=== PATIENT | female | born 1950 | race Caucasian/White ===

== ENCOUNTER 2016-10-13 08:42 | Inpatient (IN) | payer OTHER ==
[~2016-10-13 08:42] MED LIST: LIDOCAINE HCL 1%, 10 MG/ML (20ML VIAL) IJ ONE
[2016-10-13 08:59] VITALS: BMI 41.5
--- NOTE | 2016-10-13 09:57 | PDOC ---
History of Present Illness - General Chief Complaint: Revisit, Lab Variance Stated Complaint: PCP SENT (DIALYSIS) Time Seen by Provider: 10/13/16 09:06 History Source: Patient Exam Limitations: No Limitations - History of Present Illness Initial Comments: 10/13/16 09:51 HPI: This 66 year old female presents to ER for admission for emergent dialysis and access per her PMD, Bethany Lopez. She has had increase cr levels and fluid overload recently requiring HD. She is AAOx3 and pleaant with full understanding of why she is here. Chief Compliant:preop admission for emergent dialysis and access. PMH: IDDM, ARF, FH: Pt has not recently traveled outside the country in the last 30 days. Pt has not been in contact with people who have traveled out of the country, in contact with people who have been ill with fever, n, v, d. SH: smoking use: former illicit drug use: NONE alcohol use: NONE PSH: Home med use noted on OCT Allergies: nka Immunizations: PCP: Dr. De La Cruz Renal: Dr. Shivam Arreguin vascular 10/13/16 11:18 Past History - Past Medical History Allergies/Adverse Reactions: Allergies Allergy/AdvReac Type Severity Reaction Status Date / Time No Known Allergies Allergy Verified 10/13/16 08:59 Home Medications: Ambulatory Orders Aspirin [ASA -] 325 mg PO DAILY 06/06/13 Ezetimibe [Zetia] 10 mg PO HS 06/06/13 Glimepiride 10 mg PO DAILY 06/06/13 Levothyroxine [Synthroid -] 200 mcg PO DAILY 06/06/13 Metformin HCl [Glucophage -] 850 mg PO TID 06/06/13 Anemia: No Asthma: No Cancer: Yes (LEFT BREAST 2001) Cardiac Disorders: No CVA: No COPD: No CHF: No Dementia: No Diabetes: Yes (2001) GI Disorders: No Disorders: No HTN: No Hypercholesterolemia: Yes Liver Disease: No Seizures: No Thyroid Disease: Yes - Surgical History Abdominal Surgery: No Appendectomy: No Cardiac Surgery: No Cholecystectomy: No Lung Surgery: No Neurologic Surgery: No Orthopedic Surgery: No - Psycho/Social/Smoking Cessation Hx Suicidal Ideation: No Smoking History: Former smoker Have you smoked in the past 12 months: No Number of Cigarettes Smoked Daily: 70 If you are a former smoker, when did you quit?: 2010 Information on smoking cessation initiated: No Hx Alcohol Use: No Drug/Substance Use Hx: No Substance Use Type: None Review of Systems - Review of Systems Able to Perform ROS?: Yes Comments:: 10/13/16 09:55 General statement: "here for dialysis" Hematology: neg history of bleeding/blood thinners Skin: Neg for lesions, rash, bruising. HEENT: Neg symptoms Respiratory: Neg SOB or difficulty in breathing Cardiac: Neg chest pain GI: Neg pain, n/v : Neg problems on voiding MS: Neg for joint pain/stiffness, + LE edema Neuro: Neg for LOC, weakness, Endocrine: Neg for excess thirst/hunger, cold/heat intolerance, excess sweating Allergies: Neg for allergies *Physical Exam - Vital Signs Last Vital Signs Temp Pulse Resp BP Pulse Ox 97.8 F 60 20 153/64 96 10/13/16 08:55 10/13/16 08:55 10/13/16 08:55 10/13/16 08:55 10/13/16 08:55 - Physical Exam Comments: 10/13/16 09:55 General Appearance: This well appearing obese white female ambulatory on own V/S: hemodynamically stable, afebrile Skin: WNL of pt's skin color, no signs of pallor, mottling, cyanosis Head:symmetrical Eyes: EOM's intact, PERRLA Ears: denies pain Nose: patent Throat: lips, teeth, gums, tongue, buccal mucos pink and moist Lungs: Chest symmetry equal. Cap refill <3 seconds. Lung sounds clear Cardiac: PMI at R 4MCL space, pos S1 and S2, regular rate at 54 . Abdomen: Soft, round, nontender : Not observed Muscularskeletal: Gait steady, ambulated in to ER, no edema +PMS Neuro: AAOx3, cognitively intact, speech clear and appropriate. 10/13/16 09:58 Heart Score/ECG Review - Electrocardiogram EKG: Normal - Age Age: >/= 65 - Risk Factors Risk Factors Heart Score: Yes Hx Obesity Based on the list above the patient has:: 1-2 risk factors - ECG Intrepretation Rhythm: Regular Rhythm - P and MO Prominent R with upright T in V1 (true posterior NC): No - ST and T Early Repolarization: No Non Specific ST-T Wave changes: No Flattened T Waves: No Prolonged Q-T Interval: No - ECG Impressions Ischemic Changes: No Bradycardia: Yes (rate 54) Torsades lyndsey Pointes: No WPW: No ED Treatment Course - LABORATORY CBC & Chemistry Diagram: 10/13/16 09:45 10/13/16 09:45 - RADIOLOGY Radiology Studies Ordered: Category Date Time Status CHEST PA & LAT [RAD] Stat Radiology 10/13/16 09:22 Ordered Medical Decision Making - Medical Decision Making 10/13/16 09:55 A/P 66 year old obese white female with emergent need of dialysis and requiring access. 1. Dr. Arreguin in ER who is aware of pt and spoke with pt while here. 2. NPO for surgical access for dialysis today 3. Pre op labs ordered 4. EKG: SB rate 54, no ectopy 5. CXR 10/13/16 11:[address] Wray, renal regarding pt need for HD. He is aware of pending admission. Spoke with hospitalist re: admission. Med surg admission *DC/Admit/Observation/Transfer Diagnosis at time of Disposition: Acute renal failure, Admission for dialysis and dialysis catheter care - Discharge Dispostion Condition at time of disposition: Stable Admit: Yes
[2016-10-13 10:13] LABS: BASOPHIL 1.1 % (0-2.0); MCH 29.9 pg (25.7-33.7); MCHC 32.4 g/dl (32.0-36.0); MEAN CELL VOLUME 92.3 fl (80-96); MEAN PLT VOLUME 8.7 fl (7.5-11.1); NEUTROPHILS 76.8 % (42.8-82.8); PLATELET COUNT 377 K/MM3 (134-434); RDW 15.6 % (11.6-15.6); WHITE BLOOD COUNT 13.2 K/mm3 (4.0-10.0)
[2016-10-13 10:18] LABS: ALBUMIN 3.1 g/dl (3.4-5.0); BILIRUBIN,TOTAL 0.3 mg/dL (0.2-1.0); CALCIUM 8.7 mg/dL (8.5-10.1); CREATININE 5.6 mg/dL (0.55-1.02); TOT PROT 6.6 g/dl (6.4-8.2)
[2016-10-13 10:33] LABS: URINE APPEARANCE CLOUDY; URINE BILIRUBIN NEGATIVE (NEGATIVE); URINE BLOOD NEGATIVE (NEGATIVE); URINE COLOR YELLOW; URINE GLUCOSE (UA) 1+ (NEGATIVE); URINE KETONE NEGATIVE (NEGATIVE); URINE NITRITE NEGATIVE (NEGATIVE); URINE UROBILINOGEN NEGATIVE E.U./dl (0.2-1.0)
[2016-10-13 10:34] LABS: INR 1.09 (0.82-1.09)
[2016-10-13 10:37] LABS: ACTIVATED PTT 34.8 SECONDS (26.9-34.4)
--- NOTE | 2016-10-13 10:56 | CONSULT ---
Consult - text type - Consultation Consultation Note: Renal Consult for CKD Stage 5 with volume overload This is a 66 year old woman with PMhx of Breast Ca s/p lumpectomy and chemo, Insulin Dependent DM, Hypertension, Obesity who was sent into the ED by Dr. Bethany Santos for advanced CKD with volume overload for dialysis initiation. Mrs. Lantigua reports +CARDONA, Le edema and orthopnea. No chest pain. No N/V/D. + Weakness and mild lethargy. No flank pain. No Hx of kidney stones, or frequent UTI's. No Abd pain. + Infrequent NSAID use. No recent contrast exposure. The benefits and risks of dialysis has been explained to the patient and she is agreeable to start. PMhx: as above Allergies: NKDA Family Hx: NC Social Hx: Former smoker ROS: as per HPI, all other pertinent ros negative Home Meds: Home Medications Medication Instructions Recorded Aspirin [ASA -] 325 mg PO DAILY 06/06/13 Ezetimibe [Zetia] 10 mg PO HS 06/06/13 Glimepiride 10 mg PO DAILY 06/06/13 Levothyroxine [Synthroid -] 200 mcg PO DAILY 06/06/13 Metformin HCl [Glucophage -] 850 mg PO TID 06/06/13 Vital Signs Temperature 97.8 F 10/13/16 08:55 Pulse Rate 60 10/13/16 08:55 Respiratory Rate 20 10/13/16 08:55 Blood Pressure 153/64 10/13/16 08:55 O2 Sat by Pulse Oximetry (%) 96 10/13/16 08:55 Gen: NAD, awake and alert HEENT: NC/AT, MMM, No JVD CVS: RRR, No M/R Lungs: CTA, no rales or wheeze Abd: soft NT/ND Ext: No edema, clubbing or cyanosis : No bladder distension Neuro: AAOx3, no focal defects CBC, BMP 10/13/16 09:45 Laboratory Tests 10/13/16 09:45 Sodium Pending Potassium Pending Chloride Pending Carbon Dioxide Pending Anion Gap Pending BUN Pending Creatinine Pending Albumin Pending A/P 66 year old woman with PMhx of Breast Ca s/p lumpectomy and chemo, Insulin Dependent DM, Hypertension, Obesity who was sent into the ED by Dr. Bethany Santos for advanced CKD with volume overload for dialysis initiation. #CKD stage 5 with fluid overload -> ESRD Will plan to start dialysis today AVF and Tunneled HD catheter placement as per Vascular Sx Will plan for initial HD today and then 2nd Hd treatment tomorrow Dose all meds for intermittent HD CXR, Hepatits profile Case management referral for HD unit placement Nutrition eval for CKD/ESRD diet education #Volume Overload/CHF Will UF as tolerated with HD Continue Lasix Daily #CKD Related Anemia Hgb > 10 No acute indication for MATI at this time #IDDM Continue Insulin Thank you Will follow Jose Carlos Wray DO
[2016-10-13] MEDS ORDERED: ACETAMINOPHEN 325 MG TABLET (FP) PO PRN ×2 (10:57→13:33)
[2016-10-13] MEDS ORDERED: ONDANSETRON 4 MG/2 ML VIAL IVPB PRN ×2 (10:57→13:33)
--- NOTE | 2016-10-13 10:57 | HP ---
CHIEF COMPLAINT: PCP: Dr. Pearson HISTORY OF PRESENT ILLNESS: This is a 66 year old woman with history of breast ca s/p lumpectomy and chemotherapy, IDDM, and HTN referred to the ED by Dr. Bethany Santos for advanced CKD with volume overload for emergent dialysis. The patient complains of orthopnea, worsening lower extremity edema, dyspnea at rest which is worse on exertion, weakness, and fatigue. ER course was notable for: (1) HCO3 18 (2) BUN/Cr 85/5.6 (3) K 5.1 (4) CXR: congestive changes (5) UA: 74 WBCs, 22 RBCs (6) WBC 13.2 Recent Travel: None Social History: Lives alone, retired telephone company worker Smoking: Former smoker Alcohol: None Family History: Non-contributory to this admission Allergies No Known Allergies Allergy (Verified 10/13/16 08:59) HOME MEDICATIONS: Home Medications Medication Instructions Recorded Aspirin [ASA -] 325 mg PO DAILY 06/06/13 Ezetimibe [Zetia] 10 mg PO HS 06/06/13 Glimepiride 10 mg PO DAILY 06/06/13 Levothyroxine [Synthroid -] 200 mcg PO DAILY 06/06/13 Metformin HCl [Glucophage -] 850 mg PO TID 06/06/13 REVIEW OF SYSTEMS CONSTITUTIONAL: Generalized weakness, malaise Absent: fever, chills, diaphoresis HEENT: Absent: rhinorrhea, nasal congestion, throat pain, throat swelling, difficulty swallowing, mouth swelling, ear pain, eye pain, visual changes CARDIOVASCULAR: Progressive LE edema Absent: chest pain, syncope, palpitations, irregular heart rate, lightheadedness RESPIRATORY: Shortness of breath at rest, worse with exertion. Orthopnea. Absent: cough, wheezing, stridor, hemoptysis GASTROINTESTINAL: Absent: abdominal pain, abdominal distension, nausea, vomiting, diarrhea, constipation, melena, hematochezia GENITOURINARY: Absent: dysuria, frequency, urgency, hesitancy, hematuria, flank pain, genital pain MUSCULOSKELETAL: Absent: myalgia, arthralgia, joint swelling, back pain, neck pain SKIN: Absent: rash, itching, pallor HEMATOLOGIC/IMMUNOLOGIC: Absent: easy bleeding, easy bruising, lymphadenopathy, frequent infections ENDOCRINE: Absent: unexplained weight gain, unexplained weight loss, heat intolerance, cold intolerance NEUROLOGIC: Absent: headache, focal weakness or paresthesias, dizziness, unsteady gait, seizure, mental status changes, bladder or bowel incontinence PSYCHIATRIC: Absent: anxiety, depression, suicidal or homicidal ideation, hallucinations. PHYSICAL EXAMINATION Vital Signs - 24 hr 10/13/16 08:55 Temperature 97.8 F Pulse Rate 60 Respiratory 20 Rate Blood Pressure 153/64 O2 Sat by Pulse 96 Oximetry (%) GENERAL: Awake, alert, and fully oriented, in no acute distress. HEAD: Normal with no signs of trauma. EYES: Pupils equal, round and reactive to light, extraocular movements intact, sclera anicteric, conjunctiva clear. No lid lag. EARS, NOSE, THROAT: Ears normal, nares patent, oropharynx clear without exudates. Moist mucous membranes. NECK: Normal range of motion, supple without lymphadenopathy, JVD, or masses. LUNGS: Fine rales at bases. No accessory muscle use. HEART: Regular rate and rhythm, normal S1 and S2 without murmur, rub or gallop. ABDOMEN: Soft, nontender, not distended, normoactive bowel sounds, no guarding, no rebound, no masses. No hepatomegaly or splenomegaly. MUSCULOSKELETAL: Normal range of motion at all joints. No bony deformities or tenderness. No CVA tenderness. UPPER EXTREMITIES: 2+ pulses, warm, well-perfused. No cyanosis. No clubbing. Cap refill <2 seconds. No peripheral edema. LOWER EXTREMITIES: 2+ pulses, warm, well-perfused. No calf tenderness. 3+ LE edema bilaterally. NEUROLOGICAL: Cranial nerves II-XII intact. Normal speech. Normal gait. PSYCHIATRIC: Cooperative. Good eye contact. Appropriate mood and affect. SKIN: Warm, dry, normal turgor, no rashes or lesions noted. Laboratory Results - last 24 hr 10/13/16 10/13/16 10/13/16 09:22 09:45 09:45 WBC 13.2 H RBC 3.76 Hgb 11.2 Hct 34.7 MCV 92.3 MCHC 32.4 RDW 15.6 Plt Count 377 MPV 8.7 Neutrophils % 76.8 Lymphocytes % 11.6 Monocytes % 7.5 Eosinophils % 3.0 Basophils % 1.1 Sodium 139 Potassium 5.1 Chloride 107 Carbon Dioxide 18 L Anion Gap 14 BUN 85 H Creatinine 5.6 H Creat Clearance w eGFR 7.55 Random Glucose 104 Calcium 8.7 Total Bilirubin 0.3 AST 14 L ALT 18 Alkaline Phosphatase 67 Total Protein 6.6 Albumin 3.1 L Blood Type A POSITIVE Antibody Screen Negative ASSESSMENT/PLAN: 66 year old female with advanced CKD and volume overload, admitted for Shiley placement and emergent HD. Problem List - Problem (1) Acute renal failure Assessment/Plan: -Volume overload; emergent HD indicated -Check Hep panel -Renal diet -Avoid nephrotoxins as able (unclear what indication for full dose ASA is; will continue 81mg daily) -Nephrology following Code(s): N17.9 - ACUTE KIDNEY FAILURE, UNSPECIFIED (2) Admission for dialysis and dialysis catheter care Assessment/Plan: -For Shiley insertion this morning Code(s): Z99.2 - DEPENDENCE ON RENAL DIALYSIS (3) Diabetes Assessment/Plan: -Hold oral hypoglycemics while inpatient -ISS -FSACHS -Diabetic/renal diet Code(s): E11.9 - TYPE 2 DIABETES MELLITUS WITHOUT COMPLICATIONS (4) Hypertension Assessment/Plan: -Above goal -Patient takes Atenolol at home but is unsure of the dose; start 25mg daily -Re-evaluate after HD Code(s): I10 - ESSENTIAL (PRIMARY) HYPERTENSION (5) DVT prophylaxis Assessment/Plan: -Ambulation -Sqh 5000 units tid starting 10/14 after Shiley insertion Code(s): [id number] - Visit type - Emergency Visit Emergency Visit: Yes ED Registration Date: 10/13/16 Care time: The patient presented to the Emergency Department on the above date and was hospitalized for further evaluation of their emergent condition. - New Patient This patient is new to me today: Yes Date on this admission: 10/13/16 - Critical Care Critical Care patient: No
[2016-10-13 11:14] LABS: URINE LEUK ESTERASE 3+ (NEGATIVE); URINE PROTEIN 3+ (NEGATIVE)
[2016-10-13 11:23] LABS: URINE BACTERIA RARE /hpf (NONE SEEN); URINE HYALINE CAST 2 /lpf; URINE RBC 22 /hpf (0-3); URINE WBC 74 /hpf (3-5)
[2016-10-13] MEDS ORDERED: CEFTRIAXONE 1 GM in DEXTROSE 5%-WATER - 50 ML IVPB SCH (11:30)
[2016-10-13] MEDS ORDERED: CEFTRIAXONE 50 ML ONE (11:41)
--- NOTE | 2016-10-13 11:52 | CONSULT ---
- Consultation REQUESTING PROVIDER: Dr. Arreguin, vascular surgery CONSULT REQUEST: We have been asked to surgically evaluate this patient for ESRD , permacath placement. PCP: Dr. Bethany Goins HISTORY OF PRESENT ILLNESS:The patient was seen and examined with Dr. Arreguin today. The patient states that she has had kidney function problems which have been ongoing. Her medical doctors have been following her and then it was determined that she needed to have temporary HD access to start dialysis. She complains of worsening lower ext swelling despite being on lasix and an increase in her difficulty to breath. PMHx: breast cancer(treament lumpectomy and chemo/radiation), diabetes, SVT PSHx: Left breast lumpectomy 2001, tonsillectomy at 5, tubal ligation age 28 Home Medications Medication Instructions Recorded Aspirin [ASA -] 325 mg PO DAILY 06/06/13 Ezetimibe [Zetia] 10 mg PO HS 06/06/13 Glimepiride 10 mg PO DAILY 06/06/13 Levothyroxine [Synthroid -] 200 mcg PO DAILY 06/06/13 Metformin HCl [Glucophage -] 850 mg PO TID 06/06/13 Allergies Allergy/AdvReac Type Severity Reaction Status Date / Time No Known Allergies Allergy Verified 10/13/16 08:59 REVIEW OF SYSTEMS: CONSTITUTIONAL: Absent: fever, chills CARDIOVASCULAR: Absent: chest pain, syncope h/o CP with SVT(found when placed on portable 24 monitoring) RESPIRATORY: Absent: cough Present: SOB, left breast with healed scar GASTROINTESTINAL: Absent: abdominal pain, abdominal distension, GENITOURINARY: Absent: dysuria, hematuria(in the past) MUSCULOSKELETAL: Absent: joint swelling Present: diffuse joint pain, intermittent and no known injuries SKIN: Absent: rash, itching, pallor HEMATOLOGIC/IMMUNOLOGIC: Absent: easy bleeding, easy bruising, lymphadenopathy NEUROLOGIC: Absent: focal weakness Present: gait-walks with cane PHYSICAL EXAM: GENERAL: Awake, alert, and fully oriented, in no acute distress. HEAD: Normal with no signs of trauma. EYES: PERRL, sclera anicteric, conjunctiva clear. NECK: Normal ROM, supple without lymphadenopathy, JVD, or masses. LUNGS: Clear to auscultation bilat anteriorly. No wheezes, and no crackles. No accessory muscle use. HEART: Regular rate and rhythm. No murmurs ABDOMEN: Soft, nontender, not distended, normoactive bowel sounds, no guarding, no rebound, no masses. MUSCULOSKELETAL: Normal ROM at all joints. No bony deformities or tenderness. No CVA tenderness. UPPER EXTREMITIES: 2+ pulses, warm, well-perfused. No cyanosis. Cap refill <2 seconds. No peripheral edema. LOWER EXTREMITIES: 2+ pulses, warm, well-perfused. No calf tenderness. +3 pitting b/l LE edema. NEUROLOGICAL: Normal speech, gait stead with cane use. PSYCH: Cooperative. Good eye contact. Appropriate mood and affect. SKIN: Warm, dry, normal turgor, no rashes or lesions noted. Vital Signs Temperature 97.8 F 10/13/16 08:55 Pulse Rate 60 10/13/16 08:55 Respiratory Rate 20 10/13/16 08:55 Blood Pressure 153/64 10/13/16 08:55 O2 Sat by Pulse Oximetry (%) 96 10/13/16 08:55 Lab Results WBC 13.2 K/mm3 (4.0-10.0) H 10/13/16 09:45 RBC 3.76 M/mm3 (3.60-5.2) 10/13/16 09:45 Hgb 11.2 GM/dL (10.7-15.3) 10/13/16 09:45 Hct 34.7 % (32.4-45.2) 10/13/16 09:45 MCV 92.3 fl (80-96) 10/13/16 09:45 MCHC 32.4 g/dl (32.0-36.0) 10/13/16 09:45 RDW 15.6 % (11.6-15.6) 10/13/16 09:45 Plt Count 377 K/MM3 (134-434) 10/13/16 09:45 Sodium 139 mmol/L (136-145) 10/13/16 09:45 Potassium 5.1 mmol/L (3.5-5.1) 10/13/16 09:45 Chloride 107 mmol/L (98-107) 10/13/16 09:45 Carbon Dioxide 18 mmol/L (21-32) L 10/13/16 09:45 Anion Gap 14 (8-16) 10/13/16 09:45 BUN 85 mg/dL (7-18) H 10/13/16 09:45 Creatinine 5.6 mg/dL (0.55-1.02) H 10/13/16 09:45 Random Glucose 104 mg/dL (74-106) 10/13/16 09:45 Calcium 8.7 mg/dL (8.5-10.1) 10/13/16 09:45 Blood Type A POSITIVE 10/13/16 09:22 Antibody Screen Negative 10/13/16 09:22 INR 1.09 (0.82-1.09) 10/13/16 09:45 INR, PTT INR 1.09 (0.82-1.09) 10/13/16 09:45 cxr- cardiomegaly with increased interstitial marking. Problem List - Problems (1) Admission for dialysis and dialysis catheter care Assessment/Plan: pt with ESRD for permatcath placement today. She remains npo since this am, took her cardiac meds at 5 am Consent explained and obtained today with Dr. Arreguin in the ER Pre-op evaluation being completed and the patient is being admitted to the medical service She is right hand dominant, will order US of MOHSEN for vein mapping. Please no blood pressure/blood draw to left arm. Code(s): Z99.2 - DEPENDENCE ON RENAL DIALYSIS Visit type - Case Type Case Type: ED Admission - Emergency Emergency Visit: Yes Care time: The patient presented to the Emergency Department on the above date and was hospitalized for further evaluation of their emergent condition. - New patient This patient is new to me today: Yes Date on this admission: 10/13/16 - Critical Care Critical Care patient: No
[2016-10-13] MEDS ORDERED: CEFTRIAXONE 50 ML IVPB SCH (11:53)
[2016-10-13] MEDS ORDERED: MIDAZOLAM HCL 2 MG/2 ML SINGLE DOSE VIAL ONE (12:24)
[2016-10-13] MEDS ORDERED: PROPOFOL 20 ML ONE (12:40)
[2016-10-13] MEDS ORDERED: LIDOCAINE HCL 1%, 10 MG/ML (20ML VIAL) IJ ONE ×2 (12:43)
[2016-10-13] MEDS ORDERED: ceFAZolin SODIUM 1 GM VIAL ONE (12:43)
[2016-10-13] MEDS ORDERED: ONDANSETRON 4 MG/2 ML VIAL IVPUSH PRN ×2 (13:07→13:33)
--- NOTE | 2016-10-13 13:10 | OP ---
Operative Note - Note: Operative Date: 10/13/16 Pre-Operative Diagnosis: Acute renal failure Operation: Insertion of permacath Post-Operative Diagnosis: Same as Pre-op Surgeon: Johnny Arreguin Anesthesia: Fractional Estimated Blood Loss (mls): 10 Operative Report Dictated: Yes
[2016-10-13] MEDS ORDERED: DOCUSATE SODIUM 100 MG CAPSULE (FP) PO SCH (14:00)
--- NOTE | 2016-10-13 16:10 | EKG ---
Test Reason : Blood Pressure : / mmHG Vent. Rate : 054 BPM Atrial Rate : 054 BPM P-R Int : 174 ms QRS Dur : 080 ms QT Int : 470 ms P-R-T Axes : 029 -17 069 degrees QTc Int : 445 ms SINUS BRADYCARDIA MINIMAL VOLTAGE CRITERIA FOR LVH, MAY BE NORMAL VARIANT WHEN COMPARED WITH ECG OF 22-NOV-2001 09:37, VENT. RATE HAS DECREASED Confirmed by YAN CARDOSO, OLYA ([id number]) on 10/13/2016 4:10:35 PM Referred By: Confirmed By:OLYA HEREDIA MD
[2016-10-13] MEDS ORDERED: INSULIN SLIDING SCALE (NOVOLOG) 1 VIAL SQ SCH (16:30)
--- NOTE | 2016-10-13 17:14 | PN ---
Progress Note (short form) - Note Progress Note: The patient seen on HD. Tolerates well. BP stable. Permacath working well. Trying to schedule for AVF tomorrow. Arrangements for Outpatient Hd in [progress at [facility], [place], operated by [facility].
[2016-10-13] MEDS: INSULIN SLIDING SCALE (NOVOLOG) 1 VIAL SQ SCH ×2 (17:42→21:06)
[2016-10-13] MEDS: DOCUSATE SODIUM 100 MG CAPSULE (FP) PO SCH ×2 (17:42→21:06)
--- NOTE | 2016-10-13 18:34 | OP ---
DATE OF OPERATION: 10/13/2016 PREOPERATIVE DIAGNOSIS: Acute renal failure. POSTOPERATIVE DIAGNOSIS: Acute renal failure. PROCEDURE: Insertion of PermCath. SURGEON: Johnny Pabon D.O. ANESTHESIA: Fractional. BLOOD LOSS: 10 mL. INDICATION: The patient is a patient who comes into the ER today, sent by her bias binding folder for [id number] renal failure. It was thought that she would need a PermCath insertion. Patient was consented for the procedure understanding all risks, benefits, and alternatives and then taken to the operating room. DESCRIPTION OF PROCEDURE: Once in the operating room, patient was laid on the operating table in a supine manner, and the area of the right neck and chest prepped and draped in a sterile surgical manner. Then under ultrasound guidance, we visualized the right internal jugular vein and 10 mL of lidocaine 1% was injected there. We then took our Micropuncture needle and punctured the right internal jugular vein under ultrasound guidance. A Micropuncture wire was inserted under fluoroscopy we inserted our micropuncture sheath and then inserted a 0.035 floppy guidewire under fluoroscopy. We then injected 10 mL of lidocaine 1% below the clavicle. Using a number 11 blade was made a 1-cm incision at the puncture site. Using a 15 blade, we made a 1-cm incision in the clavicle. We then tunneled the PermCath up to the puncture site. We then ahead and placed our breakaway sheath over the guidewire into the vein under fluoroscopy. Inner cannula and guidewire were removed. Catheter was placed inside the sheath. The sheath was broken away as the catheter was placed inside the vein. Neck of the catheter was then tip of the catheter was located outside the right atrium. We cruzito back on each port of the catheter. There was good flow. Heparinized saline was injected and 2000 units of IV heparin were injected into each port. We then went ahead and used a 4-0 Biosyn stitch and 2 simple stitches were placed at the puncture site. 2-0 nylon was used to attach the catheter to the skin. Biopatch, Steri-Strips, 4x4s, Tegaderm was then placed. The patient tolerated the procedure without complications. Patient was transferred to PACU in stable condition where chest x-ray will be obtained. JOHNNY PABON DO [id number]
[2016-10-13] MEDS ORDERED: PT OWN MED DRAWER 7, Y5N ONE (20:55)
[2016-10-13] MEDS ORDERED: INSULIN (NOVOLOG) ASPART 100 UNITS/ML 10ML VIAL ONE (21:08)
[2016-10-13] MEDS ORDERED: EZETIMIBE 10 MG TABLET (FP) PO SCH ×2 (22:00)
[2016-10-14] MEDS ORDERED: PT OWN MED DRAWER 7, Y5N ONE (05:45)
[2016-10-14] MEDS ORDERED: HEPARIN NA (PORCINE) 5,000 UNITS/ML 1ML VIAL SQ SCH ×2 (06:00→22:00)
[2016-10-14] MEDS: DOCUSATE SODIUM 100 MG CAPSULE (FP) PO SCH ×2 (06:02→14:40)
[2016-10-14] MEDS: INSULIN SLIDING SCALE (NOVOLOG) 1 VIAL SQ SCH ×2 (06:03→11:46)
[2016-10-14] MEDS: HEPARIN NA (PORCINE) 5,000 UNITS/ML 1ML VIAL SQ SCH ×2 (06:03→14:41)
[2016-10-14] MEDS ORDERED: LEVOTHYROXINE NA 200 MCG TABLET PO SCH ×2 (07:00)
[2016-10-14] MEDS ORDERED: LEVOTHYROXINE NA 100 MCG TABLET (FP) PO SCH (07:00)
[2016-10-14 08:22] LABS: BASOPHIL 1.1 % (0-2.0); EOSINOPHIL 3.1 % (0-4.5); MCH 30.1 pg (25.7-33.7); MEAN CELL VOLUME 91.3 fl (80-96); MEAN PLT VOLUME 8.2 fl (7.5-11.1); NEUTROPHILS 74.2 % (42.8-82.8); PLATELET COUNT 333 K/MM3 (134-434); RDW 15.7 % (11.6-15.6); WHITE BLOOD COUNT 8.9 K/mm3 (4.0-10.0)
--- NOTE | 2016-10-14 08:34 | PN ---
Progress Note (short form) - Note Progress Note: Pt states that she is npo and wishes to have her Left UE fistula today. She received two hours of HD treatment via a R IJ permacath yesterday. Vital Signs Period Temp Pulse Resp BP Sys/Aguirre Pulse Ox Last 24 Hr 97.6 F-98.3 F 52-73 14-20 150-183/57-115 94-99 R IJ : mild bruising at insertion site, no hematoma or active bleeding. CBC, BMP 10/14/16 07:00 BMP: pending Problem List - Problems (1) Admission for dialysis and dialysis catheter care Assessment/Plan: ESRD on HD, spoke with Dr. Nils Branch this am and the patient will receive HD this am, called for the patient now I booked the case for a LUE AVF for after HD, confirmed with Dr. Arreguin The pateint remains npo and aggress for surgery today S/w with discharge planning to assist in HD placement at outside facility is arranged. She states that she has already been looking at places with her PMD, please finialize arrangements. Code(s): Z99.2 - DEPENDENCE ON RENAL DIALYSIS
[2016-10-14 08:54] LABS: CALCIUM 8.1 mg/dL (8.5-10.1)
[2016-10-14 09:01] LABS: ALBUMIN 2.8 g/dl (3.4-5.0); BILIRUBIN,TOTAL 0.4 mg/dL (0.2-1.0); CREATININE 4.5 mg/dL (0.55-1.02); MAGNESIUM 2.2 mg/dL (1.8-2.4); PHOSPHOROUS 5.3 mg/dL (2.5-4.9); TOT PROT 6.2 g/dl (6.4-8.2)
[2016-10-14] MEDS ORDERED: ASPIRIN 81 MG CHEWABLE TABLETS PO SCH ×2 (10:00)
[2016-10-14] MEDS ORDERED: ATENOLOL 25 MG TABLET (FP) PO SCH (10:00)
[2016-10-14] MEDS ORDERED: ASPIRIN 325 MG TABLET PO SCH (10:00)
--- NOTE | 2016-10-14 10:06 | PN ---
Progress Note (short form) - Note Progress Note: Renal Follow up for CKD -> ESRD on Hd Pt seen and examined during dialysis BP high 190/89, Goal UF is 1.5L as tolerated pt without complaints no sob or chest pain Vital Signs Temperature 97.9 F 10/14/16 08:55 Pulse Rate 60 10/14/16 10:00 Respiratory Rate 18 10/14/16 10:00 Blood Pressure 196/78 10/14/16 10:00 O2 Sat by Pulse Oximetry (%) 98 10/13/16 21:00 Intake & Output 10/11/16 10/12/16 10/13/16 10/14/16 23:59 23:59 23:59 23:59 Intake Total 550 Output Total 10 Balance 540 Weight 242 lb 240 lb Gen: NAD, awake and alert CVS: RRR, No M/R Lungs: CTA, no rales or wheeze Abd: soft NT/ND Ext: 2+ edema in LE CBC, BMP 10/14/16 07:00 10/14/16 07:00 Current Medications Acetaminophen (Tylenol -) 650 mg PO Q4H PRN PRN Reason: FEVER OR PAIN Aspirin (Asa -) 81 mg PO DAILY [facility] Atenolol (Tenormin -) 25 mg PO DAILY [facility] Last Admin: 10/14/16 09:52 Dose: 25 mg Docusate Sodium (Colace -) 100 mg PO TID [facility] Last Admin: 10/14/16 06:02 Dose: 100 mg Ezetimibe (Zetia -) 10 mg PO HS [facility] Last Admin: 10/13/16 21:07 Dose: Not Given Fentanyl (Sublimaze Injection -) 25 mcg IVPUSH [id number] PRN PRN Reason: PAIN Stop: 10/16/16 13:08 Heparin Sodium (Porcine) (Heparin -) 5,000 unit SQ TID [facility] Last Admin: 10/14/16 06:03 Dose: Not Given Ceftriaxone Sodium (Rocephin 1gm Ivpb (Pre-Docked)) 50 mls @ 100 mls/hr IVPB DAILY [facility] Insulin Aspart (Novolog Vial Sliding Scale -) 1 vial SQ ACHS [facility] PRN Reason: Protocol Last Admin: 10/14/16 06:03 Dose: Not Given Levothyroxine Sodium (Synthroid -) 200 mcg PO DAILY@0700 [facility] Last Admin: 10/14/16 06:02 Dose: 200 mcg Ondansetron HCl (Zofran Injection) 4 mg IVPB Q6H PRN PRN Reason: NAUSEA A/P 66 year old woman with PMhx of Breast Ca s/p lumpectomy and chemo, Insulin Dependent DM, Hypertension, Obesity who was sent into the ED by Dr. Bethany Santos for advanced CKD with volume overload for dialysis initiation. #CKD stage 5 with fluid overload -> ESRD Currently getting second HD session as inpatient Tolerating it well outpatient HD unit placement pending FOr AVF creation today #Hypertension Continue Atenolol Start Losartan 25mg Daily #Volume Overload/CHF Will UF as tolerated with HD Continue Lasix Daily #CKD Related Anemia Hgb > 10 No acute indication for MATI at this time #IDDM Continue Insulin Discharge planning after AVF creation Jose Carlos Wray DO
[2016-10-14] MEDS: CEFTRIAXONE 50 ML IVPB SCH ×2 (11:44→11:56)
[2016-10-14] MEDS: LOSARTAN POTASSIUM 25 MG TABLET PO SCH ×2 (11:46→11:55)
--- NOTE | 2016-10-14 12:52 | PN ---
Physical Exam: SUBJECTIVE: Patient seen and examined at bedside in AM. Pt states she feels improved after dialysis yesterday. SOB is improved. SHe denies CP, SOB, abd pain , N/V/F/C. Pt is eager to go home and is awaiting AVF placement. Had permacath placed yesterday and had first time dialysis yesterday. OBJECTIVE: Vital Signs Temperature 97.9 F 10/14/16 08:55 Pulse Rate 58 L 10/14/16 11:35 Respiratory Rate 18 10/14/16 11:35 Blood Pressure 161/71 10/14/16 11:35 O2 Sat by Pulse Oximetry (%) 98 10/13/16 21:00 GENERAL: The patient is awake, alert, and fully oriented, in no acute distress. HEAD: Normal with no signs of trauma. EYES: PERRL, extraocular movements intact, sclera anicteric, conjunctiva clear. No ptosis. ENT: Ears normal, nares patent, oropharynx clear without exudates, moist mucous membranes. NECK: Trachea midline, full range of motion, supple. LUNGS: Breath sounds equal, clear to auscultation bilaterally, no wheezes, no crackles, no accessory muscle use. HEART: Bradycardic, S1, S2 without murmur, rub or gallop. ABDOMEN: Soft, obese, nontender, nondistended, normoactive bowel sounds, no guarding, no rebound, no hepatosplenomegaly, no masses. EXTREMITIES: 2+ pulses, warm, well-perfused, no edema. NEUROLOGIC: Normal speech, gait not observed. PSYCH: Normal mood, normal affect. SKIN: Warm, dry, normal turgor, no rashes or lesions noted. R chest wall - permacath placed. Laboratory Results - last 24 hr 10/13/16 10/13/16 10/14/16 16:30 21:05 05:54 WBC RBC Hgb Hct MCV MCHC RDW Plt Count MPV Neutrophils % Lymphocytes % Monocytes % Eosinophils % Basophils % Sodium Potassium Chloride Carbon Dioxide Anion Gap BUN Creatinine Creat Clearance w eGFR POC Glucometer 187 162 Random Glucose Calcium Phosphorus Magnesium Total Bilirubin AST ALT Alkaline Phosphatase Total Protein Albumin Hepatitis C Antibody Cancelled 10/14/16 10/14/16 07:00 07:00 WBC 8.9 D RBC 3.56 L Hgb 10.7 Hct 32.5 MCV 91.3 MCHC 33.0 RDW 15.7 H Plt Count 333 MPV 8.2 Neutrophils % 74.2 Lymphocytes % 12.8 Monocytes % 8.8 Eosinophils % 3.1 Basophils % 1.1 Sodium 140 Potassium 4.3 Chloride 104 Carbon Dioxide 26 D Anion Gap 10 BUN 63 H D Creatinine 4.5 H Creat Clearance w eGFR 9.72 POC Glucometer Random Glucose 158 H D Calcium 8.1 L Phosphorus 5.3 H Magnesium 2.2 Total Bilirubin 0.4 D AST 8 L D ALT 12 D Alkaline Phosphatase 61 Total Protein 6.2 L Albumin 2.8 L Hepatitis C Antibody Active Medications Generic Name Dose Route Start Last Admin Trade Name Freq PRN Reason Stop Dose Admin Acetaminophen 650 mg 10/13/16 13:33 Tylenol - PO Q4H PRN FEVER OR PAIN Aspirin 81 mg 10/14/16 10:00 10/14/16 11:44 Asa - PO Not Given DAILY [facility] Atenolol 25 mg 10/14/16 10:00 10/14/16 09:52 Tenormin - PO 25 mg DAILY [facility] Administration Docusate Sodium 100 mg 10/13/16 14:00 10/14/16 06:02 Colace - PO 100 mg TID [facility] Administration Ezetimibe 10 mg 10/13/16 22:00 10/13/16 21:07 Zetia - PO Not Given HS [facility] Fentanyl 25 mcg 10/13/16 13:33 Sublimaze Injection - IVPUSH 10/16/16 13:08 [id number] PRN PAIN Heparin Sodium (Porcine) 5,000 unit 10/14/16 06:00 10/14/16 06:03 Heparin - SQ Not Given TID [facility] Ceftriaxone Sodium 50 mls @ 100 mls/hr 10/14/16 10:00 10/14/16 11:56 Rocephin 1gm Ivpb (Pre-Docked) IVPB 100 mls/hr DAILY [facility] Administration Insulin Aspart 1 vial 10/13/16 16:30 10/14/16 11:46 Novolog Vial Sliding Scale - SQ Not Given ACHS [facility] Protocol Levothyroxine Sodium 200 mcg 10/14/16 07:00 10/14/16 06:02 Synthroid - PO 200 mcg DAILY@0700 [facility] Administration Losartan Potassium 25 mg 10/14/16 10:15 10/14/16 11:55 Cozaar - PO 25 mg DAILY [facility] Administration Ondansetron HCl 4 mg 10/13/16 13:33 Zofran Injection IVPB Q6H PRN NAUSEA ASSESSMENT/PLAN: 66 y/o F w/PMH of breast ca s/p lumpectomy & chemo, IDDM, HTN, CKD presented to ER after being told to come into ER by Dr. Bethany Santos for volume overload/ necessity for emergent dialysis. Had permacath placed 10/13/16 and first time dialysis 10/13/16. Scheduled for AVF today. -TIFFANI on CKD stage 5 progressing to ESRD w/ need for dialysis -permacath placed 10/13/16, first time dialysis 10/13/16 -pt tolerated dialysis well -plan for AVF placement today -plan for dialysis today too -will need to have dialysis schedule set prior to d/c -HTN -c/w cozaar 25 mg po qd, atenolol 25 mg po qd -HLD -c/w ezetimibe 10 mg po qhs -CAD -c/w ASA 81 mg po qd -Hypothyroid -c/w synthroid 200 mcg po qd -IDDM -ISS, BGMs -DVT ppx -heparin tid -FEN -electrolytes wnl -npo for avf placement -Dispo: -can be discharged soon pending dialysis schedule confirmation Problem List - Problems (1) Acute renal failure Code(s): N17.9 - ACUTE KIDNEY FAILURE, UNSPECIFIED (2) Admission for dialysis and dialysis catheter care Code(s): Z99.2 - DEPENDENCE ON RENAL DIALYSIS (3) Diabetes Code(s): E11.9 - TYPE 2 DIABETES MELLITUS WITHOUT COMPLICATIONS (4) Hypertension Code(s): I10 - ESSENTIAL (PRIMARY) HYPERTENSION (5) HLD (hyperlipidemia) Code(s): E78.5 - HYPERLIPIDEMIA, UNSPECIFIED (6) IDDM (insulin dependent diabetes mellitus) Code(s): E11.9 - TYPE 2 DIABETES MELLITUS WITHOUT COMPLICATIONS Z79.4 - MCC (CURRENT) USE OF INSULIN Visit type - Emergency Visit Emergency Visit: Yes ED Registration Date: 10/13/16 Care time: The patient presented to the Emergency Department on the above date and was hospitalized for further evaluation of their emergent condition. - New Patient This patient is new to me today: Yes Date on this admission: 10/14/16 - Critical Care Critical Care patient: No
[2016-10-14] MEDS ORDERED: HEPARIN NA (PORCINE) 5,000 UNITS/ML 1ML VIAL ONE ×2 (13:13→14:45)
[2016-10-14] MEDS ORDERED: POVIDONE-IODINE OINTMENT 10% - 28.4 GM TUBE ONE (13:13)
[2016-10-14] MEDS ORDERED: LIDOCAINE HCL 1%, 10 MG/ML (20ML VIAL) ONE ×2 (13:13→14:35)
[2016-10-14] MEDS ORDERED: LIDOCAINE HCL 1%, 10 MG/ML (20ML VIAL) INF ONE (14:09)
[2016-10-14] MEDS ORDERED: LIDOCAINE HCL 1%, 10 MG/ML (20ML VIAL) IJ ONE ×2 (14:09)
[2016-10-14] MEDS ORDERED: MIDAZOLAM HCL 2 MG/2 ML SINGLE DOSE VIAL ONE ×2 (14:12→14:34)
[2016-10-14] MEDS ORDERED: PROPOFOL 20 ML ONE (14:18)
[2016-10-14] MEDS ORDERED: ceFAZolin SODIUM 1 GM VIAL IVPB ONE (14:20)
[2016-10-14] MEDS ORDERED: ceFAZolin SODIUM 1 GM VIAL ONE (14:22)
--- NOTE | 2016-10-14 14:32 | PN ---
Teaching Attending Note Name of Resident: Brady Arreguin ATTENDING PHYSICIAN STATEMENT I saw and evaluated the patient. I reviewed the resident's note and discussed the case with the resident. I agree with the resident's findings and plan as documented. SUBJECTIVE:currently asymptomatic. denies CP, SOB,fever, chills, N/V/C/D OBJECTIVE: Last Vital Signs Temp Pulse Resp BP Pulse Ox 97.9 F 58 L 18 161/71 98 10/14/16 08:55 10/14/16 11:35 10/14/16 11:35 10/14/16 11:35 10/14/16 09:00 Intake & Output 10/11/16 10/12/16 10/13/16 10/14/16 23:59 23:59 23:59 23:59 Intake Total 550 0 Output Total 10 Balance 540 0 Weight 242 lb 240 lb General NAD ASSESSMENT AND PLAN: 66yo F wtih PMH breast ca s/p lumpectomy, RTX and chemo, DM and CKD admitted for AV fistula creation and HD 1. CKD- started on HD yesterday. permacath placed. received 2nd session of HD today. plan for AV fistula formation. plan to continue HD per scheduled MWF and next session scheduled for this thursday (3days from now). will need to follow with neprhology 2, HTN- uncontrolled. started on ARB. monitor 3. d/c planning after fistula formation. scheduled HD on thursday with follow up. answered all questions. verbalized understanding and agrees with plan
--- NOTE | 2016-10-14 15:26 | OP ---
Operative Note - Note: Operative Date: 10/14/16 Pre-Operative Diagnosis: ESRD Operation: Creation of left cephalic vein fistula Post-Operative Diagnosis: Same as Pre-op Surgeon: Johnny Arreguin Anesthesia: Fractional Estimated Blood Loss (mls): 10 Operative Report Dictated: Yes
[2016-10-14] MEDS ORDERED: ONDANSETRON 4 MG/2 ML VIAL IVPUSH PRN (15:41)
[2016-10-14] MEDS ORDERED: oxyCODONE HCL 5 MG TABLET PO PRN (15:41)
--- NOTE | 2016-10-14 15:45 | SURG ---
Surgery Photo Manager Note Photo Manager: Brooklynn Casiano PA-C Date of Service: 10/14/16 Diagnosis: ESRD Procedure: left upper extremity arteriovenous fistula with cephalic vein I was present for the entirety of the operative procedure. For further detail, please refer to operative report. Visit type - Case Type Case Type: Scheduled Admission - Emergency Emergency Visit: Yes ED Registration Date: 10/13/16 Care time: The patient presented to the Emergency Department on the above date and was hospitalized for further evaluation of their emergent condition. - New patient This patient is new to me today: Yes Date on this admission: 10/14/16 - Critical Care Critical Care patient: No
[2016-10-14 16:00] VITALS: TEMP 98.3
[2016-10-14] MEDS ORDERED: ACETAMINOPHEN 325 MG TABLET (FP) PO PRN (16:08)
[2016-10-14] MEDS ORDERED: ONDANSETRON 4 MG/2 ML VIAL IVPB PRN (16:08)
[2016-10-14 16:15] VITALS: BP 169/54; PULSE 68
[2016-10-14] MEDS ORDERED: INSULIN SLIDING SCALE (NOVOLOG) 1 VIAL SQ SCH (16:30)
--- NOTE | 2016-10-14 17:05 | DS ---
Physical Exam: SUBJECTIVE: Patient seen and examined at bedside in AM. Pt states she feels improved after dialysis yesterday. SOB is improved. SHe denies CP, SOB, abd pain , N/V/F/C. Pt is eager to go home and is awaiting AVF placement. Had permacath placed yesterday and had first time dialysis yesterday. OBJECTIVE: Vital Signs Period Temp Pulse Resp BP Sys/Aguirre Pulse Ox Last 24 Hr 97.9 F-98.5 F 54-68 16-18 150-197/54-115 97-99 PHYSICAL EXAM GENERAL: The patient is awake, alert, and fully oriented, in no acute distress. HEAD: Normal with no signs of trauma. EYES: PERRL, extraocular movements intact, sclera anicteric, conjunctiva clear. ENT: Ears normal, nares patent, oropharynx clear without exudates, moist mucous membranes. NECK: Trachea midline, full range of motion, supple. LUNGS: Breath sounds equal, clear to auscultation bilaterally, no wheezes, no crackles, no accessory muscle use. HEART: Regular rate and rhythm, S1, S2 without murmur, rub or gallop. ABDOMEN: Soft, nontender, nondistended, normoactive bowel sounds, no guarding, no rebound, no hepatosplenomegaly, no masses. EXTREMITIES: 2+ pulses, warm, well-perfused, no edema. NEUROLOGICAL: Cranial nerves II through XII grossly intact. Normal speech, gait not observed. PSYCH: Normal mood, normal affect. SKIN: Warm, dry, normal turgor, R chest permacath, L arm AVF. LABS Laboratory Results - last 24 hr 10/13/16 10/13/16 10/14/16 16:30 21:05 05:54 WBC RBC Hgb Hct MCV MCHC RDW Plt Count MPV Neutrophils % Lymphocytes % Monocytes % Eosinophils % Basophils % Sodium Potassium Chloride Carbon Dioxide Anion Gap BUN Creatinine Creat Clearance w eGFR POC Glucometer 187 162 Random Glucose Calcium Phosphorus Magnesium Total Bilirubin AST ALT Alkaline Phosphatase Total Protein Albumin Hepatitis C Antibody Cancelled 10/14/16 10/14/16 07:00 07:00 WBC 8.9 D RBC 3.56 L Hgb 10.7 Hct 32.5 MCV 91.3 MCHC 33.0 RDW 15.7 H Plt Count 333 MPV 8.2 Neutrophils % 74.2 Lymphocytes % 12.8 Monocytes % 8.8 Eosinophils % 3.1 Basophils % 1.1 Sodium 140 Potassium 4.3 Chloride 104 Carbon Dioxide 26 D Anion Gap 10 BUN 63 H D Creatinine 4.5 H Creat Clearance w eGFR 9.72 POC Glucometer Random Glucose 158 H D Calcium 8.1 L Phosphorus 5.3 H Magnesium 2.2 Total Bilirubin 0.4 D AST 8 L D ALT 12 D Alkaline Phosphatase 61 Total Protein 6.2 L Albumin 2.8 L Hepatitis C Antibody HOSPITAL COURSE: Date of Admission:10/13/16 Date of Discharge: 10/14/16 66 y/o F w/PMH of breast ca s/p lumpectomy & chemo, IDDM, HTN, CKD presented to ER after being told to come into ER by Dr. Bethany Santos for volume overload/ necessity for emergent dialysis. Had permacath placed 10/13/16 and first time dialysis 10/13/16. Had dialysis again today and tolerated well. Pt then had [place] [facility] Pt will begin dialysis on MWF schedule at [facility] beginning on Thursday10/17/16. Pt is to f/u with PCP within 1 week, f/u with Dr. Santos within 1 week, and to call Dr. Johnny Arreguin's office tomorrow to schedule an appointment as well. Minutes to complete discharge: 30 Discharge Summary Reason For Visit: ACUTE RENAL FAIL,DIALYSIS Current Active Problems Acute renal failure (Acute) Admission for dialysis and dialysis catheter care (Acute) DVT prophylaxis (Acute) Diabetes (Chronic) HLD (hyperlipidemia) (Chronic) Hypertension (Chronic) IDDM (insulin dependent diabetes mellitus) (Chronic) Condition: Stable - Instructions Diet, Activity, Other Instructions: Keep permacath clean, dry and covered. May not get catheter wet. Please see your primary care doctor, Dr. Pearson, within [address] Santos, your paper stripper within 1 week as well. You will continue to have dialysis on a Thursday, Thursday, Thursday schedule at [facility]. First dialysis is in Thursday. Referrals: John Pearson MD [Primary Care Provider] - 1 Week Bethany Santos MD [Staff Physician] - 1 Week Johnny Arreguin MD [Staff Physician] - (call the office tomorrow to see when you need an appointment.) Disposition: HOME - Home Medications Comprehensive Discharge Medication List: Ambulatory Orders Aspirin [ASA -] 325 mg PO DAILY 06/06/13 Ezetimibe [Zetia] 10 mg PO HS 06/06/13 Glimepiride 10 mg PO DAILY 06/06/13 Levothyroxine [Synthroid -] 200 mcg PO DAILY 06/06/13 Metformin HCl [Glucophage -] 850 mg PO TID 06/06/13 Atenolol [Tenormin -] 25 mg PO DAILY tablet 10/14/16 Losartan Potassium [Cozaar -] 25 mg PO DAILY tablet 10/14/16 Problem List - Problems (1) Acute renal failure Code(s): N17.9 - ACUTE KIDNEY FAILURE, UNSPECIFIED (2) Admission for dialysis and dialysis catheter care Code(s): Z99.2 - DEPENDENCE ON RENAL DIALYSIS (3) Diabetes Code(s): E11.9 - TYPE 2 DIABETES MELLITUS WITHOUT COMPLICATIONS (4) Hypertension Code(s): I10 - ESSENTIAL (PRIMARY) HYPERTENSION (5) HLD (hyperlipidemia) Code(s): E78.5 - HYPERLIPIDEMIA, UNSPECIFIED (6) IDDM (insulin dependent diabetes mellitus) Code(s): E11.9 - TYPE 2 DIABETES MELLITUS WITHOUT COMPLICATIONS Z79.4 - [employer] PUBLIC (CURRENT) USE OF INSULIN This patient is new to me today: Yes Date on this admission: 10/14/16 Emergency Visit: Yes ED Registration Date: 10/13/16 Care time: The patient presented to the Emergency Department on the above date and was hospitalized for further evaluation of their emergent condition. Critical Care patient: No - Discharge Referral [facility]erred to [facility] Med [facility] Yes Physician Referral: Johnny Arreguin DO ([facility])
--- NOTE | 2016-10-14 18:26 | OP ---
DATE OF OPERATION: 10/14/2016 PREOPERATIVE DIAGNOSIS: End-stage renal disease. POSTOPERATIVE DIAGNOSIS: End-stage renal disease. PROCEDURE: Creation of left cephalic vein to brachial artery fistula. SURGEON: Johnny Pabon DO ANESTHESIA: Fractional. BLOOD LOSS: 10 mL. The patient is a 66-year-old female who came in with [id number] renal failure. PermCath was placed the day before. Today, she needs an AV fistula placed in the left arm. Patient had preoperative vein mapping, shows a good cephalic vein in the left arm. Patient was consented for the procedure understanding all risks, benefits, and alternatives and taken to the operating room. PROCEDURE IN DETAIL: Once in the operating room, she was laid on the operating table in supine manner. The area of the left arm was prepped and draped in a sterile surgical manner. Under ultrasound guidance, we did map our cephalic vein and our brachial artery, and those were marked below the antecubital space. A transverse incision was drawn out. We then went ahead and injected 15 mL of lidocaine 1% over our incision. Using a 15 blade, a 7-cm incision was made. Bovie electrocautery was used to control hemostasis. We got down through all the subcutaneous tissue. We then dissected out our cephalic vein anteriorly and posteriorly, and all branches were ligated using 3-0 silk. We then went ahead and went medially and went through the fascia and got down to the radial artery. Radial artery was dissected anteriorly and posteriorly, and vessel loops were placed around it. Next, 5000 units of IV heparin were administered to the patient. We then ligated our vein distally, and using a 5-Austrian feeding tube, a feeding tube was placed, and the vein was dilated up appropriately, and there was good draw-back of blood as the catheter was placed higher. At this point, a 7-mm venotomy with Banuelos scissors was made on the vein. After 3 minutes of being on IV heparin, we got distal and proximal control on the artery. Using a 15 blade, we made an arteriotomy which was extended to 7 mm using Banuelos scissors. At this point, stay sutures were placed. We then went ahead and used 6-0 Prolene double arm and went outside in on the vein and inside on the artery and ran the suture out, performing anastomosis of the artery and the vein. Once the anastomosis was completed, we opened the distal artery first and then the proximal artery, and there was a good thrill in our AV fistula. The wound was well irrigated. There was no bleeding. Surgicel was placed. Using 3-0 Vicryl, we were able to approximate the subcutaneous tissue in an interrupted manner. The skin was closed with 4-0 Biosyn in a subcuticular running fashion. Area was wet and dried, and 4 x 4 and Tegaderm were placed. The patient tolerated the procedure with no complication. Patient transferred to PACU in stable condition. JOHNNY PABON DO [id number]
[2016-10-14] MEDS ORDERED: EZETIMIBE 10 MG TABLET (FP) PO SCH (22:00)
[2016-10-14] MEDS ORDERED: DOCUSATE SODIUM 100 MG CAPSULE (FP) PO SCH (22:00)
[2016-10-15 06:06] LABS: HEP B SURFACE AB Non Reactive (.)
[2016-10-15] MEDS ORDERED: LEVOTHYROXINE NA 100 MCG TABLET (FP) PO SCH (07:00)
[2016-10-15] MEDS ORDERED: ASPIRIN 81 MG CHEWABLE TABLETS PO SCH (10:00)
[2016-10-15] MEDS ORDERED: CEFTRIAXONE 50 ML IVPB SCH (10:00)
[2016-10-15] MEDS ORDERED: ATENOLOL 25 MG TABLET (FP) PO SCH (10:00)
[2016-10-15] MEDS ORDERED: LOSARTAN POTASSIUM 25 MG TABLET PO SCH (10:00)
== END 2016-10-14 19:03 | disposition home or self-care (01) | DRG 674 ==
LOC: JER 08:42 → JERBED 11:50 → J6S 14:47
PROVIDERS: ADMIT Internal Medicine; ATTEND Internal Medicine
PROC: 05HM33Z Insertion of Infusion Device into Right Internal Jugular Vein, Percutaneous Approach (ICD-10-PCS; 2016-10-13)
PROC: B543ZZA Ultrasonography of Right Jugular Veins, Guidance (ICD-10-PCS; 2016-10-13)
PROC: 03180ZD Bypass Left Brachial Artery to Upper Arm Vein, Open Approach (ICD-10-PCS; principal; 2016-10-14 12:00)
DX: N17.9 Acute kidney failure, unspecified (principal); I12.0 Hypertensive chronic kidney disease with stage 5 chronic kidney disease or end stage renal disease; Z68.41 Body mass index [BMI] 40.0-44.9, adult; N18.5 Chronic kidney disease, stage 5; I25.10 Atherosclerotic heart disease of native coronary artery without angina pectoris; E03.9 Hypothyroidism, unspecified; E11.9 Type 2 diabetes mellitus without complications; E78.5 Hyperlipidemia, unspecified; D63.1 Anemia in chronic kidney disease; E66.8 Other obesity; Z71.3 Dietary counseling and surveillance; Z79.4 Long term (current) use of insulin; Z85.3 Personal history of malignant neoplasm of breast; Z87.891 Personal history of nicotine dependence; Z99.2 Dependence on renal dialysis
CPT/HCPCS: 36415; 71010-TC; 71020-TC; 76000-TC; 80053; 81003; 81015; 83735; 84100; 85025; 85610; 85730; 86704; 86706; 86707; 86708; 86850; 86900; 86901; 87086; 87340; 87350; 93005; 93010; 93931; 93971; 94760; 99285-25; J1644

== ENCOUNTER 2016-12-26 11:21 | Inpatient (IN) | payer OTHER ==
[2016-12-26 11:37] VITALS: BMI 40.3
--- NOTE | 2016-12-26 11:41 | PDOC ---
History of Present Illness - General Chief Complaint: Weakness Stated Complaint: WEANKNESS Time Seen by Provider: 12/26/16 11:36 History Source: Patient, Friend, Old Records Exam Limitations: No Limitations - History of Present Illness Initial Comments: 12/26/16 11:40 CHIEF COMPLAINT: HISTORY OF PRESENT ILLNESS: history of breast ca s/p lumpectomy and chemotherapy , IDDM, HTN, and ESRD on HD M/W/F who presented to the ED today via EMS after her dialysis center notified police that she missed her treatment on Thursday and was not answering the phone. She refused to go to HD at that time, and is brought here today by a neighbor. The neighbor reports that the patient fell on Thursday and has not been ambulatory or eating/drinking since then. The patient complains of sacral pain only. Vital signs on arrival are unremarkable. PCP is Dr. Pearson Bench Loom Weaver is Dr. Santos. Patient receives HD at [facility]. REVIEW OF SYSTEMS: GENERAL/CONSTITUTIONAL: No fever or chills. No weakness. No weight change. HEAD, EYES, EARS, NOSE AND THROAT: No change in vision. No ear pain or discharge. No sore throat. CARDIOVASCULAR: No chest pain or palpitations. RESPIRATORY: No cough, wheezing, or shortness of breath. GASTROINTESTINAL: No nausea, vomiting, diarrhea or constipation. GENITOURINARY: Anuric at baseline.. MUSCULOSKELETAL: Sacral pain. SKIN: No rash or easy bruising. NEUROLOGIC: No headache, vertigo, loss of consciousness, or loss of sensation. PSYCHIATRIC: No depression or anxiety. ENDOCRINE: No increased thirst. No abnormal weight change. HEMATOLOGIC/LYMPHATIC: No anemia, easy bleeding, or history of blood clots. ALLERGIC/IMMUNOLOGIC: No hives or skin allergy. No latex allergy. PHYSICAL EXAM: GENERAL: The patient is lethargic but arousable and oriented x 3. Confused and not at baseline per friend. HEAD: Normal with no signs of trauma. ENT: Pupils equal, round and reactive to light, extraocular movements intact, sclera anicteric, conjunctiva clear. Neck supple. LUNGS: Rales at bases, L>R. No tachypnea. CV: RRR, S1/S2, no MRG. Cap refill < 2 sec. ABDOMEN: Soft, non-distended, non-tender. EXTREMITIES: 1+ LE edema bilaterally, left calf tenderness. NEUROLOGICAL: Normal speech. CN II-XII grossly intact. No midline vertebral tenderness. PSYCH: Normal mood, normal affect. SKIN: Warm, dry, normal turgor, no rashes or lesions noted. Past History - Past Medical History Allergies/Adverse Reactions: Allergies Allergy/AdvReac Type Severity Reaction Status Date / Time No Known Allergies Allergy Verified 12/26/16 11:31 Home Medications: Ambulatory Orders Aspirin [ASA -] 325 mg PO DAILY 06/06/13 Levothyroxine [Synthroid -] 175 mcg PO DAILY 06/06/13 Insulin (Levemir) 35 units SCJ DAILY 11/17/16 Multivitamin 1 tab PO DAILY 11/17/16 Allopurinol [Zyloprim -] 100 mg PO DAILY 12/26/16 Atenolol [Tenormin -] 50 mg PO BID 12/26/16 Furosemide [Lasix -] 40 mg PO DAILY 12/26/16 Losartan Potassium [Cozaar -] 25 mg PO DAILY 12/26/16 Anemia: No Asthma: No Cancer: Yes (LEFT BREAST 2001) Cardiac Disorders: No CVA: No COPD: No CHF: No Dementia: No Diabetes: Yes (2001) Dialysis: Yes (MO/WE/FR) GI Disorders: No Disorders: No HTN: Yes Hypercholesterolemia: Yes Liver Disease: No Seizures: No Thyroid Disease: Yes - Surgical History Abdominal Surgery: No Appendectomy: No Cardiac Surgery: No Cholecystectomy: No Lung Surgery: No Neurologic Surgery: No Orthopedic Surgery: No - Psycho/Social/Smoking Cessation Hx Anxiety: No Suicidal Ideation: No Smoking History: Former smoker Have you smoked in the past 12 months: No Number of Cigarettes Smoked Daily: 70 If you are a former smoker, when did you quit?: 2010 Information on smoking cessation initiated: No Hx Alcohol Use: No Drug/Substance Use Hx: No Substance Use Type: None *Physical Exam - Vital Signs Last Vital Signs Temp Pulse Resp BP Pulse Ox 97.5 F L 68 16 152/56 98 12/26/16 11:31 12/26/16 11:31 12/26/16 11:31 12/26/16 11:31 12/26/16 11:31 ED Treatment Course - LABORATORY CBC & Chemistry Diagram: 12/26/16 12:24 12/26/16 12:24 - RADIOLOGY Radiology Studies Ordered: Category Date Time Status CHEST X-RAY PORTABLE* [RAD] Stat Radiology 12/26/16 11:39 Ordered Medical Decision Making - Medical Decision Making 12/26/16 12:08 A/P: 66 year old female with lethargy/confusion s/p fall with limited movement/ PO intake and missed HD. 1. EKG 2. CXR 3. Labs including CBC, comp, Mg/phos, cardiac profile 4. LLE u/s (calf tenderness) 5. HCT (unwitnessed fall with change in mental status) 6. Renal evaluation 12/26/16 12:15 CXR: Left base infiltrate with pleural fluid WBC is 29 Will send blood cultures and treat with Ceftriaxone/Azithromycin + Vancomycin x 1 dose 12/26/16 13:28 Troponin positive at 0.95. EKG repeated and is unchanged. Dr. Blount paged. Glucose 877 with gap 24. Insulin gtt started. Discussed with Dr. Mixon covering Dr. Santos who will write dialysis orders. 12/26/16 13:50 Accepted to ICU by Dr. Davalos. Discussed with Dr. Zapata recommends no AC at this time. Will evaluate patient. 12/26/16 17:08 HCT: Focal lucency in right inferior cerebellum highly suspicious for acute/ subacute stroke. Patient re-evaluated and is less alert than before. Hospitalist notified. Critical care resident notified. MRI ordered. Neuro consult placed. *DC/Admit/Observation/Transfer Diagnosis at time of Disposition: DKA (diabetic ketoacidosis), NSTEMI (non-ST elevated myocardial infarction), Pneumonia, Admission for dialysis and dialysis catheter care - Discharge Dispostion Admit: Yes - Referrals
[2016-12-26] MEDS ORDERED: AZITHROMYCIN IVPB 500 MG in DEXTROSE 5%-WATER - 250 ML IVPB ONE (12:15)
[2016-12-26] MEDS ORDERED: CEFTRIAXONE 1 GM in DEXTROSE 5%-WATER - 50 ML IVPB ONE (12:15)
[2016-12-26 12:30] LABS: MCH 29.1 pg (25.7-33.7); MCHC 30.9 g/dl (32.0-36.0); MEAN CELL VOLUME 94.3 fl (80-96); MEAN PLT VOLUME 9.4 fl (7.5-11.1); PLATELET COUNT 334 K/MM3 (134-434); RDW 16.5 % (11.6-15.6); WHITE BLOOD COUNT 29.5 K/mm3 (4.0-10.0)
[2016-12-26 12:52] LABS: ALBUMIN 2.2 g/dl (3.4-5.0); BILIRUBIN,TOTAL 0.9 mg/dL (0.2-1.0); CALCIUM 8.8 mg/dL (8.5-10.1); COCKROFT - GAULT 12.58; CREATININE 7.2 mg/dL (0.55-1.02); MAGNESIUM 2.5 mg/dL (1.8-2.4); TOT PROT 6.4 g/dl (6.4-8.2)
--- NOTE | 2016-12-26 12:54 | PDOC ---
*Physical Exam - Vital Signs Last Vital Signs Temp Pulse Resp BP Pulse Ox 97.5 F L 68 16 152/56 100 12/26/16 11:31 12/26/16 11:31 12/26/16 11:31 12/26/16 11:31 12/26/16 11:45 ED Treatment Course - LABORATORY CBC & Chemistry Diagram: 12/28/16 08:32 12/28/16 08:32 - ADDITIONAL ORDERS Additional order review: 12/26/16 12:24 RBC 4.54 D MCV 94.3 MCHC 30.9 L RDW 16.5 H MPV 9.4 D Neutrophils % Y Lymphocytes % Y Medical Decision Making - Medical Decision Making 12/26/16 12:54 Pt seen by the Advanced Practice Provider under my direct supervision Ancillary studies reviewed I agree with plan as outlined by the Advanced Practice Provider ADRI Sewell *DC/Admit/Observation/Transfer Diagnosis at time of Disposition: DKA (diabetic ketoacidosis), NSTEMI (non-ST elevated myocardial infarction), Pneumonia, Admission for dialysis and dialysis catheter care
[2016-12-26] MEDS ORDERED: AZITHROMYCIN IVPB 250 ML IVPB ONE ×2 (12:56→12:59)
[2016-12-26] MEDS ORDERED: CEFTRIAXONE 50 ML ONE (12:56)
--- NOTE | 2016-12-26 13:16 | CON.NEP ---
Consult Consult Specialty:: nephrology Reason for Consultation:: esrd- lethargic and sick. s/p missed treatments - History of Present Illness Chief Complaint: malaise-generalized weakness History of Present Illness: esrd on hd tiw mwf missed thu treatment because she became sick after her thursday tx she is poor historian because she is ubcomfortable, keeping eyes closed and c/o severe weakness denies fever or chil;ls denies vomiting or diarreha wbc 29.5 and cxr shows cardiomegaly and lll infiltrate o2 sat 100 - History Source History Provided By: Patient, Medical Record Limitations to Obtaining History: Clinical Condition - Past Medical History Cardio/Vascular: Yes: HTN Renal/: Yes: Renal Failure Endocrine: Yes: Diabetes Mellitus, Hypothyroidism - Past Surgical History Past Surgical History: Yes: AV Fistula/Graft - Alcohol/Substance Use Hx Alcohol Use: No - Smoking History Smoking history: Former smoker Have you smoked in the past 12 months: No Aproximately how many cigarettes per day: 70 If you are a former smoker, when did you quit?: 2010 Home Medications - Allergies Allergies/Adverse Reactions: Allergies Allergy/AdvReac Type Severity Reaction Status Date / Time No Known Allergies Allergy Verified 12/26/16 11:31 - Home Medications Home Medications: Ambulatory Orders Aspirin [ASA -] 325 mg PO DAILY 06/06/13 Levothyroxine [Synthroid -] 175 mcg PO DAILY 06/06/13 Insulin (Levemir) 35 units SCJ DAILY 11/17/16 Multivitamin 1 tab PO DAILY 11/17/16 Allopurinol [Zyloprim -] 100 mg PO DAILY 12/26/16 Atenolol [Tenormin -] 50 mg PO BID 12/26/16 Furosemide [Lasix -] 40 mg PO DAILY 12/26/16 Losartan Potassium [Cozaar -] 25 mg PO DAILY 12/26/16 Family Disease History - Family Disease History Family History: Unremarkable Review of Systems - Review of Systems Constitutional: reports: Lethargy, Loss of Appetite, Weakness Eyes: denies: No Symptoms, Blind Spots, Blurred Vision, Double Vision, Eye Pain , Floaters, Photophobia, Recent Change in Vision, Other HENT: denies: No Symptoms, Difficult Swallowing, Ear Discharge, Ear Pain, Epistaxis, Gingival Bleeding, Hearing Loss, Mouth Swelling, Nasal Congestion, Ocular Prosthesis, Throat Pain, Toothache, Ringing in Ears, Other Cardiovascular: denies: No Symptoms, Chest Pain, Edema, Palpitations, Shortness of Breath, Other Respiratory: denies: Cough Gastrointestinal: denies: No Symptoms, Abdominal Pain, Bloating, Constipation, Diarrhea, Dysphagia, Indigestion, Melena, Nausea, Rectal Bleeding, Vomiting, Vomiting Blood, Other Integumentary: denies: No Symptoms, Blister, Bruising, Change in Color, Eczema, Erythema, Incision, Lesions, Lump, Pallor, Pruritis, Rash, Wound, Other Neurological: reports: Confusion, Dizziness, Incoordination, Weakness Nephrology Consult - Height Height: 5 ft 4 in - Weight Weight: 235 lb - BMI Body Mass Index (BMI): 40.3 - Lab Results CBC,BMP: CBC, BMP 12/26/16 12:24 - Imaging Chest X-ray: Report Reviewed - Physical Examination Vital Signs: Vital Signs Temperature 97.5 F L 12/26/16 11:31 Pulse Rate 68 12/26/16 11:31 Respiratory Rate 16 12/26/16 11:31 Blood Pressure 152/56 12/26/16 11:31 O2 Sat by Pulse Oximetry (%) 100 12/26/16 11:45 Constitutional: Yes: Obese Eyes: Yes: WNL, Conjunctiva Clear, EOM Intact HENT: Yes: WNL, Atraumatic, Normocephalic, Other (mucous membrane dry) Neck: Yes: WNL, Supple, Trachea Midline Cardiovascular: Yes: WNL, Regular Rate and Rhythm Respiratory: Yes: Diminished Gastrointestinal: Yes: Soft Renal/: Yes: Anuria Access for Hemodialysis: AV Fistula (left arm) Edema: Yes Edema: LLE: 1+, RLE: 1+ Peripheral Pulses WNL: Yes Integumentary: Yes: WNL Neurological: Yes: Oriented, Lethargy, Weakness Psychiatric: Yes: Oriented Assessment/Plan ESRD ON HD LUE AVF ACUTELY ILL WITH MARKED LEUKOCYTOSIS LLL INFILTRATE/GOOD OXYGENATION GENERALIZED WEAKNESS SEPSIS STABLE VITALS
[2016-12-26 13:26] LABS: TROPONIN I 0.95 ng/ml (0.00-0.05)
[2016-12-26] MEDS ORDERED: HEPARIN NA (PORCINE) 5,000 UNITS/ML 1ML VIAL IVPUSH PRN ×2 (13:28)
[2016-12-26] MEDS ORDERED: ASPIRIN 81 MG CHEWABLE TABLETS PO ONE (13:29)
[2016-12-26] MEDS ORDERED: INSULIN REGULAR 100 UNITS in SODIUM CHLORIDE 99 ML IVPB SCH (13:30)
[2016-12-26] MEDS ORDERED: HEPARIN - 25,000 UNIT in SODIUM CHLORIDE 495 ML IV SCH (13:30)
[2016-12-26 13:37] LABS: PLATELET ESTIMATE ADEQUATE (NORMAL)
[2016-12-26] MEDS ORDERED: VANCOMYCIN 1 GRAM (PRE-DOCKED) 250 ML IVPB ONE ×2 (13:45→17:45)
[2016-12-26] MEDS ORDERED: ASPIRIN 81 MG CHEWABLE TABLETS ONE ×2 (13:46→14:24)
[2016-12-26] MEDS ORDERED: morphine CARPU-JECT 4 MG/1 ML DISP.SYRIN IVPUSH ONE (13:48)
[2016-12-26] MEDS ORDERED: HEPARIN INFUSION - 500 ML IVPB ONE (13:51)
[2016-12-26] MEDS ORDERED: morphine CARPU-JECT 2 MG/1 ML DISP.SYRIN ONE (13:51)
[2016-12-26 14:05] LABS: PHOSPHOROUS 8.7 mg/dL (2.5-4.9)
[2016-12-26] MEDS ORDERED: ONDANSETRON 4 MG/2 ML VIAL ONE (14:05)
[2016-12-26] MEDS ORDERED: ONDANSETRON 4 MG/2 ML VIAL IVPUSH ONE (14:22)
[2016-12-26] MEDS ORDERED: INSULIN REGULAR HUMAN 100 UNITS/ML *VIAL ONE (14:25)
[2016-12-26] MEDS ORDERED: SODIUM CHLORIDE 1,000 ML IV SCH (14:30)
--- NOTE | 2016-12-26 14:32 | PN ---
Teaching Attending Note Name of Resident: Antelmo Wise ATTENDING PHYSICIAN STATEMENT I saw and evaluated the patient. I reviewed the resident's note and discussed the case with the resident. I agree with the resident's findings and plan as documented. SUBJECTIVE: Pt seen and examined in the ER. Briefly, 66 year old female with h/o HTN, IDDM, ESRD on HD who presents with worsening generalized weakness and malaise x 4 days. She missed her 2nd HD session today. Pt with nausea and vomiting, unable to provide further history at this time but was found to be severely hyperglycemic with blood glucose 87 with an anion gap of 24. Has not been eating or drinking anything the last few days. No fevers or chills. Has not been on antibiotics or hospitalized recently. Makes minimal urine at baseline. OBJECTIVE: Last Vital Signs Temp Pulse Resp BP Pulse Ox 97.5 F L 68 16 152/56 100 12/26/16 11:31 12/26/16 11:31 12/26/16 11:31 12/26/16 11:31 12/26/16 11:45 Intake & Output 12/23/16 12/24/16 12/25/16 12/26/16 23:59 23:59 23:59 23:59 Weight 235 lb Gen: uncomfortable, listless Heart: RRR Lung: left base rales Abd: soft, nontender Ext: + edema CBC, BMP 12/26/16 12:24 12/26/16 12:24 CXR: LLL infiltrate/effusion Active Medications Chlorhexidine Gluconate (Hibiclens For Decolonization -) 1 applic TP HS REJI Heparin Sodium (Porcine) (Heparin -) 5,000 unit SQ Q8H-IV REJI Insulin Human Regular 100 (units/ Sodium Chloride) 100 mls @ 10.65 mls/hr IVPB TITR REJI; 0.1 UNITS/KG/HR PRN Reason: Protocol Vancomycin HCl (Vancomycin (Pre-Docked)) 250 mls @ 166.667 mls/hr IVPB ONCE ONE PRN Reason: Protocol Stop: 12/26/16 15:14 Sodium Chloride (Normal Saline -) 1,000 mls @ 75 mls/hr IV ASDIR REJI Stop: 12/27/16 03:49 Mupirocin (Bactroban Ointment (For Decolonization) -) 1 applic NS BID REJI Stop: 12/31/16 21:59 ASSESSMENT AND PLAN: Diabetic Ketoacidosis LLL Pneumonia Pseudohyponatremia +Troponins likely Demand Ischemia ESRD on HD HTN - IV insulin gtt at 0.1 units/kg/hr until anion gap closed - IVF - monitor BGM q1h, BMP q4h - if K>4.5 while on insulin gtt, add KCl 20mEq to IVF - if BGM<250 while on insulin gtt, add D5 to IVF - send lactate - ASA - cycle cardiac enzymes, trend EKGs - echocardiogram - antiemetics - NPO for now - HD per renal - start antibiotics to cover community acquired pneumonia, ceftriaxone/ azithromycin - f/u cultures - DVT prophylaxis - ICU monitoring Thank you for this consult Won Davalos MD critical care time spent in reviewing chart, evaluating patient and formulating plan 35 min
--- NOTE | 2016-12-26 14:35 | HP ---
CHIEF COMPLAINT: altered mental status, hyperglycemia, recent fall, recent missed dialysis PCP: Dr. Pearson Rag Sorter And Cutter: Dr. Mixon HISTORY OF PRESENT ILLNESS: This 66 yr old female presents to ER via EMS. They had been notified by police for house check since pt did not go to HD for two days. She was found lethargic and concern for worsening health illness, causing 911 to come and evaluate and transport. Pt's neighbor stated she fell two days ago and has not been right ever since. While in the ED, pt confirmed a fall 2 days ago without head injury, + diarrhea , + tired feeling, missed 2 treatments at HD center. Denies chest pain, shortness of breath, bleeding, or n, v. ER course was notable for: (1)DKA: + elevated glucose 877 with + anion gap 24, insulin gtt started (2) ESRD and missed HD, consult called to Dr. Mixon (3) elevated trops, no EKG changes, ASA started (4) PNA found, ABT started Recent Travel: none PAST MEDICAL HISTORY: ESRD, HD, M-W-F, HTN, hypothyroidism, breast CA s/p chemo completed in 2010 PAST SURGICAL HISTORY: AV fistula placed, lumpectomy Social History: Smoking:quit 2010 Alcohol:none Drugs: none Family History: Allergies No Known Allergies Allergy (Verified 12/26/16 11:31) HOME MEDICATIONS: Home Medications Medication Instructions Recorded Aspirin [ASA -] 325 mg PO DAILY 06/06/13 Levothyroxine [Synthroid -] 200 mcg PO DAILY 06/06/13 Allopurinol 1 tab PO DAILY 11/17/16 Furosemide 40 mg PO DAILY 11/17/16 Insulin (Levemir) 35 units SCJ DAILY 11/17/16 Multivitamin 1 tab PO DAILY 11/17/16 Lidocaine 5% Top. Ointment 1 applic TP DAILY #1 tube 12/22/16 [Xylocaine 5% Top. Ointment -] REVIEW OF SYSTEMS CONSTITUTIONAL: Absent: fever, chills, diaphoresis, + generalized weakness, malaise, loss of appetite, weight change HEENT: Absent: rhinorrhea, nasal congestion, throat pain, throat swelling, difficulty swallowing, mouth swelling, ear pain, eye pain, visual changes CARDIOVASCULAR: Absent: chest pain, syncope, palpitations, irregular heart rate, lightheadedness , peripheral edema RESPIRATORY: Absent: cough, shortness of breath, dyspnea with exertion, orthopnea, wheezing, stridor, hemoptysis GASTROINTESTINAL: Absent: abdominal pain, abdominal distension, nausea, vomiting, diarrhea, constipation, melena, hematochezia GENITOURINARY: anuric MUSCULOSKELETAL: Absent: myalgia, arthralgia, joint swelling, back pain, neck pain SKIN: Absent: rash, itching, pallor HEMATOLOGIC/IMMUNOLOGIC: Absent: easy bleeding, easy bruising, lymphadenopathy, frequent infections ENDOCRINE: Absent: unexplained weight gain, unexplained weight loss, heat intolerance, cold intolerance NEUROLOGIC: Absent: headache, focal weakness or paresthesias, dizziness, unsteady gait, seizure, mental status changes, bladder or bowel incontinence PSYCHIATRIC: Absent: anxiety, depression, suicidal or homicidal ideation, hallucinations. PHYSICAL EXAMINATION Vital Signs - 24 hr 12/26/16 12/26/16 11:31 11:45 Temperature 97.5 F L Pulse Rate 68 Respiratory 16 Rate Blood Pressure 152/56 O2 Sat by Pulse 98 100 Oximetry (%) GENERAL: Awake, but in no acute distress easy to arouse but dozes off HEAD: Normal with no signs of trauma. EYES: Pupils equal, round and reactive to light EARS, NOSE, THROAT: Airway patent. Moist mucous membranes. NECK: Normal range of motion, supple without lymphadenopathy, JVD, or masses. LUNGS: Breath sounds equal, clear to auscultation bilaterally. No wheezes, and no crackles. No accessory muscle use. HEART: Regular rate and rhythm, normal S1 and S2 without murmur, rub or gallop. ABDOMEN: Soft, nontender, not distended, normoactive bowel sounds, no guarding, no rebound, no masses. No hepatomegaly or splenomegaly. MUSCULOSKELETAL: Normal range of motion at all joints. No bony deformities or tenderness. No CVA tenderness. UPPER EXTREMITIES: 2+ pulses, warm, well-perfused. No cyanosis. No clubbing. No peripheral edema. with AV fistula LOWER EXTREMITIES: 2+ pulses, warm, well-perfused. + c/o LE calf tenderness. No peripheral edema. NEUROLOGICAL: able to follow simple commands but dozes off easily SKIN: Warm, dry, normal turgor, no rashes or lesions noted, normal capillary refill. Laboratory Results - last 24 hr 12/26/16 12/26/16 12:24 12:24 WBC 29.5 H D RBC 4.54 D Hgb 13.2 D Hct 42.8 D MCV 94.3 MCHC 30.9 L RDW 16.5 H Plt Count 334 MPV 9.4 D Neutrophils % 94.0 H D Lymphocytes % 4.0 L D Monocytes % 2.0 L Differential Comment Manual diff done Platelet Estimate Adequate Sodium 125 L D Potassium 5.1 Chloride 84 L D Carbon Dioxide 17 L D Anion Gap 24 H BUN 93 H D Creatinine 7.2 H D Creat Clearance w eGFR 5.65 Random Glucose 877 H* D Calcium 8.8 Phosphorus 8.7 H D Magnesium 2.5 H Total Bilirubin 0.9 D AST 17 D ALT 13 Alkaline Phosphatase 144 H D Creatine Kinase 105 Troponin I 0.95 H* Total Protein 6.4 Albumin 2.2 L D ASSESSMENT/PLAN: 66 yr old with DKA, electrolyte imbalanced, missed HD, elevated trops with out EKg changes, pneumonia, 1.DKA -fingersticks per protocol while on insuline -insulin gtt per protocol -IVF -ICU per protocol until off of insulin gtt. -NPO currently- 2. Pneumonia -follow up blood cultures -antibiotics started -pulse ox monitor 3. elevated trops -serial trops ordered -ASA 325 given 4. recent fall -follow up on head ct 5. LE pain -follow up with duplex 6. Admission inpatient to ICU -appreciate ICU team consult and care. 7. ESRD -appreciate Dr. Mixon nephrology consult -monitor electrolytes and when stable complete HD. Visit type - Emergency Visit Emergency Visit: Yes ED Registration Date: 12/26/16 Care time: The patient presented to the Emergency Department on the above date and was hospitalized for further evaluation of their emergent condition. - New Patient This patient is new to me today: Yes Date on this admission: 12/26/16 - Critical Care Critical Care patient: Yes Total Critical Care Time (in minutes): 35 Critical Care Statement: The care of this patient involved high complexity decision making to prevent further life threatening deterioration of the patient 's condition and/or to evalute & treat vital organ system(s) failure or risk of failure.
--- NOTE | 2016-12-26 15:05 | CON.CARD ---
Cardiology Consult (text) - Consultation Consultation Note: CC: troponin elevation 66 yo with h/o left breast ca s/p lumpectomy and chemotherapy, SVT per patient' s documentation, IDDM, HTN, thyroid disease and ESRD recently started on HD M// who presented to the ED with altered mental status found to be in DKA and with acute cerebellar infarct. Per report, patient fell two days ago and since then has not been ambulatory or eating/drinking. Unable to obtain history from patient. Recently received morphine. Per nursing patient slightly more lethargic Vitals repeated and stable. Pmhx/PShx: per hpi Social hx: Former smoker fam hx: unable to obtain ros: per hpi, unable to obtain. Ambulatory Orders Aspirin [ASA -] 325 mg PO DAILY 06/06/13 Levothyroxine [Synthroid -] 200 mcg PO DAILY 06/06/13 Allopurinol 1 tab PO DAILY 11/17/16 Furosemide 40 mg PO DAILY 11/17/16 Insulin (Levemir) 35 units SCJ DAILY 11/17/16 Multivitamin 1 tab PO DAILY 11/17/16 Lidocaine 5% Top. Ointment [Xylocaine 5% Top. Ointment -] 1 applic TP DAILY #1 tube 12/22/16 Per patient medication list, atenolol, ramipril, asa, atorva, zetia Current Medications Chlorhexidine Gluconate (Hibiclens For Decolonization -) 1 applic TP HS REJI Heparin Sodium (Porcine) (Heparin -) 5,000 unit SQ Q8H-IV REJI Insulin Human Regular 100 (units/ Sodium Chloride) 100 mls @ 10.65 mls/hr IVPB TITR REJI; 0.1 UNITS/KG/HR PRN Reason: Protocol Vancomycin HCl (Vancomycin (Pre-Docked)) 250 mls @ 166.667 mls/hr IVPB ONCE ONE PRN Reason: Protocol Stop: 12/26/16 15:14 Sodium Chloride (Normal Saline -) 1,000 mls @ 75 mls/hr IV ASDIR REJI Stop: 12/27/16 03:49 Ceftriaxone Sodium 1 gm/ (Dextrose) 50 mls @ 100 mls/hr IVPB DAILY ONE Stop: 12/27/16 14:55 Azithromycin 500 mg/ Dextrose 250 mls @ 250 mls/hr IVPB DAILY ONE Stop: 05/06/17 15:26 Mupirocin (Bactroban Ointment (For Decolonization) -) 1 applic NS BID REJI Stop: 12/31/16 21:59 Vital Signs - 24 hr 12/26/16 12/26/16 11:31 11:45 Temperature 97.5 F L Pulse Rate 68 Respiratory 16 Rate Blood Pressure 152/56 O2 Sat by Pulse 98 100 Oximetry (%) Intake & Output 12/24/16 12/25/16 12/26/16 12/27/16 07:59 07:59 07:59 07:59 Weight 235 lb NAD, lethargic arousable to touch and voice, but only responds with moans or yes /no. jvd flat, neck supple trace rales, poor effort regular nl s1, s2 no mrg + bs soft nt nd ext with soft trace-1+ edema. no cyanosis, clubbing + dp/pt no carotid bruits aaox0 no jaundice, diaphoresis. CBC, BMP 12/26/16 12:24 12/26/16 12:24 Laboratory Tests 12/26/16 12:24 Random Glucose 877 H* D Magnesium 2.5 H Total Bilirubin 0.9 D AST 17 D ALT 13 Alkaline Phosphatase 144 H D Creatine Kinase 105 Troponin I 0.95 H* Albumin 2.2 L D EKG: SB, LVH. biphasic anterior t waves. Slightly more prominent than priors. Stable on repeat EKG x 2. tele: SB head CT: suspicion for acute/subacute cerebellar infarct Echo: mild lvh. nl lv/rv size/fn. mild lae, mod mac, mild-mod as/ar, mild mr/tr 66 yo with h/o left breast ca s/p lumpectomy and chemotherapy, SVT per patient' s documentation, IDDM, HTN, thyroid disease and ESRD recently started on HD M/W/ who presented to the ED with altered mental status found to be in DKA and with acute cerebellar infarct. troponin elevation - Mild troponin elevation with normal CK, likely demand in setting DKA, CVA and underlying ESRD/missed HD session. - repeated EKG --> t wave abnormalities stable. Echo today --> no regional wall motion abnormalities. Con't JOSE - given suspicion for CVA would not treat with AC. Defer to neurology regarding safety of anti-platelets. Unclear at this time whether patient alert enough to take po meds. If mental status improves can give statin. Bradycardia - likely exacerbated by patient's underlying neurologic condition and metabolic disturbance. Monitor on telemetry. Ongoing treatment of underlying medical condition per pmd/consult services. AMS - Patient with ongoing worsening mental status. ER/PMD aware. Vitals stable. Blood sugar remains elevated. DKA management ongoing. Plan for HD upon arrival to ICU. Plan for neuro eval in place. HTN - currently with reasonable bp control off anti-hypertensives, repeat sys bp at bedside 120. Cont to monitor. h/o SVT - listed on patient's own documentation of known medical conditions. No events on telemetry. Con't to monitor. Would hold home beta kacie in light of current bradycardia and underlying metabolic disturbance. cct> 35 min
--- NOTE | 2016-12-26 15:11 | CONSULT ---
Consultation: REQUESTING PROVIDER: Marija Jaramillo CONSULT REQUEST: We have been asked to medically evaluate this patient for ICU admission for DKA. PCP: Dr. Pearson, [facility] Nephro: Dr. Bethany Goins HISTORY OF PRESENT ILLNESS: 66 yr old woman with ESRD on HD, DM II, HTN, HLD presented to ED with lethargy. Has not been feeling herself since thursday, but was able to make to dialysis. She did not make to dialysis on Thursday. Denies recent abx use/hospitalizations, sick contacts. PMH: DM II HTN ESRD on HD MWF REVIEW OF SYSTEMS: CONSTITUTIONAL: Absent: fever, chills, diaphoresis, generalized weakness, malaise, loss of appetite, weight change HEENT: Absent: rhinorrhea, nasal congestion, throat pain, throat swelling, difficulty swallowing, mouth swelling, ear pain, eye pain, visual changes CARDIOVASCULAR: Absent: chest pain, syncope, palpitations, irregular heart rate, lightheadedness , peripheral edema RESPIRATORY: Absent: cough, shortness of breath, dyspnea with exertion, orthopnea, wheezing, stridor, hemoptysis GASTROINTESTINAL: Absent: abdominal pain, abdominal distension, nausea, vomiting, diarrhea, constipation, melena, hematochezia GENITOURINARY: Absent: dysuria, frequency, urgency, hesitancy, hematuria, flank pain, genital pain MUSCULOSKELETAL: Absent: myalgia, arthralgia, joint swelling, back pain, neck pain SKIN: Absent: rash, itching, pallor HEMATOLOGIC/IMMUNOLOGIC: Absent: easy bleeding, easy bruising, lymphadenopathy, frequent infections ENDOCRINE: Absent: unexplained weight gain, unexplained weight loss, heat intolerance, cold intolerance NEUROLOGIC: Absent: headache, focal weakness or paresthesias, dizziness, unsteady gait, seizure, mental status changes, bladder or bowel incontinence PSYCHIATRIC: Absent: anxiety, depression, suicidal or homicidal ideation, hallucinations. PHYSICAL EXAMINATION Vital Signs - 24 hr 12/26/16 12/26/16 11:31 11:45 Temperature 97.5 F L Pulse Rate 68 Respiratory 16 Rate Blood Pressure 152/56 O2 Sat by Pulse 98 100 Oximetry (%) GENERAL: Awake, and fully oriented, in moderate distress. vomiting in bed, appears uncomfortable HEAD: Normal with no signs of trauma. EYES: Pupils equal, round and reactive to light, extraocular movements intact, sclera anicteric, conjunctiva clear. No lid lag. EARS, NOSE, THROAT: Ears normal, nares patent, oropharynx clear without exudates. dry mucous membranes. NECK: Normal range of motion, supple without lymphadenopathy LUNGS: fine basilar wheezes in left lower base HEART: S1, S2 no mrg ABDOMEN: obese, Soft, nontender, not distended, normoactive bowel sounds, no guarding, no rebound. MUSCULOSKELETAL: moving all extremities. no bony deformities or tenderness. No CVA tenderness. UPPER EXTREMITIES: 2+ pulses, warm, well-perfused. No cyanosis. No clubbing. No peripheral edema. thrill in left arm fistula. surrounding ecchymosis. LOWER EXTREMITIES: 2+ pulses, cool. No calf tenderness. 1+ edema in b/l. NEUROLOGICAL: Normal speech. facial symmetry. SKIN: Warm, dry, normal turgor, no rashes or lesions noted. Laboratory Results - last 24 hr 12/26/16 12/26/16 12:24 12:24 WBC 29.5 H D RBC 4.54 D Hgb 13.2 D Hct 42.8 D MCV 94.3 MCHC 30.9 L RDW 16.5 H Plt Count 334 MPV 9.4 D Neutrophils % 94.0 H D Lymphocytes % 4.0 L D Monocytes % 2.0 L Differential Comment Manual diff done Platelet Estimate Adequate Sodium 125 L D Potassium 5.1 Chloride 84 L D Carbon Dioxide 17 L D Anion Gap 24 H BUN 93 H D Creatinine 7.2 H D Creat Clearance w eGFR 5.65 Random Glucose 877 H* D Calcium 8.8 Phosphorus 8.7 H D Magnesium 2.5 H Total Bilirubin 0.9 D AST 17 D ALT 13 Alkaline Phosphatase 144 H D Creatine Kinase 105 Troponin I 0.95 H* Total Protein 6.4 Albumin 2.2 L D Active Medications Generic Name Dose Route Start Last Admin Trade Name Freq PRN Reason Stop Dose Admin Chlorhexidine Gluconate 1 applic 12/26/16 22:00 Hibiclens For Decolonization - TP HS REJI Heparin Sodium (Porcine) 5,000 unit 12/26/16 18:00 Heparin - SQ Q8H-IV REJI Insulin Human Regular 100 100 mls @ 10.65 mls/hr 12/26/16 13:30 units/ Sodium Chloride IVPB TITR REJI Protocol 0.1 UNITS/KG/HR Vancomycin HCl 250 mls @ 166.667 mls/hr 12/26/16 13:45 Vancomycin (Pre-Docked) IVPB 12/26/16 15:14 ONCE ONE Protocol Sodium Chloride 1,000 mls @ 75 mls/hr 12/26/16 14:30 Normal Saline - IV 12/27/16 03:49 ASDIR REJI Ceftriaxone Sodium 1 gm/ 50 mls @ 100 mls/hr 12/27/16 14:26 Dextrose IVPB 12/27/16 14:55 DAILY ONE Azithromycin 500 mg/ Dextrose 250 mls @ 250 mls/hr 12/27/16 14:27 IVPB 12/27/16 15:26 DAILY ONE Mupirocin 1 applic 12/26/16 22:00 Bactroban Ointment (For Decolonization) - NS 12/31/16 21:59 BID [facility] ASSESSMENT/PLAN: 66 yr old woman with DM, ESRD on HD, HTN admitted to ICU for DKA and CAP found to have acute CVA on head CT. #Cardiovascular - elevated troponins with upsloping st segments in V1-V3 not on previous EKG - Cardiology consulted, Dr. Blount - trend troponins x3 - echo ordered #Endocrine - DKA, with anion gap 24 - insulin gtt 0.1u/ml/kg - BGM q1hr - limit fluids due to HD - bolus 1L NS @75ml/hr - NPO #Pulmonary - community acquired pna - left lower lobe infiltrate vs effusion - rocephin 1gm q24hr - azithromycin 500mg IVPB q24hr - repeat chest xray Neurological #CVA - acute/subacute infarct 3.5/2cm right cerebellar hemisphere - Dr. Cervantes consulted; repeat head CT - Neuro checks - speech and swallow evaluation - maintain HOB elevated - PT eval once stable #Renal - on HD MWF - Dr. Mixon to write HD order #GI - vomiting the ED - zofran prn Diet: npo DVT: SCD's Visit type - Emergency Visit Emergency Visit: Yes ED Registration Date: 12/26/16 Care time: The patient presented to the Emergency Department on the above date and was hospitalized for further evaluation of their emergent condition. - New Patient This patient is new to me today: Yes Date on this admission: 12/26/16 - Critical Care Critical Care patient: Yes Total Critical Care Time (in minutes): 55 Critical Care Statement: The care of this patient involved high complexity decision making to prevent further life threatening deterioration of the patient 's condition and/or to evalute & treat vital organ system(s) failure or risk of failure.
[2016-12-26] MEDS ORDERED: PNEUMOC 13-VAL CONJ-DIP CRM/PF 0.5 ML DISP.SYRIN IM ONE (16:14)
--- NOTE | 2016-12-26 17:22 | PN ---
Progress Note (short form) - Note Progress Note: Notified by ER pt head Ct is positive for cerebellum infarct that is acute. Pt is less awake, still pending ICU, maintaining own airway at this time. Problem List - Problems (1) Stroke Code(s): I63.9 - CEREBRAL INFARCTION, UNSPECIFIED Visit type - Emergency Visit Emergency Visit: Yes ED Registration Date: 12/26/16 Care time: The patient presented to the Emergency Department on the above date and was hospitalized for further evaluation of their emergent condition. - New Patient This patient is new to me today: Yes Date on this admission: 12/26/16 - Critical Care Critical Care patient: Yes Total Critical Care Time (in minutes): 35 Critical Care Statement: The care of this patient involved high complexity decision making to prevent further life threatening deterioration of the patient 's condition and/or to evalute & treat vital organ system(s) failure or risk of failure.
[2016-12-26 18:52] LABS: CHOLESTEROL 168 mg/dL (50-200); COCKROFT - GAULT 13.124; CREATININE 6.9 mg/dL (0.55-1.02); LDL CHOLESTEROL (ONLY SJRH) 121 mg/dL (5-100)
[2016-12-26 19:16] LABS: TROPONIN I 0.67 ng/ml (0.00-0.05)
[2016-12-26 19:18] LABS: CALCIUM 8.1 mg/dL (8.5-10.1)
--- NOTE | 2016-12-26 20:33 | CONSULT ---
Consult - text type - Consultation Consultation Note: NEUROLOGY CONSULTATION is greatly appreciated: 7:30 PM This 66 yo woman lives alone. PMH sig for HTN, DM, Hypothyroidism, ESRD on HD M/W/F. Apparently fell on Thursday and missed HD on Thu and this AM. Friends/sister found her lethargic and brought her to the ED (car? ambulance?) where she was found to have Cr> 8 and Glucose> 800mg%. Started on insulin drip and had CT of head (reviewed) suggesting a small inferior cerebellar infarct, age indeterminate. Pt was poorly responsive on arrival to ICU and started on HD. EXAM: Obese. Cor: reg/bradycardia. No bruits. No head trauma NEURO: No response to name. Grimaces and vocalizes to sternal pressure with minimal movements of the Right arm Rests with eyes closed. Left conjugate gaze deviation with full EOM's to doll's head (some inward and downward skewing on the R). Corneals +/+. [id number] Poor mov'ts all fours (but moves R>L) Areflexic in legs Left Babinski. IMP: Difficult to localize precisely but findings (ie: B/L weakness L>R with Left gaze deviation) are most suggestive of brainstem CVA. Older, inferior cerebellar ischemia would support this distribution and might explain fall and Thursday and presumed loss of ambulation causing her to miss HD. Suggest: Determine last communication on part of this patient. If at or after 4 PM she would be a candidate for t-PA. Day RN's note says Pt became gradually less responsive and stopped moving her limbs between 4 and [address] of head ordered. Thank you very much, Moy Cervantes
--- NOTE | 2016-12-26 22:21 | HOSP ---
Physical Examination Vital Signs: Vital Signs Temperature 97.2 F L 12/26/16 22:00 Pulse Rate 54 L 12/26/16 22:00 Respiratory Rate 24 12/26/16 22:00 Blood Pressure 126/48 12/26/16 22:00 O2 Sat by Pulse Oximetry (%) 100 12/26/16 18:00 Constitutional: Yes: Calm Eyes: Yes: EOM Intact, PERRL HENT: Yes: Atraumatic, Normocephalic Neck: Yes: Supple Cardiovascular: Yes: Regular Rate and Rhythm, S1, S2 Respiratory: Yes: Regular Gastrointestinal: Yes: Normal Bowel Sounds, Soft ...Rectal Exam: Yes: Deferred Musculoskeletal: Yes: WNL Edema: LLE: Trace, RLE: Trace Peripheral Pulses WNL: Yes Neurological: Yes: Confusion, Lethargy. No: Facial Droop, Numbness ...Motor Strength: WNL Labs: CBC, BMP 12/26/16 20:59 Hospitalist Encounter Assessment: CBC, BMP 12/26/16 12:24 12/26/16 20:59 Laboratory Tests 12/26/16 12/26/16 12/26/16 12:24 12:24 14:00 WBC 29.5 H D Sodium 125 L D Anion Gap 24 H BUN 93 H D Creatinine 7.2 H D Random Glucose 877 H* D Troponin I 0.95 H* Acetone, Qual Positive small 1+ H 12/26/16 18:13 WBC Sodium Anion Gap BUN Creatinine Random Glucose Troponin I 0.67 H* Acetone, Qual Patient is difficult to arouse but respond to verbal and tactile stimuli. Respond to her name. Moves all extremities, Moves head. Respond to pinprick in all extremities. No facial droop or asymmetry. Pt with blood glucose 877 and anion gap of 24 on insulin drip. Pt having missed dialysis. Pt with left lung infiltrate, WBC 28 now 29.5. Pt being hypotensive. Impression DKA Uremic encephlopathy Metabolic encephalopathy Sepsis likely from PNA Demand ischemia Vs NTEMI CVA R/o Hypoxemia and CO2 narcosis pseudohyponatremia Neurology consult appreciated. However due to the multiple possibilities for the patient altered mental status, so many confounding factors and the low likelihood of stroke, will still treat for stroke but will not give TPA at this time. Plan No TPA Aspirin 325mg Po daily ABG Visit type - Emergency Visit Emergency Visit: Yes ED Registration Date: 12/26/16 Care time: The patient presented to the Emergency Department on the above date and was hospitalized for further evaluation of their emergent condition. - New Patient This patient is new to me today: Yes Date on this admission: 12/27/16 - Critical Care Critical Care patient: Yes Total Critical Care Time (in minutes): 30 Critical Care Statement: The care of this patient involved high complexity decision making to prevent further life threatening deterioration of the patient 's condition and/or to evalute & treat vital organ system(s) failure or risk of failure.
[2016-12-26] MEDS: HEPARIN NA (PORCINE) 5,000 UNITS/ML 1ML VIAL SQ SCH (22:27)
[2016-12-26] MEDS: MUPIROCIN 2% TOPICAL OINTMENT FOR DECOLONIZATION NS SCH (22:27)
[2016-12-26] MEDS: CHLORHEXIDINE GLUCONATE 4% CLEANSER FOR DECOLONIZATION TP SCH (22:29)
[2016-12-26 22:34] LABS: ARTERIAL BLD GAS O2 SATURATION 97.7 % (90-98.9); ARTERIAL BLOOD GAS BASE EXCESS 1.7 meq/l (-2-2); ARTERIAL BLOOD GAS HCO3 24.5 meq/L (22-26); ARTERIAL BLOOD GAS PO2 93.1 mmHg (80-100); ARTERIAL BLOOD GAS pH 7.47 (7.35-7.45)
[2016-12-26 22:35] LABS: LPM/O2% 2LPM; PT. ON O2? YES; TYPE OF O2 NASAL O2
[2016-12-27] MEDS ORDERED: INSULIN REGULAR 100 UNITS in SODIUM CHLORIDE 99 ML IVPB SCH ×2 (00:23→09:13)
[2016-12-27] MEDS: DEXTROSE 5%-NORMAL SALINE 1,000 ML IV SCH ×2 (00:30→13:56)
[2016-12-27 01:46] LABS: CALCIUM 8.4 mg/dL (8.5-10.1); COCKROFT - GAULT 20.128; CREATININE 4.5 mg/dL (0.55-1.02)
[2016-12-27] MEDS: HEPARIN NA (PORCINE) 5,000 UNITS/ML 1ML VIAL SQ SCH ×3 (05:57→21:17)
[2016-12-27 06:26] LABS: CALCIUM 8.2 mg/dL (8.5-10.1); COCKROFT - GAULT 17.3825; CREATININE 4.7 mg/dL (0.55-1.02); MAGNESIUM 2.1 mg/dL (1.8-2.4); PHOSPHOROUS 4.7 mg/dL (2.5-4.9)
[2016-12-27] MEDS: LEVOTHYROXINE NA 100 MCG TABLET (FP) PO SCH (06:45)
[2016-12-27] MEDS ORDERED: CEFTRIAXONE 50 ML ONE (08:13)
[2016-12-27 08:27] LABS: MCH 28.7 pg (25.7-33.7); MCHC 31.9 g/dl (32.0-36.0); PLATELET COUNT 265 K/MM3 (134-434); RDW 16.2 % (11.6-15.6); WHITE BLOOD COUNT 24.5 K/mm3 (4.0-10.0)
--- NOTE | 2016-12-27 09:01 | PN ---
Progress Note, Physician Chief Complaint: MA, AMS, CVA History of Present Illness: sleepy and minimally arousable ex-cigs - Current Medication List Current Medications: Active Medications Chlorhexidine Gluconate (Hibiclens For Decolonization -) 1 applic TP HS [facility] Last Admin: 12/26/16 22:29 Dose: 1 applic Heparin Sodium (Porcine) (Heparin -) 5,000 unit SQ TID [facility] Last Admin: 12/27/16 05:57 Dose: 5,000 unit Ceftriaxone Sodium (Rocephin 1gm Ivpb (Pre-Docked)) 50 mls @ 100 mls/hr IVPB DAILY REJI Azithromycin (Zithromax 500mg Ivpb (Pre-Docked)) 250 mls @ 250 mls/hr IVPB DAILY [facility] Insulin Human Regular 100 (units/ Sodium Chloride) 100 mls @ 5 mls/hr IVPB TITR REJI; 5 UNITS/HR PRN Reason: Protocol Last Titration: 12/27/16 08:00 Dose: 1 units/hr Dextrose/Sodium Chloride (D5-Ns -) 1,000 mls @ 75 mls/hr IV ASDIR [facility] Last Admin: 12/27/16 00:30 Dose: 75 mls/hr Levothyroxine Sodium (Synthroid -) 200 mcg PO ACBK [facility] Last Admin: 12/27/16 06:45 Dose: Not Given Mupirocin (Bactroban Ointment (For Decolonization) -) 1 applic NS BID [facility] Stop: 12/31/16 21:59 Last Admin: 12/26/16 22:27 Dose: 1 applic Pneumococcal 13-Valent Conj Vacc (Prevnar 13 Syringe -) 0.5 ml IM .ONCE ONE Stop: 12/26/16 16:15 - Objective Vital Signs: Vital Signs Temperature 97.6 F 12/27/16 08:00 Pulse Rate 57 L 12/27/16 08:00 Respiratory Rate 24 12/27/16 08:00 Blood Pressure 120/46 12/27/16 08:00 O2 Sat by Pulse Oximetry (%) 100 12/27/16 08:00 Constitutional: Yes: No Distress, Calm Eyes: No: Sclera Icterus HENT: No: Nasal Congestion Cardiovascular: Yes: Regular Rate and Rhythm, S1, S2, Other (PMI non diplaced). No: JVD, Gallop, Murmur Respiratory: Yes: CTA Bilaterally. No: Accessory Muscle Use, Rales, Wheezes Gastrointestinal: Yes: Normal Bowel Sounds, Soft. No: Tenderness Musculoskeletal: Yes: Other (No kyphosis) Extremities: No: Cold Edema: No Integumentary: No: Jaundice Neurological: No: Alert, Oriented, Seizure Psychiatric: No: Agitated Labs: CBC, BMP 12/27/16 07:50 12/27/16 05:20 - ....Imaging EKG: Other (tele: NSR) Assessment/Plan EKG: SB, LVH. biphasic anterior t waves. Slightly more prominent than priors. Stable on repeat EKG x 2. head CT: suspicion for acute/subacute cerebellar infarct Echo here: nl lv/rv size/fn. mild lae, mod mac, mild-mod as/ar, mild mr/tr 66 yo with h/o left breast ca s/p lumpectomy and chemotherapy, SVT per patient' s documentation, IDDM, HTN, thyroid disease and ESRD recently started on HD M/W/ F who presented to the ED with altered mental status found to be in DKA and with acute cerebellar infarct. NSTEMI, likely Type II: - trop 0.9 on admit, trended down - likely demand ischemia in setting DKA, CVA and > volume overload sec to missed HD session. - normal LVSF with no RWMA on echo - no acute anti-PLT or AC treatment is indicated for Type II MA - intermediate preventive therapy with ASA, statin, BB can be considered depending on clinical course here (e.g. once not at risk for hemorrhagic transformation suspected) - should have risk stratification with nuclear stress test imaging later, once recovers from acute illnesses Bradycardia - likely exacerbated by patient's underlying neurologic condition and metabolic disturbance. - Monitor on telemetry. AMS/acute CVA - MS change ? sec to hyperglycemia vs CVA - check carotids - echo unrevaling - anti-PLT and other tx recs to be deferred to neuro LLL PNA, ? aspiration: -per pulm/crit care HTN - bp controlled - bp targets per neuro h/o SVT - listed on patient's own documentation of known medical conditions. - monitor tele
[2016-12-27] MEDS: AZITHROMYCIN IVPB 250 ML IVPB SCH (09:03)
[2016-12-27] MEDS: MUPIROCIN 2% TOPICAL OINTMENT FOR DECOLONIZATION NS SCH ×2 (09:03→21:18)
--- NOTE | 2016-12-27 09:20 | EKG ---
Test Reason : Blood Pressure : / mmHG Vent. Rate : 055 BPM Atrial Rate : 055 BPM P-R Int : 172 ms QRS Dur : 098 ms QT Int : 506 ms P-R-T Axes : 004 -07 039 degrees QTc Int : 484 ms SINUS BRADYCARDIA VOLTAGE CRITERIA FOR LEFT VENTRICULAR HYPERTROPHY ABNORMAL ECG WHEN COMPARED WITH ECG OF 26-DEC-2016 13:39, NO SIGNIFICANT CHANGE WAS FOUND Confirmed by SAMANTHA FERNANDO MD ([id number]) on 12/27/2016 9:19:55 AM Referred By: Confirmed By:SAMANTHA FERNANDO MD
--- NOTE | 2016-12-27 09:21 | EKG ---
Test Reason : Blood Pressure : / mmHG Vent. Rate : 056 BPM Atrial Rate : 056 BPM P-R Int : 170 ms QRS Dur : 090 ms QT Int : 492 ms P-R-T Axes : 014 -02 044 degrees QTc Int : 474 ms SINUS BRADYCARDIA MODERATE VOLTAGE CRITERIA FOR LVH, MAY BE NORMAL VARIANT POSSIBLE LATERAL INFARCT (CITED ON OR BEFORE 26-DEC-2016) ABNORMAL ECG WHEN COMPARED WITH ECG OF 13-OCT-2016 09:36, NO SIGNIFICANT CHANGE WAS FOUND Confirmed by SAMANTHA FERNANDO MD ([id number]) on 12/27/2016 9:21:02 AM Referred By: Confirmed By:SAMANTHA FERNANDO MD
--- NOTE | 2016-12-27 09:21 | EKG ---
Test Reason : Blood Pressure : / mmHG Vent. Rate : 055 BPM Atrial Rate : 055 BPM P-R Int : 144 ms QRS Dur : 086 ms QT Int : 490 ms P-R-T Axes : 005 002 038 degrees QTc Int : 468 ms SINUS BRADYCARDIA MINIMAL VOLTAGE CRITERIA FOR LVH, MAY BE NORMAL VARIANT INFERIOR INFARCT , AGE UNDETERMINED POSSIBLE ANTERIOR INFARCT (CITED ON OR BEFORE 26-DEC-2016) ABNORMAL ECG WHEN COMPARED WITH ECG OF 26-DEC-2016 11:41, NO SIGNIFICANT CHANGE WAS FOUND Confirmed by SAMANTHA FERNANDO MD ([id number]) on 12/27/2016 9:20:34 AM Referred By: SMITH Confirmed By:SAMANTHA FERNANDO MD
--- NOTE | 2016-12-27 09:57 | PN ---
Progress Note (short form) - Note Progress Note: PULM / CRITICAL CARE PROGRESS NOTE: Pt seen and examined in the ICU. 24 HOUR EVENTS: -Mental status waxing/waning -Received HD yesterday -Repeat head CT unchanged -DKA resolving -Somewhat more awake today, able to follow some commands (stick out tongue), but remains altered Current Medications Chlorhexidine Gluconate (Hibiclens For Decolonization -) 1 applic TP HS [facility] Last Admin: 12/26/16 22:29 Dose: 1 applic Heparin Sodium (Porcine) (Heparin -) 5,000 unit SQ TID [facility] Last Admin: 12/27/16 05:57 Dose: 5,000 unit Ceftriaxone Sodium (Rocephin 1gm Ivpb (Pre-Docked)) 50 mls @ 100 mls/hr IVPB DAILY [facility] Last Admin: 12/27/16 09:02 Dose: 100 mls/hr Azithromycin (Zithromax 500mg Ivpb (Pre-Docked)) 250 mls @ 250 mls/hr IVPB DAILY [facility] Last Admin: 12/27/16 09:03 Dose: 250 mls/hr Dextrose/Sodium Chloride (D5-Ns -) 1,000 mls @ 75 mls/hr IV ASDIR [facility] Last Admin: 12/27/16 00:30 Dose: 75 mls/hr Insulin Human Regular 100 (units/ Sodium Chloride) 100 mls @ 1 mls/hr IVPB TITR REJI; 1 UNITS/HR PRN Reason: Protocol Last Titration: 12/27/16 09:00 Dose: 2 units/hr Levothyroxine Sodium (Synthroid -) 200 mcg PO ACBK [facility] Last Admin: 12/27/16 06:45 Dose: Not Given Mupirocin (Bactroban Ointment (For Decolonization) -) 1 applic NS BID [facility] Stop: 12/31/16 21:59 Last Admin: 12/27/16 09:03 Dose: 1 applic Vital Signs Temp 97.6 F 12/27/16 08:00 Pulse 57 L 12/27/16 08:00 Resp 24 12/27/16 08:00 BP 120/46 12/27/16 08:00 Pulse Ox 100 12/27/16 08:00 Intake & Output 12/26/16 12/27/16 12/27/16 18:59 06:59 18:59 Intake Total 300 902.4 Balance 300 902.4 Weight 106.594 kg 96.116 kg Intake: IV 902.4 NOVOLIN R VIAL *For 42.4 IVPUSH or IV DRIP Only* 100 UNITS In Normal Saline - 99 ml @ 0.1 UNITS/KG/HR 10.65 mls/hr IVPB TITR REJI Rx#: [id number] Normal Saline - 1,000 ml 300 @ 75 mls/hr IV ASDIR REJI Rx#:[id number] NOVOLIN R VIAL *For 35 IVPUSH or IV DRIP Only* 100 UNITS In Normal Saline - 99 ml @ 5 UNITS/ HR 5 mls/hr IVPB TITR REJI Rx#:[id number] D5-Ns - 1,000 ml @ 75 mls 525 /hr IV ASDIR REJI Rx#: [id number] IVPB 300 Other: Voiding Method Diaper Diaper Diaper # Unmeasured Voids Void 0 Height 5 ft 4 in Body Mass Index (BMI) 40.3 Weight Measurement Method Built in [facility] Weight Measurement Method Est/Stated by Patient Gen: expressive aphagia at times, able to follow 1 step commands at times Heart: RRR Lung: left base rales Abd: soft, nontender Ext: + edema CBC, BMP 12/27/16 07:50 12/27/16 05:20 CXR: LLL infiltrate/effusion ASSESSMENT AND PLAN: AMS - toxic metabolic encephalopathy? meningitis? new CVA? Diabetic Ketoacidosis LLL Pneumonia Pseudohyponatremia +Troponins likely Demand Ischemia ESRD on HD HTN - Neuro follow up - exam improving, but not normal. Meningitis? ?LP ?MRI ?EEG - IV insulin while NPO - D5NS - HD per renal - may still be uremic - Abx for pneumonia - consider expanding to cover NATIONAL SALES DIRECTOR - ASA - cycle cardiac enzymes, trend EKGs - echocardiogram - antiemetics - NPO for now - f/u cultures - DVT prophylaxis - ICU monitoring Critically Ill 35min Kamran Chavarria Pulm / Critical Care EXECUTIVE ADMINISTRATIVE ASSISTANT
[2016-12-27] MEDS ORDERED: CEFTRIAXONE 50 ML IVPB SCH (10:00)
[2016-12-27 11:10] LABS: PLATELET ESTIMATE ADEQUATE (NORMAL)
[2016-12-27] MEDS ORDERED: LIDOCAINE HCL 1%, 10 MG/ML (20ML VIAL) ONE (11:31)
[2016-12-27 11:36] LABS: THYROID STIMULATING HORMONE 0.61 uIU/ml (0.358-3.74)
[2016-12-27 12:12] LABS: TROPONIN I 0.62 ng/ml (0.00-0.05)
--- NOTE | 2016-12-27 12:27 | PROC ---
Chest Tube Insertion Consent on Chart: (emergent procedure for PTX) Chest tube #1 Chest Tube Location: Left Lateral Anesthesia: 1% Lidocaine Sterile Technique: Yes Tube Sutured to Skin: Yes Chest Tube Collection System: Pleur-Evac Suction: Yes Drainage, Color/Appearance: Purulent Amount (ml): 300 Remarks: PTX, unable to get in touch with her family. Emergent.
[2016-12-27] MEDS: INSULIN REGULAR 100 UNITS in SODIUM CHLORIDE 99 ML IVPB SCH (13:00)
[2016-12-27 14:06] LABS: ALBUMIN 1.5 g/dl (3.4-5.0); BILIRUBIN,DIRECT 0.2 mg/dL (0.0-0.2); BILIRUBIN,TOTAL 0.4 mg/dL (0.2-1.0); TOT PROT 4.9 g/dl (6.4-8.2)
--- NOTE | 2016-12-27 14:16 | CONSULT ---
Consult Consult Specialty:: infectious diseases Reason for Consultation:: pneumonia,empyema - History of Present Illness History of Present Illness: patient in no condition to give any history because of the mental condition history taken from the charts 66 yo with h/o left breast ca s/p lumpectomy and chemotherapy, SVT per patient' s documentation, IDDM, HTN, thyroid disease and ESRD recently started on HD M/W/ F who presented to the ED with altered mental status found to be in DKA and with acute cerebellar infarct. Per report, patient fell two days ago and since then has not been ambulatory or eating/drinking. patient then was found to have collection in the left side of the chest and a pig tail was placed patient currently unresponsive and has drainage from the tube - History Source History Provided By: Medical Record Limitations to Obtaining History: Clinical Condition - Past Medical History Cardio/Vascular: Yes: HTN Renal/: Yes: Renal Failure ...: No Endocrine: Yes: Diabetes Mellitus, Hypothyroidism - Past Surgical History Past Surgical History: Yes: AV Fistula/Graft - Alcohol/Substance Use Hx Alcohol Use: No - Smoking History Smoking history: Former smoker Have you smoked in the past 12 months: No Aproximately how many cigarettes per day: 70 If you are a former smoker, when did you quit?: 2010 Home Medications - Allergies Allergies/Adverse Reactions: Allergies Allergy/AdvReac Type Severity Reaction Status Date / Time No Known Allergies Allergy Verified 12/26/16 11:31 - Home Medications Home Medications: Ambulatory Orders Aspirin [ASA -] 325 mg PO DAILY 06/06/13 Levothyroxine [Synthroid -] 175 mcg PO DAILY 06/06/13 Insulin (Levemir) 35 units SCJ DAILY 11/17/16 Multivitamin 1 tab PO DAILY 11/17/16 Allopurinol [Zyloprim -] 100 mg PO DAILY 12/26/16 Atenolol [Tenormin -] 50 mg PO BID 12/26/16 Furosemide [Lasix -] 40 mg PO DAILY 12/26/16 Losartan Potassium [Cozaar -] 25 mg PO DAILY 12/26/16 Review of Systems Unable to obtain ROS, reason: unable to obtain Physical Exam Vital Signs: Vital Signs Temperature 98.0 F 12/27/16 14:00 Pulse Rate 58 L 12/27/16 14:00 Respiratory Rate 26 H 12/27/16 14:00 Blood Pressure 120/49 12/27/16 14:00 O2 Sat by Pulse Oximetry (%) 99 12/27/16 10:36 Constitutional: Yes: Other Eyes: Yes: Conjunctiva Clear HENT: Yes: Atraumatic Neck: Yes: Supple, Trachea Midline Cardiovascular: Yes: S1, S2 Respiratory: Yes: On Nasal O2, Poor Air Entry, Other (left sided pig tail catheter) Gastrointestinal: Yes: Normal Bowel Sounds, Soft Musculoskeletal: Yes: Other Extremities: Yes: Other Neurological: Yes: Other (unresponsive) Psychiatric: Yes: Other Labs: CBC, BMP 12/27/16 07:50 12/27/16 05:20 Imaging - Results Chest X-ray: Report Reviewed, Image Reviewed Cat Scan: Report Reviewed, Image Reviewed Assessment/Plan 66 yo with h/o left breast ca s/p lumpectomy and chemotherapy, SVT per patient' s documentation, IDDM, HTN, thyroid disease and ESRD recently started on HD M/W/ F who presented to the ED with altered mental status found to be in DKA and with acute cerebellar infarct. cerebellar infarct LLL Pneumonia r/o empyema PTX htn plan will start abx close monitoring neuro and cardio on board icu monitoring rest ct as per icu cc time 50 min
[2016-12-27] MEDS ORDERED: MEROPENEM 500 MG VIAL (RESTRICTED TO ID) IVPB SCH (14:30)
[2016-12-27] MEDS: MEROPENEM 500 MG in DEXTROSE 5%-WATER - 100 ML IVPB SCH ×2 (14:38→18:54)
[2016-12-27] MEDS ORDERED: VANCOMYCIN 1 GRAM (PRE-DOCKED) 250 ML IVPB ONE (14:45)
--- NOTE | 2016-12-27 14:45 | PN ---
Progress Note (short form) - Note Progress Note: now has collapsed lung purulent drainage tapped from pleural space still with marked leukocytosis seen by ID and by Neuro management noted Current Medications Chlorhexidine Gluconate (Hibiclens For Decolonization -) 1 applic TP HS [facility] Last Admin: 12/26/16 22:29 Dose: 1 applic Heparin Sodium (Porcine) (Heparin -) 5,000 unit SQ TID REJI Last Admin: 12/27/16 14:38 Dose: 5,000 unit Azithromycin (Zithromax 500mg Ivpb (Pre-Docked)) 250 mls @ 250 mls/hr IVPB DAILY [facility] Last Admin: 12/27/16 09:03 Dose: 250 mls/hr Dextrose/Sodium Chloride (D5-Ns -) 1,000 mls @ 75 mls/hr IV ASDIR [facility] Last Admin: 12/27/16 13:56 Dose: 75 mls/hr Insulin Human Regular 100 (units/ Sodium Chloride) 100 mls @ 1 mls/hr IVPB TITR REJI; 1 UNITS/HR PRN Reason: Protocol Last Titration: 12/27/16 13:05 Dose: 4 units/hr Vancomycin HCl (Vancomycin (Pre-Docked)) 250 mls @ 166.667 mls/hr IVPB ONCE ONE PRN Reason: Protocol Stop: 12/27/16 16:14 Meropenem 500 mg/ Dextrose 100 mls @ 200 mls/hr IVPB Q8H-IV [facility] Last Admin: 12/27/16 14:38 Dose: 200 mls/hr Levothyroxine Sodium (Synthroid -) 200 mcg PO ACBK [facility] Last Admin: 12/27/16 06:45 Dose: Not Given Mupirocin (Bactroban Ointment (For Decolonization) -) 1 applic NS BID [facility] Stop: 12/31/16 21:59 Last Admin: 12/27/16 09:03 Dose: 1 applic Last Vital Signs Temp Pulse Resp BP Pulse Ox 98.0 F 58 L 26 H 120/49 99 12/27/16 14:00 12/27/16 14:00 12/27/16 14:00 12/27/16 14:00 12/27/16 10:36 still obtunded but responsive with one word only oral mucosa dry lungs BS heart RRR Abd soft but groans wherever she is touched ext no pitting CBCD WBC 24.5 K/mm3 (4.0-10.0) H 12/27/16 07:50 RBC 4.08 M/mm3 (3.60-5.2) 12/27/16 07:50 Hgb 11.7 GM/dL (10.7-15.3) D 12/27/16 07:50 Hct 36.7 % (32.4-45.2) 12/27/16 07:50 MCV 90.0 fl (80-96) 12/27/16 07:50 MCHC 31.9 g/dl (32.0-36.0) L 12/27/16 07:50 RDW 16.2 % (11.6-15.6) H 12/27/16 07:50 Plt Count 265 K/MM3 (134-434) D 12/27/16 07:50 MPV 9.0 fl (7.5-11.1) 12/27/16 07:50 CMP Sodium 141 mmol/L (136-145) 12/27/16 05:20 Potassium 3.8 mmol/L (3.5-5.1) 12/27/16 05:20 Chloride 102 mmol/L (98-107) 12/27/16 05:20 Carbon Dioxide 24 mmol/L (21-32) 12/27/16 05:20 Anion Gap 15 (8-16) 12/27/16 05:20 BUN 58 mg/dL (7-18) H 12/27/16 05:20 Creatinine 4.7 mg/dL (0.55-1.02) H 12/27/16 05:20 Creat Clearance w eGFR 5.65 (>60) 12/26/16 12:24 Calcium 8.2 mg/dL (8.5-10.1) L 12/27/16 05:20 Total Bilirubin 0.4 mg/dL (0.2-1.0) D 12/27/16 05:20 AST 18 U/L (15-37) 12/27/16 05:20 ALT 11 U/L (12-78) L 12/27/16 05:20 Alkaline Phosphatase 112 U/L (45-117) D 12/27/16 05:20 Total Protein 4.9 g/dl (6.4-8.2) L D 12/27/16 05:20 Albumin 1.5 g/dl (3.4-5.0) L D 12/27/16 05:20 imp- sepsis pna/empyema? esrd dm ooc Hypoalbuminemia Plan- monitor chems planning HD on Thursday maintenance schedule
[2016-12-27 16:26] LABS: GLUCOSE,PLEURAL FLUID < 1.000; TOTAL PROTEIN,PLEURAL FLUID 3.379
[2016-12-27 16:45] LABS: PLEURAL FLUID APPEARANCE CLOUDY; PLEURAL FLUID COLOR RED; PLEURAL FLUID SOURCE PLEURAL
[2016-12-27 16:46] LABS: CHLORIDE PLEURAL FLUID 95.91
[2016-12-27 17:08] LABS: PLEURAL FLUID LYMPHOCYTES 3 %; PLEURAL FLUID NEUTROPHIL 92 %
--- NOTE | 2016-12-27 20:32 | PN ---
Progress Note (short form) - Note Progress Note: NEUROLOGY FOLLOW-UP: Events reviewed. Patient examined. Repeat CT of head last night unchanged from admission study. Pt. remains lethargic but slightly more arousable. Cries out and purposeful movements of the Left side to pinch and sternal pressure. Rests with eyes closed. [id number] but NO RESPONSE to visual threat. Roving EOM's with right eye skew. Right facial (mild). Right side with minimal movt's, even to withdrawal and the right leg rests everted. IMP: Possible brainstem stroke with cortical blindness and R hemipareis. Suggest: Continue metabolic management. MRI of brain (C-) Att: vertebrobasilar circulation when stable. Thank you very much, Moy Cervantes MD
[2016-12-27] MEDS ORDERED: HEMOQUE TEST 1 EACH EACH ONE (20:53)
--- NOTE | 2016-12-27 21:11 | PN ---
Physical Exam: SUBJECTIVE: Patient seen and examined at bedside in ICU. OBJECTIVE: Vital Signs Period Temp Pulse Resp BP Sys/Aguirre Pulse Ox Last 24 Hr 97.2 F-98.2 F 54-61 20-26 104-142/44-57 96-100 GENERAL/NEURO: Does not respond to name. Not following commands. Withdraws to painful stimuli. EYES: Left gaze deviation LUNGS: Crackles left base HEART: Regular rate and rhythm, S1, S2 without murmur, rub or gallop. ABDOMEN: Soft, nontender, nondistended EXTREMITIES: 2+ pulses, warm, well-perfused, no edema. Laboratory Results - last 24 hr 12/26/16 12/26/16 12/26/16 18:13 18:13 20:59 WBC Corrected WBC (auto) RBC Hgb Hct MCV MCHC RDW Plt Count MPV Neutrophils % Lymphocytes % Monocytes % Eosinophils % Basophils % Band Neutrophils Differential Comment Smudge Cells Platelet Estimate Platelet Comment RBC Morphology Puncture Site ABG pH ABG pCO2 at Pt Temp ABG pO2 at Pt Temp ABG HCO3 ABG O2 Sat (Measured) ABG O2 Content ABG Base Excess Chance Test O2 Delivery Device Oxygen Flow Rate PEEP Sodium Potassium Chloride Carbon Dioxide Anion Gap BUN Creatinine POC Glucometer Random Glucose 368 H* D Hemoglobin A1c % 10.9 H Lactic Acid Calcium Phosphorus Magnesium Total Bilirubin Direct Bilirubin AST ALT Alkaline Phosphatase LD Total Troponin I Total Protein Albumin TSH Fluid Total Protein Pleural Fluid Source Pleural Color Pleural Appearance Pleural WBC Pleural RBC Pleural Neutrophils Pleural Lymphocytes Pleural Monocytes Pleural Eosinophils Pleural Chloride Pleural Total Protein Pleural Albumin Pleural LDH Pleural Glucose Pleural Amylase Pleural Cholesterol Pleural Triglycerides Random Vancomycin Hepatitis C Antibody Cancelled 12/26/16 12/26/16 12/26/16 21:54 22:00 22:58 WBC Corrected WBC (auto) RBC Hgb Hct MCV MCHC RDW Plt Count MPV Neutrophils % Lymphocytes % Monocytes % Eosinophils % Basophils % Band Neutrophils Differential Comment Smudge Cells Platelet Estimate Platelet Comment RBC Morphology Puncture Site Md puncture ABG pH 7.47 H ABG pCO2 at Pt Temp 33.8 L ABG pO2 at Pt Temp 93.1 ABG HCO3 24.5 ABG O2 Sat (Measured) 97.7 ABG O2 Content 16.2 ABG Base Excess 1.7 Chance Test Not applicable O2 Delivery Device Nasal o2 Oxygen Flow Rate 2lpm PEEP 0.0 Sodium Potassium Chloride Carbon Dioxide Anion Gap BUN Creatinine POC Glucometer 361.37563 317.64774 Random Glucose Hemoglobin A1c % Lactic Acid Calcium Phosphorus Magnesium Total Bilirubin Direct Bilirubin AST ALT Alkaline Phosphatase LD Total Troponin I Total Protein Albumin TSH Fluid Total Protein Pleural Fluid Source Pleural Color Pleural Appearance Pleural WBC Pleural RBC Pleural Neutrophils Pleural Lymphocytes Pleural Monocytes Pleural Eosinophils Pleural Chloride Pleural Total Protein Pleural Albumin Pleural LDH Pleural Glucose Pleural Amylase Pleural Cholesterol Pleural Triglycerides Random Vancomycin Hepatitis C Antibody 12/27/16 12/27/16 12/27/16 00:17 00:50 02:15 WBC Corrected WBC (auto) RBC Hgb Hct MCV MCHC RDW Plt Count MPV Neutrophils % Lymphocytes % Monocytes % Eosinophils % Basophils % Band Neutrophils Differential Comment Smudge Cells Platelet Estimate Platelet Comment RBC Morphology Puncture Site ABG pH ABG pCO2 at Pt Temp ABG pO2 at Pt Temp ABG HCO3 ABG O2 Sat (Measured) ABG O2 Content ABG Base Excess Chance Test O2 Delivery Device Oxygen Flow Rate PEEP Sodium 140 Potassium 3.8 Chloride 100 D Carbon Dioxide 23 D Anion Gap 17 H BUN 54 H D Creatinine 4.5 H D POC Glucometer 221.55245 198.09592 Random Glucose 198 H D Hemoglobin A1c % Lactic Acid Calcium 8.4 L Phosphorus Magnesium Total Bilirubin Direct Bilirubin AST ALT Alkaline Phosphatase LD Total Troponin I Total Protein Albumin TSH Fluid Total Protein Pleural Fluid Source Pleural Color Pleural Appearance Pleural WBC Pleural RBC Pleural Neutrophils Pleural Lymphocytes Pleural Monocytes Pleural Eosinophils Pleural Chloride Pleural Total Protein Pleural Albumin Pleural LDH Pleural Glucose Pleural Amylase Pleural Cholesterol Pleural Triglycerides Random Vancomycin Hepatitis C Antibody 12/27/16 12/27/16 12/27/16 03:00 04:24 05:20 WBC Corrected WBC (auto) RBC Hgb Hct MCV MCHC RDW Plt Count MPV Neutrophils % Lymphocytes % Monocytes % Eosinophils % Basophils % Band Neutrophils Differential Comment Smudge Cells Platelet Estimate Platelet Comment RBC Morphology Puncture Site ABG pH ABG pCO2 at Pt Temp ABG pO2 at Pt Temp ABG HCO3 ABG O2 Sat (Measured) ABG O2 Content ABG Base Excess Chance Test O2 Delivery Device Oxygen Flow Rate PEEP Sodium 141 Potassium 3.8 Chloride 102 Carbon Dioxide 24 Anion Gap 15 BUN 58 H Creatinine 4.7 H POC Glucometer 196.31604 174.70953 Random Glucose 124 H D Hemoglobin A1c % Lactic Acid Calcium 8.2 L Phosphorus 4.7 D Magnesium 2.1 Total Bilirubin 0.4 D Direct Bilirubin 0.2 AST 18 ALT 11 L Alkaline Phosphatase 112 D LD Total 269 H Troponin I 0.62 H* Total Protein 4.9 L D Albumin 1.5 L D TSH 0.61 Fluid Total Protein Pleural Fluid Source Pleural Color Pleural Appearance Pleural WBC Pleural RBC Pleural Neutrophils Pleural Lymphocytes Pleural Monocytes Pleural Eosinophils Pleural Chloride Pleural Total Protein Pleural Albumin Pleural LDH Pleural Glucose Pleural Amylase Pleural Cholesterol Pleural Triglycerides Random Vancomycin 9.910 Hepatitis C Antibody 12/27/16 12/27/16 12/27/16 07:11 07:50 07:50 WBC 24.5 H Corrected WBC (auto) RBC 4.08 Hgb 11.7 D Hct 36.7 MCV 90.0 MCHC 31.9 L RDW 16.2 H Plt Count 265 D MPV 9.0 Neutrophils % 87.0 H Lymphocytes % 5.0 L D Monocytes % 4.0 D Eosinophils % Basophils % Band Neutrophils 4.0 Differential Comment Manual diff done Smudge Cells Platelet Estimate Adequate Platelet Comment RBC Morphology Puncture Site ABG pH ABG pCO2 at Pt Temp ABG pO2 at Pt Temp ABG HCO3 ABG O2 Sat (Measured) ABG O2 Content ABG Base Excess Chance Test O2 Delivery Device Oxygen Flow Rate PEEP Sodium Potassium Chloride Carbon Dioxide Anion Gap BUN Creatinine POC Glucometer 143.10746 Random Glucose Hemoglobin A1c % Lactic Acid 1.702 Calcium Phosphorus Magnesium Total Bilirubin Direct Bilirubin AST ALT Alkaline Phosphatase LD Total Troponin I Total Protein Albumin TSH Fluid Total Protein Pleural Fluid Source Pleural Color Pleural Appearance Pleural WBC Pleural RBC Pleural Neutrophils Pleural Lymphocytes Pleural Monocytes Pleural Eosinophils Pleural Chloride Pleural Total Protein Pleural Albumin Pleural LDH Pleural Glucose Pleural Amylase Pleural Cholesterol Pleural Triglycerides Random Vancomycin Hepatitis C Antibody 12/27/16 12/27/16 12/27/16 11:05 12:24 12:41 WBC Corrected WBC (auto) RBC Hgb Hct MCV MCHC RDW Plt Count MPV Neutrophils % Lymphocytes % Monocytes % Eosinophils % Basophils % Band Neutrophils Differential Comment Smudge Cells Platelet Estimate Platelet Comment RBC Morphology Puncture Site ABG pH ABG pCO2 at Pt Temp ABG pO2 at Pt Temp ABG HCO3 ABG O2 Sat (Measured) ABG O2 Content ABG Base Excess Chance Test O2 Delivery Device Oxygen Flow Rate PEEP Sodium Potassium Chloride Carbon Dioxide Anion Gap BUN Creatinine POC Glucometer 254.43264 271.24436 Random Glucose Hemoglobin A1c % Lactic Acid Calcium Phosphorus Magnesium Total Bilirubin Direct Bilirubin AST ALT Alkaline Phosphatase LD Total Troponin I Total Protein Albumin TSH Fluid Total Protein Cancelled Pleural Fluid Source Pleural Pleural Color Red Pleural Appearance Cloudy Pleural WBC 533989 Pleural RBC 63763 Pleural Neutrophils 92 Pleural Lymphocytes 3 Pleural Monocytes 4 Pleural Eosinophils 1 Pleural Chloride 95.91 Pleural Total Protein 3.379 Pleural Albumin 1 Pleural LDH 5439.5 Pleural Glucose < 1.000 Pleural Amylase 112.949 Pleural Cholesterol 60 Pleural Triglycerides 78 Random Vancomycin Hepatitis C Antibody Active Medications Generic Name Dose Route Start Last Admin Trade Name Freq PRN Reason Stop Dose Admin Chlorhexidine Gluconate 1 applic 12/26/16 22:00 12/26/16 22:29 Hibiclens For Decolonization - TP 1 applic HS REJI Administration Heparin Sodium (Porcine) 5,000 unit 12/26/16 22:00 12/27/16 14:38 Heparin - SQ 5,000 unit TID REJI Administration Azithromycin 250 mls @ 250 mls/hr 12/27/16 10:00 12/27/16 09:03 Zithromax 500mg Ivpb (Pre-Docked) IVPB 250 mls/hr DAILY REJI Administration Dextrose/Sodium Chloride 1,000 mls @ 75 mls/hr 12/27/16 00:30 12/27/16 13:56 D5-Ns - IV 75 mls/hr ASDIR REJI Administration Insulin Human Regular 100 100 mls @ 1 mls/hr 12/27/16 13:10 12/27/16 19:00 units/ Sodium Chloride IVPB 5 units/hr TITR REJI Titration Protocol 1 UNITS/HR Meropenem 500 mg/ Dextrose 100 mls @ 200 mls/hr 12/27/16 18:00 12/27/16 18:54 IVPB 200 mls/hr Q8H-IV REJI Administration Levothyroxine Sodium 200 mcg 12/27/16 07:00 12/27/16 06:45 Synthroid - PO Not Given ACBK REJI Mupirocin 1 applic 12/26/16 22:00 12/27/16 09:03 Bactroban Ointment (For Decolonization) - NS 12/31/16 21:59 1 applic BID REJI Administration ASSESSMENT/PLAN: 66 year-old woman with a PMH of HTN, HDL, IDDM, breast cancer s/p lumpectomy/ chemotherapy, hypothyroidism, and ESRD on HD. About 48 hours prior to arrival she fell and was on the floor for about 10 hours. The next day she failed to appear for HD. A neighbor went to check on her and found her lethargic and confused. Admitted for DKA, pneumonia, and CVA. Hospital course complicated by spontaneous pneumothorax. ESRD on HD (M,W,F) --dialysis session on 12/26; next 12/29 IDDM DKA Lactic acidosis, resolved --AG 15 --insulin drip until gap closes --lactic acid 4.2->1.7 CVA --12/26 CT head x 2: acute/subacute infarct 3.5 x 2cm right cerebellar hemisphere --seen and evaluated by neuro Demand ischemia Elevated troponins --troponins downtrending 0.95-->0.67; likely demand in setting of DKA, CVA, missed HD --12/26 Echo: mild cLVH, LV function normal; RV normal; LAE; mild MR; mild TR; mild to moderate and AI Pneumonia --WBC 29.5k on admission -->24.5k; afebrile --12/26 CXR: left base infiltrate with pleural fluid --azithro and meropenem --cultures pending --ID following Left pneumothorax --12/27 CXR: new left pneumothorax --left chest tube placed to suction, ~150cc's blood and pus drainage, concerning for empyema --exudative Hypertension --holding anti-hypertensives taken at home (losartan, atenolol) --holding home lasix Hyperlipidemia --on no meds Hypothyroidism --continue levothyroxine F/E/N Fluids: D5NS @75mL/hr Electrolytes: replete as indicated Nutrition: NPO DVT prophylaxis: subq heparin, SCDs Dispo: continues to require ICU level care. Physical therapy evaluation Dispo: continues to require ICU level care. Full Code. Visit type - Emergency Visit Emergency Visit: Yes ED Registration Date: 12/26/16 Care time: The patient presented to the Emergency Department on the above date and was hospitalized for further evaluation of their emergent condition. - New Patient This patient is new to me today: Yes Date on this admission: 12/28/16 - Critical Care Critical Care patient: Yes Total Critical Care Time (in minutes): 45 Critical Care Statement: The care of this patient involved high complexity decision making to prevent further life threatening deterioration of the patient 's condition and/or to evalute & treat vital organ system(s) failure or risk of failure.
[2016-12-27] MEDS: CHLORHEXIDINE GLUCONATE 4% CLEANSER FOR DECOLONIZATION TP SCH (21:18)
[2016-12-28] MEDS: MEROPENEM 500 MG in DEXTROSE 5%-WATER - 100 ML IVPB SCH ×3 (02:26→17:52)
[2016-12-28] MEDS: HEPARIN NA (PORCINE) 5,000 UNITS/ML 1ML VIAL SQ SCH ×3 (05:54→21:23)
[2016-12-28] MEDS: LEVOTHYROXINE NA 100 MCG TABLET (FP) PO SCH (06:09)
[2016-12-28 08:47] LABS: EOSINOPHIL 0.3 % (0-4.5); MCH 29.4 pg (25.7-33.7); MCHC 32.5 g/dl (32.0-36.0); MEAN CELL VOLUME 90.4 fl (80-96); MEAN PLT VOLUME 8.9 fl (7.5-11.1); NEUTROPHILS 90.7 % (42.8-82.8); PLATELET COUNT 273 K/MM3 (134-434); RDW 16.5 % (11.6-15.6); WHITE BLOOD COUNT 20.6 K/mm3 (4.0-10.0)
--- NOTE | 2016-12-28 09:00 | PN ---
Progress Note, Physician Chief Complaint: cva, AMS History of Present Illness: eyes closed, lethargic, minimally arousable appears comfortable - Current Medication List Current Medications: Active Medications Chlorhexidine Gluconate (Hibiclens For Decolonization -) 1 applic TP HS [facility] Last Admin: 12/27/16 21:18 Dose: 1 applic Heparin Sodium (Porcine) (Heparin -) 5,000 unit SQ TID [facility] Last Admin: 12/28/16 05:54 Dose: 5,000 unit Azithromycin (Zithromax 500mg Ivpb (Pre-Docked)) 250 mls @ 250 mls/hr IVPB DAILY [facility] Last Admin: 12/27/16 09:03 Dose: 250 mls/hr Dextrose/Sodium Chloride (D5-Ns -) 1,000 mls @ 75 mls/hr IV ASDIR [facility] Last Admin: 12/27/16 13:56 Dose: 75 mls/hr Insulin Human Regular 100 (units/ Sodium Chloride) 100 mls @ 1 mls/hr IVPB TITR REJI; 1 UNITS/HR PRN Reason: Protocol Last Titration: 12/27/16 19:00 Dose: 5 units/hr Meropenem 500 mg/ Dextrose 100 mls @ 200 mls/hr IVPB Q8H-IV [facility] Last Admin: 12/28/16 02:26 Dose: 200 mls/hr Levothyroxine Sodium (Synthroid -) 200 mcg PO ACBK [facility] Last Admin: 12/28/16 06:09 Dose: Not Given Mupirocin (Bactroban Ointment (For Decolonization) -) 1 applic NS BID [facility] Stop: 12/31/16 21:59 Last Admin: 12/27/16 21:18 Dose: 1 applic - Objective Vital Signs: Vital Signs Temperature 98.1 F 12/28/16 06:00 Pulse Rate 58 L 12/28/16 06:00 Respiratory Rate 21 12/28/16 06:00 Blood Pressure 151/50 12/28/16 06:00 O2 Sat by Pulse Oximetry (%) 96 12/27/16 20:22 Constitutional: Yes: Well Nourished Eyes: No: Sclera Icterus HENT: No: Nasal Congestion Cardiovascular: Yes: Regular Rate and Rhythm, S1, S2, Other (PMI non diplaced). No: JVD, Gallop, Murmur Respiratory: Yes: CTA Bilaterally. No: Accessory Muscle Use, Rales, Wheezes Gastrointestinal: Yes: Normal Bowel Sounds, Soft. No: Tenderness Musculoskeletal: Yes: Other (No kyphosis) Extremities: No: Cold Edema: No Integumentary: No: Jaundice Neurological: No: Alert, Seizure Psychiatric: No: Agitated - ....Imaging EKG: Other (tele: NSR) Assessment/Plan EKG: SB, LVH. biphasic anterior t waves. Slightly more prominent than priors. Stable on repeat EKG x 2. head CT: suspicion for acute/subacute cerebellar infarct Echo here: nl lv/rv size/fn. mild lae, mod mac, mild-mod as/ar, mild mr/tr 66 yo with h/o left breast ca s/p lumpectomy and chemotherapy, SVT per patient' s documentation, IDDM, HTN, thyroid disease and ESRD recently started on HD M/W/ who presented to the ED with altered mental status found to be in DKA and with acute cerebellar infarct. NSTEMI, likely Type II: - trop 0.9 on admit, trended down - likely demand ischemia in setting DKA, CVA and > volume overload sec to missed HD session. - normal LVSF with no RWMA on echo - no acute anti-PLT or AC treatment is indicated for Type II ID - snf preventive therapy with ASA, statin, BB can be considered depending on clinical course here (e.g. once not at risk for hemorrhagic transformation suspected) - should have risk stratification with nuclear stress test imaging later, if she recovers from acute illnesses Bradycardia - likely exacerbated by patient's underlying neurologic condition and metabolic disturbance. - Monitor on telemetry. AMS/possible acute brainstem CVA - MS change ? sec to hyperglycemia vs CVA - check carotids - echo unrevaling - anti-PLT and other tx recs to be deferred to neuro LLL PNA, ? aspiration: -per pulm/crit care HTN - bp controlled - bp targets per neuro h/o SVT - listed on patient's own documentation of known medical conditions. - monitor tele
[2016-12-28 09:10] LABS: COCKROFT - GAULT 15.674; CREATININE 5.3 mg/dL (0.55-1.02); MAGNESIUM 2.2 mg/dL (1.8-2.4); PHOSPHOROUS 3.9 mg/dL (2.5-4.9)
--- NOTE | 2016-12-28 09:33 | PN ---
Progress Note (short form) - Note Progress Note: Seen and examined in ICU pneumo on CXR, pigtail placed with large purulent effusion ID consulted and ABX escalated no airleak CXR this AM with large pneumo Current Medications Chlorhexidine Gluconate (Hibiclens For Decolonization -) 1 applic TP HS [facility] Last Admin: 12/27/16 21:18 Dose: 1 applic Heparin Sodium (Porcine) (Heparin -) 5,000 unit SQ TID REJI Last Admin: 12/28/16 05:54 Dose: 5,000 unit Azithromycin (Zithromax 500mg Ivpb (Pre-Docked)) 250 mls @ 250 mls/hr IVPB DAILY REJI Last Admin: 12/27/16 09:03 Dose: 250 mls/hr Dextrose/Sodium Chloride (D5-Ns -) 1,000 mls @ 75 mls/hr IV ASDIR [facility] Last Admin: 12/27/16 13:56 Dose: 75 mls/hr Insulin Human Regular 100 (units/ Sodium Chloride) 100 mls @ 1 mls/hr IVPB TITR REJI; 1 UNITS/HR PRN Reason: Protocol Last Titration: 12/27/16 19:00 Dose: 5 units/hr Meropenem 500 mg/ Dextrose 100 mls @ 200 mls/hr IVPB Q8H-IV REJI Last Admin: 12/28/16 02:26 Dose: 200 mls/hr Levothyroxine Sodium (Synthroid -) 200 mcg PO ACBK [facility] Last Admin: 12/28/16 06:09 Dose: Not Given Mupirocin (Bactroban Ointment (For Decolonization) -) 1 applic NS BID [facility] Stop: 12/31/16 21:59 Last Admin: 12/27/16 21:18 Dose: 1 applic Vital Signs Period Temp Pulse Resp BP Sys/Aguirre Pulse Ox Last 24 Hr 97.6 F-98.2 F 58-63 21-26 113-151/41-74 96-99 Intake & Output 12/25/16 12/26/16 12/27/16 12/28/16 23:59 23:59 23:59 23:59 Intake Total 642.4 2571 139 Output Total 150 148 Balance 642.4 2421 -9 Weight 106.594 kg 96.116 kg 97.749 kg General: awake without distress HEENT: PERRL CV: RRR Pulm: absent right sided, pigtail purulent drainage, no airleak Abd: obese, SNTND Ext: LE +2/3 edema Neuro: left facial droop, WELLS, AOx2 CBCD WBC 20.6 K/mm3 (4.0-10.0) H 12/28/16 08:32 RBC 3.88 M/mm3 (3.60-5.2) 12/28/16 08:32 Hgb 11.4 GM/dL (10.7-15.3) 12/28/16 08:32 Hct 35.1 % (32.4-45.2) 12/28/16 08:32 MCV 90.4 fl (80-96) 12/28/16 08:32 MCHC 32.5 g/dl (32.0-36.0) 12/28/16 08:32 RDW 16.5 % (11.6-15.6) H 12/28/16 08:32 Plt Count 273 K/MM3 (134-434) 12/28/16 08:32 MPV 8.9 fl (7.5-11.1) 12/28/16 08:32 CMP Sodium 139 mmol/L (136-145) 12/28/16 08:32 Potassium 3.6 mmol/L (3.5-5.1) 12/28/16 08:32 Chloride 102 mmol/L (98-107) 12/28/16 08:32 Carbon Dioxide 25 mmol/L (21-32) 12/28/16 08:32 Anion Gap 12 (8-16) 12/28/16 08:32 BUN 65 mg/dL (7-18) H 12/28/16 08:32 Creatinine 5.3 mg/dL (0.55-1.02) H 12/28/16 08:32 Creat Clearance w eGFR 5.65 (>60) 12/26/16 12:24 Random Glucose 124 mg/dL (74-106) H D 12/27/16 05:20 Calcium 8.0 mg/dL (8.5-10.1) L 12/28/16 08:32 Total Bilirubin 0.4 mg/dL (0.2-1.0) D 12/27/16 05:20 AST 18 U/L (15-37) 12/27/16 05:20 ALT 11 U/L (12-78) L 12/27/16 05:20 Alkaline Phosphatase 112 U/L (45-117) D 12/27/16 05:20 Total Protein 4.9 g/dl (6.4-8.2) L D 12/27/16 05:20 Albumin 1.5 g/dl (3.4-5.0) L D 12/27/16 05:20 CARDIAC ENZYMES Creatine Kinase 53 IU/L (26-192) 12/26/16 18:13 Troponin I 0.62 ng/ml (0.00-0.05) H* 12/27/16 05:20 CXR: large left sided pneumothorax, pigtail in place ASSESSMENT AND PLAN: AMS - toxic metabolic encephalopathy? meningitis? new CVA? Diabetic Ketoacidosis LLL Pneumonia Empyema Pseudohyponatremia +Troponins likely Demand Ischemia ESRD on HD HTN - Neuro follow up - left sided droop - IV insulin while NPO - D5NS - HD per renal - may still be uremic - ABX for pneumonia/empyema - pigtail for pneumo and empyema, concerning for complicated loculated effusion , will send for CT chest and will likely need larger chest tube placed +/- decortication - ASA - cycle cardiac enzymes, trend EKGs - echocardiogram - antiemetics - NPO for now - f/u cultures - DVT prophylaxis - ICU monitoring Boerem ACNP Pulm/CCM Critically Ill 35min
[2016-12-28] MEDS: AZITHROMYCIN IVPB 250 ML IVPB SCH (10:45)
[2016-12-28 10:46] LABS: ALBUMIN 1.4 g/dl (3.4-5.0); BILIRUBIN,DIRECT 0.1 mg/dL (0.0-0.2); BILIRUBIN,TOTAL 0.4 mg/dL (0.2-1.0); TOT PROT 4.6 g/dl (6.4-8.2)
[2016-12-28] MEDS: MUPIROCIN 2% TOPICAL OINTMENT FOR DECOLONIZATION NS SCH ×2 (11:00→21:23)
[2016-12-28] MEDS ORDERED: PT OWN MED DRAWER 7, Y5N ONE ×3 (11:03→20:14)
--- NOTE | 2016-12-28 12:41 | CONSULT ---
Consult - text type - Consultation Consultation Note: Thoracic Surgery Consultation: Pt seen and examined and history reviewed. Likely empyema versus loculated hydropneumothorax. Improving as far as infectious signs are concerned (no fevers , wbc decreasing, respiratory status stable). CXR pending. Of note, had DKA, CVA , and elevated troponins with left pneumonia and empyema. The left lung is unlikely to expand easily without a combination of further tube drainage and possibly positive pressure ventilation. At this time I recommend the followin. Prepare for possible VATS on Thursday with medical optimization/clearance. She will need HD today (Thursday) for a possible VATS/thoracotomy on Thursday. 2. Tube should be placed to -40 suction in the meantime. 3. If risk of general anesthesia is too high, would consider IR drainage to further expand lung. Will discuss with Dr. Alejandro. If CXR is improving I am leaning towards recommending no surgery or another tube via IR due to her recent stroke. I have spent over 45 minutes with greater than half of this time involving counseling and coordination of care including discussing my assessment with Bonnie Gresham, the ICU resident, and the ICU PA yesterday, as well as reviewing images and labs.
[2016-12-28] MEDS: LEVOTHYROXINE SODIUM 100 MCG VIAL IVPUSH SCH (13:00)
[2016-12-28] MEDS: INSULIN REGULAR 100 UNITS in SODIUM CHLORIDE 99 ML IVPB SCH (14:00)
--- NOTE | 2016-12-28 14:46 | PN ---
Progress Note (short form) - Note Progress Note: multiple active problems question of cva- brainstem per neuro L pneumothorax/L empyema Sepsis DKA Positive troponins ESRD/No vol excess Current Medications Alteplase, Recombinant (Tpa -) 10 mg IVPB Q12H [facility] Stop: 12/31/16 03:01 Chlorhexidine Gluconate (Hibiclens For Decolonization -) 1 applic TP HS REJI Last Admin: 12/27/16 21:18 Dose: 1 applic Heparin Sodium (Porcine) (Heparin -) 5,000 unit SQ TID REJI Last Admin: 12/28/16 05:54 Dose: 5,000 unit Azithromycin (Zithromax 500mg Ivpb (Pre-Docked)) 250 mls @ 250 mls/hr IVPB DAILY [facility] Last Admin: 12/28/16 10:45 Dose: 250 mls/hr Dextrose/Sodium Chloride (D5-Ns -) 1,000 mls @ 75 mls/hr IV ASDIR [facility] Last Admin: 12/27/16 13:56 Dose: 75 mls/hr Insulin Human Regular 100 (units/ Sodium Chloride) 100 mls @ 1 mls/hr IVPB TITR REJI; 1 UNITS/HR PRN Reason: Protocol Last Titration: 12/27/16 19:00 Dose: 5 units/hr Meropenem 500 mg/ Dextrose 100 mls @ 200 mls/hr IVPB Q8H-IV REJI Last Admin: 12/28/16 12:00 Dose: 200 mls/hr Levothyroxine Sodium (Synthroid Injection -) 100 mcg IVPUSH DAILY [facility] Last Admin: 12/28/16 13:00 Dose: 100 mcg Mupirocin (Bactroban Ointment (For Decolonization) -) 1 applic NS BID [facility] Stop: 12/31/16 21:59 Last Admin: 12/28/16 11:00 Dose: 1 applic other notes appreciated S- unresponsive to spoken stimuli Last Vital Signs Temp Pulse Resp BP Pulse Ox 98.1 F 56 L 24 148/44 96 12/28/16 06:00 12/28/16 10:00 12/28/16 10:00 12/28/16 10:00 12/27/16 20:22 Lungs decr breath sounds Heart RRR soft Abd soft no guarding Ext no cyanosis or edema Labs CBC,CMP WBC 20.6 K/mm3 (4.0-10.0) H 12/28/16 08:32 Corrected WBC (auto) Cancelled 12/27/16 14:00 RBC 3.88 M/mm3 (3.60-5.2) 12/28/16 08:32 Hgb 11.4 GM/dL (10.7-15.3) 12/28/16 08:32 Hct 35.1 % (32.4-45.2) 12/28/16 08:32 MCV 90.4 fl (80-96) 12/28/16 08:32 MCHC 32.5 g/dl (32.0-36.0) 12/28/16 08:32 RDW 16.5 % (11.6-15.6) H 12/28/16 08:32 Plt Count 273 K/MM3 (134-434) 12/28/16 08:32 MPV 8.9 fl (7.5-11.1) 12/28/16 08:32 Neutrophils % 90.7 % (42.8-82.8) H 12/28/16 08:32 Lymphocytes % 5.5 % (8-40) L 12/28/16 08:32 Monocytes % 3.5 % (3.8-10.2) L 12/28/16 08:32 Eosinophils % 0.3 % (0-4.5) D 12/28/16 08:32 Basophils % 0.0 % (0-2.0) 12/28/16 08:32 Band Neutrophils 4.0 % (0-10) 12/27/16 07:50 Differential Comment Manual diff done 12/27/16 07:50 Smudge Cells Cancelled 12/27/16 14:00 Platelet Estimate Adequate (NORMAL) 12/27/16 07:50 Platelet Comment Cancelled 12/27/16 14:00 Platelet Comment Cancelled 12/27/16 14:00 RBC Morphology Cancelled 12/27/16 14:00 Sodium 139 mmol/L (136-145) 12/28/16 08:32 Potassium 3.6 mmol/L (3.5-5.1) 12/28/16 08:32 Chloride 102 mmol/L (98-107) 12/28/16 08:32 Carbon Dioxide 25 mmol/L (21-32) 12/28/16 08:32 Anion Gap 12 (8-16) 12/28/16 08:32 BUN 65 mg/dL (7-18) H 12/28/16 08:32 Creatinine 5.3 mg/dL (0.55-1.02) H 12/28/16 08:32 Creat Clearance w eGFR 5.65 (>60) 12/26/16 12:24 POC Glucometer 316.70305 UNITS (()) 12/28/16 12:48 Random Glucose 317 mg/dL (74-106) H* D 12/28/16 08:32 Hemoglobin A1c % 10.9 % (4.8-6.0) H 12/26/16 18:13 Lactic Acid 1.702 mmol/L (0.4-2.0) 12/27/16 07:50 Calcium 8.0 mg/dL (8.5-10.1) L 12/28/16 08:32 Phosphorus 3.9 mg/dL (2.5-4.9) 12/28/16 08:32 Magnesium 2.2 mg/dL (1.8-2.4) 12/28/16 08:32 Total Bilirubin 0.4 mg/dL (0.2-1.0) 12/28/16 08:32 Direct Bilirubin 0.1 mg/dL (0.0-0.2) D 12/28/16 08:32 AST 21 U/L (15-37) 12/28/16 08:32 ALT 12 U/L (12-78) 12/28/16 08:32 Alkaline Phosphatase 104 U/L (45-117) 12/28/16 08:32 LD Total 195 U/L (84-246) D 12/28/16 08:32 Creatine Kinase 53 IU/L (26-192) 12/26/16 18:13 Troponin I 0.62 ng/ml (0.00-0.05) H* 12/27/16 05:20 Total Protein 4.6 g/dl (6.4-8.2) L 12/28/16 08:32 Albumin 1.4 g/dl (3.4-5.0) L 12/28/16 08:32 Triglycerides 176 mg/dL (35-160) H 12/26/16 18:13 Cholesterol 168 mg/dL (50-200) 12/26/16 18:13 Total LDL Cholesterol 121 mg/dL (5-100) H 12/26/16 18:13 HDL Cholesterol 15 mg/dL (40-60) L 12/26/16 18:13 TSH Cancelled 12/27/16 07:00 IMP - critically ill in icu septis/empyema decreased mental status/cva esrd- hemodynamically stable dka Plan- maintenance HD tomorrow
[2016-12-28] MEDS ORDERED: ALTEPLASE 50 MG VIAL IVPB SCH (15:00)
[2016-12-28] MEDS: ALTEPLASE 50 MG VIAL IVPB SCH (16:28)
--- NOTE | 2016-12-28 17:12 | PN ---
Physical Exam: SUBJECTIVE: Patient seen and examined in ICU. OBJECTIVE: Vital Signs Period Temp Pulse Resp BP Sys/Aguirre Pulse Ox Last 24 Hr 97.6 F-98.2 F 56-63 19-26 130-166/41-74 96-96 GENERAL/NEURO: Opens eyes. Follow commands. Answers questions appropriately. Facial droop. EYES: Left gaze deviation LUNGS: Bibasilar crackles. HEART: Regular rate and rhythm, S1, S2 without murmur, rub or gallop. ABDOMEN: Soft, nontender, nondistended EXTREMITIES: 2+ pulses, warm, well-perfused, no edema. Laboratory Results - last 24 hr 12/27/16 12/27/16 12/27/16 12:41 14:00 17:06 WBC Cancelled Corrected WBC (auto) Cancelled RBC Cancelled Hgb Cancelled Hct Cancelled MCV Cancelled MCHC Cancelled RDW Cancelled Plt Count Cancelled MPV Cancelled Neutrophils % Cancelled Lymphocytes % Cancelled Monocytes % Cancelled Eosinophils % Cancelled Basophils % Cancelled Differential Comment Cancelled Smudge Cells Cancelled Platelet Estimate Cancelled Platelet Comment Cancelled RBC Morphology Cancelled Sodium Potassium Chloride Carbon Dioxide Anion Gap BUN Creatinine POC Glucometer [phone] Random Glucose Calcium Phosphorus Magnesium Total Bilirubin Direct Bilirubin AST ALT Alkaline Phosphatase LD Total Total Protein Albumin Pleural Neutrophils 92 Pleural Lymphocytes 3 Pleural Monocytes 4 Pleural Eosinophils 1 Pleural LDH 5439.5 12/28/16 12/28/16 12/28/16 05:59 06:51 08:32 WBC 20.6 H Corrected WBC (auto) RBC 3.88 Hgb 11.4 Hct 35.1 MCV 90.4 MCHC 32.5 RDW 16.5 H Plt Count 273 MPV 8.9 Neutrophils % 90.7 H Lymphocytes % 5.5 L Monocytes % 3.5 L Eosinophils % 0.3 D Basophils % 0.0 Differential Comment Smudge Cells Platelet Estimate Platelet Comment RBC Morphology Sodium Potassium Chloride Carbon Dioxide Anion Gap BUN Creatinine POC Glucometer 345.74136 [phone] Random Glucose Calcium Phosphorus Magnesium Total Bilirubin Direct Bilirubin AST ALT Alkaline Phosphatase LD Total Total Protein Albumin Pleural Neutrophils Pleural Lymphocytes Pleural Monocytes Pleural Eosinophils Pleural LDH 12/28/16 12/28/16 12/28/16 08:32 08:33 09:48 WBC Corrected WBC (auto) RBC Hgb Hct MCV MCHC RDW Plt Count MPV Neutrophils % Lymphocytes % Monocytes % Eosinophils % Basophils % Differential Comment Smudge Cells Platelet Estimate Platelet Comment RBC Morphology Sodium 139 Potassium 3.6 Chloride 102 Carbon Dioxide 25 Anion Gap 12 BUN 65 H Creatinine 5.3 H POC Glucometer [phone] Random Glucose 317 H* D Calcium 8.0 L Phosphorus 3.9 Magnesium 2.2 Total Bilirubin 0.4 Direct Bilirubin 0.1 D AST 21 ALT 12 Alkaline Phosphatase 104 LD Total 195 D Cancelled Total Protein 4.6 L Albumin 1.4 L Pleural Neutrophils Pleural Lymphocytes Pleural Monocytes Pleural Eosinophils Pleural LDH Active Medications Generic Name Dose Route Start Last Admin Trade Name Freq PRN Reason Stop Dose Admin Alteplase, Recombinant 10 mg 12/28/16 15:30 12/28/16 16:28 Tpa - IVPB 12/31/16 03:31 Not Given Q12H REJI Chlorhexidine Gluconate 1 applic 12/26/16 22:00 12/27/16 21:18 Hibiclens For Decolonization - TP 1 applic HS REJI Administration Heparin Sodium (Porcine) 5,000 unit 12/26/16 22:00 12/28/16 14:41 Heparin - SQ 5,000 unit TID REJI Administration Azithromycin 250 mls @ 250 mls/hr 12/27/16 10:00 12/28/16 10:45 Zithromax 500mg Ivpb (Pre-Docked) IVPB 250 mls/hr DAILY REJI Administration Dextrose/Sodium Chloride 1,000 mls @ 75 mls/hr 12/27/16 00:30 12/27/16 13:56 D5-Ns - IV 75 mls/hr ASDIR REJI Administration Insulin Human Regular 100 100 mls @ 1 mls/hr 12/27/16 13:10 12/28/16 14:00 units/ Sodium Chloride IVPB 5 mls/hr TITR REJI Administration Protocol 1 UNITS/HR Meropenem 500 mg/ Dextrose 100 mls @ 200 mls/hr 12/27/16 18:00 12/28/16 12:00 IVPB 200 mls/hr Q8H-IV REJI Administration Levothyroxine Sodium 100 mcg 12/28/16 10:00 12/28/16 13:00 Synthroid Injection - IVPUSH 100 mcg DAILY REJI Administration Mupirocin 1 applic 12/26/16 22:00 12/28/16 11:00 Bactroban Ointment (For Decolonization) - NS 12/31/16 21:59 1 applic BID REJI Administration ASSESSMENT/PLAN: 66 year-old woman with a PMH of HTN, HDL, IDDM, breast cancer s/p lumpectomy/ chemotherapy, hypothyroidism, and ESRD on HD. Admitted for DKA, pneumonia, and CVA. Hospital course complicated by spontaneous pneumothorax. 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 right hemiparesis; MRI brain w/o contrast when more stable Demand ischemia Elevated troponins --troponins downtrending 0.95-->0.67; likely demand in setting of DKA, CVA, missed HD --12/26 Echo: mild cLVH, LV function normal; RV normal; LAE; mild MR; mild TR; mild to moderate and AI Pneumonia --WBC 29.5k on admission -->24.5k; afebrile --12/26 CXR: left base infiltrate with pleural fluid --azithro (day #2) and meropenem (day #2) --cultures pending --ID following Left pneumothorax s/p left chest tube --lung has not re-expanded --seen and evaluated by CT surgery; possible VATS on Thursday; if risk of general anesthesia, consider IR drainage to further expand lung --left chest tube placed to suction --exudative Hypertension --holding anti-hypertensives taken at home (losartan, atenolol) --holding home lasix Hyperlipidemia --on no meds Hypothyroidism --continue levothyroxine F/E/N Fluids: D5NS @25 mL/hr Electrolytes: replete as indicated Nutrition: NPO DVT prophylaxis: subq heparin, SCDs Dispo: continues to require ICU level care. Physical therapy evaluation Dispo: continues to require ICU level care. Full Code. Visit type - Emergency Visit Emergency Visit: Yes ED Registration Date: 12/26/16 Care time: The patient presented to the Emergency Department on the above date and was hospitalized for further evaluation of their emergent condition. - New Patient This patient is new to me today: No - Critical Care Critical Care patient: Yes Total Critical Care Time (in minutes): 45 Critical Care Statement: The care of this patient involved high complexity decision making to prevent further life threatening deterioration of the patient 's condition and/or to evalute & treat vital organ system(s) failure or risk of failure.
[2016-12-28] MEDS: DEXTROSE 5%-NORMAL SALINE 1,000 ML IV SCH (18:00)
[2016-12-28] MEDS: PANTOPRAZOLE SODIUM 100 ML IVPB SCH (18:33)
[2016-12-28] MEDS: CHLORHEXIDINE GLUCONATE 4% CLEANSER FOR DECOLONIZATION TP SCH (21:24)
[2016-12-29] MEDS: MEROPENEM 500 MG in DEXTROSE 5%-WATER - 100 ML IVPB SCH ×3 (01:14→17:52)
[2016-12-29] MEDS: ALTEPLASE 50 MG VIAL IVPB SCH (03:33)
[2016-12-29] MEDS: HEPARIN NA (PORCINE) 5,000 UNITS/ML 1ML VIAL SQ SCH ×2 (05:24→13:47)
[2016-12-29] MEDS ORDERED: PT OWN MED DRAWER 7, Y5N ONE ×3 (07:59→21:56)
[2016-12-29] MEDS ORDERED: HEMOQUE TEST 1 EACH EACH ONE (08:10)
--- NOTE | 2016-12-29 09:00 | PN ---
Physical Exam: SUBJECTIVE: Patient seen and examined. c/o pain in her right side, unable to lift right arm due to increased edema. recalls fall on Thursday, she was leaning over feeding the cats and felt herself fall down onto her right side - is unsure how long she was down, recalls missing dialysis. denies chest pain, palpitations, cough. patient requests that no information be shared with family regarding her care or medical status. OBJECTIVE: Vital Signs Period Temp Pulse Resp BP Sys/Aguirre Pulse Ox Last 24 Hr 97.4 F-98.4 F 55-122 17-25 123-175/44-73 93-100 GENERAL: The patient is awake, alert, and fully oriented, in no acute distress. HEAD: Normal with no signs of trauma. EYES: extraocular movements intact, sclera anicteric, conjunctiva clear. No ptosis. ENT: oropharynx clear without exudates/erythema, dry mucous membranes. NECK: Trachea midline, full range of motion, supple. LUNGS: diminished breath sounds on left and right base, absent throughout left. no wheezess, crackles. pigtail in place on left lateral chest, so surrounding erythema at insertion site. HEART: Regular rate and rhythm, S1, S2 without murmur, rub or gallop. ABDOMEN: Soft, nontender, nondistended, normoactive bowel sounds, no guarding EXTREMITIES: 1+ dp pulses,cool, well-perfused, swelling in right arm and 1+ edema in b/l LE. fistula with palpable thrill in left arm. 3/5 hand behavioral school counselors on left , 2/5 on right hand behavioral school counselors seconday to pain and swelling. 3/5 b/l LE on hip extension. NEUROLOGICAL: Cranial nerves II through XII grossly intact. Normal speech, mild nasolabial flattening on left. PSYCH: Normal mood, normal affect. SKIN: Warm, dry, normal turgor. ecchymosis surrounding fisula, healing cathater site in right upper chest with eschar - no surrounding tenderness/erythema, purpura in medial right arm, yellow/green purpura in right lateral gluteus, contact dermatitis medial groin, no sacral decubiti. Laboratory Results - last 24 hr 12/28/16 12/28/16 12/28/16 08:32 08:32 08:33 WBC 20.6 H RBC 3.88 Hgb 11.4 Hct 35.1 MCV 90.4 MCHC 32.5 RDW 16.5 H Plt Count 273 MPV 8.9 Neutrophils % 90.7 H Lymphocytes % 5.5 L Monocytes % 3.5 L Eosinophils % 0.3 D Basophils % 0.0 Sodium 139 Potassium 3.6 Chloride 102 Carbon Dioxide 25 Anion Gap 12 BUN 65 H Creatinine 5.3 H POC Glucometer [phone] Random Glucose 317 H* D Calcium 8.0 L Phosphorus 3.9 Magnesium 2.2 Total Bilirubin 0.4 Direct Bilirubin 0.1 D AST 21 ALT 12 Alkaline Phosphatase 104 LD Total 195 D Total Protein 4.6 L Albumin 1.4 L 12/28/16 12/28/16 12/28/16 09:48 09:48 11:01 WBC RBC Hgb Hct MCV MCHC RDW Plt Count MPV Neutrophils % Lymphocytes % Monocytes % Eosinophils % Basophils % Sodium Potassium Chloride Carbon Dioxide Anion Gap BUN Creatinine POC Glucometer [phone] Random Glucose Calcium Phosphorus Magnesium Total Bilirubin Cancelled Direct Bilirubin Cancelled AST Cancelled ALT Cancelled Alkaline Phosphatase Cancelled LD Total Cancelled Total Protein Cancelled Albumin Cancelled 12/28/16 12/28/16 12/28/16 12:48 14:07 15:55 WBC RBC Hgb Hct MCV MCHC RDW Plt Count MPV Neutrophils % Lymphocytes % Monocytes % Eosinophils % Basophils % Sodium Potassium Chloride Carbon Dioxide Anion Gap BUN Creatinine POC Glucometer 316.23481 333.69229 294.22874 Random Glucose Calcium Phosphorus Magnesium Total Bilirubin Direct Bilirubin AST ALT Alkaline Phosphatase LD Total Total Protein Albumin 12/28/16 12/28/16 12/28/16 17:17 18:03 20:24 WBC RBC Hgb Hct MCV MCHC RDW Plt Count MPV Neutrophils % Lymphocytes % Monocytes % Eosinophils % Basophils % Sodium Potassium Chloride Carbon Dioxide Anion Gap BUN Creatinine POC Glucometer 260.73483 270.86014 233.63161 Random Glucose Calcium Phosphorus Magnesium Total Bilirubin Direct Bilirubin AST ALT Alkaline Phosphatase LD Total Total Protein Albumin 12/28/16 12/28/16 12/28/16 21:16 22:08 23:19 WBC RBC Hgb Hct MCV MCHC RDW Plt Count MPV Neutrophils % Lymphocytes % Monocytes % Eosinophils % Basophils % Sodium Potassium Chloride Carbon Dioxide Anion Gap BUN Creatinine POC Glucometer 200.31861 201.87143 143.36036 Random Glucose Calcium Phosphorus Magnesium Total Bilirubin Direct Bilirubin AST ALT Alkaline Phosphatase LD Total Total Protein Albumin 12/29/16 12/29/16 12/29/16 00:07 01:53 04:12 WBC RBC Hgb Hct MCV MCHC RDW Plt Count MPV Neutrophils % Lymphocytes % Monocytes % Eosinophils % Basophils % Sodium Potassium Chloride Carbon Dioxide Anion Gap BUN Creatinine POC Glucometer 178.48643 175.36177 180.97817 Random Glucose Calcium Phosphorus Magnesium Total Bilirubin Direct Bilirubin AST ALT Alkaline Phosphatase LD Total Total Protein Albumin 12/29/16 06:18 WBC RBC Hgb Hct MCV MCHC RDW Plt Count MPV Neutrophils % Lymphocytes % Monocytes % Eosinophils % Basophils % Sodium Potassium Chloride Carbon Dioxide Anion Gap BUN Creatinine POC Glucometer 192.28073 Random Glucose Calcium Phosphorus Magnesium Total Bilirubin Direct Bilirubin AST ALT Alkaline Phosphatase LD Total Total Protein Albumin Active Medications Generic Name Dose Route Start Last Admin Trade Name Freq PRN Reason Stop Dose Admin Alteplase, Recombinant 10 mg 12/28/16 15:30 12/29/16 03:33 Tpa - IVPB 12/31/16 03:31 10 mg FOR CHEST TUBE Q12H REJI Administration Chlorhexidine Gluconate 1 applic 12/26/16 22:00 12/28/16 21:24 Hibiclens For Decolonization - TP 1 applic HS REJI Administration Heparin Sodium (Porcine) 5,000 unit 12/26/16 22:00 12/29/16 05:24 Heparin - SQ 5,000 unit TID REJI Administration Azithromycin 250 mls @ 250 mls/hr 12/27/16 10:00 12/28/16 10:45 Zithromax 500mg Ivpb (Pre-Docked) IVPB 250 mls/hr DAILY REJI Administration Insulin Human Regular 100 100 mls @ 1 mls/hr 12/27/16 13:10 12/29/16 08:00 units/ Sodium Chloride IVPB 3 units/hr TITR REJI Titration Protocol 1 UNITS/HR Meropenem 500 mg/ Dextrose 100 mls @ 200 mls/hr 12/27/16 18:00 12/29/16 01:14 IVPB 200 mls/hr Q8H-IV REJI Administration Dextrose/Sodium Chloride 1,000 mls @ 25 mls/hr 12/28/16 18:02 12/28/16 18:00 D5-Ns - IV 25 mls/hr ASDIR REJI Administration Pantoprazole Sodium 100 mls @ 200 mls/hr 12/28/16 18:15 12/28/16 18:33 Protonix 40mg Ivpb (Pre-Docked) IVPB 200 mls/hr DAILY REJI Administration Levothyroxine Sodium 100 mcg 12/28/16 10:00 12/28/16 13:00 Synthroid Injection - IVPUSH 100 mcg DAILY REJI Administration Mupirocin 1 applic 12/26/16 22:00 12/28/16 21:23 Bactroban Ointment (For Decolonization) - NS 12/31/16 21:59 1 applic BID REJI Administration ID: Dr. Gutierrez Cardiothoracic surg: Dr. Brown Nephro: Dr. Wray Cardio: Dr. Myers Neuro: Dr. najera ASSESSMENT/PLAN: 66 yr old woman with DM II, ESRD on HD presented with AMS and hyperglycemia, admitted to the ICU for DKA, found to have CVA and left lower lobe empyema. - pt for OR tomorrow for possible VATS - central line; triple lumen catheter placed in right IJ today; f/u chest xray with acceptable positioning and lung intact - As per patient request, family is not be involved in medical decisions. Pulmonary #Empyema/pneumothorax - azithromycin 500mg IVPB qdaily -- day 4 - Meropenem 500mg IVPB q8hr -- day 3 - chest tube in place, draining, tpa 10mg IVpb q12hr to chest tube to prevent clotting - daily chest xray; left loculated pneumothorax/left base consolidation Neurological #CVA - acute/subacute infarct 3.5/2cm right cereberllar hemisphere - Neuro checks - speech and swallow evaluation - maintain HOB elevated - PT eval once stable Infectious Disease Azithromycin IVPB + meropenem leucocytosis Consult: Dr. Gutierrez Cardiovascular #NSTEMI Type II - likely demand ischemia - troponins trended down - Echo 12/26/2016 - without wall motion abnormality or significant sclerosis - ASA 81 mg daily HTN - metoprolol 2.5 mg ivpush q4hr prn Endocrine #DM II - DKA resolved, anion gap closed - continue Insulin drip for coverage, given that patient will be NPO/in OR and intubated, coverage will be better acheived with drip vs basal or with ACHS sliding scale - BGM q4hr, goal BGM 140-180 - Insulin drip protocol - D5- NS @25mls/hr #hypothryoid continue home medication 100mcg ivpush daily #Renal - HD MWF - dialysis completed 12/29 Gastrointestinal - pantoprazole ivpb daily 40mg #DVT - SCD's given recent CVA #Diet - NPO after midnight in anticipation for OR tomorrow Visit type - Emergency Visit Emergency Visit: No - New Patient This patient is new to me today: No - Critical Care Critical Care patient: Yes Total Critical Care Time (in minutes): 45 Critical Care Statement: The care of this patient involved high complexity decision making to prevent further life threatening deterioration of the patient 's condition and/or to evalute & treat vital organ system(s) failure or risk of failure.
--- NOTE | 2016-12-29 09:00 | PN ---
Physical Exam: SUBJECTIVE: Patient seen and examined at bedside in ICU. Dr. Brown present. OBJECTIVE: Vital Signs Period Temp Pulse Resp BP Sys/Aguirre Pulse Ox Last 24 Hr 97.4 F-98.4 F 55-122 17-25 123-175/44-73 93-100 GENERAL/NEURO: Awake, alert. Oriented x 3. Conversational. EYES: PERRL, 1mm bilaterally; able to look laterally right and left, no upward or downward movement; anicteric; no ptosis LUNGS: Diminished sounds on right, left chest tube to suction draining pus/blood HEART: Regular rate and rhythm, S1, S2 without murmur, rub or gallop. ABDOMEN: Soft, nontender, nondistended EXTREMITIES: 2+ pulses, warm, well-perfused; RUE swelling from infiltrated peripheral IV. Laboratory Results - last 24 hr 12/28/16 12/28/16 12/28/16 08:32 08:32 08:33 WBC 20.6 H RBC 3.88 Hgb 11.4 Hct 35.1 MCV 90.4 MCHC 32.5 RDW 16.5 H Plt Count 273 MPV 8.9 Neutrophils % 90.7 H Lymphocytes % 5.5 L Monocytes % 3.5 L Eosinophils % 0.3 D Basophils % 0.0 Sodium 139 Potassium 3.6 Chloride 102 Carbon Dioxide 25 Anion Gap 12 BUN 65 H Creatinine 5.3 H POC Glucometer [phone] Random Glucose 317 H* D Calcium 8.0 L Phosphorus 3.9 Magnesium 2.2 Total Bilirubin 0.4 Direct Bilirubin 0.1 D AST 21 ALT 12 Alkaline Phosphatase 104 LD Total 195 D Total Protein 4.6 L Albumin 1.4 L Active Medications Generic Name Dose Route Start Last Admin Trade Name Freq PRN Reason Stop Dose Admin Alteplase, Recombinant 10 mg 12/28/16 15:30 12/29/16 03:33 Tpa - IVPB 12/31/16 03:31 10 mg Q12H REJI Administration Chlorhexidine Gluconate 1 applic 12/26/16 22:00 12/28/16 21:24 Hibiclens For Decolonization - TP 1 applic HS REJI Administration Heparin Sodium (Porcine) 5,000 unit 12/26/16 22:00 12/29/16 05:24 Heparin - SQ 5,000 unit TID REJI Administration Azithromycin 250 mls @ 250 mls/hr 12/27/16 10:00 12/28/16 10:45 Zithromax 500mg Ivpb (Pre-Docked) IVPB 250 mls/hr DAILY REJI Administration Insulin Human Regular 100 100 mls @ 1 mls/hr 12/27/16 13:10 12/29/16 08:00 units/ Sodium Chloride IVPB 3 units/hr TITR REJI Titration Protocol 1 UNITS/HR Meropenem 500 mg/ Dextrose 100 mls @ 200 mls/hr 12/27/16 18:00 12/29/16 01:14 IVPB 200 mls/hr Q8H-IV REJI Administration Dextrose/Sodium Chloride 1,000 mls @ 25 mls/hr 12/28/16 18:02 12/28/16 18:00 D5-Ns - IV 25 mls/hr ASDIR REJI Administration Pantoprazole Sodium 100 mls @ 200 mls/hr 12/28/16 18:15 12/28/16 18:33 Protonix 40mg Ivpb (Pre-Docked) IVPB 200 mls/hr DAILY REJI Administration Levothyroxine Sodium 100 mcg 12/28/16 10:00 12/28/16 13:00 Synthroid Injection - IVPUSH 100 mcg DAILY REJI Administration Mupirocin 1 applic 12/26/16 22:00 12/28/16 21:23 Bactroban Ointment (For Decolonization) - NS 12/31/16 21:59 1 applic BID REJI Administration ASSESSMENT/PLAN 66 year-old woman with a PMH of HTN, HDL, IDDM, breast cancer s/p lumpectomy/ chemotherapy, hypothyroidism, and ESRD on HD. Admitted for DKA, pneumonia, and CVA. Hospital course complicated by spontaneous pneumothorax. ESRD on HD (M,W,F) --dialysis today IDDM DKA Lactic acidosis, resolved --anion gap closed but will be NPO for VATS tomorrow; continue insulin drip for tighter control --BGM q4h, goal BGM 140-180 --D5NS @ 25mL/hr CVA --12/26 CT head x 2: acute/subacute infarct 3.5 x 2cm right cerebellar hemisphere --12/27 US carotids: extensive atherosclerotic disease; 60-79% stenosis bilaterally R>L --seen and evaluated by neuro, possible brainstem stroke with cortical blindness and right hemiparesis; MRI brain w/o contrast later today after HD --swallow eval done Demand ischemia Elevated troponins --troponins downtrending 0.95-->0.67; likely demand in setting of DKA, CVA, missed HD --12/26 Echo: mild cLVH, LV function normal; RV normal; LAE; mild MR; mild TR; mild to moderate and AI Pneumonia Empyema --WBC 29.5k on admission -->20.4k; afebrile --12/26 CXR: left base infiltrate with pleural fluid --azithro (day #3) and meropenem (day #3) --cultures pending --ID following Left pneumothorax s/p left chest tube --likely VATS on Thursday; if risk of general anesthesia, consider IR drainage to further expand lung --left chest tube placed to suction Hypertension --holding anti-hypertensives taken at home (losartan, atenolol) --holding home lasix Hyperlipidemia --on no meds Hypothyroidism --continue levothyroxine F/E/N Fluids: D5NS @25 mL/hr Electrolytes: replete as indicated Nutrition: NPO DVT prophylaxis: hold subq heparin for VATS procedure tomorrow; SCDs Dispo: continues to require ICU level care. Physical therapy evaluation Dispo: continues to require ICU level care. Full Code. Visit type - Emergency Visit Emergency Visit: Yes ED Registration Date: 12/26/16 Care time: The patient presented to the Emergency Department on the above date and was hospitalized for further evaluation of their emergent condition. - New Patient This patient is new to me today: No - Critical Care Critical Care patient: Yes Total Critical Care Time (in minutes): 45 Critical Care Statement: The care of this patient involved high complexity decision making to prevent further life threatening deterioration of the patient 's condition and/or to evalute & treat vital organ system(s) failure or risk of failure.
--- NOTE | 2016-12-29 09:14 | PN ---
Progress Note, Physician Chief Complaint: CVA, PSVT History of Present Illness: less lethargic--opens eyes and responds briefly; denies sob, palpitations, presyncope, leg swelling ex-cigs - Current Medication List Current Medications: Active Medications Alteplase, Recombinant (Tpa -) 10 mg IVPB Q12H [facility] Stop: 12/31/16 03:31 Last Admin: 12/29/16 03:33 Dose: 10 mg Chlorhexidine Gluconate (Hibiclens For Decolonization -) 1 applic TP HS REJI Last Admin: 12/28/16 21:24 Dose: 1 applic Heparin Sodium (Porcine) (Heparin -) 5,000 unit SQ TID [facility] Last Admin: 12/29/16 05:24 Dose: 5,000 unit Azithromycin (Zithromax 500mg Ivpb (Pre-Docked)) 250 mls @ 250 mls/hr IVPB DAILY [facility] Last Admin: 12/28/16 10:45 Dose: 250 mls/hr Insulin Human Regular 100 (units/ Sodium Chloride) 100 mls @ 1 mls/hr IVPB TITR REJI; 1 UNITS/HR PRN Reason: Protocol Last Titration: 12/29/16 08:00 Dose: 3 units/hr Meropenem 500 mg/ Dextrose 100 mls @ 200 mls/hr IVPB Q8H-IV REJI Last Admin: 12/29/16 01:14 Dose: 200 mls/hr Dextrose/Sodium Chloride (D5-Ns -) 1,000 mls @ 25 mls/hr IV ASDIR [facility] Last Admin: 12/28/16 18:00 Dose: 25 mls/hr Pantoprazole Sodium (Protonix 40mg Ivpb (Pre-Docked)) 100 mls @ 200 mls/hr IVPB DAILY [facility] Last Admin: 12/28/16 18:33 Dose: 200 mls/hr Levothyroxine Sodium (Synthroid Injection -) 100 mcg IVPUSH DAILY [facility] Last Admin: 12/28/16 13:00 Dose: 100 mcg Mupirocin (Bactroban Ointment (For Decolonization) -) 1 applic NS BID [facility] Stop: 12/31/16 21:59 Last Admin: 12/28/16 21:23 Dose: 1 applic - Objective Vital Signs: Vital Signs Temperature 97.9 F 12/29/16 08:00 Pulse Rate 56 L 12/29/16 08:00 Respiratory Rate 17 12/29/16 08:00 Blood Pressure 175/48 12/29/16 08:00 O2 Sat by Pulse Oximetry (%) 100 12/29/16 08:00 Constitutional: Yes: No Distress, Calm Eyes: No: Sclera Icterus HENT: No: Nasal Congestion Cardiovascular: Yes: Regular Rate and Rhythm, S1, S2, Other (PMI non diplaced). No: JVD, Gallop, Murmur Respiratory: Yes: CTA Bilaterally (anteriorly). No: Accessory Muscle Use, Rales , Wheezes Gastrointestinal: Yes: Normal Bowel Sounds, Soft. No: Tenderness Musculoskeletal: Yes: Other (No kyphosis) Extremities: No: Cold Edema: No Integumentary: No: Jaundice Neurological: Yes: Lethargy. No: Seizure Psychiatric: No: Agitated Labs: CBC, BMP 12/28/16 08:32 12/28/16 08:32 - ....Imaging EKG: Other (tele: NSR; runs of PSVT (short R-P tach) to 120s) Assessment/Plan EKG: SB, LVH. biphasic anterior t waves. Slightly more prominent than priors. Stable on repeat EKG x 2. head CT: suspicion for acute/subacute cerebellar infarct Echo here: nl lv/rv size/fn. mild lae, mod mac, mild-mod as/ar, mild mr/tr 66 yo with h/o left breast ca s/p lumpectomy and chemotherapy, SVT per patient' s documentation, IDDM, HTN, thyroid disease and ESRD recently started on HD M/W/ who presented to the ED with altered mental status found to be in DKA and with acute cerebellar infarct. NSTEMI, likely Type II: - trop 0.9 on admit, trended down - likely demand ischemia in setting DKA, CVA and > volume overload sec to missed HD session. - normal LVSF with no RWMA on echo - no acute anti-PLT or AC treatment is indicated for Type II SC - shelter preventive therapy with ASA, statin, BB can be considered depending on clinical course here (e.g. once not at risk for hemorrhagic transformation suspected) - should have risk stratification with nuclear stress test imaging later, if she recovers from acute illnesses AMS/possible acute brainstem CVA - MS change ? sec to hyperglycemia vs CVA - check carotids - echo unrevaling - anti-PLT and other tx recs to be deferred to neuro LLL PNA, empyema: -on abx -seen by thoracic surgery, considering VATS but planning med mgmt +/- chest tube only for now given her recent CVA increasing risk of anesthesia -per crit care/pulm PSVT - known hx, on atenolol 50 bid at home - having runs of short R-P SVT here, likely AVNRT or AVRT - resume home atenolol HTN - bp ranging 120s-170s - bp targets per neuro
[2016-12-29] MEDS: PANTOPRAZOLE SODIUM 100 ML IVPB SCH (09:18)
[2016-12-29] MEDS: LEVOTHYROXINE SODIUM 100 MCG VIAL IVPUSH SCH (09:19)
[2016-12-29] MEDS: AZITHROMYCIN IVPB 250 ML IVPB SCH (09:19)
[2016-12-29] MEDS: MUPIROCIN 2% TOPICAL OINTMENT FOR DECOLONIZATION NS SCH ×2 (09:19→22:08)
[2016-12-29 10:12] LABS: MCH 28.9 pg (25.7-33.7); MCHC 31.8 g/dl (32.0-36.0); MEAN CELL VOLUME 90.9 fl (80-96); MEAN PLT VOLUME 9.1 fl (7.5-11.1); PLATELET COUNT 290 K/MM3 (134-434); RDW 16.6 % (11.6-15.6); WHITE BLOOD COUNT 19.4 K/mm3 (4.0-10.0)
--- NOTE | 2016-12-29 10:12 | PN ---
Progress Note, Physician Chief Complaint: 66 y/o white female patient with ESRD, on Hemodialysis, in the ICU. Hemodialysis in progress. Admitted with multiple problems. 1. Acute change in mental status. Possible Acute Brain stem CVA. Mentation seems to be slightly improved. The right side is still weak. Speech is improving. 2. Possible NSTEMI 3. S/P DKA 4. Empyema 5. LLL Pneumonia 6. Spontaneous Pneumothorax. Chest tube to suction in progress. 7. Hypothyroidism. Hear rate in the 50's History of Present Illness: The patient's clinical condition is improving slowly, but the motor deficit seems to persist. She finds it hard to move her right side. denies any chest pain. Left sided chest tube is draining bloody-purulent fluid. Vital signs in acceptable range. Hemodialysis in progress . UF well tolerated. - Current Medication List Current Medications: Active Medications Alteplase, Recombinant (Tpa -) 10 mg IVPB Q12H [facility] Stop: 12/31/16 03:31 Last Admin: 12/29/16 03:33 Dose: 10 mg Chlorhexidine Gluconate (Hibiclens For Decolonization -) 1 applic TP HS [facility] Last Admin: 12/28/16 21:24 Dose: 1 applic Heparin Sodium (Porcine) (Heparin -) 5,000 unit SQ TID REJI Last Admin: 12/29/16 05:24 Dose: 5,000 unit Azithromycin (Zithromax 500mg Ivpb (Pre-Docked)) 250 mls @ 250 mls/hr IVPB DAILY [facility] Last Admin: 12/29/16 09:19 Dose: 250 mls/hr Insulin Human Regular 100 (units/ Sodium Chloride) 100 mls @ 1 mls/hr IVPB TITR REJI; 1 UNITS/HR PRN Reason: Protocol Last Titration: 12/29/16 08:00 Dose: 3 units/hr Meropenem 500 mg/ Dextrose 100 mls @ 200 mls/hr IVPB Q8H-IV REJI Last Admin: 12/29/16 09:18 Dose: 200 mls/hr Dextrose/Sodium Chloride (D5-Ns -) 1,000 mls @ 25 mls/hr IV ASDIR [facility] Last Admin: 12/28/16 18:00 Dose: 25 mls/hr Pantoprazole Sodium (Protonix 40mg Ivpb (Pre-Docked)) 100 mls @ 200 mls/hr IVPB DAILY [facility] Last Admin: 12/29/16 09:18 Dose: 200 mls/hr Levothyroxine Sodium (Synthroid Injection -) 100 mcg IVPUSH DAILY [facility] Last Admin: 12/29/16 09:19 Dose: Not Given Mupirocin (Bactroban Ointment (For Decolonization) -) 1 applic NS BID [facility] Stop: 12/31/16 21:59 Last Admin: 12/29/16 09:19 Dose: 1 applic - Objective Vital Signs: Vital Signs Temperature 97.9 F 12/29/16 10:00 Pulse Rate 56 L 12/29/16 10:00 Respiratory Rate 12/29/16 10:00 Blood Pressure 143/48 12/29/16 10:00 O2 Sat by Pulse Oximetry (%) 100 12/29/16 08:00 Constitutional: Yes: Calm Eyes: Yes: WNL HENT: Yes: Atraumatic Neck: Yes: Supple Cardiovascular: Yes: Regular Rate and Rhythm, Murmur (Loud systolic.), S1, S2 Respiratory: Yes: Regular, Diminished, On Nasal O2 Gastrointestinal: Yes: Normal Bowel Sounds, Abdomen, Obese, Tenderness ( nonspecific, with no rebound) Extremities: Yes: WNL Peripheral Pulses WNL: No Neurological: Yes: Alert, Oriented, Dysarthria, Weakness (right sided) Psychiatric: Yes: Alert, Oriented Labs: CBC, BMP 12/28/16 08:32 12/28/16 08:32 Assessment/Plan 66 y/o female with ESRD, admitted with Acute CVA, Right sided weakness, possible NSTEMI, DKA, LLL Pneumonia, with spontaneous Pneumothorax, and empyema. The HD is well tolerated. The right arm AVF is working well. Acute CVA. Some of the neurologic deficits are improving. Neurology f/u in schedule. On IV Abx for the sepsis. Patient ? scheduled for VATS tomorrow. The over all outcome will be guided by the improvent or decline in the one or more of the many co-morbid conditions. Will continue to aggressively treat infection, control blood glucose, dialyze, keep electrolyte profile in acceptable range, and initiate Physical therapy as needed. Thank you. Bethany pardo MD
[2016-12-29] MEDS ORDERED: ATENOLOL 50 MG TABLET (FP) PO SCH (10:15)
[2016-12-29 10:30] LABS: CALCIUM 8.1 mg/dL (8.5-10.1); COCKROFT - GAULT 16.779; MAGNESIUM 2.1 mg/dL (1.8-2.4); PHOSPHOROUS 4.8 mg/dL (2.5-4.9)
[2016-12-29] MEDS ORDERED: METOPROLOL TARTRATE 5 MG/5 ML VIAL IVPUSH PRN (10:37)
[2016-12-29 11:04] LABS: INR 1.24 (0.82-1.09); PROTHROMBIN TIME (PATIENT) 13.7 SEC (9.98-11.88)
[2016-12-29 11:06] LABS: ACTIVATED PTT 31.5 SECONDS (26.9-34.4)
[2016-12-29 12:08] LABS: MCHC 32.5 g/dl (32.0-36.0); MEAN CELL VOLUME 89.4 fl (80-96); MEAN PLT VOLUME 8.7 fl (7.5-11.1); PLATELET COUNT 288 K/MM3 (134-434); RDW 16.1 % (11.6-15.6); WHITE BLOOD COUNT 20.4 K/mm3 (4.0-10.0)
--- NOTE | 2016-12-29 12:45 | PN ---
Teaching Attending Note Name of Resident: Antelmo Wise ATTENDING PHYSICIAN STATEMENT I saw and evaluated the patient. I reviewed the resident's note and discussed the case with the resident. I agree with the resident's findings and plan as documented. SUBJECTIVE: Patient seen and examined in the ICU. Awake on NC O2. Reports eft sided discomfort at the pigtail site. Currently on HD. Intake & Output 12/26/16 12/27/16 12/28/16 12/29/16 23:59 23:59 23:59 23:59 Intake Total 642.4 2571 1406 739 Output Total 150 258 35 Balance 642.4 2421 1148 704 Weight 234 lb 15.992 oz 211 lb 14.4 oz 235 lb 217 lb 11.2 oz Last Vital Signs Temp Pulse Resp BP Pulse Ox 98.0 F 57 L 18 124/45 95 12/29/16 12:00 12/29/16 12:15 12/29/16 12:15 12/29/16 12:15 12/29/16 10:17 Active Medications Alteplase, Recombinant (Tpa -) 10 mg IVPB Q12H REJI Stop: 12/31/16 03:31 Last Admin: 12/29/16 03:33 Dose: 10 mg Chlorhexidine Gluconate (Hibiclens For Decolonization -) 1 applic TP HS REJI Last Admin: 12/28/16 21:24 Dose: 1 applic Heparin Sodium (Porcine) (Heparin -) 5,000 unit SQ TID REJI Last Admin: 12/29/16 05:24 Dose: 5,000 unit Azithromycin (Zithromax 500mg Ivpb (Pre-Docked)) 250 mls @ 250 mls/hr IVPB DAILY REJI Last Admin: 12/29/16 09:19 Dose: 250 mls/hr Insulin Human Regular 100 (units/ Sodium Chloride) 100 mls @ 1 mls/hr IVPB TITR REJI; 1 UNITS/HR PRN Reason: Protocol Last Titration: 12/29/16 12:00 Dose: 4 units/hr Meropenem 500 mg/ Dextrose 100 mls @ 200 mls/hr IVPB Q8H-IV REJI Last Admin: 12/29/16 09:18 Dose: 200 mls/hr Dextrose/Sodium Chloride (D5-Ns -) 1,000 mls @ 25 mls/hr IV ASDIR REJI Last Admin: 12/28/16 18:00 Dose: 25 mls/hr Pantoprazole Sodium (Protonix 40mg Ivpb (Pre-Docked)) 100 mls @ 200 mls/hr IVPB DAILY [facility] Last Admin: 12/29/16 09:18 Dose: 200 mls/hr Levothyroxine Sodium (Synthroid Injection -) 100 mcg IVPUSH DAILY [facility] Last Admin: 12/29/16 09:19 Dose: Not Given Metoprolol Tartrate (Lopressor Injection -) 2.5 mg IVPUSH Q4H PRN PRN Reason: TACHYCARDIA Mupirocin (Bactroban Ointment (For Decolonization) -) 1 applic NS BID [facility] Stop: 12/31/16 21:59 Last Admin: 12/29/16 09:19 Dose: 1 applic CXR : left loculated PTX / left base consolidation General: awake without distress HEENT: PERRL CV: RRR Pulm: absent right sided, Left pigtail purulent drainage, no airleak Abd: obese, SNTND Ext: LE +2/3 edema Neuro: left facial droop, WELLS, AOx2 Laboratory Results - last 24 hr 12/26/16 12/26/16 12/26/16 17:07 18:53 20:08 WBC RBC Hgb Hct MCV MCHC RDW Plt Count MPV INR PTT (Actin FS) Sodium Potassium Chloride Carbon Dioxide Anion Gap BUN Creatinine POC Glucometer > 400 > 400 > 400 Random Glucose Calcium Phosphorus Magnesium 12/28/16 12/28/16 12/28/16 08:33 11:01 12:48 WBC RBC Hgb Hct MCV MCHC RDW Plt Count MPV INR PTT (Actin FS) Sodium Potassium Chloride Carbon Dioxide Anion Gap BUN Creatinine POC Glucometer 323.49859 323.40109 316.59883 Random Glucose Calcium Phosphorus Magnesium 12/28/16 12/28/16 12/28/16 14:07 15:55 17:17 WBC RBC Hgb Hct MCV MCHC RDW Plt Count MPV INR PTT (Actin FS) Sodium Potassium Chloride Carbon Dioxide Anion Gap BUN Creatinine POC Glucometer 333.96759 294.87650 [phone] Random Glucose Calcium Phosphorus Magnesium 12/28/16 12/28/16 12/28/16 18:03 20:24 21:16 WBC RBC Hgb Hct MCV MCHC RDW Plt Count MPV INR PTT (Actin FS) Sodium Potassium Chloride Carbon Dioxide Anion Gap BUN Creatinine POC Glucometer 270.01814 233.50237 200.03473 Random Glucose Calcium Phosphorus Magnesium 12/28/16 12/28/16 12/29/16 22:08 23:19 00:07 WBC RBC Hgb Hct MCV MCHC RDW Plt Count MPV INR PTT (Actin FS) Sodium Potassium Chloride Carbon Dioxide Anion Gap BUN Creatinine POC Glucometer 201.85743 143.26049 178.73174 Random Glucose Calcium Phosphorus Magnesium 12/29/16 12/29/16 12/29/16 01:53 04:12 06:18 WBC RBC Hgb Hct MCV MCHC RDW Plt Count MPV INR PTT (Actin FS) Sodium Potassium Chloride Carbon Dioxide Anion Gap BUN Creatinine POC Glucometer 175.16415 180.90559 [phone] Random Glucose Calcium Phosphorus Magnesium 12/29/16 12/29/16 12/29/16 09:50 09:50 09:50 WBC 19.4 H RBC 4.23 Hgb 12.2 Hct 38.4 MCV 90.9 MCHC 31.8 L RDW 16.6 H Plt Count 290 MPV 9.1 INR 1.24 H PTT (Actin FS) 31.5 Sodium 140 Potassium 3.9 Chloride 103 Carbon Dioxide 21 Anion Gap 16 BUN 67 H Creatinine 5.0 H POC Glucometer Random Glucose 218 H D Calcium 8.1 L Phosphorus 4.8 D Magnesium 2.1 12/29/16 11:50 WBC 20.4 H RBC 4.39 Hgb 12.8 Hct 39.3 MCV 89.4 MCHC 32.5 RDW 16.1 H Plt Count 288 MPV 8.7 INR PTT (Actin FS) Sodium Potassium Chloride Carbon Dioxide Anion Gap BUN Creatinine POC Glucometer Random Glucose Calcium Phosphorus Magnesium CXR: large left sided pneumothorax, pigtail in place ASSESSMENT AND PLAN: AMS - toxic metabolic encephalopathy(?) Diabetic Ketoacidosis LLL Pneumonia Empyema Pseudohyponatremia +Troponins likely Demand Ischemia ESRD on HD HTN Acute/subacute infarct 3.5 x 2cm right cerebellar hemisphere - Glycemic control - HD per renal - ABX for pneumonia/empyema - pigtail for pneumo and empyema, concerning for complicated loculated effusion /PTX -> D/W CTS -> will schedule for VATS likely tomorrow - ASA - f/u cultures - DVT prophylaxis - ICU monitoring Dr Alejandro critical care time spent in reviewing chart, evaluating patient and formulating plan 35 min
[2016-12-29] MEDS: INSULIN REGULAR 100 UNITS in SODIUM CHLORIDE 99 ML IVPB SCH ×2 (12:47→13:10)
[2016-12-29] MEDS: DEXTROSE 5%-NORMAL SALINE 1,000 ML IV SCH ×2 (13:56→18:02)
[2016-12-29 14:14] LABS: HEP B SURFACE AB Non Reactive (.)
--- NOTE | 2016-12-29 14:16 | CONSULT ---
Admitting History and Physical - Primary Care Physician PCP: Bonnie Gresham - Admission History of Present Illness: Per EMR: 66 y/o female admitted to ICU for NSTEMI, DKA, PNA, lethargy pt with AMS, suggestive of acute brainstem CVA, LLL PNA - for possible VATS/ thoractomy this week medical hx includes: IDDM, HTN, breast Ca - s/p chemo, ESRD on dialysis pt found at home s/p fall after missing 2 days of dialysis" "AMS - toxic metabolic encephalopathy(?) Diabetic Ketoacidosis LLL Pneumonia Empyema Pseudohyponatremia +Troponins likely Demand Ischemia ESRD on HD HTN Acute/subacute infarct 3.5 x 2cm right cerebellar hemisphere" History Source: Patient, Medical Record - Past Medical History Cardiovascular: Yes: HTN Renal/: Yes: Renal Failure ...: No Endocrine: Yes: Diabetes Mellitus, Hypothyroidism - Past Surgical History Past Surgical History: Yes: AV Fistula/Graft - Smoking History Smoking history: Former smoker Have you smoked in the past 12 months: No Aproximately how many cigarettes per day: 70 If you are a former smoker, when did you quit?: 2010 - Alcohol/Substance Use Hx Alcohol Use: No History - Admission Reason For Visit: NSTEMI,DIABETIC KETOACIDOSIS,PNEUMONIA - Diagnostics X-ray: Report Reviewed (CXR: large left sided pneumothorax, pigtail in place) CT Scan: Report Reviewed (r cerebellar infarct, right frontal meningioma? MRI suggested) - General Mental Status: Alert and Oriented, Awake and Alert, Able to Follow Commands Attention: Intact Ability to Follow Directions: Good Head/Neck Control: Fair - Hearing Hearing: Normal Hearing Aide: No Speech Evaluation - Communication Primary Language: MALAYSIAN Communication: Yes: Dysarthria Oral Expression Ability: Yes: Mild Impairment - Speech Production Dysarthria: Yes: Ataxic Apraxia: No Able to Make Needs Known: Yes: Mildly Impaired Intelligibility: Yes: Mildly Impaired - Speech Characteristics Voice Loudness: Mildly Soft/Quiet Voice Pitch: Yes: Normal Voice Phonatory-based Quality: Yes: Normal Articulation: Yes: Precise - Language/Auditory Comprehension Follows: Yes: 1 Stage Simple Commands Observation: Able to respond to yes/no queries: Yes - Language/Verbal Expression Able to Respond to Simple Queries: Yes: WNL Able to Communicate Wants and Needs: Yes: WNL Functional Communication Status: Yes: WNL Attention: Yes: Distractible, Mild Impairment - Swallow Evaluation/Bedside Assessment Current Nutritional Intake: NPO Oral Secretions: Yes: WFL Dentition: Yes: Adequate Against Resistance Opening: Weak Against Resistance Closing: Weak Pucker Lips: Weak Smile: Weak Lingual Movement: Symmetric Lingual Speed of Movement: Reduced Lingual Movement Characteristics: Normal Velopharyngeal Movement: Normal Laryngeal Movement: Labored,delay initiation Rate of Intake: WFL Labial Seal: WFL Oral Prep Time: WFL A-P Transit: WFL Pocketing: Present Bilaterally Timing of Swallow: Delayed Coughing/Throat Clear: No Change in Voice: No Recommendations - Dysphagia Impressions/Plan Dysphagia Impressions: Ongoing Evaluation *Silent aspiration: cannot be R/O at bedside Dysphagia Treatment Plan: Small Bites, Chin Tuck/Down, Clear Pocket Food, 1/2 tsp. at a time, Elevate HOB during feed Recommendations: Modified Barium Swallow (if cough, throat clearing, fever) - Recommendations Diet Consistency: Dysphagia Minced Medication Administration: Crushed with applesauce Liquids: Thin Liquids (single sips. Observe tolerance) Supplement: Ensure, Magic Cup
--- NOTE | 2016-12-29 16:59 | PROC ---
Central Line Insertion Indication: Poor Venous Access Risks and Benefits Explained: Yes Consent on Chart: Yes Central Line: Triple Lumen Catheter Anesthesia: 1% Lidocaine Sterile Technique: Yes Ultrasound Guided Assistance: Yes Position: Right Internal Jugular Post Insertion: Yes: Bilateral Breath Sounds, Bilateral Chest Expansion, Chest X-Ray Ordered Sterile Dressing Applied: Yes
[2016-12-29 18:24] LABS: CALCIUM 7.7 mg/dL (8.5-10.1); COCKROFT - GAULT 27.9735
[2016-12-29] MEDS: morphine CARPU-JECT 2 MG/1 ML DISP.SYRIN IVPUSH PRN (18:39)
--- NOTE | 2016-12-29 19:47 | PN ---
Progress Note, Physician History of Present Illness: patient looks better today opens eyes responds to commands rt sided jugular placed - Current Medication List Current Medications: Active Medications Chlorhexidine Gluconate (Hibiclens For Decolonization -) 1 applic TP HS [facility] Last Admin: 12/28/16 21:24 Dose: 1 applic Azithromycin (Zithromax 500mg Ivpb (Pre-Docked)) 250 mls @ 250 mls/hr IVPB DAILY [facility] Last Admin: 12/29/16 09:19 Dose: 250 mls/hr Insulin Human Regular 100 (units/ Sodium Chloride) 100 mls @ 1 mls/hr IVPB TITR REJI; 1 UNITS/HR PRN Reason: Protocol Last Titration: 12/29/16 18:00 Dose: 5 units/hr Meropenem 500 mg/ Dextrose 100 mls @ 200 mls/hr IVPB Q8H-IV REJI Last Admin: 12/29/16 17:52 Dose: 200 mls/hr Dextrose/Sodium Chloride (D5-Ns -) 1,000 mls @ 25 mls/hr IV ASDIR [facility] Last Admin: 12/29/16 18:02 Dose: Not Given Pantoprazole Sodium (Protonix 40mg Ivpb (Pre-Docked)) 100 mls @ 200 mls/hr IVPB DAILY [facility] Last Admin: 12/29/16 09:18 Dose: 200 mls/hr Levothyroxine Sodium (Synthroid Injection -) 100 mcg IVPUSH DAILY [facility] Last Admin: 12/29/16 09:19 Dose: Not Given Metoprolol Tartrate (Lopressor Injection -) 2.5 mg IVPUSH Q4H PRN PRN Reason: TACHYCARDIA Morphine Sulfate (Morphine Injection -) 1 mg IVPUSH Q4H PRN PRN Reason: PAIN Last Admin: 12/29/16 18:39 Dose: 1 mg Mupirocin (Bactroban Ointment (For Decolonization) -) 1 applic NS BID [facility] Stop: 12/31/16 21:59 Last Admin: 12/29/16 09:19 Dose: 1 applic - Objective Vital Signs: Vital Signs Temperature 98.1 F 12/29/16 18:00 Pulse Rate 59 L 12/29/16 18:00 Respiratory Rate 19 12/29/16 18:00 Blood Pressure 159/48 12/29/16 18:00 O2 Sat by Pulse Oximetry (%) 95 12/29/16 10:17 Constitutional: Yes: No Distress, Calm Cardiovascular: Yes: S1, S2 Respiratory: Yes: Other (absent air entry lt side) Gastrointestinal: Yes: Soft, Hypoactive Bowel Sounds Musculoskeletal: Yes: WNL Extremities: Yes: WNL Neurological: Yes: Alert, Other Psychiatric: Yes: Alert Labs: CBC, BMP 12/29/16 11:50 12/29/16 17:49 INR, PTT INR 1.24 (0.82-1.09) H 12/29/16 09:50 Assessment/Plan 66 yo with h/o left breast ca s/p lumpectomy and chemotherapy, SVT per patient' s documentation, IDDM, HTN, thyroid disease and ESRD recently started on HD M/W/ who presented to the ED with altered mental status found to be in DKA and with acute cerebellar infarct. cerebellar infarct LLL Pneumonia r/o empyema PTX htn esrd leukocytosis patients wbc has increased plan will start abx close monitoring neuro and cardio on board icu monitoring rest ct as per icu will check vanco level cc time 40 min
[2016-12-29] MEDS: CHLORHEXIDINE GLUCONATE 4% CLEANSER FOR DECOLONIZATION TP SCH (22:07)
[2016-12-29] MEDS ORDERED: VANCOMYCIN 500 MG in DEXTROSE 5%-WATER - 100 ML IVPB ONE (22:15)
[2016-12-30] MEDS: MEROPENEM 500 MG in DEXTROSE 5%-WATER - 100 ML IVPB SCH ×3 (01:04→18:00)
--- NOTE | 2016-12-30 07:57 | PN ---
Physical Exam: SUBJECTIVE: Patient seen and examined at bedside in ICU. Lethargic. OBJECTIVE: Vital Signs Period Temp Pulse Resp BP Sys/Aguirre Pulse Ox Last 24 Hr 37.8 F-98.6 F 51-59 15-29 119-175/42-58 95-100 GENERAL/NEURO: Awake, alert. Lethargic. Answers questions, speech deliberate and slow. Appears fatigued. EYES: PERRL, 1mm bilaterally; able to look laterally right and left, no upward or downward movement; anicteric; no ptosis LUNGS: Diminished sounds on right, left chest tube to suction draining pus/blood HEART: Regular rate and rhythm, S1, S2 without murmur, rub or gallop. ABDOMEN: Soft, nontender, nondistended EXTREMITIES: 2+ pulses, warm, well-perfused; RUE swelling from infiltrated peripheral IV. Laboratory Results - last 24 hr 12/26/16 12/26/16 12/26/16 17:07 18:13 18:53 WBC RBC Hgb Hct MCV MCHC RDW Plt Count MPV INR PTT (Actin FS) Sodium Potassium Chloride Carbon Dioxide Anion Gap BUN Creatinine POC Glucometer > 400 > 400 Random Glucose Calcium Phosphorus Magnesium Random Vancomycin Hepatitis A Ab Total Negative Hep Bs Antigen Negative Hep Bs Antibody Non reactive Hep B Core Total Ab Negative Hepatitis C Antibody <0.1 Blood Type Antibody Screen Crossmatch 12/26/16 12/29/16 12/29/16 20:08 09:50 09:50 WBC 19.4 H RBC 4.23 Hgb 12.2 Hct 38.4 MCV 90.9 MCHC 31.8 L RDW 16.6 H Plt Count 290 MPV 9.1 INR 1.24 H PTT (Actin FS) 31.5 Sodium Potassium Chloride Carbon Dioxide Anion Gap BUN Creatinine POC Glucometer > 400 Random Glucose Calcium Phosphorus Magnesium Random Vancomycin Hepatitis A Ab Total Hep Bs Antigen Hep Bs Antibody Hep B Core Total Ab Hepatitis C Antibody Blood Type Antibody Screen Crossmatch 12/29/16 12/29/16 12/29/16 09:50 11:50 17:10 WBC 20.4 H RBC 4.39 Hgb 12.8 Hct 39.3 MCV 89.4 MCHC 32.5 RDW 16.1 H Plt Count 288 MPV 8.7 INR PTT (Actin FS) Sodium 140 Potassium 3.9 Chloride 103 Carbon Dioxide 21 Anion Gap 16 BUN 67 H Creatinine 5.0 H POC Glucometer Random Glucose 218 H D Calcium 8.1 L Phosphorus 4.8 D Magnesium 2.1 Random Vancomycin Hepatitis A Ab Total Hep Bs Antigen Hep Bs Antibody Hep B Core Total Ab Hepatitis C Antibody Blood Type A POSITIVE Antibody Screen Negative Crossmatch See Detail 12/29/16 12/29/16 17:49 20:00 WBC RBC Hgb Hct MCV MCHC RDW Plt Count MPV INR PTT (Actin FS) Sodium 142 Potassium 3.4 L Chloride 100 Carbon Dioxide 27 D Anion Gap 15 BUN 33 H D Creatinine 3.0 H D POC Glucometer Random Glucose 282 H D Calcium 7.7 L Phosphorus Magnesium Random Vancomycin 13.127 Hepatitis A Ab Total Hep Bs Antigen Hep Bs Antibody Hep B Core Total Ab Hepatitis C Antibody Blood Type Antibody Screen Crossmatch Active Medications Generic Name Dose Route Start Last Admin Trade Name Freq PRN Reason Stop Dose Admin Chlorhexidine Gluconate 1 applic 12/26/16 22:00 12/29/16 22:07 Hibiclens For Decolonization - TP 1 applic HS REJI Administration Azithromycin 250 mls @ 250 mls/hr 12/27/16 10:00 12/29/16 09:19 Zithromax 500mg Ivpb (Pre-Docked) IVPB 250 mls/hr DAILY REJI Administration Insulin Human Regular 100 100 mls @ 1 mls/hr 12/27/16 13:10 12/30/16 06:00 units/ Sodium Chloride IVPB 2 units/hr TITR REJI Titration Protocol 1 UNITS/HR Meropenem 500 mg/ Dextrose 100 mls @ 200 mls/hr 12/27/16 18:00 12/30/16 01:04 IVPB 200 mls/hr Q8H-IV REJI Administration Dextrose/Sodium Chloride 1,000 mls @ 25 mls/hr 12/28/16 18:02 12/29/16 18:02 D5-Ns - IV Not Given ASDIR REJI Levothyroxine Sodium 100 mcg 12/28/16 10:00 12/29/16 09:19 Synthroid Injection - IVPUSH Not Given DAILY REJI Metoprolol Tartrate 2.5 mg 12/29/16 10:37 Lopressor Injection - IVPUSH Q4H PRN TACHYCARDIA Morphine Sulfate 1 mg 12/29/16 17:53 12/29/16 18:39 Morphine Injection - IVPUSH 1 mg Q4H PRN Administration PAIN Mupirocin 1 applic 12/26/16 22:00 12/29/16 22:08 Bactroban Ointment (For Decolonization) - NS 12/31/16 21:59 1 applic BID REJI Administration Ranitidine HCl 150 mg 12/30/16 10:00 Zantac - PO DAILY REJI ASSESSMENT/PLAN 66 year-old woman with a PMH of HTN, HDL, IDDM, breast cancer s/p lumpectomy/ chemotherapy, hypothyroidism, and ESRD on HD. Admitted for DKA, pneumonia, and CVA. Hospital course complicated by spontaneous pneumothorax. ESRD on HD (M,W,F) --dialysis yesterday, took off 2L IDDM DKA Lactic acidosis, resolved --AG closed but NPO for VATS today; continue insulin drip --BGM q4h, goal BGM 140-180 CVA --12/26 CT head x 2: acute/subacute infarct 3.5 x 2cm right cerebellar hemisphere --12/27 US carotids: extensive atherosclerotic disease; 60-79% stenosis bilaterally R>L --seen and evaluated by neuro, possible brainstem stroke with cortical blindness and right hemiparesis; MRI brain w/o contrast later today after HD --swallow eval done Demand ischemia Elevated troponins --troponins downtrending 0.95-->0.67; likely demand in setting of DKA, CVA, missed HD --12/26 Echo: mild cLVH, LV function normal; RV normal; LAE; mild MR; mild TR; mild to moderate and AI Pneumonia Empyema --WBC 29.5k on admission -->20.4k; afebrile --12/26 CXR: left base infiltrate with pleural fluid --azithro (day #3) and meropenem (day #3) --pleural fluid: staph coag neg --ID following Left pneumothorax s/p left chest tube --VATS today --left chest tube placed to -40 suction Hypertension --holding anti-hypertensives taken at home (losartan, atenolol) --holding home lasix Hyperlipidemia --on no meds Hypothyroidism --continue levothyroxine F/E/N Fluids: D5NS @25 mL/hr Electrolytes: replete as indicated Nutrition: NPO DVT prophylaxis: hold subq heparin for VATS procedure tomorrow; SCDs Dispo: continues to require ICU level care. Physical therapy evaluation Dispo: continues to require ICU level care. Full Code. Visit type - Emergency Visit Emergency Visit: Yes ED Registration Date: 12/26/16 Care time: The patient presented to the Emergency Department on the above date and was hospitalized for further evaluation of their emergent condition. - New Patient This patient is new to me today: No - Critical Care Critical Care patient: Yes Total Critical Care Time (in minutes): 45 Critical Care Statement: The care of this patient involved high complexity decision making to prevent further life threatening deterioration of the patient 's condition and/or to evalute & treat vital organ system(s) failure or risk of failure.
[2016-12-30] MEDS ORDERED: PT OWN MED DRAWER 7, Y5N ONE ×2 (08:23→17:57)
--- NOTE | 2016-12-30 08:59 | PN ---
Physical Exam: SUBJECTIVE: Patient seen and examined. tired. for OR today. discussed code status, pt is full code. OBJECTIVE: Vital Signs Period Temp Pulse Resp BP Sys/Aguirre Pulse Ox Last 24 Hr 37.8 F-98.6 F 51-60 15-29 119-159/42-58 95-99 GENERAL: The patient is awake, alert, and fully oriented, in no acute distress. EYES: PERRL, extraocular movements intact, sclera anicteric, conjunctiva clear. ENT: oropharynx clear without exudates, dry mucous membranes. NECK: Trachea midline, full range of motion, supple. right IJ in place without surrounding erythema. LUNGS: no breath sounds on left, diffuse rales on right. chest tube draining thick sanguious discharge. HEART: Regular rate and rhythm, S1, S2 without murmur, rub or gallop. ABDOMEN: obese, Soft, nontender, nondistended, normoactive bowel sounds, no guarding, no rebound. EXTREMITIES: 2+ pulses, cool. Edema in right upper hand, soft-nonpitting. 1+ b/ l le edema. NEUROLOGICAL: Normal speech, gait not observed. PSYCH: Normal mood, normal affect. SKIN: Warm, dry, normal turgor, no rashes or lesions noted Laboratory Results - last 24 hr 12/26/16 12/26/16 12/26/16 17:07 18:13 18:53 WBC RBC Hgb Hct MCV MCHC RDW Plt Count MPV INR PTT (Actin FS) Sodium Potassium Chloride Carbon Dioxide Anion Gap BUN Creatinine POC Glucometer > 400 > 400 Random Glucose Calcium Phosphorus Magnesium Random Vancomycin Hepatitis A Ab Total Negative Hep Bs Antigen Negative Hep Bs Antibody Non reactive Hep B Core Total Ab Negative Hepatitis C Antibody <0.1 Blood Type Antibody Screen Crossmatch 12/26/16 12/29/16 12/29/16 20:08 09:50 09:50 WBC 19.4 H RBC 4.23 Hgb 12.2 Hct 38.4 MCV 90.9 MCHC 31.8 L RDW 16.6 H Plt Count 290 MPV 9.1 INR 1.24 H PTT (Actin FS) 31.5 Sodium Potassium Chloride Carbon Dioxide Anion Gap BUN Creatinine POC Glucometer > 400 Random Glucose Calcium Phosphorus Magnesium Random Vancomycin Hepatitis A Ab Total Hep Bs Antigen Hep Bs Antibody Hep B Core Total Ab Hepatitis C Antibody Blood Type Antibody Screen Crossmatch 12/29/16 12/29/16 12/29/16 09:50 11:50 17:10 WBC 20.4 H RBC 4.39 Hgb 12.8 Hct 39.3 MCV 89.4 MCHC 32.5 RDW 16.1 H Plt Count 288 MPV 8.7 INR PTT (Actin FS) Sodium 140 Potassium 3.9 Chloride 103 Carbon Dioxide 21 Anion Gap 16 BUN 67 H Creatinine 5.0 H POC Glucometer Random Glucose 218 H D Calcium 8.1 L Phosphorus 4.8 D Magnesium 2.1 Random Vancomycin Hepatitis A Ab Total Hep Bs Antigen Hep Bs Antibody Hep B Core Total Ab Hepatitis C Antibody Blood Type A POSITIVE Antibody Screen Negative Crossmatch See Detail 12/29/16 12/29/16 17:49 20:00 WBC RBC Hgb Hct MCV MCHC RDW Plt Count MPV INR PTT (Actin FS) Sodium 142 Potassium 3.4 L Chloride 100 Carbon Dioxide 27 D Anion Gap 15 BUN 33 H D Creatinine 3.0 H D POC Glucometer Random Glucose 282 H D Calcium 7.7 L Phosphorus Magnesium Random Vancomycin 13.127 Hepatitis A Ab Total Hep Bs Antigen Hep Bs Antibody Hep B Core Total Ab Hepatitis C Antibody Blood Type Antibody Screen Crossmatch Active Medications Chlorhexidine Gluconate (Hibiclens For Decolonization -) 1 applic TP HS REJI Chlorhexidine Gluconate (Hibiclens For Decolonization -) 1 applic TP HS REJI Heparin Sodium (Porcine) (Heparin -) 5,000 unit SQ BID REJI Sodium Chloride (Normal Saline -) 500 mls @ 500 mls/hr IV ASDIR [facility] Stop: 12/30/16 17:33 Dextrose/Sodium Chloride (D5-Ns -) 1,000 mls @ 25 mls/hr IV ASDIR REJI Azithromycin (Zithromax 500mg Ivpb (Pre-Docked)) 250 mls @ 250 mls/hr IVPB DAILY REJI Meropenem 500 mg/ Dextrose 100 mls @ 200 mls/hr IVPB Q8H-IV REJI Insulin Aspart (Novolog Vial Sliding Scale -) 1 vial SQ ACHS REJI PRN Reason: Protocol Levothyroxine Sodium (Synthroid Injection -) 100 mcg IVPUSH DAILY REJI Metoprolol Tartrate (Lopressor Injection -) 2.5 mg IVPUSH Q4H PRN PRN Reason: TACHYCARDIA Mupirocin (Bactroban Ointment (For Decolonization) -) 1 applic NS BID [facility]JI Stop: 01/04/17 21:59 Mupirocin (Bactroban Ointment (For Decolonization) -) 1 applic NS BID REJI Stop: 12/31/16 21:59 Imaging Echo 12/26/2016 - without wall motion abnormality or significant sclerosis ID: Dr. Gutierrez Cardiothoracic surg: Dr. Brown Nephro: Dr. Wray Cardio: Dr. Myers Neuro: Dr. najera Lines: right IJ 12/29 Chest tube #1, #2: right lateral chest 12/30 left femoral arterial line 12/30 Rodney 12/30; initial 1300cc clear yellow urine in OR ASSESSMENT/PLAN: 66 yr old woman with DM II, ESRD on HD presented with AMS and hyperglycemia, admitted to the ICU for DKA, found to have CVA and left lower lobe empyema. - As per patient request, family is not be involved in medical decisions. - Patient is full code - pt is intubated: rate 14, tidal 500 fio2 60, maintain at 95%, increase fio2 to 70% if necessary, no PEEP due to air leak from chest tube #2. plan to extubate tomorrow - pt not currently on sedation - was hypotensive during OR, currently stable; use levophed for pressure support if necessary Pulmonary #Empyema/pneumothorax - pneumothorax has resolved s/p left VATS - azithromycin 500mg IVPB qdaily -- day 5 - Meropenem 500mg IVPB q8hr -- day 4 -- Vancomycin 1gm 12/29 - (renal dosing), random vanc 13 12/30 - chest xray post VATS shows resolution of pneumothorax in left, loculation cleared with chest tubes in place Neurological #CVA - acute/subacute infarct 3.5/2cm right cerebellar hemisphere - Neuro checks - speech and swallow evaluation - normal, diced dysphagia and nectar thin liquids - maintain HOB elevated - PT eval once stable Infectious Disease: empyema Azithromycin IVPB + meropenem + vancomycin leucocytosis trend labs Consult: Dr. Gutierrez Cardiovascular Hypotension - bolus IVF d5-NS 1L and consider levophed for pressure support - ASA 81 mg daily - hold HTN - metoprolol 2.5 mg ivpush q4hr prn - hold Endocrine #DM II - BGM q4hr, goal BGM 140-180 #hypothryoid continue home medication levothyroxine 100mcg ivpush daily #Renal - HD MWF - dialysis completed 12/29 Gastrointestinal - pantoprazole ivpb daily 40mg #DVT - SCD's given recent CVA #Diet - currently intubated Visit type - Emergency Visit Emergency Visit: No - New Patient This patient is new to me today: No - Critical Care Critical Care patient: Yes Total Critical Care Time (in minutes): 47 Critical Care Statement: The care of this patient involved high complexity decision making to prevent further life threatening deterioration of the patient 's condition and/or to evalute & treat vital organ system(s) failure or risk of failure.
[2016-12-30] MEDS: MUPIROCIN 2% TOPICAL OINTMENT FOR DECOLONIZATION NS SCH ×2 (09:18→21:14)
[2016-12-30] MEDS: LEVOTHYROXINE SODIUM 100 MCG VIAL IVPUSH SCH (09:18)
[2016-12-30] MEDS: AZITHROMYCIN IVPB 250 ML IVPB SCH (09:22)
[2016-12-30] MEDS ORDERED: RANITIDINE HCL 150 MG TABLET (FP) PO SCH (10:00)
--- NOTE | 2016-12-30 10:22 | PN ---
Progress Note, INFORMATION SECURITY ASSOCIATE - Note Progress Note: Nursing reported soup and water last night well, without overt signs of difficulty. She is NPO today for procedure. Selected Entries 12/29/16 21:00 Supper 25% Once Po trials [id number] again, monitor tolerance, need for MBS if throat clearing, cough, congestion. Feed only when fully alert and attending to task
[2016-12-30] MEDS ORDERED: KCL 10 MEQ IVPB 100 ML IVPB SCH (10:30)
[2016-12-30] MEDS: morphine CARPU-JECT 2 MG/1 ML DISP.SYRIN IVPUSH PRN (10:44)
--- NOTE | 2016-12-30 10:58 | PN ---
Progress Note (short form) - Note Progress Note: Renal Follow up fro ESRD on HD Pt seen and examined in the ICU awake and alert, groggy s/p dialysis yesterday still feels short of breath no fever, chills + chest wall pain with respiration Vital Signs Temperature 98.3 F 12/30/16 10:00 Pulse Rate 59 L 12/30/16 10:00 Respiratory Rate 15 12/30/16 10:00 Blood Pressure 126/67 12/30/16 10:00 O2 Sat by Pulse Oximetry (%) 99 12/30/16 08:00 Intake & Output 12/27/16 12/28/16 12/29/16 12/30/16 23:59 23:59 23:59 23:59 Intake Total 2571 1406 1681 Output Total 150 258 255 Balance 2421 1148 1426 Weight 211 lb 14.4 oz 235 lb 217 lb 11.2 oz 217 lb 1.6 oz Gen: NAD, awake and alert CVS: RRR, No M/R Lungs: Dec BS B/L LUng hope (anterior exam) Abd: soft NT/ND Ext: trace to 1+ edema in LE CBC, BMP 12/29/16 11:50 12/29/16 17:49 Laboratory Tests 12/29/16 17:49 Calcium 7.7 L Current Medications Chlorhexidine Gluconate (Hibiclens For Decolonization -) 1 applic TP HS [facility] Last Admin: 12/29/16 22:07 Dose: 1 applic Azithromycin (Zithromax 500mg Ivpb (Pre-Docked)) 250 mls @ 250 mls/hr IVPB DAILY [facility] Last Admin: 12/30/16 09:22 Dose: 250 mls/hr Insulin Human Regular 100 (units/ Sodium Chloride) 100 mls @ 1 mls/hr IVPB TITR REJI; 1 UNITS/HR PRN Reason: Protocol Last Titration: 12/30/16 10:00 Dose: 2 units/hr Meropenem 500 mg/ Dextrose 100 mls @ 200 mls/hr IVPB Q8H-IV REJI Last Admin: 12/30/16 09:17 Dose: 200 mls/hr Dextrose/Sodium Chloride (D5-Ns -) 1,000 mls @ 25 mls/hr IV ASDIR [facility] Last Admin: 12/29/16 18:02 Dose: Not Given Potassium Chloride (Potassium Chloride 10 Meq Premix Ivpb -) 100 mls @ 100 mls/ hr IVPB Q60M [facility] Stop: 12/30/16 11:29 Last Admin: 12/30/16 10:22 Dose: 100 mls/hr Levothyroxine Sodium (Synthroid Injection -) 100 mcg IVPUSH DAILY [facility] Last Admin: 12/30/16 09:18 Dose: Not Given Metoprolol Tartrate (Lopressor Injection -) 2.5 mg IVPUSH Q4H PRN PRN Reason: TACHYCARDIA Morphine Sulfate (Morphine Injection -) 1 mg IVPUSH Q4H PRN PRN Reason: PAIN Last Admin: 12/30/16 10:44 Dose: 1 mg Mupirocin (Bactroban Ointment (For Decolonization) -) 1 applic NS BID [facility] Stop: 12/31/16 21:59 Last Admin: 12/30/16 09:18 Dose: 1 applic Ranitidine HCl (Zantac -) 150 mg PO DAILY [facility] Last Admin: 12/30/16 09:18 Dose: Not Given A/P breast ca s/p lumpectomy and chemotherapy, IDDM, HTN, and ESRD on HD M// who presented to the ED today via EMS after her dialysis center notified police that she missed her treatment on Thursday and was not answering the phone. 66 year old woman with PMhx of ESRD on HD, Breast Ca s/p Chemo and Lumpectomy, IDDM, Hypertension presented with AMS and found to have DKA, Acute CVA and Pnemothorax #ESRD on HD s/p dialysis yesterday no acute indication for dialysis Dialysis with UF as tolerated tomorrow Dose all meds for intermittent HD #Empyema/Pneumothorax/Leukocytosis Chest tube in place for VATS today continue Abx as per ICU #Acute/Subacute CVA supportive Care Neurology follow up Thank you Jose Carlos Wray DO
[2016-12-30 11:31] LABS: CALCIUM 7.8 mg/dL (8.5-10.1); COCKROFT - GAULT 20.9185
[2016-12-30] MEDS: INSULIN REGULAR 100 UNITS in SODIUM CHLORIDE 99 ML IVPB SCH ×2 (12:20→13:10)
[2016-12-30] MEDS: DEXTROSE 5%-NORMAL SALINE 1,000 ML IV SCH (13:00)
--- NOTE | 2016-12-30 13:42 | PN ---
Progress Note, Physician History of Present Illness: patient looks much better post vats much more awake and alert wants this thing to be finished drainage tubes in place - Current Medication List Current Medications: Active Medications Chlorhexidine Gluconate (Hibiclens For Decolonization -) 1 applic TP HS [facility] Last Admin: 12/29/16 22:07 Dose: 1 applic Azithromycin (Zithromax 500mg Ivpb (Pre-Docked)) 250 mls @ 250 mls/hr IVPB DAILY [facility] Last Admin: 12/30/16 09:22 Dose: 250 mls/hr Insulin Human Regular 100 (units/ Sodium Chloride) 100 mls @ 1 mls/hr IVPB TITR REJI; 1 UNITS/HR PRN Reason: Protocol Last Admin: 12/30/16 12:20 Dose: 2 mls/hr Meropenem 500 mg/ Dextrose 100 mls @ 200 mls/hr IVPB Q8H-IV [facility] Last Admin: 12/30/16 09:17 Dose: 200 mls/hr Dextrose/Sodium Chloride (D5-Ns -) 1,000 mls @ 25 mls/hr IV ASDIR [facility] Last Admin: 12/29/16 18:02 Dose: Not Given Levothyroxine Sodium (Synthroid Injection -) 100 mcg IVPUSH DAILY [facility] Last Admin: 12/30/16 09:18 Dose: Not Given Metoprolol Tartrate (Lopressor Injection -) 2.5 mg IVPUSH Q4H PRN PRN Reason: TACHYCARDIA Mupirocin (Bactroban Ointment (For Decolonization) -) 1 applic NS BID [facility] Stop: 12/31/16 21:59 Last Admin: 12/30/16 09:18 Dose: 1 applic Ranitidine HCl (Zantac -) 150 mg PO DAILY [facility] Last Admin: 12/30/16 09:18 Dose: Not Given - Objective Vital Signs: Vital Signs Temperature 98.1 F 12/30/16 12:00 Pulse Rate 58 L 12/30/16 12:00 Respiratory Rate 16 12/30/16 12:00 Blood Pressure 125/55 12/30/16 12:00 O2 Sat by Pulse Oximetry (%) 99 12/30/16 08:00 Constitutional: Yes: No Distress, Calm Neck: Yes: Supple (central line rt side) Cardiovascular: Yes: Regular Rate and Rhythm Respiratory: Yes: Poor Air Entry (on left side), Other (chest tubes in place) Gastrointestinal: Yes: Normal Bowel Sounds, Soft Musculoskeletal: Yes: WNL Extremities: Yes: WNL Neurological: Yes: Alert, Oriented Psychiatric: Yes: Alert Labs: CBC, BMP 12/29/16 11:50 12/30/16 11:00 INR, PTT INR 1.24 (0.82-1.09) H 12/29/16 09:50 Assessment/Plan cerebellar infarct LLL Pneumonia empyema PTX htn esrd leukocytosis ptx wbc trending down plan continue abx close monitoring neuro and cardio on board icu monitoring rest ct as per icu cc time 40 min
[2016-12-30] MEDS ORDERED: ceFAZolin SODIUM 1 GM VIAL IVPB ONE (14:16)
[2016-12-30] MEDS ORDERED: LIDOCAINE 1%/EPI 1:100000 (50 ML MULTI DOSE VIAL) ONE (14:27)
[2016-12-30] MEDS ORDERED: BUPIVACAINE HCL/PF 0.25% (2.5MG/ML) 10 ML VIAL ONE (14:27)
--- NOTE | 2016-12-30 14:46 | PN ---
Teaching Attending Note Name of Resident: Antelmo Wise ATTENDING PHYSICIAN STATEMENT I saw and evaluated the patient. I reviewed the resident's note and discussed the case with the resident. I agree with the resident's findings and plan as documented. SUBJECTIVE: Patient seen and examined in the ICU. Awake on NC O2. Denies left sided discomfort. For VATS today. Intake & Output 12/27/16 12/28/16 12/29/16 12/30/16 23:59 23:59 23:59 23:59 Intake Total 2571 1406 1681 575 Output Total 150 258 255 Balance 2421 1148 1426 575 Weight 211 lb 14.4 oz 235 lb 217 lb 11.2 oz 217 lb 1.6 oz Last Vital Signs Temp Pulse Resp BP Pulse Ox 98.1 F 58 L 16 125/55 99 12/30/16 12:00 12/30/16 12:00 12/30/16 12:00 12/30/16 12:00 12/30/16 08:00 Active Medications Chlorhexidine Gluconate (Hibiclens For Decolonization -) 1 applic TP HS [facility] Last Admin: 12/29/16 22:07 Dose: 1 applic Azithromycin (Zithromax 500mg Ivpb (Pre-Docked)) 250 mls @ 250 mls/hr IVPB DAILY [facility] Last Admin: 12/30/16 09:22 Dose: 250 mls/hr Insulin Human Regular 100 (units/ Sodium Chloride) 100 mls @ 1 mls/hr IVPB TITR REJI; 1 UNITS/HR PRN Reason: Protocol Last Admin: 12/30/16 13:10 Dose: Not Given Meropenem 500 mg/ Dextrose 100 mls @ 200 mls/hr IVPB Q8H-IV REJI Last Admin: 12/30/16 09:17 Dose: 200 mls/hr Dextrose/Sodium Chloride (D5-Ns -) 1,000 mls @ 25 mls/hr IV ASDIR [facility] Last Admin: 12/29/16 18:02 Dose: Not Given Levothyroxine Sodium (Synthroid Injection -) 100 mcg IVPUSH DAILY [facility] Last Admin: 12/30/16 09:18 Dose: Not Given Metoprolol Tartrate (Lopressor Injection -) 2.5 mg IVPUSH Q4H PRN PRN Reason: TACHYCARDIA Mupirocin (Bactroban Ointment (For Decolonization) -) 1 applic NS BID [facility] Stop: 12/31/16 21:59 Last Admin: 12/30/16 09:18 Dose: 1 applic Ranitidine HCl (Zantac -) 150 mg PO DAILY [facility] Last Admin: 12/30/16 09:18 Dose: Not Given CXR : left loculated PTX / left base consolidation General: awake, NAD HEENT: PERRL CV: RRR Pulm: Left pigtail purulent drainage, no airleak Abd: obese, SNTND Ext: LE +2/3 edema Neuro: left facial droop, WELLS, AOx2 Laboratory Results - last 24 hr 12/29/16 12/29/16 12/29/16 17:10 17:49 20:00 Sodium 142 Potassium 3.4 L Chloride 100 Carbon Dioxide 27 D Anion Gap 15 BUN 33 H D Creatinine 3.0 H D Random Glucose 282 H D Calcium 7.7 L Random Vancomycin 13.127 Blood Type A POSITIVE Antibody Screen Negative Crossmatch See Detail 12/30/16 11:00 Sodium 142 Potassium 4.0 Chloride 102 Carbon Dioxide 29 Anion Gap 11 BUN 42 H D Creatinine 4.0 H D Random Glucose 139 H D Calcium 7.8 L Random Vancomycin Blood Type Antibody Screen Crossmatch ASSESSMENT AND PLAN: AMS - toxic metabolic encephalopathy(?) Diabetic Ketoacidosis LLL Pneumonia Empyema Pseudohyponatremia +Troponins likely Demand Ischemia ESRD on HD HTN Acute/subacute infarct 3.5 x 2cm right cerebellar hemisphere - Glycemic control - HD per renal - ABX for pneumonia/empyema - ASA - f/u cultures - DVT prophylaxis - For VATS - ICU monitoring Dr Alejandro critical care time spent in reviewing chart, evaluating patient and formulating plan 35 min
[2016-12-30] MEDS ORDERED: BUPIVACAINE HCL/PF 0.25% (2.5MG/ML) 10 ML VIAL IJ ONE (15:14)
[2016-12-30] MEDS ORDERED: LIDOCAINE 1%/EPI 1:100000 (50 ML MULTI DOSE VIAL) PNB ONE (15:14)
--- NOTE | 2016-12-30 16:27 | OP ---
Operative Note - Note: Operative Date: 12/30/16 Pre-Operative Diagnosis: Empyema Operation: Bronchoscopy, left VATS, pneumolysis, empyema drainage, partial decortication Findings: Bronchoscopy: no pus in airway, Thoracoscopy: fibrinous exudate on lung surface , some partially decorticated, pleural fluid in chest, LLL adherent to diaphragm and lysed from diaphragm, lung expanded on positive pressure ventilation. Post-Operative Diagnosis: Same as Pre-op Surgeon: Frank Brown Tornado Chaser: Brooklynn Casiano Anesthesiologist/MACHINE II CUTTER: Essie Turcios Anesthesia: General Specimens Removed: pleura, pleural contents, bronchial washings Estimated Blood Loss (mls): 5 Drains & Tubes with Location: 2 chest tubes: anterior on skin is apical, posterior on skin is basilar Operative Report Dictated: Yes
[2016-12-30] MEDS ORDERED: SODIUM CHLORIDE 500 ML IV STA ×2 (16:34→17:00)
[2016-12-30 16:41] LABS: ARTERIAL BLOOD GAS BASE EXCESS 0.5 meq/l (-2-2); ARTERIAL BLOOD GAS HCO3 24.9 meq/L (22-26)
[2016-12-30 16:42] LABS: ART PUNCT SITE LEFT FEMORAL; LPM/O2% 80%; MECH. VENT. yes; PT. ON O2? yes; VENT RATE 14
[2016-12-30 16:43] LABS: ARTERIAL BLD GAS O2 SATURATION 98.2 % (90-98.9)
--- NOTE | 2016-12-30 16:51 | SURG ---
Surgery Ambulatory Service Representative Note Ambulatory Service Representative: Brooklynn Casiano PA-C Date of Service: 12/30/16 Diagnosis: Empyema Procedure: Bronchoscopy, left VATS, pneumolysis, empyema drainage, partial decortication I was present for the entirety of the operative procedure. For further detail, please refer to operative report. Visit type - Case Type Case Type: ED Admission - Emergency Emergency Visit: Yes ED Registration Date: 12/26/16 Care time: The patient presented to the Emergency Department on the above date and was hospitalized for further evaluation of their emergent condition. - New patient This patient is new to me today: Yes Date on this admission: 12/30/16 - Critical Care Critical Care patient: No
[2016-12-30] MEDS ORDERED: DEXTROSE 5%-NORMAL SALINE 1,000 ML IV SCH ×2 (17:14→18:15)
[2016-12-30] MEDS ORDERED: METOPROLOL TARTRATE 5 MG/5 ML VIAL IVPUSH PRN (17:14)
--- NOTE | 2016-12-30 18:30 | OP ---
- Note: Patient Name: Veronica Lantigua MR#: [id number] Procedure Date: 12/30/16 Preoperative Diagnosis: Left empyema Postoperative Diagnosis: Same Procedure: Flexible bronchoscopy, left thoracoscopy, pneumolysis, partial decortication, drainage of effusion Indication: as above Surgeon(s): Dr. Frank Crouch Patient Name: Veronica Lantigua MR#: [id number] Procedure Date: 12/30/16 Preoperative Diagnosis: Left empyema Postoperative Diagnosis: Same Procedure: Flexible bronchoscopy, left thoracoscopy, pneumolysis, partial decortication, drainage of effusion Indication: as above Surgeon(s): Dr. Frank Brown [facility] Department Supervisor: Brooklynn Lieberman Anesthesia: General Endotracheal Wound Classification: Clean Antibiotic Prophylaxis: n/a Findings: Bronchoscopy with minimal secretions; Thoracoscopy showing fibrinous exudate on the lung; minimal peel necessitating decortication; adhesions from LLL to diaphragm that were released Specimens Sent: BAL cultures; pleural fluid cultures; pleural tissue for culture and pathology. Complications: none Drains / Tubes / Catheters: 2 left chest tubes Hardware / Implants: n/a Blood / Fluid Losses: 10cc Blood / Fluids Administered: per anesthesia Post-Operative Condition: intubated to ICU Indications: This patient is a 66 year-old female with ESRD on HD who presented unconscious with a new stroke, myocardial infarction, and left chest effusion. A drain was placed revealing pus. She was cared for in the ICU and I was consulted for VATS. Dr. Alejandro and I had a thorough discussion about surgery versus further drainage and thought that surgery would benefit her more than other tubes and ultimately be less risky despite her poor condition. She was then explained the risks, benefits, and alternatives of a bronchoscopy, vats , and thoracoscopy, and she agreed and understood. Details of Procedure: The patient was taken into the operating room and placed supine on the table. She was monitored with pulse oximetry and blood pressure monitoring, including an arterial line. Sequential compression devices were placed. A lazcano catheter was placed. She was given sedation and intubated with a single-lumen tube. I performed a bronchoscopy. We sent cultures. She was then positioned in the right lateral decubitus postion and the position of the tube and kacie were reconfirmed. Her chest was prepared and draped in sterile fashion. We made 3 ports after giving local anesthesia. We performed pneumolysis and drained a small amount of residual fluid. There were adhesions from the lower lobe to the diaphragm. All of these were lysed. We drained all fluid pockets. A partial decortication was performed on the upper and lower lobe. Multiple cultures were sent. We then placed 2 chest tubes and expanded the lung after ensuring good hemostasis. The lung expanded well. The chest tubes were secured and the ports were closed with absorbable sutures and tejinder. Sterile dressings were placed. The patient was transferred intubated to the ICU. arpit [facility] Department Supervisor: Brooklynn Lieberman Anesthesia: General Endotracheal Wound Classification: Clean Antibiotic Prophylaxis: n/a Findings: Bronchoscopy with minimal secretions; Thoracoscopy showing fibrinous exudate on the lung; minimal peel necessitating decortication; adhesions from LLL to diaphragm that were released Specimens Sent: BAL cultures; pleural fluid cultures; pleural tissue for culture and pathology. Complications: none Drains / Tubes / Catheters: 2 left chest tubes Hardware / Implants: n/a Blood / Fluid Losses: 10cc Blood / Fluids Administered: per anesthesia Post-Operative Condition: intubated to ICU Indications: This patient is a 66 year-old female with ESRD on HD who presented unconscious with a new stroke, myocardial infarction, and left chest effusion. A drain was placed revealing pus. She was cared for in the ICU and I was consulted for VATS. Dr. Alejandro and I had a thorough discussion about surgery versus further drainage and thought that surgery would benefit her more than other tubes and ultimately be less risky despite her poor condition. She was then explained the risks, benefits, and alternatives of a bronchoscopy, vats , and thoracoscopy, and she agreed and understood. Details of Procedure: The patient was taken into the operating room and placed supine on the table. She was monitored with pulse oximetry and blood pressure monitoring, including an arterial line. Sequential compression devices were placed. A lazcano catheter was placed. She was given sedation and intubated with a single-lumen tube. I performed a bronchoscopy. We sent cultures. She was then positioned in the right lateral decubitus postion and the position of the tube and kacie were reconfirmed. Her chest was prepared and draped in sterile fashion. We made 3 ports after giving local anesthesia. We performed pneumolysis and drained a small amount of residual fluid. There were adhesions from the lower lobe to the diaphragm. All of these were lysed. We drained all fluid pockets. A partial decortication was performed on the upper and lower lobe. Multiple cultures were sent. We then placed 2 chest tubes and expanded the lung after ensuring good hemostasis. The lung expanded well. The chest tubes were secured and the ports were closed with absorbable sutures and tejinder. Sterile dressings were placed. The patient was transferred intubated to the ICU.
--- NOTE | 2016-12-30 20:59 | PN ---
Progress Note (short form) - Note Progress Note: Note, late entry. Patient seen this morning. Chief Complaint: CVA, PSVT S: less lethargic--able to talk and answer questions. denies sob, palpitations, presyncope, leg swelling. + diffuse pain. + weakness on right ex-cigs Current Medications Chlorhexidine Gluconate (Hibiclens For Decolonization -) 1 applic TP HS REJI Heparin Sodium (Porcine) (Heparin -) 5,000 unit SQ BID RE[facility]I Azithromycin (Zithromax 500mg Ivpb (Pre-Docked)) 250 mls @ 250 mls/hr IVPB DAILY [facility] Meropenem 500 mg/ Dextrose 100 mls @ 200 mls/hr IVPB Q8H-IV [facility] Last Admin: 12/30/16 18:00 Dose: 200 mls/hr Dextrose/Sodium Chloride (D5-Ns -) 1,000 mls @ 100 mls/hr IV ASDIR [facility] Stop: 12/31/16 04:14 Last Admin: 12/30/16 18:15 Dose: 100 mls/hr Insulin Aspart (Novolog Vial Sliding Scale -) 1 vial SQ ACHS REJI PRN Reason: Protocol Levothyroxine Sodium (Synthroid Injection -) 100 mcg IVPUSH DAILY [facility] Metoprolol Tartrate (Lopressor Injection -) 2.5 mg IVPUSH Q4H PRN PRN Reason: TACHYCARDIA Mupirocin (Bactroban Ointment (For Decolonization) -) 1 applic NS BID [facility] Stop: 12/31/16 21:59 Vital Signs Period Temp Pulse Resp BP Sys/Aguirre Pulse Ox Last 24 Hr 94.0 F-98.6 F 56-98 14-29 94-145/32-67 95-99 Intake & Output 12/28/16 12/29/16 12/30/16 12/31/16 07:59 07:59 07:59 07:59 Intake Total 2150 1556 1392 2187 Output Total 298 098 208 5812 Balance 1852 1411 1172 657 Weight 215 lb 8 oz 217 lb 11.2 oz 217 lb 1.6 oz Constitutional: Yes: No Distress, Calm Eyes: No: Sclera Icterus HENT: No: Nasal Congestion Cardiovascular: Yes: Regular Rate and Rhythm, S1, S2, Other (PMI non diplaced). No: JVD, Gallop, Murmur Respiratory: Yes: Left sided dullness, poor effort No: Accessory Muscle Use, Rales, Wheezes Gastrointestinal: Yes: Normal Bowel Sounds, Soft. No: Tenderness Musculoskeletal: Yes: Other (No kyphosis) Extremities: No: Cold. + rt sided weakness. Edema: No Integumentary: No: Jaundice Neurological: Yes: Lethargy. No: Seizure Psychiatric: No: Agitated Labs: CBC, BMP 12/29/16 11:50 12/30/16 11:00 - ....Imaging EKG: Other (tele: NSR/SB; 6-b nsvt, occ pvc's) Assessment/Plan EKG: SB, LVH. biphasic anterior t waves. Slightly more prominent than priors. Stable on repeat EKG x 2. head CT: suspicion for acute/subacute cerebellar infarct brain MRI: large rt inf cerebellar acute/subacute infarct. acute/subacute lacunar infarct at rt medulla oblongata. acute/subacute lacunar infarct of left frontal lobe and possibly occipital lobe. meningioma. Echo here: nl lv/rv size/fn. mild lae, mod mac, mild-mod as/ar, mild mr/tr cxr 5/9 am. unchanged left ptx, LLL atelectasis 66 yo with h/o left breast ca s/p lumpectomy and chemotherapy, SVT per patient' s documentation, IDDM, HTN, thyroid disease and ESRD recently started on HD M// who presented to the ED with altered mental status found to be in DKA and with acute cerebellar infarct. NSTEMI, likely Type II: - trop 0.9 on admit, trended down - likely demand ischemia in setting DKA, CVA and > volume overload sec to missed HD session. - normal LVSF with no RWMA on echo - no acute anti-PLT or AC treatment is indicated for Type II DC - penitentiary preventive therapy with ASA, statin, BB can be considered depending on clinical course here (e.g. once not at risk for hemorrhagic transformation suspected) - should have risk stratification with nuclear stress test imaging later, if she recovers from acute illnesses AMS/possible acute brainstem CVA - MS change ? sec to hyperglycemia vs CVA --> improving - check carotids - echo unrevaling - anti-PLT and other tx recs to be deferred to neuro LLL PNA, empyema, PTX: -on abx -seen by thoracic surgery, considering VATS but planning med mgmt +/- chest tube only for now given her recent CVA increasing risk of anesthesia -per crit care/pulm/thoracic surery. 12/30 For VATS today. 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
[2016-12-30] MEDS: HEPARIN NA (PORCINE) 5,000 UNITS/ML 1ML VIAL SQ SCH (21:14)
[2016-12-30] MEDS: CHLORHEXIDINE GLUCONATE 4% CLEANSER FOR DECOLONIZATION TP SCH (21:15)
[2016-12-30] MEDS: INSULIN SLIDING SCALE (NOVOLOG) 1 VIAL SQ SCH (21:22)
[2016-12-30] MEDS ORDERED: MUPIROCIN 2% TOPICAL OINTMENT FOR DECOLONIZATION NS SCH (22:00)
[2016-12-30] MEDS ORDERED: CHLORHEXIDINE GLUCONATE 4% CLEANSER FOR DECOLONIZATION TP SCH (22:00)
[2016-12-31] MEDS ORDERED: PT OWN MED DRAWER 7, Y5N ONE ×3 (00:12→18:28)
[2016-12-31] MEDS: MEROPENEM 500 MG in DEXTROSE 5%-WATER - 100 ML IVPB SCH ×3 (01:10→18:34)
[2016-12-31] MEDS ORDERED: HEMOQUE TEST 1 EACH EACH ONE (01:24)
[2016-12-31] MEDS: INSULIN SLIDING SCALE (NOVOLOG) 1 VIAL SQ SCH ×4 (06:05→21:33)
[2016-12-31 06:14] LABS: MCH 28.4 pg (25.7-33.7); MCHC 31.4 g/dl (32.0-36.0); MEAN CELL VOLUME 90.5 fl (80-96); MEAN PLT VOLUME 9.1 fl (7.5-11.1); PLATELET COUNT 263 K/MM3 (134-434); RDW 16.5 % (11.6-15.6); WHITE BLOOD COUNT 18.1 K/mm3 (4.0-10.0)
[2016-12-31 06:29] LABS: INR 1.28 (0.82-1.09); PROTHROMBIN TIME (PATIENT) 14.1 SEC (9.98-11.88)
[2016-12-31 06:47] LABS: ALBUMIN 1.1 g/dl (3.4-5.0); BILIRUBIN,DIRECT 0.2 mg/dL (0.0-0.2); CALCIUM 7.2 mg/dL (8.5-10.1)
[2016-12-31 06:50] LABS: BILIRUBIN,TOTAL 0.7 mg/dL (0.2-1.0); COCKROFT - GAULT 17.986; CREATININE 4.7 mg/dL (0.55-1.02); PHOSPHOROUS 6.5 mg/dL (2.5-4.9)
--- NOTE | 2016-12-31 07:16 | PN ---
Physical Exam: SUBJECTIVE: Patient seen and examined. Patient self-extubated this morning, says she feels much better. denies SOB. OBJECTIVE: Vital Signs Period Temp Pulse Resp BP Sys/Aguirre Pulse Ox Last 24 Hr 94.0 F-99.1 F 56-98 14-17 94-145/32-67 95-99 GENERAL: The patient is awake, alert, and fully oriented, in no acute distress. EYES: PERRL, extraocular movements intact, sclera anicteric, conjunctiva clear. No ptosis. ENT: oropharynx with thick white secretions, mild erythema, moist mucous membranes. NECK: Trachea midline, full range of motion, supple. LUNGS: left with crackles and sqeaks. right with expiratory rales. [address] on left, sutures in place, placed to suction, draining. tejinder in left axilla. HEART: Regular rate and rhythm, S1, S2 with soft systolic ejection murmur ABDOMEN:obese Soft, nontender, nondistended, normoactive bowel sounds, no guarding EXTREMITIES: 1+ pulses,cool well-perfused, 1+ edema b/l LE. Left arm with palpable thrill from fistula. right UE with nonpitting edema. NEUROLOGICAL: Normal speech. 2/5 strength in right shoulder/elbow/handgrip, 2/5 in right hip, foot. PSYCH: Normal mood, normal affect. SKIN: Warm, dry, normal turgor, no rashes or lesions noted Rodney in place clear yellow urine Laboratory Results - last 24 hr 12/29/16 12/29/16 12/29/16 08:13 10:08 12:07 WBC RBC Hgb Hct MCV MCHC RDW Plt Count MPV Neutrophils % Lymphocytes % INR Puncture Site ABG pH ABG pCO2 at Pt Temp ABG pO2 at Pt Temp ABG HCO3 ABG O2 Sat (Measured) ABG O2 Content ABG Base Excess Chance Test O2 Delivery Device Oxygen Flow Rate Vent Mode Vent Rate Mechanical Rate PEEP Pressure Support Vent Sodium Potassium Chloride Carbon Dioxide Anion Gap BUN Creatinine POC Glucometer 229.47645 234.22864 251.62385 Random Glucose Calcium Phosphorus Magnesium Total Bilirubin Direct Bilirubin AST ALT Alkaline Phosphatase Total Protein Albumin Vancomycin Trough 12/29/16 12/29/16 12/29/16 14:02 15:39 17:58 WBC RBC Hgb Hct MCV MCHC RDW Plt Count MPV Neutrophils % Lymphocytes % INR Puncture Site ABG pH ABG pCO2 at Pt Temp ABG pO2 at Pt Temp ABG HCO3 ABG O2 Sat (Measured) ABG O2 Content ABG Base Excess Chance Test O2 Delivery Device Oxygen Flow Rate Vent Mode Vent Rate Mechanical Rate PEEP Pressure Support Vent Sodium Potassium Chloride Carbon Dioxide Anion Gap BUN Creatinine POC Glucometer 246.52432 280.61856 305.65210 Random Glucose Calcium Phosphorus Magnesium Total Bilirubin Direct Bilirubin AST ALT Alkaline Phosphatase Total Protein Albumin Vancomycin Trough 12/29/16 12/30/16 12/30/16 22:00 01:21 05:49 WBC RBC Hgb Hct MCV MCHC RDW Plt Count MPV Neutrophils % Lymphocytes % INR Puncture Site ABG pH ABG pCO2 at Pt Temp ABG pO2 at Pt Temp ABG HCO3 ABG O2 Sat (Measured) ABG O2 Content ABG Base Excess Chance Test O2 Delivery Device Oxygen Flow Rate Vent Mode Vent Rate Mechanical Rate PEEP Pressure Support Vent Sodium Potassium Chloride Carbon Dioxide Anion Gap BUN Creatinine POC Glucometer 337.30017 253.87761 147.82489 Random Glucose Calcium Phosphorus Magnesium Total Bilirubin Direct Bilirubin AST ALT Alkaline Phosphatase Total Protein Albumin Vancomycin Trough 12/30/16 12/30/16 12/30/16 09:53 11:00 16:33 WBC RBC Hgb Hct MCV MCHC RDW Plt Count MPV Neutrophils % Lymphocytes % INR Puncture Site ABG pH ABG pCO2 at Pt Temp ABG pO2 at Pt Temp ABG HCO3 ABG O2 Sat (Measured) ABG O2 Content ABG Base Excess Chance Test O2 Delivery Device Oxygen Flow Rate Vent Mode Vent Rate Mechanical Rate PEEP Pressure Support Vent Sodium 142 Potassium 4.0 Chloride 102 Carbon Dioxide 29 Anion Gap 11 BUN 42 H D Creatinine 4.0 H D POC Glucometer 160.29289 169.43854 Random Glucose 139 H D Calcium 7.8 L Phosphorus Magnesium Total Bilirubin Direct Bilirubin AST ALT Alkaline Phosphatase Total Protein Albumin Vancomycin Trough 12/30/16 12/30/16 12/31/16 16:35 21:19 05:20 WBC 18.1 H RBC 3.83 Hgb 10.9 D Hct 34.7 MCV 90.5 MCHC 31.4 L RDW 16.5 H Plt Count 263 MPV 9.1 Neutrophils % Y Lymphocytes % Y INR Puncture Site Left femoral ABG pH 7.40 ABG pCO2 at Pt Temp 41.4 D ABG pO2 at Pt Temp 109.0 H ABG HCO3 24.9 ABG O2 Sat (Measured) 98.2 ABG O2 Content 16.8 ABG Base Excess 0.5 Chance Test Not applicable O2 Delivery Device mechanical vent Oxygen Flow Rate 80% Vent Mode Simv Vent Rate 14 Mechanical Rate yes PEEP 5.0 Pressure Support Vent 500ml Sodium Potassium Chloride Carbon Dioxide Anion Gap BUN Creatinine POC Glucometer 366.67104 Random Glucose Calcium Phosphorus Magnesium Total Bilirubin Direct Bilirubin AST ALT Alkaline Phosphatase Total Protein Albumin Vancomycin Trough 12/31/16 12/31/16 12/31/16 05:20 05:20 05:32 WBC RBC Hgb Hct MCV MCHC RDW Plt Count MPV Neutrophils % Lymphocytes % INR 1.28 H Puncture Site ABG pH ABG pCO2 at Pt Temp ABG pO2 at Pt Temp ABG HCO3 ABG O2 Sat (Measured) ABG O2 Content ABG Base Excess Chance Test O2 Delivery Device Oxygen Flow Rate Vent Mode Vent Rate Mechanical Rate PEEP Pressure Support Vent Sodium 142 Potassium 4.2 Chloride 104 Carbon Dioxide 24 Anion Gap 14 BUN 50 H Creatinine 4.7 H POC Glucometer [phone] Random Glucose 259 H D Calcium 7.2 L Phosphorus 6.5 H D Magnesium 2.0 Total Bilirubin 0.7 D Direct Bilirubin 0.2 D AST 17 ALT 6 L D Alkaline Phosphatase 94 Total Protein 4.0 L Albumin 1.1 L D Vancomycin Trough 12/31/16 06:00 WBC RBC Hgb Hct MCV MCHC RDW Plt Count MPV Neutrophils % Lymphocytes % INR Puncture Site ABG pH ABG pCO2 at Pt Temp ABG pO2 at Pt Temp ABG HCO3 ABG O2 Sat (Measured) ABG O2 Content ABG Base Excess Chance Test O2 Delivery Device Oxygen Flow Rate Vent Mode Vent Rate Mechanical Rate PEEP Pressure Support Vent Sodium Potassium Chloride Carbon Dioxide Anion Gap BUN Creatinine POC Glucometer Random Glucose Calcium Phosphorus Magnesium Total Bilirubin Direct Bilirubin AST ALT Alkaline Phosphatase Total Protein Albumin Vancomycin Trough 16.888 H* Active Medications Generic Name Dose Route Start Last Admin Trade Name Freq PRN Reason Stop Dose Admin Chlorhexidine Gluconate 1 applic 12/30/16 22:00 12/30/16 21:15 Hibiclens For Decolonization - TP 1 applic HS REJI Administration Heparin Sodium (Porcine) 5,000 unit 12/30/16 22:00 12/30/16 21:14 Heparin - SQ 5,000 unit BID REJI Administration Azithromycin 250 mls @ 250 mls/hr 12/31/16 10:00 Zithromax 500mg Ivpb (Pre-Docked) IVPB DAILY REJI Meropenem 500 mg/ Dextrose 100 mls @ 200 mls/hr 12/30/16 18:00 12/31/16 01:10 IVPB 200 mls/hr Q8H-IV REJI Administration Insulin Aspart 1 vial 12/30/16 22:00 12/31/16 06:05 Novolog Vial Sliding Scale - SQ 6 units ACHS REJI Administration Protocol Levothyroxine Sodium 100 mcg 12/31/16 10:00 Synthroid Injection - IVPUSH DAILY REJI Metoprolol Tartrate 2.5 mg 12/30/16 17:14 Lopressor Injection - IVPUSH Q4H PRN TACHYCARDIA Mupirocin 1 applic 12/30/16 22:00 12/30/16 21:14 Bactroban Ointment (For Decolonization) - NS 12/31/16 21:59 1 applic BID REJI Administration Imaging Echo 12/26/2016 - without wall motion abnormality or significant sclerosis ID: Dr. Gutierrez Cardiothoracic surg: Dr. Brown Nephro: Dr. Wray Cardio: Dr. Myers Neuro: Dr. najera Lines: right IJ 5/8 Chest tube #1, #2: right lateral chest 5/9 left femoral arterial line 12/30 Rodney 12/30; initial 1300cc clear yellow urine in OR ASSESSMENT/PLAN: 66 yr old woman with DM II, ESRD on HD presented with AMS and hyperglycemia, admitted to the ICU for DKA, found to have CVA and left lower lobe empyema. - As per patient request, family is not be involved in medical decisions. Pulmonary #Empyema - Meropenem 500mg IVPB q8hr -- day 5 -- Vancomycin 1gm 12/29 - (renal dosing), random vanc 13 12/30 - chest tubes in place Neurological #CVA - acute/subacute infarct 3.5/2cm right cerebellar hemisphere, MRI with large right inferior cerebellar stroke and medulla infarct. - Neuro checks - speech and swallow evaluation - normal, diced dysphagia and nectar thin liquids - maintain HOB elevated - PT eval Infectious Disease: empyema meropenem + vancomycin leucocytosis trend labs Consult: Dr. Gutierrez Cardiovascular HTN, BP improved - metoprolol 2.5 mg ivpush q4hr prn Endocrine #DM II - BGM q4hr, goal BGM 140-180 #hypothryoid continue home medication levothyroxine 100mcg ivpush daily #Renal - HD MWF - dialysis completed 12/29 Gastrointestinal - pantoprazole ivpb daily 40mg #DVT - SCD's given recent CVA #Diet - currently intubated Visit type - Emergency Visit Emergency Visit: No - New Patient This patient is new to me today: No - Critical Care Critical Care patient: Yes Total Critical Care Time (in minutes): 44 Critical Care Statement: The care of this patient involved high complexity decision making to prevent further life threatening deterioration of the patient 's condition and/or to evalute & treat vital organ system(s) failure or risk of failure.
--- NOTE | 2016-12-31 07:31 | PN ---
Progress Note (short form) - Note Progress Note: POD #1 Per patient's RN, she self-extubated early this morning. Alert. Resting in position of comfort. C/o incisional tenderness. Pain controled well via PRN meds. Denies n/v/f/c, CP or SOB. Last Vital Signs Temp Pulse Resp BP Pulse Ox 98.5 F 61 14 121/46 95 12/31/16 06:00 12/31/16 06:00 12/31/16 06:00 12/31/16 06:00 12/30/16 21:00 CBC, BMP 12/31/16 05:20 12/31/16 05:20 OUTPUT 12/31/16 06:00 Anterior CXT 120 Lateral CxT 200 Lazcano 20 PE: Gen: alert. nad Pulm: Cxt x2 on pleurovac/suction. + air leak (lateral drain). Serosang drainage. : lazcano to gravity LE: SCDs b/l Problem List - Problems (1) Empyema of left pleural space Assessment/Plan: POD #1 s/p bronchoscopy, left thoracoscopy, pneumolysis, partial decortication and drainage of effusion Cont pleurovac to wall suction Monitor and record output q shift BUN/Cr elevated - monitor Poor urinary output, cont to monitor HD prn f/u CXR GI/DVT ppx Incentive spirometer IV ABX Code(s): J86.9 - PYOTHORAX WITHOUT FISTULA
[2016-12-31] MEDS: MUPIROCIN 2% TOPICAL OINTMENT FOR DECOLONIZATION NS SCH (09:40)
[2016-12-31] MEDS ORDERED: AZITHROMYCIN IVPB 250 ML IVPB SCH (10:00)
--- NOTE | 2016-12-31 11:06 | PN ---
Progress Note, Physician Chief Complaint: S/P VATS under general anesthesia post op day1 History of Present Illness: patient remained intubated immediately post operatively, extubated in the ICU in the interim. - Current Medication List Current Medications: Active Medications Chlorhexidine Gluconate (Hibiclens For Decolonization -) 1 applic TP HS [facility] Last Admin: 12/30/16 21:15 Dose: 1 applic Heparin Sodium (Porcine) (Heparin -) 5,000 unit SQ BID [facility] Last Admin: 12/30/16 21:14 Dose: 5,000 unit Azithromycin (Zithromax 500mg Ivpb (Pre-Docked)) 250 mls @ 250 mls/hr IVPB DAILY [facility] Meropenem 500 mg/ Dextrose 100 mls @ 200 mls/hr IVPB Q8H-IV [facility] Last Admin: 12/31/16 01:10 Dose: 200 mls/hr Insulin Aspart (Novolog Vial Sliding Scale -) 1 vial SQ ACHS [facility] PRN Reason: Protocol Last Admin: 12/31/16 06:05 Dose: 6 units Levothyroxine Sodium (Synthroid Injection -) 100 mcg IVPUSH DAILY [facility] Metoprolol Tartrate (Lopressor Injection -) 2.5 mg IVPUSH Q4H PRN PRN Reason: TACHYCARDIA Mupirocin (Bactroban Ointment (For Decolonization) -) 1 applic NS BID [facility] Stop: 12/31/16 21:59 Last Admin: 12/31/16 09:40 Dose: 1 applic - Objective Vital Signs: Vital Signs Temperature 98.4 F 12/31/16 09:25 Pulse Rate 62 12/31/16 10:00 Respiratory Rate 18 12/31/16 10:00 Blood Pressure 131/45 12/31/16 10:00 O2 Sat by Pulse Oximetry (%) 99 12/31/16 08:05 Constitutional: Yes: Well Nourished, Mild Distress Cardiovascular: Yes: Tachycardia Respiratory: Yes: On Venti-Mask Gastrointestinal: Yes: WNL Labs: CBC, BMP 12/31/16 05:20 12/31/16 05:20 INR, PTT INR 1.28 (0.82-1.09) H 12/31/16 05:20 Assessment/Plan Patient has been extubated, saturating well on non rebreather, appears mildly distressed but denies pain or difficulty breathing. No further anesthetic complication noted. The dept of anesthesia will sign off care at this time
--- NOTE | 2016-12-31 11:10 | PN ---
Progress Note (short form) - Note Progress Note: Renal Follow up fro ESRD on HD Pt seen and examined in the ICU s/p bronchoscopy, left thoracoscopy pt currently getting dialysis BP stable, goal UF is 2L pt is very upset, says that she does not want to continue dialysis explained to her the importance of dialysis ICU nurse reports no earlier issues pt self extubated this am Vital Signs Temperature 98.4 F 12/31/16 09:25 Pulse Rate 62 12/31/16 10:00 Respiratory Rate 18 12/31/16 10:00 Blood Pressure 131/45 12/31/16 10:00 O2 Sat by Pulse Oximetry (%) 99 12/31/16 08:05 Intake & Output 12/28/16 12/29/16 12/30/16 12/31/16 23:59 23:59 23:59 23:59 Intake Total 1406 1681 3187 Output Total 190 095 8874 245 Balance 1148 1426 1657 -245 Weight 235 lb 217 lb 11.2 oz 217 lb 1.6 oz 219 lb 4.8 oz Gen: NAD, awake and alert on face mask O2 CVS: RRR, No M/R Lungs: Dec BS B/L LUng hope (anterior exam) Abd: soft NT/ND Ext: trace to 1+ edema in LE CBC, BMP 12/31/16 05:20 12/31/16 05:20 Laboratory Tests 12/31/16 05:20 Calcium 7.2 L Phosphorus 6.5 H D Magnesium 2.0 Albumin 1.1 L D Current Medications Chlorhexidine Gluconate (Hibiclens For Decolonization -) 1 applic TP HS [facility] Last Admin: 12/30/16 21:15 Dose: 1 applic Heparin Sodium (Porcine) (Heparin -) 5,000 unit SQ BID [facility] Last Admin: 12/30/16 21:14 Dose: 5,000 unit Azithromycin (Zithromax 500mg Ivpb (Pre-Docked)) 250 mls @ 250 mls/hr IVPB DAILY [facility] Meropenem 500 mg/ Dextrose 100 mls @ 200 mls/hr IVPB Q8H-IV [facility] Last Admin: 12/31/16 01:10 Dose: 200 mls/hr Insulin Aspart (Novolog Vial Sliding Scale -) 1 vial SQ ACHS [facility] PRN Reason: Protocol Last Admin: 12/31/16 06:05 Dose: 6 units Levothyroxine Sodium (Synthroid Injection -) 100 mcg IVPUSH DAILY [facility] Metoprolol Tartrate (Lopressor Injection -) 2.5 mg IVPUSH Q4H PRN PRN Reason: TACHYCARDIA Mupirocin (Bactroban Ointment (For Decolonization) -) 1 applic NS BID [facility] Stop: 12/31/16 21:59 Last Admin: 12/31/16 09:40 Dose: 1 applic A/P breast ca s/p lumpectomy and chemotherapy, IDDM, HTN, and ESRD on HD M/W/ who presented to the ED today via EMS after her dialysis center notified police that she missed her treatment on Thursday and was not answering the phone. 66 year old woman with PMhx of ESRD on HD, Breast Ca s/p Chemo and Lumpectomy, IDDM, Hypertension presented with AMS and found to have DKA, Acute CVA and Pnemothorax #ESRD on HD currently getting dialysis goal UF is 2L will complete dialysis today despite pt complaints. Pt does not appear to show understanding of the consequences of stopping dialysis. If pt continues to say she does not want dialysis would recommend a psych eval to determine if she has the capacity to make such decisions at this time. #Empyema/Pneumothorax/Leukocytosis Chest tube in place s/p VATS continue Abx as per ICU #Acute/Subacute CVA supportive Care Neurology follow up Thank you Jose Carlos Wray DO
--- NOTE | 2016-12-31 11:15 | PN ---
Progress Note (short form) - Note Progress Note: ANESTHESIOLOGY POST-OP CHECK 66F s/p left VATS and bronchoscopy under general anesthesia, POD #1. SElf- extubated this AM and put on non-rebreather mask, doing well. no acute complaints. Denies pain, N/V. Undergoing hemodialysis. Vital Signs Temperature 98.4 F 12/31/16 09:25 Pulse Rate 62 12/31/16 10:00 Respiratory Rate 18 12/31/16 10:00 Blood Pressure 131/45 12/31/16 10:00 O2 Sat by Pulse Oximetry (%) 99 12/31/16 08:05 Active Medications Chlorhexidine Gluconate (Hibiclens For Decolonization -) 1 applic TP HS [facility] Last Admin: 12/30/16 21:15 Dose: 1 applic Heparin Sodium (Porcine) (Heparin -) 5,000 unit SQ BID [facility] Last Admin: 12/30/16 21:14 Dose: 5,000 unit Azithromycin (Zithromax 500mg Ivpb (Pre-Docked)) 250 mls @ 250 mls/hr IVPB DAILY [facility] Meropenem 500 mg/ Dextrose 100 mls @ 200 mls/hr IVPB Q8H-IV [facility] Last Admin: 12/31/16 01:10 Dose: 200 mls/hr Insulin Aspart (Novolog Vial Sliding Scale -) 1 vial SQ ACHS [facility] PRN Reason: Protocol Last Admin: 12/31/16 06:05 Dose: 6 units Levothyroxine Sodium (Synthroid Injection -) 100 mcg IVPUSH DAILY [facility] Metoprolol Tartrate (Lopressor Injection -) 2.5 mg IVPUSH Q4H PRN PRN Reason: TACHYCARDIA Mupirocin (Bactroban Ointment (For Decolonization) -) 1 applic NS BID [facility] Stop: 12/31/16 21:59 Last Admin: 12/31/16 09:40 Dose: 1 applic Gen: awake, alert, mildly drousy No apparent anesthesia complications. Pain controlled. Continue management as per primary team.
--- NOTE | 2016-12-31 11:21 | PN ---
Physical Exam: SUBJECTIVE: Patient seen and examined at bedside. OBJECTIVE: Vital Signs Period Temp Pulse Resp BP Sys/Aguirre Pulse Ox Last 24 Hr 94.0 F-99.1 F 56-98 14-20 94-158/32-72 95-99 GENERAL/NEURO: Awake & alert. Answers questions, speech deliberate and slow. Appears fatigued. Unchanged. EYES: PERRL, 1mm bilaterally; able to look laterally right and left, no upward or downward movement; anicteric; no ptosis LUNGS: Diminished sounds on right, left chest tube to suction draining pus/blood HEART: Regular rate and rhythm, S1, S2 without murmur, rub or gallop. ABDOMEN: Soft, nontender, nondistended EXTREMITIES: 2+ pulses, warm, well-perfused; RUE swelling from infiltrated peripheral IV, resolving Laboratory Results - last 24 hr 12/30/16 12/30/16 12/30/16 09:53 11:00 16:33 WBC RBC Hgb Hct MCV MCHC RDW Plt Count MPV Neutrophils % Lymphocytes % INR Puncture Site ABG pH ABG pCO2 at Pt Temp ABG pO2 at Pt Temp ABG HCO3 ABG O2 Sat (Measured) ABG O2 Content ABG Base Excess Chance Test O2 Delivery Device Oxygen Flow Rate Vent Mode Vent Rate Mechanical Rate PEEP Pressure Support Vent Sodium 142 Potassium 4.0 Chloride 102 Carbon Dioxide 29 Anion Gap 11 BUN 42 H D Creatinine 4.0 H D POC Glucometer 160.03060 169.48369 Random Glucose 139 H D Calcium 7.8 L Phosphorus Magnesium Total Bilirubin Direct Bilirubin AST ALT Alkaline Phosphatase Total Protein Albumin Vancomycin Trough 12/30/16 12/30/16 12/31/16 16:35 21:19 05:20 WBC 18.1 H RBC 3.83 Hgb 10.9 D Hct 34.7 MCV 90.5 MCHC 31.4 L RDW 16.5 H Plt Count 263 MPV 9.1 Neutrophils % Y Lymphocytes % Y INR Puncture Site Left femoral ABG pH 7.40 ABG pCO2 at Pt Temp 41.4 D ABG pO2 at Pt Temp 109.0 H ABG HCO3 24.9 ABG O2 Sat (Measured) 98.2 ABG O2 Content 16.8 ABG Base Excess 0.5 Chance Test Not applicable O2 Delivery Device mechanical vent Oxygen Flow Rate 80% Vent Mode Simv Vent Rate 14 Mechanical Rate yes PEEP 5.0 Pressure Support Vent 500ml Sodium Potassium Chloride Carbon Dioxide Anion Gap BUN Creatinine POC Glucometer [phone] Random Glucose Calcium Phosphorus Magnesium Total Bilirubin Direct Bilirubin AST ALT Alkaline Phosphatase Total Protein Albumin Vancomycin Trough 12/31/16 12/31/16 12/31/16 05:20 05:20 05:32 WBC RBC Hgb Hct MCV MCHC RDW Plt Count MPV Neutrophils % Lymphocytes % INR 1.28 H Puncture Site ABG pH ABG pCO2 at Pt Temp ABG pO2 at Pt Temp ABG HCO3 ABG O2 Sat (Measured) ABG O2 Content ABG Base Excess Chance Test O2 Delivery Device Oxygen Flow Rate Vent Mode Vent Rate Mechanical Rate PEEP Pressure Support Vent Sodium 142 Potassium 4.2 Chloride 104 Carbon Dioxide 24 Anion Gap 14 BUN 50 H Creatinine 4.7 H POC Glucometer [phone] Random Glucose 259 H D Calcium 7.2 L Phosphorus 6.5 H D Magnesium 2.0 Total Bilirubin 0.7 D Direct Bilirubin 0.2 D AST 17 ALT 6 L D Alkaline Phosphatase 94 Total Protein 4.0 L Albumin 1.1 L D Vancomycin Trough 12/31/16 06:00 WBC RBC Hgb Hct MCV MCHC RDW Plt Count MPV Neutrophils % Lymphocytes % INR Puncture Site ABG pH ABG pCO2 at Pt Temp ABG pO2 at Pt Temp ABG HCO3 ABG O2 Sat (Measured) ABG O2 Content ABG Base Excess Chance Test O2 Delivery Device Oxygen Flow Rate Vent Mode Vent Rate Mechanical Rate PEEP Pressure Support Vent Sodium Potassium Chloride Carbon Dioxide Anion Gap BUN Creatinine POC Glucometer Random Glucose Calcium Phosphorus Magnesium Total Bilirubin Direct Bilirubin AST ALT Alkaline Phosphatase Total Protein Albumin Vancomycin Trough 16.888 H* Active Medications Generic Name Dose Route Start Last Admin Trade Name Ivánq PRN Reason Stop Dose Admin Chlorhexidine Gluconate 1 applic 12/30/16 22:00 12/30/16 21:15 Hibiclens For Decolonization - TP 1 applic HS [facility] Administration Heparin Sodium (Porcine) 5,000 unit 12/30/16 22:00 12/30/16 21:14 Heparin - SQ 5,000 unit BID [facility] Administration Azithromycin 250 mls @ 250 mls/hr 12/31/16 10:00 Zithromax 500mg Ivpb (Pre-Docked) IVPB DAILY [facility] Meropenem 500 mg/ Dextrose 100 mls @ 200 mls/hr 12/30/16 18:00 12/31/16 01:10 IVPB 200 mls/hr Q8H-IV RE[facility]I Administration Insulin Aspart 1 vial 12/30/16 22:00 12/31/16 06:05 Novolog Vial Sliding Scale - SQ 6 units ACHS [facility] Administration Protocol Levothyroxine Sodium 100 mcg 12/31/16 10:00 Synthroid Injection - IVPUSH DAILY [facility] Metoprolol Tartrate 2.5 mg 12/30/16 17:14 Lopressor Injection - IVPUSH Q4H PRN TACHYCARDIA Mupirocin 1 applic 12/30/16 22:00 12/31/16 09:40 Bactroban Ointment (For Decolonization) - NS 12/31/16 21:59 1 applic BID RE[facility]I Administration Microbiology 12/27/16 15:25 Blood - Peripheral Venous Blood Culture - Preliminary NO GROWTH OBTAINED AFTER 96 HOURS, INCUBATION TO CONTINUE FOR 1 DAYS. 12/27/16 15:20 Blood - Peripheral Venous Blood Culture - Preliminary NO GROWTH OBTAINED AFTER 96 HOURS, INCUBATION TO CONTINUE FOR 1 DAYS. 12/27/16 14:00 Pleural Fluid Gram Stain - Final 12/27/16 14:00 Pleural Fluid Body Fluid Culture - Final Staphylococcus Epidermidis 12/27/16 14:00 Pleural Fluid Anaerobic Culture - Final NO ANAEROBES WERE ISOLATED 12/26/16 13:57 Blood - Peripheral Venous Blood Culture - Final Staphylococcus Epidermidis 12/26/16 13:57 Blood - Peripheral Venous Blood Culture - Final NO GROWTH AFTER 5 DAYS INCUBATION 12/30/16 14:30 Bronchial Washings - Left Upper Lobe Bronchoalveolar Lavage Culture - Preliminary NORMAL RESPIRATORY LORNA 12/30/16 15:10 Pleural Fluid SCOTT Preparation - Preliminary 12/30/16 15:10 Pleural Fluid Fungal Culture - Preliminary 12/28/16 12:30 Blood - Peripheral Venous TB Test (QFT) (ALL) - Preliminary 12/30/16 15:10 Pleural Fluid AFB Smear Concentration - Preliminary 12/30/16 15:10 Pleural Fluid Mycobacterial Culture - Preliminary 12/28/16 11:30 Pleural Fluid AFB Smear Concentration - Final Imaging 12/26 Echo: mild cLVH, LV function normal; RV normal; LAE; mild MR; mild TR; mild to moderate and AI 12/26 CT head x 2: acute/subacute infarct 3.5 x 2cm right cerebellar hemisphere 12/27 US carotids: extensive atherosclerotic disease; 60-79% stenosis bilaterally R>L 12/29 MRI Brain: (1) large right inferior cerebellar acute/subacute infarct; (2) acute/subacute cortical infarct at the right junction of the medulla oblongata and cervical cord as well as a couple of acute/subactute lacunar infarcts in the left frontal lobe and likely in the right occipital lobe ASSESSMENT/PLAN 66 year-old woman with a PMH of HTN, HDL, IDDM, breast cancer s/p lumpectomy/ chemotherapy, hypothyroidism, and ESRD on HD. Admitted for DKA, pneumonia, and CVA. Hospital course complicated by spontaneous pneumothorax. s/p VATS. Pneumonia Empyema s/p Left VATS,12/30 --underwent bronchoscopy, left VATS, pneumolysis, empyema drainage, partial decortication, 2 chest tubes; lung reexpanded with positive pressure ventilation --self-extubated this morning --2 chest tubes putting out serosanguinous fluid --WBC starting to trend down, afebrile --blood x 1 bottle and pleural fluid + staph epi --azithro course x 5 days complete; continue meropenem (day #5); vanc held today IDDM DKA, resolved Lactic acidosis, resolved --Novolog sliding scale coverage Acute CVA --see imaging findings above --swallow eval done Demand ischemia Elevated troponins --troponins downtrending; likely demand in setting of DKA, CVA, missed HD ESRD on HD (M,W,F) --dialysis today, 2L removed Hypertension --hold anti-hypertensives and diuretics Hyperlipidemia --on no meds Hypothyroidism --continue levothyroxine F/E/N Fluids: PO intake adequate Electrolytes: replete as indicated Nutrition: dysphagia chopped DVT prophylaxis: restart subq heparin Dispo: continues to require ICU level care. Visit type - Emergency Visit Emergency Visit: Yes ED Registration Date: 12/26/16 Care time: The patient presented to the Emergency Department on the above date and was hospitalized for further evaluation of their emergent condition. - New Patient This patient is new to me today: No - Critical Care Critical Care patient: Yes Total Critical Care Time (in minutes): 45 Critical Care Statement: The care of this patient involved high complexity decision making to prevent further life threatening deterioration of the patient 's condition and/or to evalute & treat vital organ system(s) failure or risk of failure.
--- NOTE | 2016-12-31 12:05 | PN ---
Teaching Attending Note Name of Resident: Antelmo Wise ATTENDING PHYSICIAN STATEMENT I saw and evaluated the patient. I reviewed the resident's note and discussed the case with the resident. I agree with the resident's findings and plan as documented. SUBJECTIVE: Pt seen and examined in the ICU. s/p L VATS/pneumolysis/partial decortication for empyema. Self extubated earlier this AM, denies shortness of breath. Pain controlled with current regimen. OBJECTIVE: Last Vital Signs Temp Pulse Resp BP Pulse Ox 98.4 F 61 18 124/59 99 12/31/16 09:25 12/31/16 11:30 12/31/16 11:30 12/31/16 11:30 12/31/16 08:05 Intake & Output 12/28/16 12/29/16 12/30/16 12/31/16 23:59 23:59 23:59 23:59 Intake Total 1406 1681 3187 Output Total 229 510 6806 245 Balance 1148 1426 1657 -245 Weight 235 lb 217 lb 11.2 oz 217 lb 1.6 oz 219 lb 4.8 oz Gen: weak appearing, mildly tachypneic at rest Heart: RRR Lung: rhonchi/squeaks on left, decreased breath sounds left base Abd: soft, nontender Ext: no edema Chest tube: anterior tube no air leak, lateral chest tube with cloudy serosanguinous drainage with air leak CBC, BMP 12/31/16 05:20 12/31/16 05:20 Active Medications Chlorhexidine Gluconate (Hibiclens For Decolonization -) 1 applic TP HS [facility] Last Admin: 12/30/16 21:15 Dose: 1 applic Heparin Sodium (Porcine) (Heparin -) 5,000 unit SQ BID [facility] Last Admin: 12/30/16 21:14 Dose: 5,000 unit Azithromycin (Zithromax 500mg Ivpb (Pre-Docked)) 250 mls @ 250 mls/hr IVPB DAILY [facility] Meropenem 500 mg/ Dextrose 100 mls @ 200 mls/hr IVPB Q8H-IV [facility] Last Admin: 12/31/16 01:10 Dose: 200 mls/hr Insulin Aspart (Novolog Vial Sliding Scale -) 1 vial SQ ACHS [facility] PRN Reason: Protocol Last Admin: 12/31/16 06:05 Dose: 6 units Levothyroxine Sodium (Synthroid Injection -) 100 mcg IVPUSH DAILY [facility] Metoprolol Tartrate (Lopressor Injection -) 2.5 mg IVPUSH Q4H PRN PRN Reason: TACHYCARDIA Mupirocin (Bactroban Ointment (For Decolonization) -) 1 applic NS BID [facility] Stop: 12/31/16 21:59 Last Admin: 12/31/16 09:40 Dose: 1 applic ASSESSMENT AND PLAN: Diabetic Ketoacidosis resolved Left Empyema s/p L VATS/pneumolysis/partial decortication/chest tube placement 12/30 +Troponins likely Demand Ischemia ESRD on HD HTN - continue antibiotics - f/u OR cultures - pain control - incentive spirometry - glucose control - resume ASA when ok with surgery - HD per renal - DVT prophylaxis - continue ICU monitoring critical care time spent in reviewing chart, evaluating patient and formulating plan 35 min
[2016-12-31] MEDS: HEPARIN NA (PORCINE) 5,000 UNITS/ML 1ML VIAL SQ SCH ×2 (13:29→21:21)
[2016-12-31] MEDS: LEVOTHYROXINE SODIUM 100 MCG VIAL IVPUSH SCH (13:35)
--- NOTE | 2016-12-31 16:15 | PN ---
Progress Note (short form) - Note Progress Note: Chief Complaint: CVA, PSVT S: extubated today. Feels better overall. no cp, palps, sob, dizziness. ex-cigs Current Medications Chlorhexidine Gluconate (Hibiclens For Decolonization -) 1 applic TP HS [facility] Last Admin: 12/30/16 21:15 Dose: 1 applic Heparin Sodium (Porcine) (Heparin -) 5,000 unit SQ BID [facility] Last Admin: 12/31/16 13:29 Dose: 5,000 unit Meropenem 500 mg/ Dextrose 100 mls @ 200 mls/hr IVPB Q8H-IV [facility] Last Admin: 12/31/16 13:28 Dose: 200 mls/hr Insulin Aspart (Novolog Vial Sliding Scale -) 1 vial SQ ACHS [facility] PRN Reason: Protocol Last Admin: 12/31/16 12:27 Dose: 4 units Levothyroxine Sodium (Synthroid Injection -) 100 mcg IVPUSH DAILY [facility] Last Admin: 12/31/16 13:35 Dose: 100 mcg Metoprolol Tartrate (Lopressor Injection -) 2.5 mg IVPUSH Q4H PRN PRN Reason: TACHYCARDIA Mupirocin (Bactroban Ointment (For Decolonization) -) 1 applic NS BID [facility] Stop: 12/31/16 21:59 Last Admin: 12/31/16 09:40 Dose: 1 applic Vital Signs Period Temp Pulse Resp BP Sys/Aguirre Pulse Ox Last 24 Hr 97.2 F-99.1 F 56-98 14-20 94-158/32-72 95-100 Intake & Output 12/29/16 12/30/16 12/31/16 01/01/17 07:59 07:59 07:59 07:59 Intake Total 1556 1392 3187 Output Total 055 102 2567 Balance 1411 1172 1412 Weight 217 lb 11.2 oz 217 lb 1.6 oz 219 lb 4.8 oz Constitutional: Yes: No Distress, Calm Eyes: No: Sclera Icterus HENT: No: Nasal Congestion Cardiovascular: Yes: Regular Rate and Rhythm, S1, S2, Other (PMI non diplaced). No: JVD, Gallop, Murmur Respiratory: Yes: Bibasilar rales No: Accessory Muscle Use, Rales, Wheezes Gastrointestinal: Yes: Normal Bowel Sounds, Soft. No: Tenderness Musculoskeletal: Yes: Other (No kyphosis) Extremities: No: Cold. + rt sided weakness. Edema: No Integumentary: No: Jaundice Neurological: Yes: Lethargy. No: Seizure Psychiatric: No: Agitated Labs: CBC, BMP 12/31/16 05:20 12/31/16 05:20 Laboratory Tests 12/31/16 05:20 Albumin 1.1 L D - ....Imaging EKG: Other (tele: NSR/SB; intermittent bigeminy, occ pvc's) Assessment/Plan EKG: SB, LVH. biphasic anterior t waves. Slightly more prominent than priors. Stable on repeat EKG x 2. head CT: suspicion for acute/subacute cerebellar infarct brain MRI: large rt inf cerebellar acute/subacute infarct. acute/subacute lacunar infarct at rt medulla oblongata. acute/subacute lacunar infarct of left frontal lobe and possibly occipital lobe. meningioma. Echo here: nl lv/rv size/fn. mild lae, mod mac, mild-mod as/ar, mild mr/tr cxr 5/9 am. unchanged left ptx, LLL atelectasis 66 yo with h/o left breast ca s/p lumpectomy and chemotherapy, SVT per patient' s documentation, IDDM, HTN, thyroid disease and ESRD recently started on HD M// who presented to the ED with altered mental status found to be in DKA and with acute cerebellar infarct. NSTEMI, likely Type II: - trop 0.9 on admit, trended down - likely demand ischemia in setting DKA, CVA and > volume overload sec to missed HD session. - normal LVSF with no RWMA on echo - no acute anti-PLT or AC treatment is indicated for Type II OH - mcc preventive therapy with ASA, statin, BB can be considered depending on clinical course here (e.g. once not at risk for hemorrhagic transformation suspected) - should have risk stratification with nuclear stress test imaging later, if she recovers from acute illnesses AMS/possible acute brainstem CVA - MS change ? sec to hyperglycemia vs CVA --> improving - check carotids - echo unrevaling - anti-PLT and other tx recs to be deferred to neuro LLL PNA, empyema, PTX: -on abx -seen by thoracic surgery, considering VATS but planning med mgmt +/- chest tube only for now given her recent CVA increasing risk of anesthesia -per crit care/pulm/thoracic surgery. 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 Would not use atenolol due to esrd. HTN - bp well controlled off anti-hypertensives. - bp targets per neuro cct: 35 min
[2016-12-31 18:31] LABS: PLATELET ESTIMATE ADEQUATE (NORMAL)
[2016-12-31 18:32] LABS: TOXIC GRANULATION 1+
--- NOTE | 2016-12-31 18:33 | PN ---
Progress Note (short form) - Note Progress Note: NEUROLOGY FOLLOW-UP: Events and MRI scan reviewed. Patient examined. Pt. was intubated but self-extubated this AM. S/P B/L chest tubes for pleural effusions. Much more awake and alert. Tolerating dysphagia diet. Ox [facility]. Cannot recall events prior to admission. MRI of brain (reviewed): Large Right inferior cerebellar stroke and medullary infarct. Scattered subcortical microvascular changes. EXAM: Full hope and EOM's. Dysarthric with reduced tongue Fernie and asymmetrical gag. Mild R facial. Right hemiparesis: Arm 3/5. Leg 3/5 rests everted. Right Babinski. No obvious dystaxia but FTN testing limited by weakness. Sensory symmetrical in arms. IMP: Doing well s/p Right cerebellar and medullary (Brainstem) CVA. SUGGEST: MR Angio (C-) when stable. Antiplatelet Rx unless a cardioembolic source is suspected. Feed cautiously only when seated upright and observed. Will need extensive Rehab and possibly SNF level of care. Thank you very much, Moy Cervantes MD
[2016-12-31] MEDS: CHLORHEXIDINE GLUCONATE 4% CLEANSER FOR DECOLONIZATION TP SCH (21:21)
[2016-12-31] MEDS ORDERED: HEPARIN NA (PORCINE) 5,000 UNITS/ML 1ML VIAL SQ SCH (22:00)
[2017-01-01] MEDS ORDERED: PT OWN MED DRAWER 7, Y5N ONE ×4 (00:29→17:20)
[2017-01-01] MEDS: MEROPENEM 500 MG in DEXTROSE 5%-WATER - 100 ML IVPB SCH ×3 (01:17→17:21)
[2017-01-01] MEDS: INSULIN SLIDING SCALE (NOVOLOG) 1 VIAL SQ SCH ×4 (06:22→22:23)
[2017-01-01 06:25] LABS: MCH 28.5 pg (25.7-33.7); MCHC 31.2 g/dl (32.0-36.0); MEAN CELL VOLUME 91.2 fl (80-96); MEAN PLT VOLUME 8.9 fl (7.5-11.1); PLATELET COUNT 256 K/MM3 (134-434); RDW 16.6 % (11.6-15.6); WHITE BLOOD COUNT 17.9 K/mm3 (4.0-10.0)
[2017-01-01 06:48] LABS: ALBUMIN 1.3 g/dl (3.4-5.0); CALCIUM 7.2 mg/dL (8.5-10.1)
[2017-01-01 06:50] LABS: BILIRUBIN,TOTAL 0.4 mg/dL (0.2-1.0); COCKROFT - GAULT 24.684; CREATININE 3.4 mg/dL (0.55-1.02); TOT PROT 4.4 g/dl (6.4-8.2)
--- NOTE | 2017-01-01 07:14 | PN ---
Physical Exam: SUBJECTIVE: Patient seen and examined. c/o right arm pain, feels weak on right side. denies abdominal pain, sob, headache, chest pain, palpitations. OBJECTIVE: Vital Signs Period Temp Pulse Resp BP Sys/Aguirre Pulse Ox Last 24 Hr 98 F-99.1 F 57-67 12-20 114-158/42-72 98-100 EYES: PERRL, extraocular movements intact, sclera anicteric, conjunctiva clear. No ptosis. ENT: oropharynx clear, moist mucous membranes. NECK: Trachea midline, full range of motion, supple. crepitus on right neck/ chest/shoulder. LUNGS: left with crackles and rhonchi, right base with crackles, [address] on left, sutures in place, placed to suction, draining. tejinder in left axilla. HEART: Regular rate and rhythm, S1, S2 with soft systolic ejection murmur ABDOMEN:obese Soft, nontender, nondistended, normoactive bowel sounds, no guarding EXTREMITIES: 1+ pulses,cool, well-perfused, 1+ edema b/l LE. Left arm with palpable thrill from fistula. right UE with nonpitting edema. NEUROLOGICAL: Normal speech. 2/5 strength in right shoulder/elbow/handgrip, 2/5 in right hip, foot. Laboratory Results - last 24 hr 12/29/16 12/31/16 12/31/16 17:10 05:20 12:23 WBC RBC Hgb Hct MCV MCHC RDW Plt Count MPV Neutrophils % 91.0 H Lymphocytes % 3.0 L D Monocytes % 3.0 L Band Neutrophils 3.0 D Toxic Granulation 1+ Platelet Estimate Adequate Platelet Comment No clumping noted POC Glucometer [phone] Crossmatch See Detail 12/31/16 12/31/16 01/01/17 17:27 21:30 05:30 WBC 17.9 H RBC 3.90 Hgb 11.1 Hct 35.5 MCV 91.2 MCHC 31.2 L RDW 16.6 H Plt Count 256 MPV 8.9 Neutrophils % Y Lymphocytes % Y Monocytes % Band Neutrophils Toxic Granulation Platelet Estimate Platelet Comment POC Glucometer [phone] Crossmatch 01/01/17 05:32 WBC RBC Hgb Hct MCV MCHC RDW Plt Count MPV Neutrophils % Lymphocytes % Monocytes % Band Neutrophils Toxic Granulation Platelet Estimate Platelet Comment POC Glucometer [phone] Crossmatch Active Medications Generic Name Dose Route Start Last Admin Trade Name Frelilly PRN Reason Stop Dose Admin Chlorhexidine Gluconate 1 applic 12/30/16 22:00 12/31/16 21:21 Hibiclens For Decolonization - TP 1 applic HS REJI Administration Heparin Sodium (Porcine) 5,000 unit 12/30/16 22:00 12/31/16 21:21 Heparin - SQ 5,000 unit BID REJI Administration Meropenem 500 mg/ Dextrose 100 mls @ 200 mls/hr 12/30/16 18:00 01/01/17 01:17 IVPB 200 mls/hr Q8H-IV REJI Administration Insulin Aspart 1 vial 12/30/16 22:00 01/01/17 06:22 Novolog Vial Sliding Scale - SQ 6 units ACHS REJI Administration Protocol Levothyroxine Sodium 100 mcg 12/31/16 10:00 12/31/16 13:35 Synthroid Injection - IVPUSH 100 mcg DAILY REJI Administration Metoprolol Tartrate 2.5 mg 12/30/16 17:14 Lopressor Injection - IVPUSH Q4H PRN TACHYCARDIA Imaging Echo 12/26/2016 - without wall motion abnormality or significant sclerosis ID: Dr. Gutierrez Cardiothoracic surg: Dr. Brown Nephro: Dr. Wray Cardio: Dr. yMers Neuro: Dr. najera Lines: right IJ 12/29 Chest tube #1, #2: right lateral chest 12/30 ASSESSMENT/PLAN: 66 yr old woman with DM II, ESRD on HD presented with AMS and hyperglycemia, admitted to the ICU for DKA, found to have CVA and left lower lobe empyema. - As per patient request, family is not be involved in medical decisions. Pulmonary #Empyema/Bacteremia(staph epidermidis in two bottles 12/26) - subq emphysema likely from lateral chest tube with air leak - Meropenem 500mg IVPB q8hr -- day 6 -- Vancomycin 1gm (renal dosing, check levels) - incentive spirometry Infectious Disease: empyema meropenem + vancomycin leucocytosis trend labs Consult: Dr. Gutierrez Neurological #CVA - acute/subacute infarct 3.5/2cm right cerebellar hemisphere, MRI with large right inferior cerebellar stroke and medulla infarct. - Neuro checks - speech and swallow evaluation - normal, diced dysphagia and nectar thin liquids - maintain HOB elevated - PT eval - patient will require SNF Cardiovascular HTN - restart home medications for HTN - lasix 40mg po daily - cozaar 25mg po daily - metoprolol 2.5 mg ivpush q4hr prn Endocrine #DM II - BGM ACHS, goal BGM 140-180 - NISS #hypothryoid continue home medication levothyroxine 100mcg ivpush daily #Renal - HD MWF consult: Dr. Nils lazcano dc'ed Gastrointestinal - pantoprazole ivpb daily 40mg #DVT - SCD's given recent CVA #Diet - diabetic low sodium Visit type - Emergency Visit Emergency Visit: No - New Patient This patient is new to me today: No - Critical Care Critical Care patient: Yes Total Critical Care Time (in minutes): 39 Critical Care Statement: The care of this patient involved high complexity decision making to prevent further life threatening deterioration of the patient 's condition and/or to evalute & treat vital organ system(s) failure or risk of failure.
[2017-01-01] MEDS ORDERED: POLYETHYLENE GLYCOL 3350 119 GM BTL PO ONE (07:52)
--- NOTE | 2017-01-01 08:21 | PN ---
Progress Note (short form) - Note Progress Note: Surgery- Dr. Brown Patient seen and examined. Patient states she is feeling better today, pain is controlled. She has been tolerating her diet. Denies nausea, vomiting, fever, chills, CP, SOB. Last Vital Signs Temp Pulse Resp BP Pulse Ox 97.8 F 69 16 164/53 98 01/01/17 08:00 01/01/17 08:00 01/01/17 08:00 01/01/17 08:00 12/31/16 21:00 CBC, BMP 01/01/17 05:30 01/01/17 05:30 Cultures pending Chest tube output: anterior 8ml, lateral 70ml PE: Gen: NAD, pleasant and cooperative Pulm: Chest tube x2 to suction with serosanguineous drainage, no air leak anterior tube, + air leak lateral tube : lazcano in place LE: SCDs bilat, LE soft, nontender Problem List - Problems (1) Empyema of left pleural space Assessment/Plan: POD #2 s/p bronchoscopy, left thoracoscopy, pneumolysis, partial decortication and drainage of effusion Follow-up CXR- increased subcutaneous emphysema Continue chest tube x2 to suction, increase vacs to 40, monitor and record output Dressings changed on rounds, keep tubes taped anteriorly Incentive spirometer Poor urine output, BUN/Cr elevated, but improving today DC lazcano GI/DVT ppx Cont IV abx Code(s): J86.9 - PYOTHORAX WITHOUT FISTULA
[2017-01-01] MEDS: HEPARIN NA (PORCINE) 5,000 UNITS/ML 1ML VIAL SQ SCH ×2 (10:48→22:23)
[2017-01-01] MEDS: LEVOTHYROXINE SODIUM 100 MCG VIAL IVPUSH SCH (10:48)
[2017-01-01] MEDS ORDERED: HEMOQUE TEST 1 EACH EACH ONE (11:28)
--- NOTE | 2017-01-01 12:13 | PN ---
Progress Note, [employer] - Note Progress Note: Extubated on 12/31 and pt has chopped diet and nectar thick liquid ordered. Selected Entries 12/31/16 12/31/16 12/31/16 02:00 06:00 06:24 Breakfast NPO Temperature 99.1 F 98.5 F 12/31/16 12/31/16 12/31/16 09:25 10:00 10:31 Breakfast 0 Temperature 98.4 F 98.5 F 12/31/16 12/31/16 12/31/16 14:00 20:00 22:00 Breakfast Temperature 98.0 F 98.9 F 99.1 F 01/01/17 01/01/17 01/01/17 02:00 06:00 08:00 Breakfast 0 Temperature 98 F 98.9 F 97.8 F 01/01/17 10:00 Breakfast Temperature 97.6 F Laboratory Tests 12/31/16 01/01/17 05:20 05:30 WBC 18.1 H 17.9 H Swallow reassessed with water via straw and bread. Swallow is delayed with fair vom/rom of laryngeal elevation. Jessica cough or change in vocal quality. REc: Chopped with 1-2 soft items per tray. Trial of thin liquid. Feed pt fully upright, slowly, allow time to swallow, Pt would not fit into MBS equipment.
--- NOTE | 2017-01-01 12:15 | PN ---
Teaching Attending Note Name of Resident: Antelmo Wise ATTENDING PHYSICIAN STATEMENT I saw and evaluated the patient. I reviewed the resident's note and discussed the case with the resident. I agree with the resident's findings and plan as documented. SUBJECTIVE: Patient seen and examined in the ICU. Awake and alert. Mild discomfort at the CT sites. Persistent airl leak noted from lateral CT. Denies shortness of breath. Pain controlled with current regimen. CXR : CT in the good position / increasing SQ emphysema OBJECTIVE: Intake & Output 12/29/16 12/30/16 12/31/16 01/01/17 23:59 23:59 23:59 23:59 Intake Total 1681 3187 240 350 Output Total 255 1530 350 128 Balance 1426 1657 -110 222 Weight 217 lb 11.2 oz 217 lb 1.6 oz 219 lb 4.8 oz 217 lb 11.2 oz Last Vital Signs Temp Pulse Resp BP Pulse Ox 97.6 F 66 18 141/50 99 01/01/17 10:00 01/01/17 11:02 01/01/17 10:00 01/01/17 10:00 01/01/17 11:02 Active Medications Chlorhexidine Gluconate (Hibiclens For Decolonization -) 1 applic TP HS REJI Last Admin: 12/31/16 21:21 Dose: 1 applic Heparin Sodium (Porcine) (Heparin -) 5,000 unit SQ BID REJI Last Admin: 01/01/17 10:48 Dose: 5,000 unit Meropenem 500 mg/ Dextrose 100 mls @ 200 mls/hr IVPB Q8H-IV REJI Last Admin: 01/01/17 10:48 Dose: 200 mls/hr Insulin Aspart (Novolog Vial Sliding Scale -) 1 vial SQ ACHS REJI PRN Reason: Protocol Last Admin: 01/01/17 11:34 Dose: 8 units Levothyroxine Sodium (Synthroid Injection -) 100 mcg IVPUSH DAILY REJI Last Admin: 01/01/17 10:48 Dose: 100 mcg Metoprolol Tartrate (Lopressor Injection -) 2.5 mg IVPUSH Q4H PRN PRN Reason: TACHYCARDIA Gen: Awake and alert Heart: RRR Lung: rhonchi/squeaks on left, decreased breath sounds left base, increasing SQ emphysema Abd: soft, nontender Ext: no edema Chest tube: anterior tube no air leak, lateral chest tube with cloudy serosanguinous drainage with air leak Laboratory Results - last 24 hr 12/29/16 12/31/16 12/31/16 17:10 05:20 12:23 WBC RBC Hgb Hct MCV MCHC RDW Plt Count MPV Neutrophils % 91.0 H Lymphocytes % 3.0 L D Monocytes % 3.0 L Band Neutrophils 3.0 D Toxic Granulation 1+ Platelet Estimate Adequate Platelet Comment No clumping noted Sodium Potassium Chloride Carbon Dioxide Anion Gap BUN Creatinine Creat Clearance w eGFR POC Glucometer [phone] Random Glucose Calcium Magnesium Total Bilirubin AST ALT Alkaline Phosphatase Total Protein Albumin Crossmatch See Detail 12/31/16 12/31/16 01/01/17 17:27 21:30 05:30 WBC 17.9 H RBC 3.90 Hgb 11.1 Hct 35.5 MCV 91.2 MCHC 31.2 L RDW 16.6 H Plt Count 256 MPV 8.9 Neutrophils % Y Lymphocytes % Y Monocytes % Band Neutrophils Toxic Granulation Platelet Estimate Platelet Comment Sodium Potassium Chloride Carbon Dioxide Anion Gap BUN Creatinine Creat Clearance w eGFR POC Glucometer 250.11948 [phone] Random Glucose Calcium Magnesium Total Bilirubin AST ALT Alkaline Phosphatase Total Protein Albumin Crossmatch 01/01/17 01/01/17 05:30 05:32 WBC RBC Hgb Hct MCV MCHC RDW Plt Count MPV Neutrophils % Lymphocytes % Monocytes % Band Neutrophils Toxic Granulation Platelet Estimate Platelet Comment Sodium 143 Potassium 3.5 Chloride 102 Carbon Dioxide 30 D Anion Gap 11 BUN 31 H D Creatinine 3.4 H D Creat Clearance w eGFR 13.43 POC Glucometer [phone] Random Glucose 258 H Calcium 7.2 L Magnesium 2.0 Total Bilirubin 0.4 D AST 30 D ALT 9 L D Alkaline Phosphatase 136 H D Total Protein 4.4 L Albumin 1.3 L Crossmatch ASSESSMENT AND PLAN: Diabetic Ketoacidosis resolved Left Empyema s/p L VATS/pneumolysis/partial decortication/chest tube placement 12/30 +Troponins likely Demand Ischemia ESRD on HD HTN - continue antibiotics - f/u final OR cultures - pain control - incentive spirometry - glucose control - resume ASA when ok with surgery - HD per renal - DVT prophylaxis - D/C lazcano - continue ICU monitoring Dr Alejandro Critical care time spent in reviewing chart, evaluating patient and formulating plan 35 min
--- NOTE | 2017-01-01 13:46 | PATH ---
Surgical Pathology Report Patient Name: MARY LOU [facility]. Rec. #: [id number] /Age/Gender: 1950 (Age: 66) / F Account: [id number] Location: ICU [employer] Taken: 12/30/2016 Received: 12/31/2016 Reported: 01/01/2017 Physicians: Ranulfo Christensen ACNP Specimen(s) Received BX PLEURA Clinical History Pneumothorax Final Diagnosis PLEURA, BIOPSY: BENIGN FIBROFATTY TISSUE AND SKELETAL MUSCLE WITH ACTIVE AND CHRONIC INFLAMMATION AND INFLAMED GRANULATION TISSUE. NO MALIGNANCY IDENTIFIED. Electronically Signed Johnson Mauro M.D. Gross Description Received in formalin labeled "pleural permanent" is an 8.0 x 8.0 x 0.2 cm carty, irregular portion of soft tissue. The specimen is submitted in toto in one cassette. /12/31/201612/31/2016
--- NOTE | 2017-01-01 15:35 | PN ---
Progress Note (short form) - Note Progress Note: Subjective: The patient was seen and examined at the bedside she has no complaints at this time Current Medications Generic Name Dose Route Start Last Admin Trade Name Olive PRN Reason Stop Dose Admin Chlorhexidine Gluconate 1 applic 12/30/16 22:00 12/31/16 21:21 Hibiclens For Decolonization - TP 1 applic HS REJI Administration Heparin Sodium (Porcine) 5,000 unit 12/30/16 22:00 01/01/17 10:48 Heparin - SQ 5,000 unit BID REJI Administration Meropenem 500 mg/ Dextrose 100 mls @ 200 mls/hr 12/30/16 18:00 01/01/17 10:48 IVPB 200 mls/hr Q8H-IV REJI Administration Insulin Aspart 1 vial 12/30/16 22:00 01/01/17 11:34 Novolog Vial Sliding Scale - SQ 8 units ACHS REJI Administration Protocol Levothyroxine Sodium 100 mcg 12/31/16 10:00 01/01/17 10:48 Synthroid Injection - IVPUSH 100 mcg DAILY REJI Administration Metoprolol Tartrate 2.5 mg 12/30/16 17:14 Lopressor Injection - IVPUSH Q4H PRN TACHYCARDIA Objective: Vital Signs Period Temp Pulse Resp BP Sys/Aguirre Pulse Ox Last 24 Hr 97.6 F-99.1 F 60-69 13-20 117-164/42-68 98-99 Physical Exam: General: NAD Lungs: B/l rhonchi. Sq emphysema. Left anterior chest tube, no air leak. lateral chest tube with serosangenous drainage with air leak Heart: RRR, S1S2 Abd: Soft, non-tender Ext: B/l upper and lower extremity edema Neuro: Left mouth droop CBCD WBC 17.9 K/mm3 (4.0-10.0) H 01/01/17 05:30 RBC 3.90 M/mm3 (3.60-5.2) 01/01/17 05:30 Hgb 11.1 GM/dL (10.7-15.3) 01/01/17 05:30 Hct 35.5 % (32.4-45.2) 01/01/17 05:30 MCV 91.2 fl (80-96) 01/01/17 05:30 MCHC 31.2 g/dl (32.0-36.0) L 01/01/17 05:30 RDW 16.6 % (11.6-15.6) H 01/01/17 05:30 Plt Count 256 K/MM3 (134-434) 01/01/17 05:30 MPV 8.9 fl (7.5-11.1) 01/01/17 05:30 CMP Sodium 143 mmol/L (136-145) 01/01/17 05:30 Potassium 3.5 mmol/L (3.5-5.1) 01/01/17 05:30 Chloride 102 mmol/L (98-107) 01/01/17 05:30 Carbon Dioxide 30 mmol/L (21-32) D 01/01/17 05:30 Anion Gap 11 (8-16) 01/01/17 05:30 BUN 31 mg/dL (7-18) H D 01/01/17 05:30 Creatinine 3.4 mg/dL (0.55-1.02) H D 01/01/17 05:30 Creat Clearance w eGFR 13.43 (>60) 01/01/17 05:30 Random Glucose 258 mg/dL (74-106) H 01/01/17 05:30 Calcium 7.2 mg/dL (8.5-10.1) L 01/01/17 05:30 Total Bilirubin 0.4 mg/dL (0.2-1.0) D 01/01/17 05:30 AST 30 U/L (15-37) D 01/01/17 05:30 ALT 9 U/L (12-78) L D 01/01/17 05:30 Alkaline Phosphatase 136 U/L (45-117) H D 01/01/17 05:30 Total Protein 4.4 g/dl (6.4-8.2) L 01/01/17 05:30 Albumin 1.3 g/dl (3.4-5.0) L 01/01/17 05:30 CARDIAC ENZYMES Creatine Kinase 53 IU/L (26-192) 12/26/16 18:13 Troponin I 0.62 ng/ml (0.00-0.05) H* 12/27/16 05:20 Imaging 12/26 Echo: mild cLVH, LV function normal; RV normal; LAE; mild MR; mild TR; mild to moderate and AI 12/26 CT head x 2: acute/subacute infarct 3.5 x 2cm right cerebellar hemisphere 12/27 US carotids: extensive atherosclerotic disease; 60-79% stenosis bilaterally R>L 12/29 MRI Brain: (1) large right inferior cerebellar acute/subacute infarct; (2) acute/subacute cortical infarct at the right junction of the medulla oblongata and cervical cord as well as a couple of acute/subactute lacunar infarcts in the left frontal lobe and likely in the right occipital lobe Assessment: This is 66 year old female with PMHx of HTN, hyperlipidemia, IDDM, breast cancer s/p lumpectomy and chemotherapy, hypothyroidism, ESRD (on HD), who presented to the ED after being found lethargic in her house and was found to have DKA, pneumonia, and CVA. Plan: 1) ID: Severe sepsis 2/2 Left lung empyema, pneumonia - Lactic acidosis resolved - Meropenem discontinued on 01/01 - Abx per ID - WBC trending down slightly - Afebrile - Appreciate ID consult 2) Pulmonary: s/p L VATS/pneumolysis/partial decortication/chest tube placement 12/30 - Left chest tubes with serosang output - Abx per ID - Incentive spirometer - Appreciate pulmonary consult 3) : ESRD on HD - Next HD tomorrow - Appreciate nephrology consult 4) Cardiology: NSTEMI, likely type II - Likely demand ischemia in setting of DKA, CVA, increase in volume overload 2/ 2 missed HD - ECHO with normal LVSF with no RWMA - Further cardiac workup once improving acute events PSVT - On atenolol at home - HRs in 60s, will not resume bblocker now - Appreciate cardiology consult 5) Neuro: CVA - MRI with large right inferior cerebellar acute/subacute infarct. Acute/ subacute cortical infarct at the right junction of the medulla oblongata and cervical cord as well as a couple of acute/subacute lacunar infarcts in the left frontal love at the level of the centrum semiovale and likely in the right occipital lobe. 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 Correlate with CT angio of head and neck - F/u neuro recommendations for CT angio head and neck - Antiplatelet therapy per neuro/cardiology - Appreciate neuro consult 6) Endocrinology: DKA - Resolved - Continue ISS ACHS - BGM ACHS Hypothyroidism - Continue Synthroid 7) F/E/N: - Dysphagia, diabetic diet - Monitor electrolytes 8) Prophyaxis: - Heparin 5,000u sq bid 9) Dispo: - Requires continued ICU care CODE STATUS: FULL CODE Visit type - Emergency Visit Emergency Visit: Yes ED Registration Date: 12/26/16 Care time: The patient presented to the Emergency Department on the above date and was hospitalized for further evaluation of their emergent condition. - New Patient This patient is new to me today: Yes Date on this admission: 01/02/17 - Critical Care Critical Care patient: Yes Total Critical Care Time (in minutes): 55 Critical Care Statement: The care of this patient involved high complexity decision making to prevent further life threatening deterioration of the patient 's condition and/or to evalute & treat vital organ system(s) failure or risk of failure.
[2017-01-01] MEDS ORDERED: ACETAMINOPHEN 325 MG TABLET (FP) PO PRN (15:54)
--- NOTE | 2017-01-01 18:04 | PN ---
Progress Note (short form) - Note Progress Note: Renal Follow up fro ESRD on HD Pt seen and examined in the ICU awake and alert chest tubes in place has chest wall pain bp stable pt with periods of confusion as per nurse has right sided weakness Vital Signs Temperature 98.6 F 01/01/17 16:00 Pulse Rate 65 01/01/17 16:00 Respiratory Rate 20 01/01/17 16:00 Blood Pressure 171/57 01/01/17 16:00 O2 Sat by Pulse Oximetry (%) 99 01/01/17 11:02 Intake & Output 12/29/16 12/30/16 12/31/16 01/01/17 23:59 23:59 23:59 23:59 Intake Total 1681 3187 240 600 Output Total 255 1530 350 347 Balance 1426 1657 -110 253 Weight 217 lb 11.2 oz 217 lb 1.6 oz 219 lb 4.8 oz 217 lb 11.2 oz Gen: NAD, awake and alert on face mask O2 CVS: RRR, No M/R Lungs: Dec BS B/L LUng hope (anterior exam) Abd: soft NT/ND Ext: trace to 1+ edema in LE CBC, BMP 01/01/17 05:30 01/01/17 05:30 Current Medications Acetaminophen (Tylenol -) 650 mg PO Q6H PRN PRN Reason: FEVER OR PAIN Chlorhexidine Gluconate (Hibiclens For Decolonization -) 1 applic TP HS REJI Last Admin: 12/31/16 21:21 Dose: 1 applic Furosemide (Lasix -) 40 mg PO DAILY REJI Heparin Sodium (Porcine) (Heparin -) 5,000 unit SQ BID REJI Last Admin: 01/01/17 10:48 Dose: 5,000 unit Meropenem 500 mg/ Dextrose 100 mls @ 200 mls/hr IVPB Q8H-IV REJI Last Admin: 01/01/17 17:21 Dose: 200 mls/hr Insulin Aspart (Novolog Vial Sliding Scale -) 1 vial SQ ACHS REJI PRN Reason: Protocol Last Admin: 01/01/17 17:00 Dose: 8 units Levothyroxine Sodium (Synthroid Injection -) 100 mcg IVPUSH DAILY REJI Last Admin: 01/01/17 10:48 Dose: 100 mcg Losartan Potassium (Cozaar -) 25 mg PO DAILY REJI Metoprolol Tartrate (Lopressor Injection -) 2.5 mg IVPUSH Q4H PRN PRN Reason: TACHYCARDIA A/P breast ca s/p lumpectomy and chemotherapy, IDDM, HTN, and ESRD on HD M// who presented to the ED today via EMS after her dialysis center notified police that she missed her treatment on Thursday and was not answering the phone. 66 year old woman with PMhx of ESRD on HD, Breast Ca s/p Chemo and Lumpectomy, IDDM, Hypertension presented with AMS and found to have DKA, Acute CVA and Pnemothorax #ESRD on HD no acute indication for dialysis today pt is agreeable for continued dialysis tomorrow #Empyema/Pneumothorax/Leukocytosis Chest tube in place s/p VATS continue Abx as per ICU #Acute/Subacute CVA supportive Care Neurology follow up Thank you Jose Carlos Wray DO
--- NOTE | 2017-01-01 19:33 | PN ---
Progress Note (short form) - Note Progress Note: Chief Complaint: CVA, PSVT S: no cp, palps, sob, dizziness. ex-cigs Current Medications Acetaminophen (Tylenol -) 650 mg PO Q6H PRN PRN Reason: FEVER OR PAIN Chlorhexidine Gluconate (Hibiclens For Decolonization -) 1 applic TP HS [facility] Last Admin: 12/31/16 21:21 Dose: 1 applic Furosemide (Lasix -) 40 mg PO DAILY [facility] Heparin Sodium (Porcine) (Heparin -) 5,000 unit SQ BID [facility] Last Admin: 01/01/17 10:48 Dose: 5,000 unit Meropenem 500 mg/ Dextrose 100 mls @ 200 mls/hr IVPB Q8H-IV [facility] Last Admin: 01/01/17 17:21 Dose: 200 mls/hr Insulin Aspart (Novolog Vial Sliding Scale -) 1 vial SQ ACHS REJI PRN Reason: Protocol Last Admin: 01/01/17 17:00 Dose: 8 units Levothyroxine Sodium (Synthroid Injection -) 100 mcg IVPUSH DAILY [facility] Last Admin: 01/01/17 10:48 Dose: 100 mcg Losartan Potassium (Cozaar -) 25 mg PO DAILY [facility] Metoprolol Tartrate (Lopressor Injection -) 2.5 mg IVPUSH Q4H PRN PRN Reason: TACHYCARDIA Vital Signs - 24 hr 12/31/16 12/31/16 12/31/16 20:00 21:00 22:00 Temperature 98.9 F 99.1 F Pulse Rate 63 65 Respiratory 15 15 17 Rate Blood Pressure 132/42 122/43 O2 Sat by Pulse 98 Oximetry (%) 01/01/17 01/01/17 01/01/17 00:00 02:00 04:00 Temperature 98 F Pulse Rate 62 62 60 Respiratory 18 18 18 Rate Blood Pressure 117/46 140/46 145/49 O2 Sat by Pulse Oximetry (%) 01/01/17 01/01/17 01/01/17 06:00 08:00 10:00 Temperature 98.9 F 97.8 F 97.6 F Pulse Rate 67 69 67 Respiratory 18 18 18 Rate Blood Pressure 147/57 164/53 141/50 O2 Sat by Pulse 99 Oximetry (%) 01/01/17 01/01/17 01/01/17 11:02 12:00 14:00 Temperature 98.8 F 98.9 F Pulse Rate 66 66 67 Respiratory 20 20 Rate Blood Pressure 158/49 141/56 O2 Sat by Pulse 99 Oximetry (%) 01/01/17 01/01/17 16:00 18:00 Temperature 98.6 F 98.7 F Pulse Rate 65 69 Respiratory 20 20 Rate Blood Pressure 171/57 150/51 O2 Sat by Pulse Oximetry (%) Intake & Output 12/30/16 12/31/16 01/01/17 01/02/17 07:59 07:59 07:59 07:59 Intake Total 1392 3187 340 500 Output Total 220 1775 233 219 Balance 1172 1412 107 281 Weight 217 lb 1.6 oz 219 lb 4.8 oz 217 lb 11.2 oz Constitutional: Yes: No Distress, Calm Eyes: No: Sclera Icterus HENT: No: Nasal Congestion Cardiovascular: Yes: Regular Rate and Rhythm, S1, S2, Other (PMI non diplaced). No: JVD, Gallop, Murmur Respiratory: Yes: Bibasilar rales No: Accessory Muscle Use, Rales, Wheezes Gastrointestinal: Yes: Normal Bowel Sounds, Soft. No: Tenderness Musculoskeletal: Yes: Other (No kyphosis) Extremities: No: Cold. + rt sided weakness. Edema: No Integumentary: No: Jaundice Neurological: Yes: Lethargy. No: Seizure Psychiatric: No: Agitated Labs: CBC, BMP 01/01/17 05:30 01/01/17 05:30 Laboratory Tests 01/01/17 05:30 Magnesium 2.0 Total Bilirubin 0.4 D AST 30 D ALT 9 L D Alkaline Phosphatase 136 H D Albumin 1.3 L - ....Imaging EKG: Other (tele: NSR/SB; intermittent bigeminy, occ pvc's) Assessment/Plan EKG: SB, LVH. biphasic anterior t waves. Slightly more prominent than priors. Stable on repeat EKG x 2. head CT: suspicion for acute/subacute cerebellar infarct brain MRI: large rt inf cerebellar acute/subacute infarct. acute/subacute lacunar infarct at rt medulla oblongata. acute/subacute lacunar infarct of left frontal lobe and possibly occipital lobe. meningioma. Echo here: nl lv/rv size/fn. mild lae, mod mac, mild-mod as/ar, mild mr/tr cxr 5/9 am. unchanged left ptx, LLL atelectasis 66 yo with h/o left breast ca s/p lumpectomy and chemotherapy, SVT per patient' s documentation, IDDM, HTN, thyroid disease and ESRD recently started on HD M// who presented to the ED with altered mental status found to be in DKA and with acute cerebellar infarct. NSTEMI, likely Type II: - trop 0.9 on admit, trended down - likely demand ischemia in setting DKA, CVA and > volume overload sec to missed HD session. - normal LVSF with no RWMA on echo - no acute anti-PLT or AC treatment is indicated for Type II PR - custodial preventive therapy with ASA, statin, BB can be considered depending on clinical course here (e.g. once not at risk for hemorrhagic transformation suspected) - should have risk stratification with nuclear stress test imaging later, if she recovers from acute illnesses AMS/possible acute brainstem CVA - MS change ? sec to hyperglycemia vs CVA --> improving - check carotids - echo unrevaling - anti-PLT and other tx recs to be deferred to neuro LLL PNA, empyema, PTX: -on abx -seen by thoracic surgery, considering VATS but planning med mgmt +/- chest tube only for now given her recent CVA increasing risk of anesthesia -per crit care/pulm/thoracic surgery. 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 cct: 35 min
--- NOTE | 2017-01-01 19:35 | PN ---
Progress Note, Physician History of Present Illness: patient doing well much more awake and alert patient going for brain imaging again stable - Current Medication List Current Medications: Active Medications Acetaminophen (Tylenol -) 650 mg PO Q6H PRN PRN Reason: FEVER OR PAIN Chlorhexidine Gluconate (Hibiclens For Decolonization -) 1 applic TP HS [facility] Last Admin: 12/31/16 21:21 Dose: 1 applic Furosemide (Lasix -) 40 mg PO DAILY [facility] Heparin Sodium (Porcine) (Heparin -) 5,000 unit SQ BID [facility] Last Admin: 01/01/17 10:48 Dose: 5,000 unit Meropenem 500 mg/ Dextrose 100 mls @ 200 mls/hr IVPB Q8H-IV [facility] Last Admin: 01/01/17 17:21 Dose: 200 mls/hr Insulin Aspart (Novolog Vial Sliding Scale -) 1 vial SQ ACHS REJI PRN Reason: Protocol Last Admin: 01/01/17 17:00 Dose: 8 units Levothyroxine Sodium (Synthroid Injection -) 100 mcg IVPUSH DAILY [facility] Last Admin: 01/01/17 10:48 Dose: 100 mcg Losartan Potassium (Cozaar -) 25 mg PO DAILY [facility] Metoprolol Tartrate (Lopressor Injection -) 2.5 mg IVPUSH Q4H PRN PRN Reason: TACHYCARDIA - Objective Vital Signs: Vital Signs Temperature 98.7 F 01/01/17 18:00 Pulse Rate 69 01/01/17 18:00 Respiratory Rate 20 01/01/17 18:00 Blood Pressure 150/51 01/01/17 18:00 O2 Sat by Pulse Oximetry (%) 99 01/01/17 11:02 Constitutional: Yes: No Distress, Calm Neck: Yes: Supple Cardiovascular: Yes: S1, S2 Respiratory: Yes: Poor Air Entry, Other (chest tube in palce) Gastrointestinal: Yes: Normal Bowel Sounds, Soft Musculoskeletal: Yes: WNL Extremities: Yes: WNL Neurological: Yes: Alert, Oriented Psychiatric: Yes: Alert Labs: CBC, BMP 01/01/17 05:30 01/01/17 05:30 INR, PTT INR 1.28 (0.82-1.09) H 12/31/16 05:20 Assessment/Plan cerebellar infarct LLL Pneumonia empyema PTX htn esrd leukocytosis ptx wbc trending down plan will stop meropenam will check vanco level tomorrow and restart vanco after loking at the levels await imaging study results rest ct as per cardiac surgery and icu rest as per the teams cc time 40 min
[2017-01-01] MEDS: CHLORHEXIDINE GLUCONATE 4% CLEANSER FOR DECOLONIZATION TP SCH (22:23)
--- NOTE | 2017-01-01 23:56 | PN ---
Progress Note, Physician History of Present Illness: patient improving no new issues - Current Medication List Current Medications: Active Medications Acetaminophen (Tylenol -) 650 mg PO Q6H PRN PRN Reason: FEVER OR PAIN Chlorhexidine Gluconate (Hibiclens For Decolonization -) 1 applic TP HS [facility] Last Admin: 01/01/17 22:23 Dose: 1 applic Furosemide (Lasix -) 40 mg PO DAILY [facility] Heparin Sodium (Porcine) (Heparin -) 5,000 unit SQ BID [facility] Last Admin: 01/01/17 22:23 Dose: 5,000 unit Insulin Aspart (Novolog Vial Sliding Scale -) 1 vial SQ ACHS REJI PRN Reason: Protocol Last Admin: 01/01/17 22:23 Dose: 8 units Levothyroxine Sodium (Synthroid Injection -) 100 mcg IVPUSH DAILY [facility] Last Admin: 01/01/17 10:48 Dose: 100 mcg Losartan Potassium (Cozaar -) 25 mg PO DAILY [facility] Metoprolol Tartrate (Lopressor Injection -) 2.5 mg IVPUSH Q4H PRN PRN Reason: TACHYCARDIA - Objective Vital Signs: Vital Signs Temperature 97.7 F 01/01/17 20:00 Pulse Rate 63 01/01/17 22:00 Respiratory Rate 16 01/01/17 22:00 Blood Pressure 166/48 01/01/17 22:00 O2 Sat by Pulse Oximetry (%) 99 01/01/17 21:00 Constitutional: Yes: No Distress, Calm Cardiovascular: Yes: Regular Rate and Rhythm Respiratory: Yes: Other (decreased left sided air entry chest tube in place) Gastrointestinal: Yes: Normal Bowel Sounds, Soft Musculoskeletal: Yes: WNL Extremities: Yes: WNL Neurological: Yes: Alert, Oriented Psychiatric: Yes: Alert, Oriented Labs: CBC, BMP 01/01/17 05:30 01/01/17 05:30 INR, PTT INR 1.28 (0.82-1.09) H 12/31/16 05:20 Assessment/Plan cerebellar infarct LLL Pneumonia empyema PTX htn esrd leukocytosis ptx wbc trending down plan continue abx close monitoring neuro and cardio on board icu monitoring rest ct as per icu await for all cx reports cc time 40 min
[2017-01-02 06:18] LABS: MCH 28.5 pg (25.7-33.7); MCHC 31.4 g/dl (32.0-36.0); MEAN CELL VOLUME 90.8 fl (80-96); MEAN PLT VOLUME 9.2 fl (7.5-11.1); PLATELET COUNT 275 K/MM3 (134-434); RDW 16.7 % (11.6-15.6); WHITE BLOOD COUNT 16.2 K/mm3 (4.0-10.0)
[2017-01-02 06:42] LABS: ALBUMIN 1.3 g/dl (3.4-5.0); BILIRUBIN,TOTAL 0.4 mg/dL (0.2-1.0); CALCIUM 7.7 mg/dL (8.5-10.1); CREATININE 3.6 mg/dL (0.55-1.02); PHOSPHOROUS 4.6 mg/dL (2.5-4.9); TOT PROT 4.3 g/dl (6.4-8.2)
[2017-01-02] MEDS: INSULIN SLIDING SCALE (NOVOLOG) 1 VIAL SQ SCH ×4 (06:42→22:30)
[2017-01-02 06:50] LABS: COCKROFT - GAULT 22.95
[2017-01-02] MEDS ORDERED: PT OWN MED DRAWER 7, Y5N ONE ×3 (08:05→16:27)
[2017-01-02 08:50] LABS: PLATELET ESTIMATE ADEQUATE (NORMAL)
[2017-01-02 08:51] LABS: PLATELET COMMENT2 RARE GIANT PLTS; POLYCHROMASIA FEW
[2017-01-02] MEDS: LEVOTHYROXINE SODIUM 100 MCG VIAL IVPUSH SCH (09:19)
[2017-01-02] MEDS: HEPARIN NA (PORCINE) 5,000 UNITS/ML 1ML VIAL SQ SCH ×2 (09:19→22:30)
--- NOTE | 2017-01-02 09:59 | PN ---
Progress Note (short form) - Note Progress Note: Renal Follow up fro ESRD on HD Pt seen and examined in the ICU currently on dialysis BP stable, access with good function goal uf is 2.5L as tolerated pt without any acute complaints SC emphysema increased today Vital Signs Temperature 97.6 F 01/02/17 09:25 Pulse Rate 60 01/02/17 09:30 Respiratory Rate 18 01/02/17 09:30 Blood Pressure 167/46 01/02/17 09:30 O2 Sat by Pulse Oximetry (%) 99 01/02/17 08:00 Intake & Output 12/30/16 12/31/16 01/01/17 01/02/17 23:59 23:59 23:59 23:59 Intake Total 3187 240 600 Output Total 1530 350 347 Balance 1657 -110 253 Weight 217 lb 1.6 oz 219 lb 4.8 oz 217 lb 11.2 oz 219 lb 5.759 oz Gen: NAD, CVS: RRR, No M/R Lungs: Dec BS B/L LUng hope (anterior exam) + SC emphysema Abd: soft NT/ND Ext: trace to 1+ edema in LE CBC, BMP 01/02/17 05:15 01/02/17 05:15 Laboratory Tests 01/02/17 05:15 Calcium 7.7 L Phosphorus 4.6 D Magnesium 2.0 Albumin 1.3 L Current Medications Acetaminophen (Tylenol -) 650 mg PO Q6H PRN PRN Reason: FEVER OR PAIN Chlorhexidine Gluconate (Hibiclens For Decolonization -) 1 applic TP HS [facility] Last Admin: 01/01/17 22:23 Dose: 1 applic Furosemide (Lasix -) 40 mg PO DAILY [facility] Heparin Sodium (Porcine) (Heparin -) 5,000 unit SQ BID [facility] Last Admin: 01/02/17 09:19 Dose: 5,000 unit Insulin Aspart (Novolog Vial Sliding Scale -) 1 vial SQ ACHS REJI PRN Reason: Protocol Last Admin: 01/02/17 06:42 Dose: 4 units Levothyroxine Sodium (Synthroid Injection -) 100 mcg IVPUSH DAILY [facility] Last Admin: 01/02/17 09:19 Dose: 100 mcg Losartan Potassium (Cozaar -) 25 mg PO DAILY [facility] Metoprolol Tartrate (Lopressor Injection -) 2.5 mg IVPUSH Q4H PRN PRN Reason: TACHYCARDIA A/P breast ca s/p lumpectomy and chemotherapy, IDDM, HTN, and ESRD on HD M// who presented to the ED today via EMS after her dialysis center notified police that she missed her treatment on Thursday and was not answering the phone. 66 year old woman with PMhx of ESRD on HD, Breast Ca s/p Chemo and Lumpectomy, IDDM, Hypertension presented with AMS and found to have DKA, Acute CVA and Pnemothorax #ESRD on HD tolerating dialysis well today Goal UF is 2.5L Trend electrolytes daily Dose all meds for intermittent HD (MWF) #Empyema/Pneumothorax/Leukocytosis Chest tube in place s/p VATS Management as per thorasic Sx #Acute/Subacute CVA supportive Care Neurology follow up Thank you Jose Carlos Wray DO
--- NOTE | 2017-01-02 11:14 | PN ---
Progress Note (short form) - Note Progress Note: Surgery- Dr. Brown Patient seen and examined. Patient states she is dong well, has minimal pain, denies SOB. Last Vital Signs Temp Pulse Resp BP Pulse Ox 97.6 F 59 L 18 144/53 99 01/02/17 10:00 01/02/17 10:00 01/02/17 10:00 01/02/17 10:00 01/02/17 08:00 CBC, BMP 01/02/17 05:15 01/02/17 05:15 Chest tube output overnight per nursing Anterior: 9ml Lateral: 70 ml CXR: no significant change Exam: Gen: NAD, pleasant and cooperative Pulm: Chest tube x2 to suction with serosanguineous drainage, no air leak anterior tube, + air leak lateral tube, dressings changed on round, palpable subcutaneous emphysema without significant change from yesterday LE: SCDs bilat, nontender Problem List - Problems (1) Empyema of left pleural space Assessment/Plan: POD #3 s/p bronchoscopy, left thoracoscopy, pneumolysis, partial decortication and drainage of effusion Follow-up CXR-no significant change Continue chest tube x2 to suction, monitor and record output Dressings changed on rounds, keep tubes taped anteriorly Incentive spirometer GI/DVT ppx Cont IV abx Discussed with Dr. Brown Code(s): J86.9 - PYOTHORAX WITHOUT FISTULA
--- NOTE | 2017-01-02 11:20 | PN ---
Progress Note, Physician History of Present Illness: patient doing well stable no new issues being dialyzed - Current Medication List Current Medications: Active Medications Acetaminophen (Tylenol -) 650 mg PO Q6H PRN PRN Reason: FEVER OR PAIN Chlorhexidine Gluconate (Hibiclens For Decolonization -) 1 applic TP HS [facility] Last Admin: 01/01/17 22:23 Dose: 1 applic Furosemide (Lasix -) 40 mg PO DAILY [facility] Heparin Sodium (Porcine) (Heparin -) 5,000 unit SQ BID [facility] Last Admin: 01/02/17 09:19 Dose: 5,000 unit Insulin Aspart (Novolog Vial Sliding Scale -) 1 vial SQ ACHS REJI PRN Reason: Protocol Last Admin: 01/02/17 06:42 Dose: 4 units Levothyroxine Sodium (Synthroid Injection -) 100 mcg IVPUSH DAILY [facility] Last Admin: 01/02/17 09:19 Dose: 100 mcg Losartan Potassium (Cozaar -) 25 mg PO DAILY [facility] Metoprolol Tartrate (Lopressor Injection -) 2.5 mg IVPUSH Q4H PRN PRN Reason: TACHYCARDIA - Objective Vital Signs: Vital Signs Temperature 97.6 F 01/02/17 10:00 Pulse Rate 59 L 01/02/17 10:00 Respiratory Rate 18 01/02/17 10:00 Blood Pressure 144/53 01/02/17 10:00 O2 Sat by Pulse Oximetry (%) 99 01/02/17 08:00 Constitutional: Yes: No Distress, Calm Cardiovascular: Yes: S1, S2 Respiratory: Yes: Poor Air Entry, Other (left sided chest tubes) Gastrointestinal: Yes: Normal Bowel Sounds, Soft Musculoskeletal: Yes: WNL Extremities: Yes: WNL Neurological: Yes: Alert, Oriented Psychiatric: Yes: Alert Labs: CBC, BMP 01/02/17 05:15 01/02/17 05:15 INR, PTT INR 1.28 (0.82-1.09) H 12/31/16 05:20 Assessment/Plan cerebellar infarct LLL Pneumonia empyema s/p VATS PTX htn esrd leukocytosis ptx wbc trending down plan will check again vanco level tomorrow and plan vanco dose vanco needs to be continued rest continue as per icu close monitoring incentive kristy cc time 40 min
--- NOTE | 2017-01-02 11:24 | PN ---
Progress Note (short form) - Note Progress Note: Chief Complaint: CVA, PSVT S: no cp, palps, sob, dizziness. ex-cigs Current Medications Generic Name Dose Route Start Last Admin Trade Name Olive PRN Reason Stop Dose Admin Acetaminophen 650 mg 01/01/17 15:54 Tylenol - PO Q6H PRN FEVER OR PAIN Chlorhexidine Gluconate 1 applic 12/30/16 22:00 01/01/17 22:23 Hibiclens For Decolonization - TP 1 applic HS REJI Administration Furosemide 40 mg 01/02/17 10:00 Lasix - PO DAILY [facility] Heparin Sodium (Porcine) 5,000 unit 12/30/16 22:00 01/02/17 09:19 Heparin - SQ 5,000 unit BID REJI Administration Insulin Aspart 1 vial 12/30/16 22:00 01/02/17 06:42 Novolog Vial Sliding Scale - SQ 4 units ACHS REJI Administration Protocol Levothyroxine Sodium 100 mcg 12/31/16 10:00 01/02/17 09:19 Synthroid Injection - IVPUSH 100 mcg DAILY REJI Administration Losartan Potassium 25 mg 01/02/17 10:00 Cozaar - PO DAILY [facility] Metoprolol Tartrate 2.5 mg 12/30/16 17:14 Lopressor Injection - IVPUSH Q4H PRN TACHYCARDIA Vital Signs Period Temp Pulse Resp BP Sys/Aguirre Pulse Ox Last 24 Hr 97.2 F-98.9 F 54-95 14-20 141-176/41-61 99-99 Constitutional: Yes: No Distress, Calm Eyes: No: Sclera Icterus HENT: No: Nasal Congestion Cardiovascular: Yes: Regular Rate and Rhythm, S1, S2, Other (PMI non diplaced). No: JVD, Gallop, Murmur Respiratory: Yes: Bibasilar rales No: Accessory Muscle Use, Rales, Wheezes Gastrointestinal: Yes: Normal Bowel Sounds, Soft. No: Tenderness Musculoskeletal: Yes: Other (No kyphosis) Extremities: No: Cold. + rt sided weakness. Edema: No Integumentary: No: Jaundice Neurological: Yes: awake alert appropriate Psychiatric: No: Agitated Labs: CBC, BMP 01/02/17 05:15 01/02/17 05:15 tele: sr, occ pvcs EKG: SB, LVH. biphasic anterior t waves. Slightly more prominent than priors. Stable on repeat EKG x 2. head CT: suspicion for acute/subacute cerebellar infarct brain MRI: large rt inf cerebellar acute/subacute infarct. acute/subacute lacunar infarct at rt medulla oblongata. acute/subacute lacunar infarct of left frontal lobe and possibly occipital lobe. meningioma. Echo here: nl lv/rv size/fn. mild lae, mod mac, mild-mod as/ar, mild mr/tr a/p: 66 yo with h/o left breast ca s/p lumpectomy and chemotherapy, SVT per patient's documentation, IDDM, HTN, thyroid disease and ESRD recently started on HD M/W/ who presented to the ED with altered mental status found to be in DKA and with acute cerebellar infarct. NSTEMI, likely Type II: - trop 0.9 on admit, trended down - likely demand ischemia in setting DKA, CVA and > volume overload sec to missed HD session. - normal LVEF with no RWMA on echo - no acute anti-PLT or AC treatment is indicated for Type II MT - senior care preventive therapy with ASA, statin, BB can be considered depending on clinical course here (e.g. once not at risk for hemorrhagic transformation suspected) - should have risk stratification with nuclear stress test imaging later, if she recovers from acute illnesses AMS/possible acute brainstem CVA - MS change ? sec to hyperglycemia vs CVA --> improving - echo unrevealing - anti-PLT as per neuro LLL PNA, empyema, PTX: -on abx -seen by thoracic surgery, considering VATS but planning med mgmt +/- chest tube only for now given her recent CVA increasing risk of anesthesia -per crit care/pulm/thoracic surgery. 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 HR coming up, can consider resuming low dose beta kacie if bp and hr remain stable. Would not use atenolol due to esrd. HTN - bp targets per neuro
--- NOTE | 2017-01-02 12:51 | PN ---
Teaching Attending Note Name of Resident: Antelmo Wise ATTENDING PHYSICIAN STATEMENT I saw and evaluated the patient. I reviewed the resident's note and discussed the case with the resident. I agree with the resident's findings and plan as documented. SUBJECTIVE: Patient seen and examined in the ICU. Awake and alert. Minimal discomfort at the CT sites. Persistent airl leak noted from lateral CT. Denies shortness of breath. Pain controlled with current regimen. CXR : CT in the good position / (+) SQ emphysema OBJECTIVE: Intake & Output 12/30/16 12/31/16 01/01/17 01/02/17 23:59 23:59 23:59 23:59 Intake Total 3187 240 600 Output Total 1530 350 347 Balance 1657 -110 253 Weight 217 lb 1.6 oz 219 lb 4.8 oz 217 lb 11.2 oz 219 lb 5.759 oz Last Vital Signs Temp Pulse Resp BP Pulse Ox 97.6 F 63 18 140/48 99 01/02/17 10:00 01/02/17 12:30 01/02/17 12:30 01/02/17 12:30 01/02/17 08:00 Active Medications Acetaminophen (Tylenol -) 650 mg PO Q6H PRN PRN Reason: FEVER OR PAIN Chlorhexidine Gluconate (Hibiclens For Decolonization -) 1 applic TP HS [facility] Last Admin: 01/01/17 22:23 Dose: 1 applic Furosemide (Lasix -) 40 mg PO DAILY [facility] Heparin Sodium (Porcine) (Heparin -) 5,000 unit SQ BID [facility] Last Admin: 01/02/17 09:19 Dose: 5,000 unit Insulin Aspart (Novolog Vial Sliding Scale -) 1 vial SQ ACHS REJI PRN Reason: Protocol Last Admin: 01/02/17 11:37 Dose: 4 units Levothyroxine Sodium (Synthroid Injection -) 100 mcg IVPUSH DAILY [facility] Last Admin: 01/02/17 09:19 Dose: 100 mcg Losartan Potassium (Cozaar -) 25 mg PO DAILY [facility] Metoprolol Tartrate (Lopressor Injection -) 2.5 mg IVPUSH Q4H PRN PRN Reason: TACHYCARDIA Gen: Awake and alert Heart: RRR Lung: rhonchi/squeaks on left, decreased breath sounds left base, increasing SQ emphysema Abd: soft, nontender Ext: no edema Chest tube: anterior tube no air leak, lateral chest tube with cloudy serosanguinous drainage with air leak Laboratory Results - last 24 hr 12/29/16 01/01/17 01/01/17 17:10 17:04 22:09 WBC RBC Hgb Hct MCV MCHC RDW Plt Count MPV Neutrophils % Lymphocytes % Monocytes % Band Neutrophils Platelet Estimate Platelet Comment Polychromasia Sodium Potassium Chloride Carbon Dioxide Anion Gap BUN Creatinine Creat Clearance w eGFR POC Glucometer [phone] Random Glucose Calcium Phosphorus Magnesium Total Bilirubin AST ALT Alkaline Phosphatase Total Protein Albumin Random Vancomycin Crossmatch See Detail 01/02/17 01/02/17 01/02/17 05:15 05:15 05:15 WBC 16.2 H RBC 3.90 Hgb 11.1 Hct 35.4 MCV 90.8 MCHC 31.4 L RDW 16.7 H Plt Count 275 MPV 9.2 Neutrophils % 87.0 H Lymphocytes % 8.0 D Monocytes % 3.0 L Band Neutrophils 2.0 D Platelet Estimate Adequate Platelet Comment Rare giant plts Polychromasia Few Sodium 145 Potassium 3.5 Chloride 101 Carbon Dioxide 30 Anion Gap 14 BUN 37 H Creatinine 3.6 H Creat Clearance w eGFR 12.57 POC Glucometer Random Glucose 199 H D Calcium 7.7 L Phosphorus 4.6 D Magnesium 2.0 Total Bilirubin 0.4 AST 25 ALT 10 L Alkaline Phosphatase 167 H D Total Protein 4.3 L Albumin 1.3 L Random Vancomycin 11.698 Crossmatch 01/02/17 01/02/17 05:16 11:30 WBC RBC Hgb Hct MCV MCHC RDW Plt Count MPV Neutrophils % Lymphocytes % Monocytes % Band Neutrophils Platelet Estimate Platelet Comment Polychromasia Sodium Potassium Chloride Carbon Dioxide Anion Gap BUN Creatinine Creat Clearance w eGFR POC Glucometer [phone] Random Glucose Calcium Phosphorus Magnesium Total Bilirubin AST ALT Alkaline Phosphatase Total Protein Albumin Random Vancomycin Crossmatch ASSESSMENT AND PLAN: Diabetic Ketoacidosis resolved Left Empyema s/p L VATS/pneumolysis/partial decortication/chest tube placement 12/30 +Troponins likely Demand Ischemia ESRD on HD HTN - continue antibiotics - f/u final OR cultures - pain control - incentive spirometry - glucose control - resume ASA when ok with surgery - HD per renal - DVT prophylaxis Dr Alejandro Critical care time spent in reviewing chart, evaluating patient and formulating plan 35 min
--- NOTE | 2017-01-02 14:22 | PN ---
Progress Note (short form) - Note Progress Note: Subjective: The patient was seen and examined at the bedside she denies any pain at this time. She is currently receiving dialysis Current Medications Generic Name Dose Route Start Last Admin Trade Name Olive PRN Reason Stop Dose Admin Acetaminophen 650 mg 01/01/17 15:54 Tylenol - PO Q6H PRN FEVER OR PAIN Chlorhexidine Gluconate 1 applic 12/30/16 22:00 01/01/17 22:23 Hibiclens For Decolonization - TP 1 applic HS REJI Administration Furosemide 40 mg 01/02/17 10:00 Lasix - PO DAILY REJI Heparin Sodium (Porcine) 5,000 unit 12/30/16 22:00 01/02/17 09:19 Heparin - SQ 5,000 unit BID REJI Administration Insulin Aspart 1 vial 12/30/16 22:00 01/02/17 11:37 Novolog Vial Sliding Scale - SQ 4 units ACHS REJI Administration Protocol Levothyroxine Sodium 100 mcg 12/31/16 10:00 01/02/17 09:19 Synthroid Injection - IVPUSH 100 mcg DAILY REJI Administration Losartan Potassium 25 mg 01/02/17 10:00 Cozaar - PO DAILY REJI Metoprolol Tartrate 2.5 mg 12/30/16 17:14 Lopressor Injection - IVPUSH Q4H PRN TACHYCARDIA Objective: Vital Signs Period Temp Pulse Resp BP Sys/Aguirre Pulse Ox Last 24 Hr 97.2 F-98.9 F 54-95 14-20 130-176/41-61 99-99 Physical Exam: General: NAD Lungs: B/l rhonchi. Sq emphysema. Left anterior chest tube, no air leak. lateral chest tube with serosangenous drainage with air leak Heart: RRR, S1S2 Abd: Soft, non-tender Ext: B/l upper and lower extremity edema Neuro: Left mouth droop CBCD WBC 17.9 K/mm3 (4.0-10.0) H 01/01/17 05:30 RBC 3.90 M/mm3 (3.60-5.2) 01/01/17 05:30 Hgb 11.1 GM/dL (10.7-15.3) 01/01/17 05:30 Hct 35.5 % (32.4-45.2) 01/01/17 05:30 MCV 91.2 fl (80-96) 01/01/17 05:30 MCHC 31.2 g/dl (32.0-36.0) L 01/01/17 05:30 RDW 16.6 % (11.6-15.6) H 01/01/17 05:30 Plt Count 256 K/MM3 (134-434) 01/01/17 05:30 MPV 8.9 fl (7.5-11.1) 01/01/17 05:30 CMP Sodium 143 mmol/L (136-145) 01/01/17 05:30 Potassium 3.5 mmol/L (3.5-5.1) 01/01/17 05:30 Chloride 102 mmol/L (98-107) 01/01/17 05:30 Carbon Dioxide 30 mmol/L (21-32) D 01/01/17 05:30 Anion Gap 11 (8-16) 01/01/17 05:30 BUN 31 mg/dL (7-18) H D 01/01/17 05:30 Creatinine 3.4 mg/dL (0.55-1.02) H D 01/01/17 05:30 Creat Clearance w eGFR 13.43 (>60) 01/01/17 05:30 Random Glucose 258 mg/dL (74-106) H 01/01/17 05:30 Calcium 7.2 mg/dL (8.5-10.1) L 01/01/17 05:30 Total Bilirubin 0.4 mg/dL (0.2-1.0) D 01/01/17 05:30 AST 30 U/L (15-37) D 01/01/17 05:30 ALT 9 U/L (12-78) L D 01/01/17 05:30 Alkaline Phosphatase 136 U/L (45-117) H D 01/01/17 05:30 Total Protein 4.4 g/dl (6.4-8.2) L 01/01/17 05:30 Albumin 1.3 g/dl (3.4-5.0) L 01/01/17 05:30 CARDIAC ENZYMES Creatine Kinase 53 IU/L (26-192) 12/26/16 18:13 Troponin I 0.62 ng/ml (0.00-0.05) H* 12/27/16 05:20 Microbiology 12/27/16 15:25 Blood - Peripheral Venous Blood Culture - Final NO GROWTH AFTER 5 DAYS INCUBATION 12/27/16 15:20 Blood - Peripheral Venous Blood Culture - Final NO GROWTH AFTER 5 DAYS INCUBATION 12/30/16 14:30 Bronchial Washings - Left Upper Lobe Gram Stain - Final 12/30/16 14:30 Bronchial Washings - Left Upper Lobe Bronchoalveolar Lavage Culture - Final NORMAL RESPIRATORY LORNA 12/30/16 16:40 Lung - Left Gram Stain - Final 12/30/16 16:40 Lung - Left Tissue Culture - Preliminary Staphylococcus Coagulase Neg 12/30/16 15:10 Pleural Fluid Gram Stain - Final 12/30/16 15:10 Pleural Fluid Body Fluid Culture - Preliminary NO AEROBIC GROWTH, 24 HRS 12/30/16 15:10 Pleural Fluid AFB Smear Concentration - Final 12/30/16 15:10 Pleural Fluid Mycobacterial Culture - Preliminary 12/26/16 13:57 Blood - Peripheral Venous Blood Culture - Final Staphylococcus Epidermidis 12/28/16 12:30 Blood - Peripheral Venous TB Test (QFT) (ALL) - Final 12/27/16 14:00 Pleural Fluid Gram Stain - Final 12/27/16 14:00 Pleural Fluid Body Fluid Culture - Final Staphylococcus Epidermidis 12/27/16 14:00 Pleural Fluid Anaerobic Culture - Final NO ANAEROBES WERE ISOLATED 12/26/16 13:57 Blood - Peripheral Venous Blood Culture - Final NO GROWTH AFTER 5 DAYS INCUBATION 12/30/16 15:10 Pleural Fluid SCOTT Preparation - Preliminary 12/30/16 15:10 Pleural Fluid Fungal Culture - Preliminary 12/28/16 11:30 Pleural Fluid AFB Smear Concentration - Final Imaging 12/26 Echo: mild cLVH, LV function normal; RV normal; LAE; mild MR; mild TR; mild to moderate and AI 12/26 CT head x 2: acute/subacute infarct 3.5 x 2cm right cerebellar hemisphere 12/27 US carotids: extensive atherosclerotic disease; 60-79% stenosis bilaterally R>L 12/29 MRI Brain: (1) large right inferior cerebellar acute/subacute infarct; (2) acute/subacute cortical infarct at the right junction of the medulla oblongata and cervical cord as well as a couple of acute/subactute lacunar infarcts in the left frontal lobe and likely in the right occipital lobe Assessment: This is 66 year old female with PMHx of HTN, hyperlipidemia, IDDM, breast cancer s/p lumpectomy and chemotherapy, hypothyroidism, ESRD (on HD), who presented to the ED after being found lethargic in her house and was found to have DKA, pneumonia, and CVA. Plan: 1) ID: Severe sepsis 2/2 Left lung empyema, pneumonia - Lactic acidosis resolved - Meropenem discontinued on 01/01 - Abx per ID - WBC trending down slightly - Afebrile - Appreciate ID consult 2) Pulmonary: s/p L VATS/pneumolysis/partial decortication/chest tube placement 12/30 - Abx per ID - Incentive spirometer - Appreciate pulmonary consult 3) : ESRD on HD - Tolerated HD today - Appreciate nephrology consult 4) Cardiology: NSTEMI, likely type II - Likely demand ischemia in setting of DKA, CVA, increase in volume overload 2/ 2 missed HD - ECHO with normal LVSF with no RWMA - Further cardiac workup once improving acute events PSVT - On atenolol at home - HRs in 60s, will not resume bblocker now - Appreciate cardiology consult 5) Neuro: CVA - MRI with large right inferior cerebellar acute/subacute infarct. Acute/ subacute cortical infarct at the right junction of the medulla oblongata and cervical cord as well as a couple of acute/subacute lacunar infarcts in the left frontal love at the level of the centrum semiovale and likely in the right occipital lobe. 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 Correlate with CT angio of head and neck - F/u neuro recommendations for CT angio head and neck - Antiplatelet therapy per neuro/cardiology - Appreciate neuro consult 6) Endocrinology: DKA - Resolved - Continue ISS ACHS - BGM ACHS Hypothyroidism - Continue Synthroid 7) F/E/N: - Dysphagia, diabetic diet - Monitor electrolytes 8) Prophyaxis: - Heparin 5,000u sq bid 9) Dispo: - Requires continued ICU care CODE STATUS: FULL CODE Visit type - Emergency Visit Emergency Visit: Yes ED Registration Date: 12/26/16 Care time: The patient presented to the Emergency Department on the above date and was hospitalized for further evaluation of their emergent condition. - New Patient This patient is new to me today: No - Critical Care Critical Care patient: Yes Total Critical Care Time (in minutes): 38 Critical Care Statement: The care of this patient involved high complexity decision making to prevent further life threatening deterioration of the patient 's condition and/or to evalute & treat vital organ system(s) failure or risk of failure.
[2017-01-02] MEDS: FUROSEMIDE 40 MG TABLET (FP) PO SCH (14:31)
[2017-01-02] MEDS: LOSARTAN POTASSIUM 25 MG TABLET PO SCH (14:32)
--- NOTE | 2017-01-02 15:13 | PN ---
Physical Exam: SUBJECTIVE: Patient seen and examined. says she feels fine. denies chest pain sob, cough, headache, palpitations. OBJECTIVE: Vital Signs Period Temp Pulse Resp BP Sys/Aguirre Pulse Ox Last 24 Hr 97.2 F-98.7 F 54-95 14-20 130-180/41-61 99-99 EYES: PERRL, extraocular movements intact, sclera anicteric, conjunctiva clear. No ptosis. ENT: oropharynx clear, moist mucous membranes. NECK: Trachea midline, full range of motion, supple. crepitus on right neck/ chest/shoulder- increased from yesterday. LUNGS: left; diffuse rhonchi, few crackles. right base with crackles, [address] on left, sutures in place, placed to suction, draining. tejinder in left axilla. HEART: Regular rate and rhythm, S1, S2 ABDOMEN:obese Soft, nontender, nondistended, normoactive bowel sounds, no guarding EXTREMITIES: 1+ pulses,cool, well-perfused, 1+ edema b/l LE. Left arm with palpable thrill from fistula. right UE with nonpitting edema. NEUROLOGICAL: Normal speech. 2/5 strength in right shoulder/elbow/handgrip, 2/5 in right hip, foot. Laboratory Results - last 24 hr 12/29/16 01/01/17 01/01/17 17:10 17:04 22:09 WBC RBC Hgb Hct MCV MCHC RDW Plt Count MPV Neutrophils % Lymphocytes % Monocytes % Band Neutrophils Platelet Estimate Platelet Comment Polychromasia Sodium Potassium Chloride Carbon Dioxide Anion Gap BUN Creatinine Creat Clearance w eGFR POC Glucometer [phone] Random Glucose Calcium Phosphorus Magnesium Total Bilirubin AST ALT Alkaline Phosphatase Total Protein Albumin Random Vancomycin Crossmatch See Detail 01/02/17 01/02/17 01/02/17 05:15 05:15 05:15 WBC 16.2 H RBC 3.90 Hgb 11.1 Hct 35.4 MCV 90.8 MCHC 31.4 L RDW 16.7 H Plt Count 275 MPV 9.2 Neutrophils % 87.0 H Lymphocytes % 8.0 D Monocytes % 3.0 L Band Neutrophils 2.0 D Platelet Estimate Adequate Platelet Comment Rare giant plts Polychromasia Few Sodium 145 Potassium 3.5 Chloride 101 Carbon Dioxide 30 Anion Gap 14 BUN 37 H Creatinine 3.6 H Creat Clearance w eGFR 12.57 POC Glucometer Random Glucose 199 H D Calcium 7.7 L Phosphorus 4.6 D Magnesium 2.0 Total Bilirubin 0.4 AST 25 ALT 10 L Alkaline Phosphatase 167 H D Total Protein 4.3 L Albumin 1.3 L Random Vancomycin 11.698 Crossmatch 01/02/17 01/02/17 05:16 11:30 WBC RBC Hgb Hct MCV MCHC RDW Plt Count MPV Neutrophils % Lymphocytes % Monocytes % Band Neutrophils Platelet Estimate Platelet Comment Polychromasia Sodium Potassium Chloride Carbon Dioxide Anion Gap BUN Creatinine Creat Clearance w eGFR POC Glucometer [phone] Random Glucose Calcium Phosphorus Magnesium Total Bilirubin AST ALT Alkaline Phosphatase Total Protein Albumin Random Vancomycin Crossmatch Active Medications Generic Name Dose Route Start Last Admin Trade Name Freq PRN Reason Stop Dose Admin Acetaminophen 650 mg 01/01/17 15:54 Tylenol - PO Q6H PRN FEVER OR PAIN Chlorhexidine Gluconate 1 applic 12/30/16 22:00 01/01/17 22:23 Hibiclens For Decolonization - TP 1 applic HS REJI Administration Furosemide 40 mg 01/02/17 10:00 01/02/17 14:31 Lasix - PO 40 mg DAILY REJI Administration Heparin Sodium (Porcine) 5,000 unit 12/30/16 22:00 01/02/17 09:19 Heparin - SQ 5,000 unit BID REJI Administration Insulin Aspart 1 vial 12/30/16 22:00 01/02/17 11:37 Novolog Vial Sliding Scale - SQ 4 units ACHS REJI Administration Protocol Levothyroxine Sodium 100 mcg 12/31/16 10:00 01/02/17 09:19 Synthroid Injection - IVPUSH 100 mcg DAILY REJI Administration Losartan Potassium 25 mg 01/02/17 10:00 01/02/17 14:32 Cozaar - PO 25 mg DAILY REJI Administration Metoprolol Tartrate 2.5 mg 12/30/16 17:14 Lopressor Injection - IVPUSH Q4H PRN TACHYCARDIA Imaging Echo 12/26/2016 - without wall motion abnormality or significant sclerosis ID: Dr. Gutierrez Cardiothoracic surg: Dr. Brown Nephro: Dr. Wray Cardio: Dr. Myers Neuro: Dr. najera Lines: right IJ /8 Chest tube #1, #2: right lateral chest 12/30 ASSESSMENT/PLAN: 66 yr old woman with DM II, ESRD on HD presented with AMS and hyperglycemia, admitted to the ICU for DKA, found to have CVA and left lower lobe empyema. - As per patient request, family is not be involved in medical decisions. Pulmonary #Empyema/Bacteremia(staph epidermidis in two bottles 12/26) - subq emphysema likely from lateral chest tube with air leak - Meropenem 500mg IVPB q8hr -- day 8 -- Vancomycin 1gm (renal dosing, check levels) - incentive spirometry Infectious Disease: empyema meropenem + vancomycin leucocytosis trend labs Consult: Dr. Gutierrez Neurological #CVA - acute/subacute infarct 3.5/2cm right cerebellar hemisphere, MRI with large right inferior cerebellar stroke and medulla infarct. - Neuro checks - speech and swallow evaluation - normal, diced dysphagia and nectar thin liquids - maintain HOB elevated - PT eval - patient will require SNF Cardiovascular HTN - lasix 40mg po daily - cozaar 25mg po daily - metoprolol 2.5 mg ivpush q4hr prn Endocrine #DM II - BGM ACHS, goal BGM 140-180 - NISS #hypothryoid continue home medication levothyroxine 100mcg ivpush daily #Renal - HD MWF consult: Dr. Wray #DVT - Heparin BID subq #Diet - diabetic low sodium Visit type - Emergency Visit Emergency Visit: No - New Patient This patient is new to me today: No - Critical Care Critical Care patient: Yes Total Critical Care Time (in minutes): 35 Critical Care Statement: The care of this patient involved high complexity decision making to prevent further life threatening deterioration of the patient 's condition and/or to evalute & treat vital organ system(s) failure or risk of failure.
--- NOTE | 2017-01-02 16:59 | PN ---
Progress Note (short form) - Note Progress Note: POD #4 s/p left vats empyema. Doing well. Septic sx decreased. WBC decreased. Small air-leak in one tube. Stripped tubes and took out kinks and redressed. Please redress tubes daily and check for kinks. Likely water seal tubes Thursday and start removing. Will need rehab. ABX per Dr. Gutierrez.
[2017-01-02] MEDS: CHLORHEXIDINE GLUCONATE 4% CLEANSER FOR DECOLONIZATION TP SCH (22:00)
[2017-01-03 06:25] LABS: BASOPHIL 0.3 % (0-2.0); EOSINOPHIL 1.3 % (0-4.5); MCH 28.3 pg (25.7-33.7); MCHC 31.4 g/dl (32.0-36.0); MEAN CELL VOLUME 90.2 fl (80-96); MEAN PLT VOLUME 9.1 fl (7.5-11.1); NEUTROPHILS 84.4 % (42.8-82.8); PLATELET COUNT 265 K/MM3 (134-434); RDW 16.2 % (11.6-15.6); WHITE BLOOD COUNT 16.3 K/mm3 (4.0-10.0)
[2017-01-03] MEDS: INSULIN SLIDING SCALE (NOVOLOG) 1 VIAL SQ SCH ×4 (07:00→22:00)
[2017-01-03 07:07] LABS: ALBUMIN 1.4 g/dl (3.4-5.0); BILIRUBIN,TOTAL 0.4 mg/dL (0.2-1.0); CALCIUM 7.3 mg/dL (8.5-10.1); COCKROFT - GAULT 32.4615; CREATININE 2.5 mg/dL (0.55-1.02); TOT PROT 4.4 g/dl (6.4-8.2)
[2017-01-03] MEDS ORDERED: PT OWN MED DRAWER 7, Y5N ONE (08:56)
[2017-01-03] MEDS: HEPARIN NA (PORCINE) 5,000 UNITS/ML 1ML VIAL SQ SCH ×2 (09:09→21:30)
[2017-01-03] MEDS: FUROSEMIDE 40 MG TABLET (FP) PO SCH (09:09)
[2017-01-03] MEDS: LOSARTAN POTASSIUM 25 MG TABLET PO SCH (09:09)
[2017-01-03] MEDS: LEVOTHYROXINE SODIUM 100 MCG VIAL IVPUSH SCH (09:12)
--- NOTE | 2017-01-03 09:42 | PN ---
Progress Note (short form) - Note Progress Note: PULMONARY/CCM Pt seen and examined in the ICU. Pain adequately controlled. Denies fevers or chills. No shortness of breath or chest pain. Last Vital Signs Temp Pulse Resp BP Pulse Ox 98.6 F 67 21 158/39 96 01/03/17 06:00 01/03/17 08:00 01/03/17 08:00 01/03/17 08:00 01/02/17 22:00 Intake & Output 12/31/16 01/01/17 01/02/17 01/03/17 23:59 23:59 23:59 23:59 Intake Total 240 600 600 50 Output Total 350 347 72 10 Balance -110 253 528 40 Weight 219 lb 4.8 oz 217 lb 11.2 oz 219 lb 5.759 oz 210 lb 8 oz Gen: mildly tachypneic with exertion Heart: RRR Lung: decreased breath sounds left base, +rhonchi Abd: soft, nontender Ext: trace edema Chest tube: lateral chest tube with air leak CBC, BMP 01/03/17 05:30 01/03/17 05:30 Active Medications Acetaminophen (Tylenol -) 650 mg PO Q6H PRN PRN Reason: FEVER OR PAIN Chlorhexidine Gluconate (Hibiclens For Decolonization -) 1 applic TP HS [facility] Last Admin: 01/02/17 22:00 Dose: 1 applic Furosemide (Lasix -) 40 mg PO DAILY [facility] Last Admin: 01/03/17 09:09 Dose: 40 mg Heparin Sodium (Porcine) (Heparin -) 5,000 unit SQ BID [facility] Last Admin: 01/03/17 09:09 Dose: 5,000 unit Insulin Aspart (Novolog Vial Sliding Scale -) 1 vial SQ ACHS [facility] PRN Reason: Protocol Last Admin: 01/03/17 07:00 Dose: 4 units Levothyroxine Sodium (Synthroid Injection -) 100 mcg IVPUSH DAILY [facility] Last Admin: 01/03/17 09:12 Dose: 100 mcg Losartan Potassium (Cozaar -) 25 mg PO DAILY [facility] Last Admin: 01/03/17 09:09 Dose: 25 mg Metoprolol Tartrate (Lopressor Injection -) 2.5 mg IVPUSH Q4H PRN PRN Reason: TACHYCARDIA A/P Diabetic Ketoacidosis resolved Left Empyema s/p L VATS/pneumolysis/partial decortication/chest tube placement 12/30 +Troponins likely Demand Ischemia ESRD on HD HTN - continue antibiotics - pain control - incentive spirometry - glucose control - HD per renal - DVT prophylaxis - OOB to chair critical care time spent in reviewing chart, evaluating patient and formulating plan 35 min
--- NOTE | 2017-01-03 10:53 | PN ---
Progress Note (short form) - Note Progress Note: Renal Follow up fro ESRD on HD Pt seen and examined in the ICU awake and alert on NC O2 chest tubes in place tolerated dialysis well yesterday with 2.5L UF no acute complaints today Vital Signs Temperature 98.6 F 01/03/17 06:00 Pulse Rate 63 01/03/17 10:00 Respiratory Rate 14 01/03/17 10:00 Blood Pressure 116/39 01/03/17 10:00 O2 Sat by Pulse Oximetry (%) 96 01/03/17 10:00 Intake & Output 12/31/16 01/01/17 01/02/17 01/03/17 23:59 23:59 23:59 23:59 Intake Total 240 600 600 300 Output Total 350 347 72 10 Balance -110 253 528 290 Weight 219 lb 4.8 oz 217 lb 11.2 oz 219 lb 5.759 oz 210 lb 8 oz Gen: NAD, CVS: RRR, No M/R Lungs: Dec BS B/L LUng hope (anterior exam) + SC emphysema Abd: soft NT/ND Ext: trace to 1+ edema in LE CBC, BMP 01/03/17 05:30 01/03/17 05:30 Laboratory Tests 01/03/17 05:30 Calcium 7.3 L Albumin 1.4 L Random Vancomycin 8.090 Current Medications Acetaminophen (Tylenol -) 650 mg PO Q6H PRN PRN Reason: FEVER OR PAIN Chlorhexidine Gluconate (Hibiclens For Decolonization -) 1 applic TP HS [facility] Last Admin: 01/02/17 22:00 Dose: 1 applic Furosemide (Lasix -) 40 mg PO DAILY REJI Last Admin: 01/03/17 09:09 Dose: 40 mg Heparin Sodium (Porcine) (Heparin -) 5,000 unit SQ BID REJI Last Admin: 01/03/17 09:09 Dose: 5,000 unit Vancomycin HCl 1,000 mg/ (Dextrose) 250 mls @ 250 mls/hr IVPB ONCE ONE PRN Reason: Protocol Stop: 01/03/17 11:48 Insulin Aspart (Novolog Vial Sliding Scale -) 1 vial SQ ACHS REJI PRN Reason: Protocol Last Admin: 01/03/17 07:00 Dose: 4 units Levothyroxine Sodium (Synthroid Injection -) 100 mcg IVPUSH DAILY [facility] Last Admin: 01/03/17 09:12 Dose: 100 mcg Losartan Potassium (Cozaar -) 25 mg PO DAILY REJI Last Admin: 01/03/17 09:09 Dose: 25 mg Metoprolol Tartrate (Lopressor Injection -) 2.5 mg IVPUSH Q4H PRN PRN Reason: TACHYCARDIA A/P breast ca s/p lumpectomy and chemotherapy, IDDM, HTN, and ESRD on HD M/W/F who presented to the ED today via EMS after her dialysis center notified police that she missed her treatment on Thursday and was not answering the phone. 66 year old woman with PMhx of ESRD on HD, Breast Ca s/p Chemo and Lumpectomy, IDDM, Hypertension presented with AMS and found to have DKA, Acute CVA and Pnemothorax #ESRD on HD Tolerated dialysis yesterday with 2.5L UF No acute indication for [facility] [employer] today next planned dialysis is Thursday #Empyema/Pneumothorax/Leukocytosis Chest tube in place s/p VATS Management as per thorasic Sx possible removal of chest tubes early next week Will dose Vanco 1g IV today Repeat levels in the AM ID following for Abx #Acute/Subacute CVA supportive Care Neurology follow up Thank you Jose Carlos Wray DO
--- NOTE | 2017-01-03 10:58 | PN ---
Progress Note (short form) - Note Progress Note: Subjective: The patient was seen and examined at the bedside she has no complaints at this time. Denies chest pain and shortness of breath Tolerated HD yesterday Current Medications Generic Name Dose Route Start Last Admin Trade Name Olive PRN Reason Stop Dose Admin Acetaminophen 650 mg 01/01/17 15:54 Tylenol - PO Q6H PRN FEVER OR PAIN Chlorhexidine Gluconate 1 applic 12/30/16 22:00 01/02/17 22:00 Hibiclens For Decolonization - TP 1 applic HS REJI Administration Furosemide 40 mg 01/02/17 10:00 01/03/17 09:09 Lasix - PO 40 mg DAILY REJI Administration Heparin Sodium (Porcine) 5,000 unit 12/30/16 22:00 01/03/17 09:09 Heparin - SQ 5,000 unit BID REJI Administration Vancomycin HCl 1,000 mg/ 250 mls @ 250 mls/hr 01/03/17 10:49 Dextrose IVPB 01/03/17 11:48 ONCE ONE Protocol Insulin Aspart 1 vial 12/30/16 22:00 01/03/17 07:00 Novolog Vial Sliding Scale - SQ 4 units ACHS REJI Administration Protocol Levothyroxine Sodium 100 mcg 12/31/16 10:00 01/03/17 09:12 Synthroid Injection - IVPUSH 100 mcg DAILY REJI Administration Losartan Potassium 25 mg 01/02/17 10:00 01/03/17 09:09 Cozaar - PO 25 mg DAILY REJI Administration Metoprolol Tartrate 2.5 mg 12/30/16 17:14 Lopressor Injection - IVPUSH Q4H PRN TACHYCARDIA Objective: Vital Signs Period Temp Pulse Resp BP Sys/Aguirre Pulse Ox Last 24 Hr 97.2 F-98.6 F 59-72 14-24 60-180/35-55 93-96 Physical Exam: General: NAD Lungs: B/l rhonchi. Sq emphysema remains. Left anterior chest tube, no air leak. lateral chest tube with serosangenous drainage with air leak. Left axilla with tejinder, c/d/i Heart: RRR, S1S2 Abd: Soft, non-tender Ext: B/l upper and lower extremity edema 1+ Neuro: Left mouth droop CBCD WBC 16.3 K/mm3 (4.0-10.0) H 01/03/17 05:30 RBC 3.89 M/mm3 (3.60-5.2) 01/03/17 05:30 Hgb 11.0 GM/dL (10.7-15.3) 01/03/17 05:30 Hct 35.1 % (32.4-45.2) 01/03/17 05:30 MCV 90.2 fl (80-96) 01/03/17 05:30 MCHC 31.4 g/dl (32.0-36.0) L 01/03/17 05:30 RDW 16.2 % (11.6-15.6) H 01/03/17 05:30 Plt Count 265 K/MM3 (134-434) 01/03/17 05:30 MPV 9.1 fl (7.5-11.1) 01/03/17 05:30 CMP Sodium 144 mmol/L (136-145) 01/03/17 05:30 Potassium 3.5 mmol/L (3.5-5.1) 01/03/17 05:30 Chloride 102 mmol/L (98-107) 01/03/17 05:30 Carbon Dioxide 32 mmol/L (21-32) 01/03/17 05:30 Anion Gap 10 (8-16) 01/03/17 05:30 BUN 21 mg/dL (7-18) H D 01/03/17 05:30 Creatinine 2.5 mg/dL (0.55-1.02) H D 01/03/17 05:30 Creat Clearance w eGFR 19.15 (>60) 01/03/17 05:30 Random Glucose 190 mg/dL (74-106) H 01/03/17 05:30 Calcium 7.3 mg/dL (8.5-10.1) L 01/03/17 05:30 Total Bilirubin 0.4 mg/dL (0.2-1.0) 01/03/17 05:30 AST 28 U/L (15-37) 01/03/17 05:30 ALT 10 U/L (12-78) L 01/03/17 05:30 Alkaline Phosphatase 198 U/L (45-117) H 01/03/17 05:30 Total Protein 4.4 g/dl (6.4-8.2) L 01/03/17 05:30 Albumin 1.4 g/dl (3.4-5.0) L 01/03/17 05:30 CARDIAC ENZYMES Creatine Kinase 53 IU/L (26-192) 12/26/16 18:13 Troponin I 0.62 ng/ml (0.00-0.05) H* 12/27/16 05:20 Microbiology 12/30/16 16:40 Lung - Left Gram Stain - Final 12/30/16 16:40 Lung - Left Tissue Culture - Preliminary Staphylococcus Epidermidis Staphylococcus Species Staphylococcus Species#2 12/30/16 16:40 Lung - Left Anaerobic Culture - Final NO ANAEROBES WERE ISOLATED 12/30/16 15:10 Pleural Fluid Gram Stain - Final 12/30/16 15:10 Pleural Fluid Body Fluid Culture - Final NO GROWTH OF AEROBIC ORGANISMS AFTER 48 HOURS INCUBATION 12/30/16 15:10 Pleural Fluid Anaerobic Culture - Final NO ANAEROBES WERE ISOLATED 12/27/16 15:25 Blood - Peripheral Venous Blood Culture - Final NO GROWTH AFTER 5 DAYS INCUBATION 12/27/16 15:20 Blood - Peripheral Venous Blood Culture - Final NO GROWTH AFTER 5 DAYS INCUBATION 12/30/16 14:30 Bronchial Washings - Left Upper Lobe Gram Stain - Final 12/30/16 14:30 Bronchial Washings - Left Upper Lobe Bronchoalveolar Lavage Culture - Final NORMAL RESPIRATORY LORNA 12/30/16 15:10 Pleural Fluid AFB Smear Concentration - Final 12/30/16 15:10 Pleural Fluid Mycobacterial Culture - Preliminary 12/26/16 13:57 Blood - Peripheral Venous Blood Culture - Final Staphylococcus Epidermidis 12/28/16 12:30 Blood - Peripheral Venous TB Test (QFT) (ALL) - Final 12/27/16 14:00 Pleural Fluid Gram Stain - Final 12/27/16 14:00 Pleural Fluid Body Fluid Culture - Final Staphylococcus Epidermidis 12/27/16 14:00 Pleural Fluid Anaerobic Culture - Final NO ANAEROBES WERE ISOLATED 12/26/16 13:57 Blood - Peripheral Venous Blood Culture - Final NO GROWTH AFTER 5 DAYS INCUBATION 12/30/16 15:10 Pleural Fluid SCOTT Preparation - Preliminary 12/30/16 15:10 Pleural Fluid Fungal Culture - Preliminary 12/28/16 11:30 Pleural Fluid AFB Smear Concentration - Final Imaging 12/26 Echo: mild cLVH, LV function normal; RV normal; LAE; mild MR; mild TR; mild to moderate and AI 12/26 CT head x 2: acute/subacute infarct 3.5 x 2cm right cerebellar hemisphere 12/27 US carotids: extensive atherosclerotic disease; 60-79% stenosis bilaterally R>L 12/29 MRI Brain: (1) large right inferior cerebellar acute/subacute infarct; (2) acute/subacute cortical infarct at the right junction of the medulla oblongata and cervical cord as well as a couple of acute/subactute lacunar infarcts in the left frontal lobe and likely in the right occipital lobe Assessment: This is 66 year old female with PMHx of HTN, hyperlipidemia, IDDM, breast cancer s/p lumpectomy and chemotherapy, hypothyroidism, ESRD (on HD), who presented to the ED after being found lethargic in her house and was found to have DKA, pneumonia, and CVA. Plan: 1) ID: Severe sepsis 2/2 Left lung empyema, pneumonia - Lactic acidosis resolved - Left lung fluid culture with Staphylococcus Epidermidis, and prelim staph species x2, awaiting final c/s - Meropenem discontinued on 01/01 - Vanco level low, Vanco dosed per renal - Appreciate ID consult 2) Pulmonary: s/p L VATS/pneumolysis/partial decortication/chest tube placement 12/30 - Left chest tubes with serosang output - Incentive spirometer - Appreciate pulmonary consult 3) : ESRD on HD - Tolerated HD yesterday - Appreciate nephrology consult 4) Cardiology: NSTEMI, likely type II - Likely demand ischemia in setting of DKA, CVA, increase in volume overload 2/ 2 missed HD - ECHO with normal LVSF with no RWMA - Further cardiac workup once improving acute events PSVT - On atenolol at home - HRs in 60s, will not resume bblocker now - Appreciate cardiology consult 5) Neuro: CVA - MRI with large right inferior cerebellar acute/subacute infarct. Acute/ subacute cortical infarct at the right junction of the medulla oblongata and cervical cord as well as a couple of acute/subacute lacunar infarcts in the left frontal love at the level of the centrum semiovale and likely in the right occipital lobe. 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 Correlate with CT angio of head and neck - F/u neuro recommendations for CT angio head and neck - Antiplatelet therapy per neuro/cardiology - PT consult - Will likely require SNF placement - Appreciate neuro consult 6) Endocrinology: DKA - Resolved - Continue ISS ACHS - BGM ACHS Hypothyroidism - Continue Synthroid 7) F/E/N: - Dysphagia, diabetic diet - Monitor electrolytes 8) Prophyaxis: - Heparin 5,000u sq bid 9) Dispo: - Requires continued ICU care CODE STATUS: FULL CODE Visit type - Emergency Visit Emergency Visit: Yes ED Registration Date: 12/26/16 Care time: The patient presented to the Emergency Department on the above date and was hospitalized for further evaluation of their emergent condition. - New Patient This patient is new to me today: No - Critical Care Critical Care patient: Yes Total Critical Care Time (in minutes): 45 Critical Care Statement: The care of this patient involved high complexity decision making to prevent further life threatening deterioration of the patient 's condition and/or to evalute & treat vital organ system(s) failure or risk of failure.
[2017-01-03] MEDS ORDERED: VANCOMYCIN 1 GRAM (PRE-DOCKED) 250 ML IVPB ONE (11:15)
--- NOTE | 2017-01-03 11:59 | PN ---
Progress Note (short form) - Note Progress Note: Chief Complaint: CVA, PSVT S: no cp, palps, sob, dizziness. ex-cigs Current Medications Generic Name Dose Route Start Last Admin Trade Name Olive PRN Reason Stop Dose Admin Acetaminophen 650 mg 01/01/17 15:54 Tylenol - PO Q6H PRN FEVER OR PAIN Chlorhexidine Gluconate 1 applic 12/30/16 22:00 01/02/17 22:00 Hibiclens For Decolonization - TP 1 applic HS REJI Administration Furosemide 40 mg 01/02/17 10:00 01/03/17 09:09 Lasix - PO 40 mg DAILY REJI Administration Heparin Sodium (Porcine) 5,000 unit 12/30/16 22:00 01/03/17 09:09 Heparin - SQ 5,000 unit BID REJI Administration Vancomycin HCl 250 mls @ 250 mls/hr 01/03/17 11:15 Vancomycin (Pre-Docked) IVPB 01/03/17 12:14 ONCE ONE Protocol Insulin Aspart 1 vial 12/30/16 22:00 01/03/17 07:00 Novolog Vial Sliding Scale - SQ 4 units ACHS REJI Administration Protocol Levothyroxine Sodium 100 mcg 12/31/16 10:00 01/03/17 09:12 Synthroid Injection - IVPUSH 100 mcg DAILY REJI Administration Losartan Potassium 25 mg 01/02/17 10:00 01/03/17 09:09 Cozaar - PO 25 mg DAILY REJI Administration Metoprolol Succinate 25 mg 01/03/17 12:00 Toprol Xl - PO DAILY REJI Metoprolol Tartrate 2.5 mg 12/30/16 17:14 Lopressor Injection - IVPUSH Q4H PRN TACHYCARDIA Vital Signs Period Temp Pulse Resp BP Sys/Aguirre Pulse Ox Last 24 Hr 97.2 F-98.6 F 59-72 14-24 60-180/35-55 93-96 Constitutional: Yes: No Distress, Calm Eyes: No: Sclera Icterus HENT: No: Nasal Congestion Cardiovascular: Yes: Regular Rate and Rhythm, S1, S2, Other (PMI non diplaced). No: JVD, Gallop, Murmur Respiratory: Yes: B/l rhonchi No: Accessory Muscle Use, Rales, Wheezes Gastrointestinal: Yes: Normal Bowel Sounds, Soft. No: Tenderness Musculoskeletal: Yes: Other (No kyphosis) Extremities: No: Cold. + rt sided weakness. Edema: No Integumentary: No: Jaundice diaphoresis Neurological: Yes: awake alert appropriate Psychiatric: No: Agitated Labs: CBC, BMP 01/03/17 05:30 01/03/17 05:30 tele: sr, nsvt 5 beats, occ pvcs, brief svt EKG: SB, LVH. biphasic anterior t waves. Slightly more prominent than priors. Stable on repeat EKG x 2. head CT: suspicion for acute/subacute cerebellar infarct brain MRI: large rt inf cerebellar acute/subacute infarct. acute/subacute lacunar infarct at rt medulla oblongata. acute/subacute lacunar infarct of left frontal lobe and possibly occipital lobe. meningioma. Echo here: nl lv/rv size/fn. mild lae, mod mac, mild-mod as/ar, mild mr/tr a/p: 66 yo with h/o left breast ca s/p lumpectomy and chemotherapy, SVT per patient's documentation, IDDM, HTN, thyroid disease and ESRD recently started on HD M// who presented to the ED with altered mental status found to be in DKA and with acute cerebellar infarct. NSTEMI, likely Type II: - trop 0.9 on admit, trended down - likely demand ischemia in setting DKA, CVA and > volume overload sec to missed HD session. - normal LVEF with no RWMA on echo - no acute anti-PLT or AC treatment is indicated for Type II MD - shelter preventive therapy with ASA, statin when stable from acute issues. cont arb and will start bb today. - should have risk stratification with nuclear stress test imaging later, after she recovers from acute illnesses AMS/possible acute brainstem CVA - MS change ? sec to hyperglycemia vs CVA --> improving - echo unrevealing - anti-PLT as per neuro LLL PNA, empyema, PTX: -on abx -seen by thoracic surgery, considering VATS but planning med mgmt +/- chest tube only for now given her recent CVA increasing risk of anesthesia -per crit care/pulm/thoracic surgery. 12/30 s/p Flexible bronchoscopy, left thoracoscopy, pneumolysis, partial decortication, drainage of effusion PSVT - known hx, on atenolol 50 bid at home, held here for bradycardia but now with recurrent brief svt on tele so will start toprol 25 qd - cont tele HTN - cont arb, bb
[2017-01-03] MEDS: METOPROLOL SUCCINATE 25 MG TAB.SR.24H (FP) PO SCH (13:00)
--- NOTE | 2017-01-03 16:41 | PN ---
Progress Note, Physician History of Present Illness: continuing to improve says she was able to eat feels ok tired - Current Medication List Current Medications: Active Medications Acetaminophen (Tylenol -) 650 mg PO Q6H PRN PRN Reason: FEVER OR PAIN Chlorhexidine Gluconate (Hibiclens For Decolonization -) 1 applic TP HS [facility] Last Admin: 01/02/17 22:00 Dose: 1 applic Furosemide (Lasix -) 40 mg PO DAILY [facility] Last Admin: 01/03/17 09:09 Dose: 40 mg Heparin Sodium (Porcine) (Heparin -) 5,000 unit SQ BID [facility] Last Admin: 01/03/17 09:09 Dose: 5,000 unit Insulin Aspart (Novolog Vial Sliding Scale -) 1 vial SQ ACHS [facility] PRN Reason: Protocol Last Admin: 01/03/17 16:21 Dose: 4 units Levothyroxine Sodium (Synthroid Injection -) 100 mcg IVPUSH DAILY [facility] Last Admin: 01/03/17 09:12 Dose: 100 mcg Losartan Potassium (Cozaar -) 25 mg PO DAILY [facility] Last Admin: 01/03/17 09:09 Dose: 25 mg Metoprolol Succinate (Toprol Xl -) 25 mg PO DAILY [facility] Last Admin: 01/03/17 13:00 Dose: 25 mg Metoprolol Tartrate (Lopressor Injection -) 2.5 mg IVPUSH Q4H PRN PRN Reason: TACHYCARDIA - Objective Vital Signs: Vital Signs Temperature 98.6 F 01/03/17 06:00 Pulse Rate 63 01/03/17 10:00 Respiratory Rate 14 01/03/17 10:00 Blood Pressure 116/39 01/03/17 10:00 O2 Sat by Pulse Oximetry (%) 96 01/03/17 10:00 Constitutional: Yes: No Distress, Calm Cardiovascular: Yes: S1, S2 Respiratory: Yes: Regular, Other (poor entry left side chest tube with minimal draiange now site looks good resp stable) Gastrointestinal: Yes: Normal Bowel Sounds, Soft Musculoskeletal: Yes: Other Extremities: Yes: WNL Integumentary: Yes: Other (central line left side of the neck) Wound/Incision: Yes: Clean/Dry, Dressing Dry and Intact Neurological: Yes: Alert, Oriented Psychiatric: Yes: Alert, Oriented Labs: CBC, BMP 01/03/17 05:30 01/03/17 05:30 INR, PTT INR 1.28 (0.82-1.09) H 12/31/16 05:20 Assessment/Plan cerebellar infarct LLL Pneumonia empyema s/p VATS PTX htn esrd leukocytosis ptx wbc still on the higher side plan vanco levells checked dose of vanco given we will give the vanco now during dialysis incentive kristy rest as per icu/ct surgery watch wbc if it does not trend down we will have another abx cc time 40 min
[2017-01-03] MEDS ORDERED: VANCOMYCIN 1,250 MG in DEXTROSE 5%-WATER - 250 ML IVPB ONE (17:00)
[2017-01-03] MEDS: CHLORHEXIDINE GLUCONATE 4% CLEANSER FOR DECOLONIZATION TP SCH (22:00)
[2017-01-04] MEDS: INSULIN SLIDING SCALE (NOVOLOG) 1 VIAL SQ SCH ×4 (06:03→21:47)
[2017-01-04 06:29] LABS: BASOPHIL 0.3 % (0-2.0); EOSINOPHIL 1.6 % (0-4.5); MCH 29.1 pg (25.7-33.7); MCHC 31.9 g/dl (32.0-36.0); MEAN CELL VOLUME 91.1 fl (80-96); MEAN PLT VOLUME 8.9 fl (7.5-11.1); NEUTROPHILS 85.1 % (42.8-82.8); PLATELET COUNT 257 K/MM3 (134-434); RDW 16.2 % (11.6-15.6); WHITE BLOOD COUNT 13.7 K/mm3 (4.0-10.0)
[2017-01-04 06:33] LABS: ALBUMIN 1.5 g/dl (3.4-5.0); BILIRUBIN,TOTAL 0.5 mg/dL (0.2-1.0); CALCIUM 7.2 mg/dL (8.5-10.1); COCKROFT - GAULT 30.056; CREATININE 2.7 mg/dL (0.55-1.02); MAGNESIUM 1.6 mg/dL (1.8-2.4); PHOSPHOROUS 4.7 mg/dL (2.5-4.9)
[2017-01-04 06:34] LABS: TOT PROT 4.6 g/dl (6.4-8.2)
--- NOTE | 2017-01-04 07:24 | PN ---
Progress Note (short form) - Note Progress Note: Renal Follow up fro ESRD on HD Pt seen and examined in the ICU awake and alert no acute complaints no sob or chest pain Vital Signs Temperature 97.2 F L 01/04/17 02:00 Pulse Rate 57 L 01/04/17 04:00 Respiratory Rate 18 01/04/17 04:00 Blood Pressure 144/65 01/04/17 04:00 O2 Sat by Pulse Oximetry (%) 100 01/03/17 22:00 Intake & Output 01/01/17 01/02/17 01/03/17 01/04/17 23:59 23:59 23:59 23:59 Intake Total 918 380 1258 Output Total 347 72 50 Balance 463 064 8809 Weight 217 lb 11.2 oz 219 lb 5.759 oz 210 lb 8 oz Gen: NAD, CVS: RRR, No M/R Lungs: Dec BS B/L LUng hope (anterior exam) + SC emphysema Abd: soft NT/ND Ext: trace to 1+ edema in LE CBC, BMP 01/04/17 05:45 01/04/17 05:45 Laboratory Tests 01/04/17 05:45 Calcium 7.2 L Phosphorus 4.7 Magnesium 1.6 L Albumin 1.5 L Current Medications Acetaminophen (Tylenol -) 650 mg PO Q6H PRN PRN Reason: FEVER OR PAIN Chlorhexidine Gluconate (Hibiclens For Decolonization -) 1 applic TP HS [facility] Last Admin: 01/03/17 22:00 Dose: 1 applic Furosemide (Lasix -) 40 mg PO DAILY REJI Last Admin: 01/03/17 09:09 Dose: 40 mg Heparin Sodium (Porcine) (Heparin -) 5,000 unit SQ BID REJI Last Admin: 01/03/17 21:30 Dose: 5,000 unit Insulin Aspart (Novolog Vial Sliding Scale -) 1 vial SQ ACHS REJI PRN Reason: Protocol Last Admin: 01/04/17 06:03 Dose: 4 units Levothyroxine Sodium (Synthroid Injection -) 100 mcg IVPUSH DAILY [facility] Last Admin: 01/03/17 09:12 Dose: 100 mcg Losartan Potassium (Cozaar -) 25 mg PO DAILY REJI Last Admin: 01/03/17 09:09 Dose: 25 mg Magnesium Sulfate (Magnesium Sulfate) 1 gm IVPB ONCE ONE Stop: 05/14/17 07:20 Metoprolol Succinate (Toprol Xl -) 25 mg PO DAILY REJI Last Admin: 01/03/17 13:00 Dose: 25 mg Metoprolol Tartrate (Lopressor Injection -) 2.5 mg IVPUSH Q4H PRN PRN Reason: TACHYCARDIA A/P breast ca s/p lumpectomy and chemotherapy, IDDM, HTN, and ESRD on HD M/W/F who presented to the ED today via EMS after her dialysis center notified police that she missed her treatment on Thursday and was not answering the phone. 66 year old woman with PMhx of ESRD on HD, Breast Ca s/p Chemo and Lumpectomy, IDDM, Hypertension presented with AMS and found to have DKA, Acute CVA and Pnemothorax #ESRD on HD no acute indication for dialysis today next treatment planned for tomorrow #Empyema/Pneumothorax/Leukocytosis Chest tube in place s/p VATS Management as per thorasic Sx possible removal of chest tubes early next week s/p Vanco yesterday, levels acceptable will repeat levels with HD and dose as needed #Acute/Subacute CVA supportive Care Neurology follow up Thank you Jose Carlos Wray DO
[2017-01-04] MEDS ORDERED: MAGNESIUM SULF 50% (8.12 MEQ/2 ML-1 GM VIAL) IVPB ONE (08:00)
[2017-01-04] MEDS ORDERED: PT OWN MED DRAWER 7, Y5N ONE (09:05)
[2017-01-04] MEDS: HEPARIN NA (PORCINE) 5,000 UNITS/ML 1ML VIAL SQ SCH ×2 (09:09→21:46)
[2017-01-04] MEDS: LOSARTAN POTASSIUM 25 MG TABLET PO SCH (09:09)
[2017-01-04] MEDS: METOPROLOL SUCCINATE 25 MG TAB.SR.24H (FP) PO SCH (09:10)
[2017-01-04] MEDS: FUROSEMIDE 40 MG TABLET (FP) PO SCH (09:10)
[2017-01-04] MEDS: LEVOTHYROXINE SODIUM 100 MCG VIAL IVPUSH SCH (09:10)
--- NOTE | 2017-01-04 10:07 | PN ---
Progress Note (short form) - Note Progress Note: PULMONARY/CCM Pt seen and examined in the ICU. No shortness of breath or chest pain. Pain adequately controlled. Denies fevers or chills. Last Vital Signs Temp Pulse Resp BP Pulse Ox 97.4 F L 68 18 132/49 98 01/04/17 06:00 01/04/17 08:00 01/04/17 08:00 01/04/17 08:00 01/04/17 09:00 Intake & Output 01/01/17 01/02/17 01/03/17 01/04/17 23:59 23:59 23:59 23:59 Intake Total 315 179 3360 100 Output Total 347 72 50 36 Balance 277 335 9109 64 Weight 217 lb 11.2 oz 219 lb 5.759 oz 210 lb 8 oz 217 lb 12.8 oz Gen: mildly tachypneic with exertion Heart: RRR Lung: decreased breath sounds left base, +rhonchi Abd: soft, nontender Ext: trace edema Chest tube: lateral chest tube with air leak CBC, BMP 01/04/17 05:45 01/04/17 05:45 Active Medications Acetaminophen (Tylenol -) 650 mg PO Q6H PRN PRN Reason: FEVER OR PAIN Chlorhexidine Gluconate (Hibiclens For Decolonization -) 1 applic TP HS [facility] Last Admin: 01/03/17 22:00 Dose: 1 applic Furosemide (Lasix -) 40 mg PO DAILY [facility] Last Admin: 01/04/17 09:10 Dose: 40 mg Heparin Sodium (Porcine) (Heparin -) 5,000 unit SQ BID [facility] Last Admin: 01/04/17 09:09 Dose: 5,000 unit Insulin Aspart (Novolog Vial Sliding Scale -) 1 vial SQ ACHS [facility] PRN Reason: Protocol Last Admin: 01/04/17 06:03 Dose: 4 units Levothyroxine Sodium (Synthroid Injection -) 100 mcg IVPUSH DAILY [facility] Last Admin: 01/04/17 09:10 Dose: 100 mcg Losartan Potassium (Cozaar -) 25 mg PO DAILY [facility] Last Admin: 01/04/17 09:09 Dose: 25 mg Metoprolol Succinate (Toprol Xl -) 25 mg PO DAILY [facility] Last Admin: 01/04/17 09:10 Dose: 25 mg Metoprolol Tartrate (Lopressor Injection -) 2.5 mg IVPUSH Q4H PRN PRN Reason: TACHYCARDIA A/P Diabetic Ketoacidosis resolved Left Empyema s/p L VATS/pneumolysis/partial decortication/chest tube placement 12/30 +Troponins likely Demand Ischemia ESRD on HD HTN - continue antibiotics per ID - pain control - incentive spirometry - glucose control - HD per renal - DVT prophylaxis - OOB to chair
--- NOTE | 2017-01-04 12:15 | PN ---
Progress Note (short form) - Note Progress Note: Chief Complaint: CVA, PSVT S: no cp, palps, sob, dizziness. Current Medications Generic Name Dose Route Start Last Admin Trade Name Olive PRN Reason Stop Dose Admin Acetaminophen 650 mg 01/01/17 15:54 Tylenol - PO Q6H PRN FEVER OR PAIN Chlorhexidine Gluconate 1 applic 12/30/16 22:00 01/03/17 22:00 Hibiclens For Decolonization - TP 1 applic HS REJI Administration Furosemide 40 mg 01/02/17 10:00 01/04/17 09:10 Lasix - PO 40 mg DAILY REJI Administration Heparin Sodium (Porcine) 5,000 unit 12/30/16 22:00 01/04/17 09:09 Heparin - SQ 5,000 unit BID REJI Administration Insulin Aspart 1 vial 12/30/16 22:00 01/04/17 06:03 Novolog Vial Sliding Scale - SQ 4 units ACHS REJI Administration Protocol Levothyroxine Sodium 100 mcg 12/31/16 10:00 01/04/17 09:10 Synthroid Injection - IVPUSH 100 mcg DAILY REJI Administration Losartan Potassium 25 mg 01/02/17 10:00 01/04/17 09:09 Cozaar - PO 25 mg DAILY REJI Administration Metoprolol Succinate 25 mg 01/03/17 12:00 01/04/17 09:10 Toprol Xl - PO 25 mg DAILY REJI Administration Metoprolol Tartrate 2.5 mg 12/30/16 17:14 Lopressor Injection - IVPUSH Q4H PRN TACHYCARDIA Vital Signs Period Temp Pulse Resp BP Sys/Aguirre Pulse Ox Last 24 Hr 97 F-98 F 57-68 18-20 127-169/42-72 98-100 Constitutional: Yes: No Distress, Calm Eyes: No: Sclera Icterus HENT: No: Nasal Congestion Cardiovascular: Yes: Regular Rate and Rhythm, S1, S2, Other (PMI non diplaced). No: JVD, Gallop, Murmur Respiratory: Yes: B/l rhonchi No: Accessory Muscle Use, Rales, Wheezes Gastrointestinal: Yes: Normal Bowel Sounds, Soft. No: Tenderness Musculoskeletal: Yes: Other (No kyphosis) Extremities: No: Cold. + rt sided weakness. Edema: No Integumentary: No: Jaundice diaphoresis Neurological: Yes: awake alert appropriate Psychiatric: No: Agitated Labs: CBC, BMP 01/04/17 05:45 01/04/17 05:45 tele: sr, occ pvcs EKG: SB, LVH. biphasic anterior t waves. Slightly more prominent than priors. Stable on repeat EKG x 2. head CT: suspicion for acute/subacute cerebellar infarct brain MRI: large rt inf cerebellar acute/subacute infarct. acute/subacute lacunar infarct at rt medulla oblongata. acute/subacute lacunar infarct of left frontal lobe and possibly occipital lobe. meningioma. Echo here: nl lv/rv size/fn. mild lae, mod mac, mild-mod as/ar, mild mr/tr a/p: 66 yo with h/o left breast ca s/p lumpectomy and chemotherapy, SVT per patient's documentation, IDDM, HTN, thyroid disease and ESRD recently started on HD M/W/ who presented to the ED with altered mental status found to be in DKA and with acute cerebellar infarct. NSTEMI, likely Type II: - trop 0.9 on admit, trended down - likely demand ischemia in setting DKA, CVA and > volume overload sec to missed HD session. - normal LVEF with no RWMA on echo - no acute anti-PLT or AC treatment is indicated for Type II AR - halfway preventive therapy with ASA, statin when stable from acute issues. cont arb and will start bb today. - should have risk stratification with nuclear stress test imaging later, after she recovers from acute illnesses AMS/possible acute brainstem CVA - MS change ? sec to hyperglycemia vs CVA --> improving - echo unrevealing - anti-PLT as per neuro LLL PNA, empyema, PTX: -on abx -seen by thoracic surgery, considering VATS but started with chest tube only for now given her recent CVA increasing risk of anesthesia -per crit care/pulm/thoracic surgery. 12/30 s/p Flexible bronchoscopy, left thoracoscopy, pneumolysis, partial decortication, drainage of effusion PSVT - known hx, on atenolol 50 bid at home, held here for bradycardia but then had recurrent brief svt on tele so will started toprol 25 qd on 01/03 - cont tele HTN - cont arb, bb
--- NOTE | 2017-01-04 13:14 | PN ---
Progress Note, Physician History of Present Illness: continuing to improve no new issues feels ok tired - Current Medication List Current Medications: Active Medications Acetaminophen (Tylenol -) 650 mg PO Q6H PRN PRN Reason: FEVER OR PAIN Chlorhexidine Gluconate (Hibiclens For Decolonization -) 1 applic TP HS [facility] Last Admin: 01/03/17 22:00 Dose: 1 applic Furosemide (Lasix -) 40 mg PO DAILY [facility] Last Admin: 01/04/17 09:10 Dose: 40 mg Heparin Sodium (Porcine) (Heparin -) 5,000 unit SQ BID [facility] Last Admin: 01/04/17 09:09 Dose: 5,000 unit Insulin Aspart (Novolog Vial Sliding Scale -) 1 vial SQ ACHS [facility] PRN Reason: Protocol Last Admin: 01/04/17 12:19 Dose: 6 units Levothyroxine Sodium (Synthroid Injection -) 100 mcg IVPUSH DAILY [facility] Last Admin: 01/04/17 09:10 Dose: 100 mcg Losartan Potassium (Cozaar -) 25 mg PO DAILY [facility] Last Admin: 01/04/17 09:09 Dose: 25 mg Metoprolol Succinate (Toprol Xl -) 25 mg PO DAILY [facility] Last Admin: 01/04/17 09:10 Dose: 25 mg Metoprolol Tartrate (Lopressor Injection -) 2.5 mg IVPUSH Q4H PRN PRN Reason: TACHYCARDIA - Objective Vital Signs: Vital Signs Temperature 98.5 F 01/04/17 10:00 Pulse Rate 66 01/04/17 12:00 Respiratory Rate 18 01/04/17 12:00 Blood Pressure 134/49 01/04/17 12:00 O2 Sat by Pulse Oximetry (%) 98 01/04/17 13:00 Constitutional: Yes: No Distress, Calm Neck: Yes: Supple, Other Respiratory: Yes: Regular, Poor Air Entry (left side chest tube in place) Gastrointestinal: Yes: Normal Bowel Sounds, Soft Musculoskeletal: Yes: WNL Extremities: Yes: WNL Neurological: Yes: Alert, Oriented Psychiatric: Yes: Alert, Oriented Labs: CBC, BMP 01/04/17 05:45 01/04/17 05:45 INR, PTT INR 1.28 (0.82-1.09) H 12/31/16 05:20 - ....Imaging Chest X-ray: Report Reviewed, Image Reviewed Assessment/Plan cerebellar infarct LLL Pneumonia empyema s/p VATS PTX htn esrd leukocytosis ptx wbc still on the higher side plan will check vanco level tomorrow then decide patient will ahve to be placed on vanco during dialysis continue monitoring wbc wbc lower cc time 40 min
--- NOTE | 2017-01-04 15:04 | PN ---
Progress Note (short form) - Note Progress Note: Subjective: The patient was seen and examined at the bedside she has no complaints at this time. Current Medications Generic Name Dose Route Start Last Admin Trade Name Olive PRN Reason Stop Dose Admin Acetaminophen 650 mg 01/01/17 15:54 Tylenol - PO Q6H PRN FEVER OR PAIN Chlorhexidine Gluconate 1 applic 12/30/16 22:00 01/03/17 22:00 Hibiclens For Decolonization - TP 1 applic HS REJI Administration Furosemide 40 mg 01/02/17 10:00 01/04/17 09:10 Lasix - PO 40 mg DAILY REJI Administration Heparin Sodium (Porcine) 5,000 unit 12/30/16 22:00 01/04/17 09:09 Heparin - SQ 5,000 unit BID REJI Administration Insulin Aspart 1 vial 12/30/16 22:00 01/04/17 12:19 Novolog Vial Sliding Scale - SQ 6 units ACHS REJI Administration Protocol Insulin Detemir 3 units 01/04/17 22:00 Levemir Vial SQ BID REJI Levothyroxine Sodium 100 mcg 12/31/16 10:00 01/04/17 09:10 Synthroid Injection - IVPUSH 100 mcg DAILY REJI Administration Losartan Potassium 25 mg 01/02/17 10:00 01/04/17 09:09 Cozaar - PO 25 mg DAILY REJI Administration Metoprolol Succinate 25 mg 01/03/17 12:00 01/04/17 09:10 Toprol Xl - PO 25 mg DAILY REJI Administration Metoprolol Tartrate 2.5 mg 12/30/16 17:14 Lopressor Injection - IVPUSH Q4H PRN TACHYCARDIA Objective: Vital Signs Period Temp Pulse Resp BP Sys/Aguirre Pulse Ox Last 24 Hr 97 F-98.5 F 57-68 18-20 127-169/42-72 98-100 Physical Exam: General: NAD Lungs: B/l rhonchi. Sq emphysema remains. Left anterior chest tube, no air leak. lateral chest tube with serosangenous drainage with air leak. Left axilla with tejinder, c/d/i Heart: RRR, S1S2 Abd: Soft, non-tender Ext: B/l upper and lower extremity edema 1+ Neuro: Left mouth droop CBCD WBC 13.7 K/mm3 (4.0-10.0) H 01/04/17 05:45 RBC 3.89 M/mm3 (3.60-5.2) 01/04/17 05:45 Hgb 11.3 GM/dL (10.7-15.3) 01/04/17 05:45 Hct 35.5 % (32.4-45.2) 01/04/17 05:45 MCV 91.1 fl (80-96) 01/04/17 05:45 MCHC 31.9 g/dl (32.0-36.0) L 01/04/17 05:45 RDW 16.2 % (11.6-15.6) H 01/04/17 05:45 Plt Count 257 K/MM3 (134-434) 01/04/17 05:45 MPV 8.9 fl (7.5-11.1) 01/04/17 05:45 CMP Sodium 138 mmol/L (136-145) 01/04/17 05:45 Potassium 3.6 mmol/L (3.5-5.1) 01/04/17 05:45 Chloride 97 mmol/L (98-107) L 01/04/17 05:45 Carbon Dioxide 30 mmol/L (21-32) 01/04/17 05:45 Anion Gap 11 (8-16) 01/04/17 05:45 BUN 28 mg/dL (7-18) H D 01/04/17 05:45 Creatinine 2.7 mg/dL (0.55-1.02) H 01/04/17 05:45 Creat Clearance w eGFR 17.52 (>60) 01/04/17 05:45 Random Glucose 226 mg/dL (74-106) H 01/04/17 05:45 Calcium 7.2 mg/dL (8.5-10.1) L 01/04/17 05:45 Total Bilirubin 0.5 mg/dL (0.2-1.0) D 01/04/17 05:45 AST 19 U/L (15-37) D 01/04/17 05:45 ALT 8 U/L (12-78) L 01/04/17 05:45 Alkaline Phosphatase 182 U/L (45-117) H 01/04/17 05:45 Total Protein 4.6 g/dl (6.4-8.2) L 01/04/17 05:45 Albumin 1.5 g/dl (3.4-5.0) L 01/04/17 05:45 CARDIAC ENZYMES Creatine Kinase 53 IU/L (26-192) 12/26/16 18:13 Troponin I 0.62 ng/ml (0.00-0.05) H* 12/27/16 05:20 Microbiology 12/30/16 16:40 Lung - Left Gram Stain - Final 12/30/16 16:40 Lung - Left Tissue Culture - Preliminary Staphylococcus Epidermidis Staphylococcus Epidermidis#2 Staphylococcus Epidermidis#3 12/30/16 16:40 Lung - Left Anaerobic Culture - Final NO ANAEROBES WERE ISOLATED 12/30/16 15:10 Pleural Fluid Gram Stain - Final 12/30/16 15:10 Pleural Fluid Body Fluid Culture - Final NO GROWTH OF AEROBIC ORGANISMS AFTER 48 HOURS INCUBATION 12/30/16 15:10 Pleural Fluid Anaerobic Culture - Final NO ANAEROBES WERE ISOLATED 12/27/16 15:25 Blood - Peripheral Venous Blood Culture - Final NO GROWTH AFTER 5 DAYS INCUBATION 12/27/16 15:20 Blood - Peripheral Venous Blood Culture - Final NO GROWTH AFTER 5 DAYS INCUBATION 12/30/16 14:30 Bronchial Washings - Left Upper Lobe Gram Stain - Final 12/30/16 14:30 Bronchial Washings - Left Upper Lobe Bronchoalveolar Lavage Culture - Final NORMAL RESPIRATORY LORNA 12/30/16 15:10 Pleural Fluid AFB Smear Concentration - Final 12/30/16 15:10 Pleural Fluid Mycobacterial Culture - Preliminary 12/26/16 13:57 Blood - Peripheral Venous Blood Culture - Final Staphylococcus Epidermidis 12/28/16 12:30 Blood - Peripheral Venous TB Test (QFT) (ALL) - Final 12/27/16 14:00 Pleural Fluid Gram Stain - Final 12/27/16 14:00 Pleural Fluid Body Fluid Culture - Final Staphylococcus Epidermidis 12/27/16 14:00 Pleural Fluid Anaerobic Culture - Final NO ANAEROBES WERE ISOLATED 12/26/16 13:57 Blood - Peripheral Venous Blood Culture - Final NO GROWTH AFTER 5 DAYS INCUBATION 12/30/16 15:10 Pleural Fluid SCOTT Preparation - Preliminary 12/30/16 15:10 Pleural Fluid Fungal Culture - Preliminary 12/28/16 11:30 Pleural Fluid AFB Smear Concentration - Final Imaging 12/26 Echo: mild cLVH, LV function normal; RV normal; LAE; mild MR; mild TR; mild to moderate and AI 12/26 CT head x 2: acute/subacute infarct 3.5 x 2cm right cerebellar hemisphere 12/27 US carotids: extensive atherosclerotic disease; 60-79% stenosis bilaterally R>L 12/29 MRI Brain: (1) large right inferior cerebellar acute/subacute infarct; (2) acute/subacute cortical infarct at the right junction of the medulla oblongata and cervical cord as well as a couple of acute/subactute lacunar infarcts in the left frontal lobe and likely in the right occipital lobe Assessment: This is 66 year old female with PMHx of HTN, hyperlipidemia, IDDM, breast cancer s/p lumpectomy and chemotherapy, hypothyroidism, ESRD (on HD), who presented to the ED after being found lethargic in her house and was found to have DKA, pneumonia, and CVA. Plan: 1) ID: Severe sepsis 2/2 Left lung empyema, pneumonia - Lactic acidosis resolved - Left lung fluid culture with Staphylococcus Epidermidis x3, sensitive to Vancomycin - Meropenem discontinued on 01/01 - Continue Vancomycin with HD, check trough tomorrow and dose accordingly - Appreciate ID consult 2) Pulmonary: s/p L VATS/pneumolysis/partial decortication/chest tube placement 12/30 - Chest X-ray today with left subcutaneous emphysema and right jugular line with weak inspiration, prominent mediastinum, and increased left lung markings. A discrete left pneumothorax is difficult to visualize - Left chest tubes with serosang output - Incentive spirometer - Appreciate pulmonary consult - Appreciate CT surgery consult 3) : ESRD on HD - For HD tomorrow - Appreciate nephrology consult 4) Cardiology: NSTEMI, likely type II - Likely demand ischemia in setting of DKA, CVA, increase in volume overload 2/ 2 missed HD - ECHO with normal LVSF with no RWMA - Continue Cozaar - Will need ASA and statin once stable - Further cardiac workup once improving acute events PSVT - On atenolol at home - Started on Toprol XL 25mg po daily - Appreciate cardiology consult 5) Neuro: CVA - MRI with large right inferior cerebellar acute/subacute infarct. Acute/ subacute cortical infarct at the right junction of the medulla oblongata and cervical cord as well as a couple of acute/subacute lacunar infarcts in the left frontal love at the level of the centrum semiovale and likely in the right occipital lobe. 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 Correlate with CT angio of head and neck - F/u neuro recommendations for CT angio head and neck - Antiplatelet therapy per neuro/cardiology - Appreciate neuro consult 6) Endocrinology: DKA - Resolved - Continue ISS ACHS - BGM ACHS - Will start Levemir 3u sq bid for better glycemic control Hypothyroidism - Continue Synthroid 7) F/E/N: - Dysphagia, diabetic diet - Monitor electrolytes - Hypomagnesemia: replete 8) Prophyaxis: - Heparin 5,000u sq bid - PT: will require SNF placement 9) Dispo: - Requires continued ICU care CODE STATUS: FULL CODE Visit type - Emergency Visit Emergency Visit: Yes ED Registration Date: 12/26/16 Care time: The patient presented to the Emergency Department on the above date and was hospitalized for further evaluation of their emergent condition. - New Patient This patient is new to me today: No - Critical Care Critical Care patient: Yes Total Critical Care Time (in minutes): 38 Critical Care Statement: The care of this patient involved high complexity decision making to prevent further life threatening deterioration of the patient 's condition and/or to evalute & treat vital organ system(s) failure or risk of failure.
[2017-01-04] MEDS: INSULIN DETEMIR 100 UNITS/ML MDV SQ SCH (21:46)
[2017-01-04] MEDS: CHLORHEXIDINE GLUCONATE 4% CLEANSER FOR DECOLONIZATION TP SCH (21:48)
[2017-01-05 06:10] LABS: BASOPHIL 0.5 % (0-2.0); EOSINOPHIL 1.4 % (0-4.5); MCH 28.5 pg (25.7-33.7); MCHC 31.6 g/dl (32.0-36.0); MEAN CELL VOLUME 90.2 fl (80-96); MEAN PLT VOLUME 9.1 fl (7.5-11.1); NEUTROPHILS 83.5 % (42.8-82.8); PLATELET COUNT 311 K/MM3 (134-434); RDW 16.2 % (11.6-15.6)
[2017-01-05] MEDS: INSULIN DETEMIR 100 UNITS/ML MDV SQ SCH ×2 (06:36→21:42)
[2017-01-05] MEDS: INSULIN SLIDING SCALE (NOVOLOG) 1 VIAL SQ SCH ×4 (06:37→21:41)
[2017-01-05 06:40] LABS: ALBUMIN 1.5 g/dl (3.4-5.0); CALCIUM 7.4 mg/dL (8.5-10.1)
[2017-01-05 06:42] LABS: BILIRUBIN,TOTAL 0.5 mg/dL (0.2-1.0); COCKROFT - GAULT 28.662; CREATININE 2.9 mg/dL (0.55-1.02); TOT PROT 4.7 g/dl (6.4-8.2)
--- NOTE | 2017-01-05 07:54 | PN ---
Physical Exam: SUBJECTIVE: Patient seen and examined. c/o right sided pain. She was not able to tolerate OOB over the weekend, she found transferring/sitting painful and difficult. just touching anywhere on her right side is painful. OBJECTIVE: Vital Signs Period Temp Pulse Resp BP Sys/Aguirre Pulse Ox Last 24 Hr 97.8 F-98.8 F 56-68 18-20 109-153/34-63 98-100 GENERAL: The patient is awake, alert, and fully oriented, in no acute distress. EYES: PERRL, extraocular movements intact, sclera anicteric, conjunctiva clear. No ptosis. ENT: nares patent with 2lpm nasal cannula, oropharynx clear without exudates, moist mucous membranes. NECK: Trachea midline, full range of motion, supple. crepitus in neck, left upper chest, shoulder. LUNGS: right base quiet, clear anteriorly. left with inspiratory and expiratory rales/rhonchi throughout HEART: Regular rate and rhythm, S1, S2 without murmur. ABDOMEN: Soft, diffusely mildly tender, nondistended, normoactive bowel sounds, no guarding EXTREMITIES: weak+ dp pulses, radial pulses 2+, cool extremities, well-perfused , edema decreased in right upper arm, nonpitting edema in hand. palpable thrill on left arm at fistula site. NEUROLOGICAL: Normal speech. right: hand judicial assistant 2/5, shoulder and elbow extension 1/5. ankle dorsi/planter 3/ 5. left 4/5 hand judicial assistant. Laboratory Results - last 24 hr 01/04/17 01/04/17 01/04/17 11:23 16:17 21:27 WBC RBC Hgb Hct MCV MCHC RDW Plt Count MPV Neutrophils % Lymphocytes % Monocytes % Eosinophils % Basophils % Sodium Potassium Chloride Carbon Dioxide Anion Gap BUN Creatinine Creat Clearance w eGFR POC Glucometer 286.09343 180.24379 233.35804 Random Glucose Calcium Phosphorus Magnesium Total Bilirubin AST ALT Alkaline Phosphatase Total Protein Albumin 01/05/17 01/05/17 01/05/17 05:15 05:15 05:50 WBC 13.0 H RBC 3.86 Hgb 11.0 Hct 34.8 MCV 90.2 MCHC 31.6 L RDW 16.2 H Plt Count 311 D MPV 9.1 Neutrophils % 83.5 H Lymphocytes % 9.3 Monocytes % 5.3 Eosinophils % 1.4 Basophils % 0.5 Sodium 140 Potassium 3.8 Chloride 96 L Carbon Dioxide 31 Anion Gap 13 BUN 34 H D Creatinine 2.9 H Creat Clearance w eGFR 16.14 POC Glucometer [phone] Random Glucose 102 D Calcium 7.4 L Phosphorus 5.0 H Magnesium 2.0 D Total Bilirubin 0.5 AST 18 ALT 8 L Alkaline Phosphatase 169 H Total Protein 4.7 L Albumin 1.5 L Active Medications Generic Name Dose Route Start Last Admin Trade Name Freq PRN Reason Stop Dose Admin Acetaminophen 650 mg 01/01/17 15:54 Tylenol - PO Q6H PRN FEVER OR PAIN Chlorhexidine Gluconate 1 applic 12/30/16 22:00 01/04/17 21:48 Hibiclens For Decolonization - TP 1 applic HS REJI Administration Furosemide 40 mg 01/02/17 10:00 01/04/17 09:10 Lasix - PO 40 mg DAILY REJI Administration Heparin Sodium (Porcine) 5,000 unit 12/30/16 22:00 01/04/17 21:46 Heparin - SQ 5,000 unit BID REJI Administration Insulin Aspart 1 vial 12/30/16 22:00 01/05/17 06:37 Novolog Vial Sliding Scale - SQ Not Given ACHS REJI Protocol Insulin Detemir 3 units 01/04/17 22:00 01/05/17 06:36 Levemir Vial SQ 3 units BID@0700,2200 REJI Administration Levothyroxine Sodium 100 mcg 12/31/16 10:00 01/04/17 09:10 Synthroid Injection - IVPUSH 100 mcg DAILY REJI Administration Losartan Potassium 25 mg 01/02/17 10:00 01/04/17 09:09 Cozaar - PO 25 mg DAILY REJI Administration Metoprolol Succinate 25 mg 01/03/17 12:00 01/04/17 09:10 Toprol Xl - PO 25 mg DAILY REJI Administration Metoprolol Tartrate 2.5 mg 12/30/16 17:14 Lopressor Injection - IVPUSH Q4H PRN TACHYCARDIA s/p - Meropenem 500mg IVPB q8hr -- day 8 ASSESSMENT/PLAN: 66 yr old woman with DM II, ESRD on HD presented with AMS and hyperglycemia, admitted to the ICU for DKA, found to have CVA and left lower lobe empyema. - As per patient request, family is not be involved in medical decisions. Pulmonary #Empyema/Bacteremia(staph epidermidis in two bottles 12/26) - plan to water-seal chest tubes today -- Vancomycin 1gm (renal dosing, check levels) - incentive spirometry - daily chest xray Infectious Disease: empyema/bacteremia, continue abx vancomycin leucocytosis improving trend labs Consult: Dr. Gutierrez Neurological #CVA - acute/subacute infarct 3.5/2cm right cerebellar hemisphere, MRI with large right inferior cerebellar stroke and medulla infarct. - pain control with neurontin 100mg po tid, right sided pain likely neuropathic s/p cva - speech and swallow evaluation - normal, diced dysphagia and nectar thin liquids - maintain HOB elevated - PT eval, continue daily OOB as tolerated - patient will require SNF Cardiovascular HTN - lasix 40mg po daily - cozaar 25mg po daily - metoprolol XL 25 mg po daily CVA - ASA 81 mg po daily Endocrine #DM II - BGM ACHS, goal BGM 140-180 - NISS #hypothryoid levothyroxine po 175 mcg daily #Renal - HD MWF consult: Dr. Wray #DVT - Heparin BID subq #Diet - diabetic low sodium Dispo: pt improved, can be monitored on Med-Surg floor. Visit type - Emergency Visit Emergency Visit: No - New Patient This patient is new to me today: No - Critical Care Critical Care patient: Yes Total Critical Care Time (in minutes): 37 Critical Care Statement: The care of this patient involved high complexity decision making to prevent further life threatening deterioration of the patient 's condition and/or to evalute & treat vital organ system(s) failure or risk of failure.
[2017-01-05] MEDS ORDERED: LEVOTHYROXINE NA 175 MCG TABLET PO ONE (09:21)
[2017-01-05] MEDS ORDERED: LEVOTHYROXINE 100 MCG, LEVOTHYROXINE 75 MCG PO ONE (10:10)
--- NOTE | 2017-01-05 10:11 | PN ---
Progress Note, Physician Chief Complaint: cva History of Present Illness: denies cp, sob, palpitations, leg swelling - Current Medication List Current Medications: Active Medications Acetaminophen (Tylenol -) 650 mg PO Q6H PRN PRN Reason: FEVER OR PAIN Last Admin: 01/05/17 08:42 Dose: 650 mg Chlorhexidine Gluconate (Hibiclens For Decolonization -) 1 applic TP HS [facility] Last Admin: 01/04/17 21:48 Dose: 1 applic Furosemide (Lasix -) 40 mg PO DAILY [facility] Last Admin: 01/04/17 09:10 Dose: 40 mg Heparin Sodium (Porcine) (Heparin -) 5,000 unit SQ BID [facility] Last Admin: 01/04/17 21:46 Dose: 5,000 unit Insulin Aspart (Novolog Vial Sliding Scale -) 1 vial SQ ACHS [facility] PRN Reason: Protocol Last Admin: 01/05/17 06:37 Dose: Not Given Insulin Detemir (Levemir Vial) 3 units SQ BID@0700,2200 [facility] Last Admin: 01/05/17 06:36 Dose: 3 units Levothyroxine Sodium 100 mcg/ (Levothyroxine Sodium 75 mcg) 175 mcg PO DAILY@ 0700 [facility] Losartan Potassium (Cozaar -) 25 mg PO DAILY [facility] Last Admin: 01/04/17 09:09 Dose: 25 mg Metoprolol Succinate (Toprol Xl -) 25 mg PO DAILY [facility] Last Admin: 01/04/17 09:10 Dose: 25 mg - Objective Vital Signs: Vital Signs Temperature 98.8 F 01/05/17 06:55 Pulse Rate 64 01/05/17 10:00 Respiratory Rate 18 01/05/17 10:00 Blood Pressure 97/37 01/05/17 10:00 O2 Sat by Pulse Oximetry (%) 98 01/05/17 07:49 Constitutional: Yes: Well Nourished, No Distress, Calm Cardiovascular: Yes: Regular Rate and Rhythm, S1, S2. No: Gallop, Murmur Respiratory: Yes: Regular, CTA Bilaterally, Rhonchi (anteriorly). No: Accessory Muscle Use Extremities: No: Cold Edema: No Neurological: Yes: Alert. No: Seizure Psychiatric: No: Agitated Labs: CBC, BMP 01/05/17 05:15 01/05/17 05:15 INR, PTT INR 1.28 (0.82-1.09) H 12/31/16 05:20 - ....Imaging EKG: Other (tele: NSR; 17 min run of PSVT) Assessment/Plan brain MRI: large rt inf cerebellar acute/subacute infarct. acute/subacute lacunar infarct at rt medulla oblongata. acute/subacute lacunar infarct of left frontal lobe and possibly occipital lobe. meningioma. Echo here: nl lv/rv size/fn. mild lae, mod mac, mild-mod as/ar, mild mr/tr a/p: 66 yo with h/o left breast ca s/p lumpectomy and chemotherapy, SVT per patient's documentation, IDDM, HTN, thyroid disease and ESRD recently started on HD M/W/F who presented to the ED with altered mental status found to be in DKA and with acute cerebellar infarct. NSTEMI, likely Type II: - trop 0.9 on admit, trended down - likely demand ischemia in setting DKA, CVA and > volume overload sec to missed HD session. - normal LVEF with no RWMA on echo - no acute anti-PLT or AC treatment is indicated for Type II KS - skilled nursing preventive therapy with statin, BB as doing (taking po now) - start ASA - should have risk stratification with nuclear stress test imaging later, after she recovers from acute illnesses AMS/possible acute brainstem CVA - MS change ? sec to hyperglycemia vs CVA --> improving - echo unrevealing - anti-PLT as per neuro LLL PNA, empyema, PTX: -on abx -seen by thoracic surgery, considering VATS but started with chest tube only for now given her recent CVA increasing risk of anesthesia -per crit care/pulm/thoracic surgery. 12/30 s/p Flexible bronchoscopy, left thoracoscopy, pneumolysis, partial decortication, drainage of effusion PSVT - known hx, on atenolol 50 bid at home, held here for bradycardia - recurrent brief svt runs on tele here, toprol 25 qd started on 01/03 - prolonged run (17 min) PSVT overnight on tele--note: this is almost certain to be adenosine sensitive rhythm (likely AVNRT or AVRT) and should be well tolerated hemodynamically, hence can defer incr BB (until bradycardia/HD related hypotension issues resolved) - cont tele HTN - cont arb, bb d/w'd dr hernandez critical care--no apparent contraindication to taking ASA, ? held initially (when acute cva) due to npo at that time. ordered
--- NOTE | 2017-01-05 10:53 | PN ---
Progress Note (short form) - Note Progress Note: Renal Follow up fro ESRD on HD Pt seen and examined in the ICU gettting dialysis UF goal is 3kg bath changed to 3k pt has pain at chest tube sites denies sob. abd pain, N/V/D Vital Signs Temperature 98.0 F 01/05/17 10:00 Pulse Rate 55 L 01/05/17 10:40 Respiratory Rate 18 01/05/17 10:35 Blood Pressure 104/53 01/05/17 10:35 O2 Sat by Pulse Oximetry (%) 100 01/05/17 10:40 Intake & Output 01/02/17 01/03/17 01/04/17 01/05/17 23:59 23:59 23:59 23:59 Intake Total 600 1510 1230 50 Output Total 72 50 90 2 Balance 528 1460 1140 48 Weight 219 lb 5.759 oz 210 lb 8 oz 217 lb 12.8 oz 215 lb 9.6 oz Gen: NAD, CVS: RRR, No M/R Lungs: Dec BS B/L LUng hope (anterior exam) + SC emphysema Abd: soft NT/ND Ext: trace to 1+ edema in LE CBC, BMP 01/05/17 05:15 01/05/17 05:15 Laboratory Tests 01/05/17 05:15 Calcium 7.4 L Phosphorus 5.0 H Magnesium 2.0 D Albumin 1.5 L Current Medications Acetaminophen (Tylenol -) 650 mg PO Q6H PRN PRN Reason: FEVER OR PAIN Last Admin: 01/05/17 08:42 Dose: 650 mg Chlorhexidine Gluconate (Hibiclens For Decolonization -) 1 applic TP HS [facility] Last Admin: 01/04/17 21:48 Dose: 1 applic Furosemide (Lasix -) 40 mg PO DAILY REJI Last Admin: 01/04/17 09:10 Dose: 40 mg Heparin Sodium (Porcine) (Heparin -) 5,000 unit SQ BID REJI Last Admin: 01/04/17 21:46 Dose: 5,000 unit Insulin Aspart (Novolog Vial Sliding Scale -) 1 vial SQ ACHS REJI PRN Reason: Protocol Last Admin: 01/05/17 06:37 Dose: Not Given Insulin Detemir (Levemir Vial) 3 units SQ BID@0700,2200 [facility] Last Admin: 01/05/17 06:36 Dose: 3 units Levothyroxine Sodium 100 mcg/ (Levothyroxine Sodium 75 mcg) 175 mcg PO DAILY@ 0700 [facility] Losartan Potassium (Cozaar -) 25 mg PO DAILY [facility] Last Admin: 01/04/17 09:09 Dose: 25 mg Metoprolol Succinate (Toprol Xl -) 25 mg PO DAILY [facility] Last Admin: 01/04/17 09:10 Dose: 25 mg A/P breast ca s/p lumpectomy and chemotherapy, IDDM, HTN, and ESRD on HD // who presented to the ED today via EMS after her dialysis center notified police that she missed her treatment on Thursday and was not answering the phone. 66 year old woman with PMhx of ESRD on HD, Breast Ca s/p Chemo and Lumpectomy, IDDM, Hypertension presented with AMS and found to have DKA, Acute CVA and Pnemothorax #ESRD on HD tolerated HD well today with 3kg UF dose all meds for intermittent HD #Empyema/Pneumothorax/Leukocytosis Chest tube in place s/p VATS Management as per thorasic Sx Vanco levels drawn with HD, results pending, redose as needed #Acute/Subacute CVA supportive Care Neurology follow up Thank you Jose Carlos Wray DO
[2017-01-05] MEDS ORDERED: morphine CARPU-JECT 2 MG/1 ML DISP.SYRIN IVPUSH PRN (11:32)
--- NOTE | 2017-01-05 11:48 | PN ---
Progress Note (short form) - Note Progress Note: POD#6 S/P VATS Doing better. Very weak s/p stroke, empyema with vats, and [place]. CXR improved. WBC down. CT to water seal. Daily CXR.
[2017-01-05] MEDS: METOPROLOL SUCCINATE 25 MG TAB.SR.24H (FP) PO SCH (11:51)
[2017-01-05] MEDS ORDERED: LEVOTHYROXINE NA 100 MCG TABLET (FP) ONE (11:52)
[2017-01-05] MEDS ORDERED: LEVOTHYROXINE NA 75 MCG TABLET (FP) ONE (11:52)
[2017-01-05] MEDS: LOSARTAN POTASSIUM 25 MG TABLET PO SCH (11:53)
[2017-01-05] MEDS: HEPARIN NA (PORCINE) 5,000 UNITS/ML 1ML VIAL SQ SCH ×2 (11:53→21:41)
[2017-01-05] MEDS: FUROSEMIDE 40 MG TABLET (FP) PO SCH (11:53)
[2017-01-05] MEDS: ASPIRIN COATED 81 MG TABLET.EC PO SCH (11:54)
--- NOTE | 2017-01-05 12:05 | PN ---
Teaching Attending Note Name of Resident: Antelmo Wise ATTENDING PHYSICIAN STATEMENT I saw and evaluated the patient. I reviewed the resident's note and discussed the case with the resident. I agree with the resident's findings and plan as documented. SUBJECTIVE: Pt seen and examined in the ICU. c/o right sided generalized pain. Denies shortness of breath. Chest tubes to suction. No fevers recorded. OBJECTIVE: Last Vital Signs Temp Pulse Resp BP Pulse Ox 98.0 F 55 L 18 104/53 100 01/05/17 10:00 01/05/17 10:40 01/05/17 10:35 01/05/17 10:35 01/05/17 10:40 Intake & Output 01/02/17 01/03/17 01/04/17 01/05/17 23:59 23:59 23:59 23:59 Intake Total 600 1510 1230 50 Output Total 72 50 90 2 Balance 528 1460 1140 48 Weight 219 lb 5.759 oz 210 lb 8 oz 217 lb 12.8 oz 215 lb 9.6 oz Gen: NAD at rest Heart: RRR Lung: left sided rhonchi, wheezes Abd: soft, nontender Ext: trace edema Chest tube: +air leak on lateral tube CBC, BMP 01/05/17 05:15 01/05/17 05:15 Active Medications Acetaminophen (Tylenol -) 650 mg PO Q6H PRN PRN Reason: FEVER OR PAIN Last Admin: 01/05/17 08:42 Dose: 650 mg Aspirin (Ecotrin -) 81 mg PO DAILY [facility] Last Admin: 01/05/17 11:54 Dose: 81 mg Atorvastatin Calcium (Lipitor -) 20 mg PO HS [facility] Chlorhexidine Gluconate (Hibiclens For Decolonization -) 1 applic TP HS [facility] Last Admin: 01/04/17 21:48 Dose: 1 applic Furosemide (Lasix -) 40 mg PO DAILY [facility] Last Admin: 01/05/17 11:53 Dose: 40 mg Gabapentin (Neurontin -) 100 mg PO TID [facility] Heparin Sodium (Porcine) (Heparin -) 5,000 unit SQ BID [facility] Last Admin: 01/05/17 11:53 Dose: 5,000 unit Insulin Aspart (Novolog Vial Sliding Scale -) 1 vial SQ ACHS [facility] PRN Reason: Protocol Last Admin: 01/05/17 06:37 Dose: Not Given Insulin Detemir (Levemir Vial) 3 units SQ BID@0700,2200 [facility] Last Admin: 01/05/17 06:36 Dose: 3 units Levothyroxine Sodium 100 mcg/ (Levothyroxine Sodium 75 mcg) 175 mcg PO DAILY@ 0700 [facility] Losartan Potassium (Cozaar -) 25 mg PO DAILY [facility] Last Admin: 01/05/17 11:53 Dose: 25 mg Metoprolol Succinate (Toprol Xl -) 25 mg PO DAILY [facility] Last Admin: 01/05/17 11:51 Dose: Not Given Morphine Sulfate (Morphine Injection -) 2 mg IVPUSH Q8H PRN PRN Reason: PAIN Stop: 01/07/17 23:59 ASSESSMENT AND PLAN: Diabetic Ketoacidosis resolved Left Empyema s/p L VATS/pneumolysis/partial decortication/chest tube placement 12/30 Acute CVA +Troponins likely Demand Ischemia ESRD on HD HTN - continue antibiotics per ID - pain control - incentive spirometry - chest tubes per surgery - glucose control - HD per renal - DVT prophylaxis - OOB to chair - can monitor on surgical floor
[2017-01-05] MEDS: GABAPENTIN 100 MG CAPSULE (FP) PO SCH ×2 (13:10→21:41)
[2017-01-05] MEDS ORDERED: PNEUMOC 13-VAL CONJ-DIP CRM/PF 0.5 ML DISP.SYRIN IM ONE (14:00)
--- NOTE | 2017-01-05 15:57 | PN ---
Physical Exam: SUBJECTIVE: Patient seen and examined at bedside in ICU. OBJECTIVE: Vital Signs Period Temp Pulse Resp BP Sys/Aguirre Pulse Ox Last 24 Hr 98 F-98.8 F 55-68 18-20 90-150/27-63 98-100 GENERAL/NEURO: Awake & alert. Sleeping but arousable. Weak. EYES: PERRL, EOMI; anicteric; no ptosis LUNGS: Diminished sounds on right, left chest tube to suction draining pus/blood HEART: Regular rate and rhythm, S1, S2 without murmur, rub or gallop. ABDOMEN: Soft, nontender, nondistended EXTREMITIES: Bilateral upper extremity edema; 2+ pulses, warm, well-perfused Laboratory Results - last 24 hr 01/04/17 01/04/17 01/05/17 16:17 21:27 05:15 WBC 13.0 H RBC 3.86 Hgb 11.0 Hct 34.8 MCV 90.2 MCHC 31.6 L RDW 16.2 H Plt Count 311 D MPV 9.1 Neutrophils % 83.5 H Lymphocytes % 9.3 Monocytes % 5.3 Eosinophils % 1.4 Basophils % 0.5 Sodium Potassium Chloride Carbon Dioxide Anion Gap BUN Creatinine Creat Clearance w eGFR POC Glucometer 180.12975 233.35007 Random Glucose Calcium Phosphorus Magnesium Total Bilirubin AST ALT Alkaline Phosphatase Total Protein Albumin Vancomycin Trough 01/05/17 01/05/17 01/05/17 05:15 05:50 10:30 WBC RBC Hgb Hct MCV MCHC RDW Plt Count MPV Neutrophils % Lymphocytes % Monocytes % Eosinophils % Basophils % Sodium 140 Potassium 3.8 Chloride 96 L Carbon Dioxide 31 Anion Gap 13 BUN 34 H D Creatinine 2.9 H Creat Clearance w eGFR 16.14 POC Glucometer 110.97836 Random Glucose 102 D Calcium 7.4 L Phosphorus 5.0 H Magnesium 2.0 D Total Bilirubin 0.5 AST 18 ALT 8 L Alkaline Phosphatase 169 H Total Protein 4.7 L Albumin 1.5 L Vancomycin Trough 9.375 01/05/17 12:06 WBC RBC Hgb Hct MCV MCHC RDW Plt Count MPV Neutrophils % Lymphocytes % Monocytes % Eosinophils % Basophils % Sodium Potassium Chloride Carbon Dioxide Anion Gap BUN Creatinine Creat Clearance w eGFR POC Glucometer [phone] Random Glucose Calcium Phosphorus Magnesium Total Bilirubin AST ALT Alkaline Phosphatase Total Protein Albumin Vancomycin Trough Active Medications Generic Name Dose Route Start Last Admin Trade Name Freq PRN Reason Stop Dose Admin Acetaminophen 650 mg 01/01/17 15:54 01/05/17 08:42 Tylenol - PO 650 mg Q6H PRN Administration FEVER OR PAIN Aspirin 81 mg 01/05/17 11:15 01/05/17 11:54 Ecotrin - PO 81 mg DAILY [facility] Administration Atorvastatin Calcium 20 mg 01/05/17 22:00 Lipitor - PO HS [facility] Chlorhexidine Gluconate 1 applic 12/30/16 22:00 01/04/17 21:48 Hibiclens For Decolonization - TP 1 applic HS [facility] Administration Furosemide 40 mg 01/02/17 10:00 01/05/17 11:53 Lasix - PO 40 mg DAILY [facility] Administration Gabapentin 100 mg 01/05/17 14:00 01/05/17 13:10 Neurontin - PO 100 mg TID [facility] Administration Heparin Sodium (Porcine) 5,000 unit 12/30/16 22:00 01/05/17 11:53 Heparin - SQ 5,000 unit BID [facility] Administration Insulin Aspart 1 vial 12/30/16 22:00 01/05/17 12:08 Novolog Vial Sliding Scale - SQ Not Given ACHS [facility] Protocol Insulin Detemir 3 units 01/04/17 22:00 01/05/17 06:36 Levemir Vial SQ 3 units BID@0700,2200 [facility] Administration Levothyroxine Sodium 100 mcg/ 175 mcg 01/06/17 07:00 Levothyroxine Sodium 75 mcg PO DAILY@0700 [facility] Losartan Potassium 25 mg 01/02/17 10:00 01/05/17 11:53 Cozaar - PO 25 mg DAILY [facility] Administration Metoprolol Succinate 25 mg 01/03/17 12:00 01/05/17 11:51 Toprol Xl - PO Not Given DAILY [facility] Morphine Sulfate 2 mg 01/05/17 11:32 Morphine Injection - IVPUSH 01/07/17 23:59 Q8H PRN PAIN Imaging 12/26 Echo: mild cLVH, LV function normal; RV normal; LAE; mild MR; mild TR; mild to moderate and AI 12/26 CT head x 2: acute/subacute infarct 3.5 x 2cm right cerebellar hemisphere 12/27 US carotids: extensive atherosclerotic disease; 60-79% stenosis bilaterally R>L 12/29 MRI Brain: (1) large right inferior cerebellar acute/subacute infarct; (2) acute/subacute cortical infarct at the right junction of the medulla oblongata and cervical cord as well as a couple of acute/subactute lacunar infarcts in the left frontal lobe and likely in the right occipital lobe ASSESSMENT/PLAN 66 year-old woman with a PMH of HTN, HDL, IDDM, breast cancer s/p lumpectomy/ chemotherapy, hypothyroidism, and ESRD on HD. Admitted for DKA, pneumonia, and CVA. Hospital course complicated by spontaneous pneumothorax. s/p VATS. Pneumonia Empyema s/p Left VATS 12/30 --chest tubes to water seal --WBC trending down, afebrile --blood x 1 bottle and pleural fluid + staph epi --azithro course x 5 days; meropenem x 6 days; vanc being dosed with HD IDDM DKA, resolved Lactic acidosis, resolved --Novolog sliding scale coverage Acute CVA --see imaging findings above --continue ASA, Lipitor Demand ischemia Elevated troponins --troponins downtrending; likely demand in setting of DKA, CVA, missed HD ESRD on HD (M,W,F) --dialysis today, 3.3L removed Hypertension --continue metoprolol, lasix Hyperlipidemia --continue Lipitor Hypothyroidism --continue levothyroxine F/E/N Fluids: PO intake adequate Electrolytes: replete as indicated Nutrition: dysphagia chopped DVT prophylaxis: subq heparin, SCDs Physical therapy evaluation (second request) Dispo: continues to require ICU level care. Visit type - Emergency Visit Emergency Visit: Yes ED Registration Date: 12/26/16 Care time: The patient presented to the Emergency Department on the above date and was hospitalized for further evaluation of their emergent condition. - New Patient This patient is new to me today: No - Critical Care Critical Care patient: Yes Total Critical Care Time (in minutes): 40 Critical Care Statement: The care of this patient involved high complexity decision making to prevent further life threatening deterioration of the patient 's condition and/or to evalute & treat vital organ system(s) failure or risk of failure.
--- NOTE | 2017-01-05 19:10 | PN ---
Progress Note, Physician History of Present Illness: doing well no issues feels tired - Current Medication List Current Medications: Active Medications Acetaminophen (Tylenol -) 650 mg PO Q6H PRN PRN Reason: FEVER OR PAIN Last Admin: 01/05/17 08:42 Dose: 650 mg Aspirin (Ecotrin -) 81 mg PO DAILY [facility] Last Admin: 01/05/17 11:54 Dose: 81 mg Atorvastatin Calcium (Lipitor -) 20 mg PO HS [facility] Chlorhexidine Gluconate (Hibiclens For Decolonization -) 1 applic TP HS [facility] Last Admin: 01/04/17 21:48 Dose: 1 applic Furosemide (Lasix -) 40 mg PO DAILY [facility] Last Admin: 01/05/17 11:53 Dose: 40 mg Gabapentin (Neurontin -) 100 mg PO TID [facility] Last Admin: 01/05/17 13:10 Dose: 100 mg Heparin Sodium (Porcine) (Heparin -) 5,000 unit SQ BID [facility] Last Admin: 01/05/17 11:53 Dose: 5,000 unit Insulin Aspart (Novolog Vial Sliding Scale -) 1 vial SQ ACHS [facility] PRN Reason: Protocol Last Admin: 01/05/17 16:55 Dose: 6 units Insulin Detemir (Levemir Vial) 3 units SQ BID@0700,2200 [facility] Last Admin: 01/05/17 06:36 Dose: 3 units Levothyroxine Sodium 100 mcg/ (Levothyroxine Sodium 75 mcg) 175 mcg PO DAILY@ 0700 [facility] Losartan Potassium (Cozaar -) 25 mg PO DAILY [facility] Last Admin: 01/05/17 11:53 Dose: 25 mg Metoprolol Succinate (Toprol Xl -) 25 mg PO DAILY [facility] Last Admin: 01/05/17 11:51 Dose: Not Given Morphine Sulfate (Morphine Injection -) 2 mg IVPUSH Q8H PRN PRN Reason: PAIN Stop: 01/07/17 23:59 - Objective Vital Signs: Vital Signs Temperature 98.0 F 01/05/17 10:00 Pulse Rate 68 01/05/17 14:00 Respiratory Rate 18 01/05/17 14:00 Blood Pressure 120/57 01/05/17 14:00 O2 Sat by Pulse Oximetry (%) 100 01/05/17 12:30 Constitutional: Yes: No Distress, Calm, Other Cardiovascular: Yes: S1, S2 Respiratory: Yes: Poor Air Entry, Rhonchi Gastrointestinal: Yes: Normal Bowel Sounds, Soft Musculoskeletal: Yes: WNL Extremities: Yes: WNL Wound/Incision: Yes: Clean/Dry, Dressing Dry and Intact Neurological: Yes: Alert, Oriented Psychiatric: Yes: Alert, Oriented Labs: CBC, BMP 01/05/17 05:15 01/05/17 05:15 INR, PTT INR 1.28 (0.82-1.09) H 12/31/16 05:20 - ....Imaging Chest X-ray: Report Reviewed, Image Reviewed Assessment/Plan cerebellar infarct LLL Pneumonia empyema s/p VATS PTX htn esrd leukocytosis ptx wbc still on the higher side plan will see vanco level tomorrow then decide patient will ahve to be placed on vanco during dialysis continue monitoring wbc wbc lower cc time 40 min
[2017-01-05] MEDS: CHLORHEXIDINE GLUCONATE 4% CLEANSER FOR DECOLONIZATION TP SCH (21:42)
[2017-01-05] MEDS ORDERED: ATORVASTATIN CA 20 MG TABLET (FP) PO SCH (22:00)
[2017-01-06] MEDS: INSULIN SLIDING SCALE (NOVOLOG) 1 VIAL SQ SCH ×4 (06:27→22:05)
[2017-01-06] MEDS ORDERED: LEVOTHYROXINE NA 75 MCG TABLET (FP) ONE (06:28)
[2017-01-06] MEDS ORDERED: LEVOTHYROXINE NA 100 MCG TABLET (FP) ONE (06:28)
[2017-01-06] MEDS: GABAPENTIN 100 MG CAPSULE (FP) PO SCH ×3 (06:29→22:00)
[2017-01-06] MEDS: INSULIN DETEMIR 100 UNITS/ML MDV SQ SCH ×2 (06:29→22:00)
[2017-01-06] MEDS ORDERED: LEVOTHYROXINE 100 MCG, LEVOTHYROXINE 75 MCG PO SCH (07:00)
[2017-01-06] MEDS ORDERED: LEVOTHYROXINE NA 175 MCG TABLET PO SCH (07:00)
[2017-01-06 07:35] LABS: CALCIUM 7.7 mg/dL (8.5-10.1); COCKROFT - GAULT 33.15; CREATININE 2.4 mg/dL (0.55-1.02)
[2017-01-06 07:41] LABS: BASOPHIL 0.7 % (0-2.0); EOSINOPHIL 1.4 % (0-4.5); MCHC 31.5 g/dl (32.0-36.0); MEAN CELL VOLUME 91.8 fl (80-96); MEAN PLT VOLUME 8.9 fl (7.5-11.1); NEUTROPHILS 80.5 % (42.8-82.8); PLATELET COUNT 290 K/MM3 (134-434); RDW 16.2 % (11.6-15.6); WHITE BLOOD COUNT 13.9 K/mm3 (4.0-10.0)
--- NOTE | 2017-01-06 08:03 | PN ---
Addendum entered and electronically signed by Getachew Ling PA 01/06/17 09:21: A CXR ordered for 12pm today (4hr post-pull anterior chest tube) Original Note: Progress Note (short form) - Note Progress Note: POD #7 Alert. Resting comfortably without complaint. s/p stroke, empyema with vats, and NC. Remains in ICU. CxT x2 were placed on waterseal yesterday. Denies CP, SOB, n/v Last Vital Signs Temp Pulse Resp BP Pulse Ox 98 F 67 15 135/54 100 01/06/17 02:00 01/06/17 07:59 01/06/17 07:59 01/06/17 07:59 01/05/17 19:37 CxT Output 24/hrs 01/05/17 01/05/17 01/06/17 06:00 19:13 06:00 Anterior CxT 2 0 8 Lateral CxT 0 20 0 CBC, BMP 01/06/17 05:50 01/06/17 05:50 CXR 01/05: improved. General: nad Left Chest: dressings c/d/i. No leaks from either tube. Outputs recorded above. Problem List - Problems (1) Empyema of left pleural space Assessment/Plan: POD #7 s/p Left VATS Anterior CxT dc'd while on rounds Remaining CxT to be clamped at 15:00hrs today in preparation for possible removal in AM Downgrade to floor at ICU discretion Morning labs pending f/u CXR Code(s): J86.9 - PYOTHORAX WITHOUT FISTULA
--- NOTE | 2017-01-06 08:10 | PN ---
Physical Exam: SUBJECTIVE: Patient seen and examined denies chest pain, sob, fever, cough, difficulty swallowing. C/o pain in her right side with any movement or touch. will try to sit in a chair today after breakfast, found previous attempts to be difficult. OBJECTIVE: Vital Signs Period Temp Pulse Resp BP Sys/Aguirre Pulse Ox Last 24 Hr 98 F-98.1 F 55-75 14-21 90-136/27-57 100-100 GENERAL: The patient is awake, alert, and fully oriented, in no acute distress. EYES: PERRL, extraocular movements intact, sclera anicteric, conjunctiva clear. ENT: oropharynx clear without exudates, moist mucous membranes. NECK: Trachea midline, decreased crepitus in neck, left upper chest, shoulder, mild crepitus in right upper chest. IJ site CDI. LUNGS: right base quiet, clear anteriorly. left clear at apex HEART: Regular rate and rhythm, S1, S2 without murmur. ABDOMEN: Soft, nontender, nondistended, normoactive bowel sounds, no guarding EXTREMITIES: weak+ dp pulses, radial pulses 2+, cool extremities, well-perfused , edema in right upper arm, nonpitting edema in hand. palpable thrill on left arm at fistula site. NEUROLOGICAL: Normal speech. 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 ankle dorsi/planter 3/ 5. left 4/5 hand entry level mechanical engineer. Laboratory Results - last 24 hr 01/05/17 01/05/17 01/05/17 10:30 12:06 16:39 WBC RBC Hgb Hct MCV MCHC RDW Plt Count MPV Neutrophils % Lymphocytes % Monocytes % Eosinophils % Basophils % Sodium Potassium Chloride Carbon Dioxide Anion Gap BUN Creatinine POC Glucometer 123.51880 282.11407 Random Glucose Calcium Vancomycin Trough 9.375 Random Vancomycin 01/05/17 01/06/17 01/06/17 21:31 05:50 05:50 WBC 13.9 H RBC 3.74 Hgb 10.8 Hct 34.3 MCV 91.8 MCHC 31.5 L RDW 16.2 H Plt Count 290 MPV 8.9 Neutrophils % 80.5 Lymphocytes % 11.5 D Monocytes % 5.9 Eosinophils % 1.4 Basophils % 0.7 Sodium Potassium Chloride Carbon Dioxide Anion Gap BUN Creatinine POC Glucometer [phone] Random Glucose Calcium Vancomycin Trough Random Vancomycin 12.632 01/06/17 05:50 WBC RBC Hgb Hct MCV MCHC RDW Plt Count MPV Neutrophils % Lymphocytes % Monocytes % Eosinophils % Basophils % Sodium 141 Potassium 4.1 Chloride 98 Carbon Dioxide 34 H Anion Gap 9 BUN 23 H D Creatinine 2.4 H POC Glucometer Random Glucose 120 H Calcium 7.7 L Vancomycin Trough Random Vancomycin Active Medications Generic Name Dose Route Start Last Admin Trade Name Freq PRN Reason Stop Dose Admin Acetaminophen 650 mg 01/01/17 15:54 01/05/17 08:42 Tylenol - PO 650 mg Q6H PRN Administration FEVER OR PAIN Aspirin 81 mg 01/05/17 11:15 01/05/17 11:54 Ecotrin - PO 81 mg DAILY [facility] Administration Atorvastatin Calcium 20 mg 01/05/17 22:00 01/05/17 21:41 Lipitor - PO 20 mg HS [facility] Administration Chlorhexidine Gluconate 1 applic 12/30/16 22:00 01/05/17 21:42 Hibiclens For Decolonization - TP 1 applic HS [facility] Administration Furosemide 40 mg 01/02/17 10:00 01/05/17 11:53 Lasix - PO 40 mg DAILY [facility] Administration Gabapentin 100 mg 01/05/17 14:00 01/06/17 06:29 Neurontin - PO 100 mg TID [facility] Administration Heparin Sodium (Porcine) 5,000 unit 12/30/16 22:00 01/05/17 21:41 Heparin - SQ 5,000 unit BID [facility] Administration Insulin Aspart 1 vial 12/30/16 22:00 01/06/17 06:27 Novolog Vial Sliding Scale - SQ Not Given ACHS [facility] Protocol Insulin Detemir 3 units 01/04/17 22:00 01/06/17 06:29 Levemir Vial SQ 3 units BID@0700,2200 [facility] Administration Levothyroxine Sodium 100 mcg/ 175 mcg 01/06/17 07:00 01/06/17 06:29 Levothyroxine Sodium 75 mcg PO 175 mcg DAILY@0700 [facility] Administration Losartan Potassium 25 mg 01/02/17 10:00 01/05/17 11:53 Cozaar - PO 25 mg DAILY [facility] Administration Metoprolol Succinate 25 mg 01/03/17 12:00 01/05/17 11:51 Toprol Xl - PO Not Given DAILY [facility] Morphine Sulfate 2 mg 01/05/17 11:32 Morphine Injection - IVPUSH 01/07/17 23:59 Q8H PRN PAIN Central line in right IJ removed today. site cdi. ASSESSMENT/PLAN: 66 yr old woman with DM II, ESRD on HD presented with AMS and hyperglycemia, admitted to the ICU for DKA, found to have CVA and left lower lobe empyema. - As per patient request, family is not be involved in medical decisions. Pulmonary #Empyema/Bacteremia(staph epidermidis in two bottles 12/26) - anterior chest tube removed - no output overnight - lateral chest tube planned to be closed later today; clamped at 16:00 in the ICU, plan to be removed in the morning. -- Vancomycin 1gm (renal dosing, check levels) - incentive spirometry - daily chest xray Infectious Disease: empyema/bacteremia, continue abx vancomycin renally dosed, daily random vanc level prior to dosing for the day. Vanc level today 12, will give dose of vancomycin today, approved by Dr. Gutierrez leucocytosis persisting trend labs Consult: Dr. Gutierrez Neurological #CVA - acute/subacute infarct 3.5/2cm right cerebellar hemisphere, MRI with large right inferior cerebellar stroke and medulla infarct. - pain control with neurontin 100mg po tid, right sided pain likely neuropathic s/p cva - morphine 2mg ivpush q8hr prn - maintain HOB elevated - PT eval, continue daily OOB as tolerated - patient will require SNF Cardiovascular HTN - controlled - lasix 40mg po daily - cozaar 25mg po daily - metoprolol XL 25 mg po daily CVA - ASA 81 mg po daily Endocrine #DM II - BGM ACHS, goal BGM 140-180 - NISS #hypothryoid levothyroxine po 175 mcg daily #Renal - HD MWF consult: Dr. Wray #DVT - Heparin BID subq #Diet - diabetic low sodium Dispo: pt improved, can be monitored on Med-Surg floor. Visit type - Emergency Visit Emergency Visit: No - New Patient This patient is new to me today: No - Critical Care Critical Care patient: Yes Total Critical Care Time (in minutes): 37 Critical Care Statement: The care of this patient involved high complexity decision making to prevent further life threatening deterioration of the patient 's condition and/or to evalute & treat vital organ system(s) failure or risk of failure.
[2017-01-06] MEDS: HEPARIN NA (PORCINE) 5,000 UNITS/ML 1ML VIAL SQ SCH ×2 (09:49→22:00)
[2017-01-06] MEDS: LOSARTAN POTASSIUM 25 MG TABLET PO SCH (09:50)
[2017-01-06] MEDS: FUROSEMIDE 40 MG TABLET (FP) PO SCH (09:50)
[2017-01-06] MEDS: METOPROLOL SUCCINATE 25 MG TAB.SR.24H (FP) PO SCH (09:50)
[2017-01-06] MEDS: ASPIRIN COATED 81 MG TABLET.EC PO SCH (09:50)
[2017-01-06] MEDS ORDERED: VANCOMYCIN 1,000 MG in DEXTROSE 5%-WATER - 250 ML IVPB ONE (10:08)
--- NOTE | 2017-01-06 10:11 | PN ---
Progress Note (short form) - Note Progress Note: Renal Follow up fro ESRD on HD Pt seen and examined in the ICU once chest tube removed today continues to have pain on the right chest wall no fever, chills s/p dialysis yesterday Vital Signs Temperature 98 F 01/06/17 02:00 Pulse Rate 67 01/06/17 07:59 Respiratory Rate 15 01/06/17 08:49 Blood Pressure 135/54 01/06/17 07:59 O2 Sat by Pulse Oximetry (%) 96 01/06/17 08:49 Intake & Output 01/03/17 01/04/17 01/05/17 01/06/17 23:59 23:59 23:59 23:59 Intake Total 1510 1230 770 240 Output Total 50 90 22 8 Balance 1460 1140 748 232 Weight 210 lb 8 oz 217 lb 12.8 oz 215 lb 9.6 oz 210 lb 1.608 oz Gen: NAD, CVS: RRR, No M/R Lungs: Dec BS B/L LUng hope (anterior exam) + SC emphysema Abd: soft NT/ND Ext: trace to 1+ edema in LE CBC, BMP 01/06/17 05:50 01/06/17 05:50 Laboratory Tests 01/06/17 01/06/17 05:50 05:50 Calcium 7.7 L Random Vancomycin 12.632 Current Medications Acetaminophen (Tylenol -) 650 mg PO Q6H PRN PRN Reason: FEVER OR PAIN Last Admin: 01/05/17 08:42 Dose: 650 mg Aspirin (Ecotrin -) 81 mg PO DAILY [facility] Last Admin: 01/06/17 09:50 Dose: 81 mg Atorvastatin Calcium (Lipitor -) 20 mg PO HS [facility] Last Admin: 01/05/17 21:41 Dose: 20 mg Chlorhexidine Gluconate (Hibiclens For Decolonization -) 1 applic TP HS [facility] Last Admin: 01/05/17 21:42 Dose: 1 applic Furosemide (Lasix -) 40 mg PO DAILY [facility] Last Admin: 01/06/17 09:50 Dose: 40 mg Gabapentin (Neurontin -) 100 mg PO TID [facility] Heparin Sodium (Porcine) (Heparin -) 5,000 unit SQ BID [facility] Last Admin: 01/06/17 09:49 Dose: 5,000 unit Insulin Aspart (Novolog Vial Sliding Scale -) 1 vial SQ ACHS [facility] PRN Reason: Protocol Last Admin: 01/06/17 06:27 Dose: Not Given Insulin Detemir (Levemir Vial) 3 units SQ BID@0700,2200 [facility] Last Admin: 01/06/17 06:29 Dose: 3 units Levothyroxine Sodium 100 mcg/ (Levothyroxine Sodium 75 mcg) 175 mcg PO DAILY@ 0700 [facility] Last Admin: 01/06/17 06:29 Dose: 175 mcg Losartan Potassium (Cozaar -) 25 mg PO DAILY [facility] Last Admin: 01/06/17 09:50 Dose: 25 mg Metoprolol Succinate (Toprol Xl -) 25 mg PO DAILY [facility] Last Admin: 01/06/17 09:50 Dose: 25 mg Morphine Sulfate (Morphine Injection -) 2 mg IVPUSH Q8H PRN PRN Reason: PAIN Stop: 01/07/17 23:59 A/P breast ca s/p lumpectomy and chemotherapy, IDDM, HTN, and ESRD on HD M// who presented to the ED today via EMS after her dialysis center notified police that she missed her treatment on Thursday and was not answering the phone. 66 year old woman with PMhx of ESRD on HD, Breast Ca s/p Chemo and Lumpectomy, IDDM, Hypertension presented with AMS and found to have DKA, Acute CVA and Pnemothorax #ESRD on HD had dialysis yesterday, no acute indication for dialysis today plan for next treatment tomorrow #Empyema/Pneumothorax/Leukocytosis Abx as per ID chest tube management as per Sx #Acute/Subacute CVA supportive Care Neurology follow up Thank you Jose Carlos Wray DO
[2017-01-06] MEDS ORDERED: HEMOQUE TEST 1 EACH EACH ONE (12:04)
--- NOTE | 2017-01-06 12:06 | PN ---
Teaching Attending Note Name of Resident: Antelmo Wise ATTENDING PHYSICIAN STATEMENT I saw and evaluated the patient. I reviewed the resident's note and discussed the case with the resident. I agree with the resident's findings and plan as documented. SUBJECTIVE: Pt seen and examined in the ICU. Anterior chest tube removed this AM. Denies shortness of breath or chest pain. No fevers or chills. OBJECTIVE: Last Vital Signs Temp Pulse Resp BP Pulse Ox 98 F 66 14 124/47 96 01/06/17 02:00 01/06/17 10:47 01/06/17 10:47 01/06/17 10:47 01/06/17 08:49 Intake & Output 01/03/17 01/04/17 01/05/17 01/06/17 23:59 23:59 23:59 23:59 Intake Total 1510 1230 770 240 Output Total 50 90 22 8 Balance 1460 1140 748 232 Weight 210 lb 8 oz 217 lb 12.8 oz 215 lb 9.6 oz 210 lb 1.608 oz Gen: NAD, somnolent but arousable Heart: RRR Lung: scattered rhonchi on left Abd: soft, nontender Ext: + edema Chest tube: minimal drainage, +air leak CBC, BMP 01/06/17 05:50 01/06/17 05:50 Active Medications Acetaminophen (Tylenol -) 650 mg PO Q6H PRN PRN Reason: FEVER OR PAIN Last Admin: 01/05/17 08:42 Dose: 650 mg Aspirin (Ecotrin -) 81 mg PO DAILY [facility] Last Admin: 01/06/17 09:50 Dose: 81 mg Atorvastatin Calcium (Lipitor -) 20 mg PO HS [facility] Last Admin: 01/05/17 21:41 Dose: 20 mg Chlorhexidine Gluconate (Hibiclens For Decolonization -) 1 applic TP HS [facility] Last Admin: 01/05/17 21:42 Dose: 1 applic Furosemide (Lasix -) 40 mg PO DAILY [facility] Last Admin: 01/06/17 09:50 Dose: 40 mg Gabapentin (Neurontin -) 100 mg PO TID [facility] Heparin Sodium (Porcine) (Heparin -) 5,000 unit SQ BID [facility] Last Admin: 01/06/17 09:49 Dose: 5,000 unit Vancomycin HCl (Vancomycin (Pre-Docked)) 250 mls @ 166.667 mls/hr IVPB ONCE ONE PRN Reason: Protocol Stop: 01/07/17 10:29 Insulin Aspart (Novolog Vial Sliding Scale -) 1 vial SQ ACHS [facility] PRN Reason: Protocol Last Admin: 01/06/17 06:27 Dose: Not Given Insulin Detemir (Levemir Vial) 3 units SQ BID@0700,2200 [facility] Last Admin: 01/06/17 06:29 Dose: 3 units Levothyroxine Sodium 100 mcg/ (Levothyroxine Sodium 75 mcg) 175 mcg PO DAILY@ 0700 [facility] Last Admin: 01/06/17 06:29 Dose: 175 mcg Losartan Potassium (Cozaar -) 25 mg PO DAILY [facility] Last Admin: 01/06/17 09:50 Dose: 25 mg Metoprolol Succinate (Toprol Xl -) 25 mg PO DAILY [facility] Last Admin: 01/06/17 09:50 Dose: 25 mg Morphine Sulfate (Morphine Injection -) 2 mg IVPUSH Q8H PRN PRN Reason: PAIN Stop: 01/07/17 23:59 ASSESSMENT AND PLAN: Diabetic Ketoacidosis resolved Left Empyema s/p L VATS/pneumolysis/partial decortication/chest tube placement 12/30 Acute CVA +Troponins likely Demand Ischemia ESRD on HD HTN - continue antibiotics per ID - pain control - incentive spirometry - chest tubes per surgery - glucose control - HD per renal - DVT prophylaxis - OOB to chair - can monitor on surgical floor
--- NOTE | 2017-01-06 13:06 | PN ---
Progress Note (short form) - Note Progress Note: Chief Complaint: cva History of Present Illness: denies cp, sob, palpitations, leg swelling. Plan to transfer to floor today. Current Medications Acetaminophen (Tylenol -) 650 mg PO Q6H PRN PRN Reason: FEVER OR PAIN Last Admin: 01/05/17 08:42 Dose: 650 mg Aspirin (Ecotrin -) 81 mg PO DAILY [facility] Last Admin: 01/06/17 09:50 Dose: 81 mg Atorvastatin Calcium (Lipitor -) 20 mg PO HS [facility] Last Admin: 01/05/17 21:41 Dose: 20 mg Chlorhexidine Gluconate (Hibiclens For Decolonization -) 1 applic TP HS [facility] Last Admin: 01/05/17 21:42 Dose: 1 applic Furosemide (Lasix -) 40 mg PO DAILY [facility] Last Admin: 01/06/17 09:50 Dose: 40 mg Gabapentin (Neurontin -) 100 mg PO TID [facility] Heparin Sodium (Porcine) (Heparin -) 5,000 unit SQ BID [facility] Last Admin: 01/06/17 09:49 Dose: 5,000 unit Vancomycin HCl (Vancomycin (Pre-Docked)) 250 mls @ 166.667 mls/hr IVPB ONCE ONE PRN Reason: Protocol Stop: 01/07/17 10:29 Insulin Aspart (Novolog Vial Sliding Scale -) 1 vial SQ ACHS [facility] PRN Reason: Protocol Last Admin: 01/06/17 06:27 Dose: Not Given Insulin Detemir (Levemir Vial) 3 units SQ BID@0700,2200 [facility] Last Admin: 01/06/17 06:29 Dose: 3 units Levothyroxine Sodium 100 mcg/ (Levothyroxine Sodium 75 mcg) 175 mcg PO DAILY@ 0700 [facility] Last Admin: 01/06/17 06:29 Dose: 175 mcg Losartan Potassium (Cozaar -) 25 mg PO DAILY [facility] Last Admin: 01/06/17 09:50 Dose: 25 mg Metoprolol Succinate (Toprol Xl -) 25 mg PO DAILY [facility] Last Admin: 01/06/17 09:50 Dose: 25 mg Morphine Sulfate (Morphine Injection -) 2 mg IVPUSH Q8H PRN PRN Reason: PAIN Stop: 01/07/17 23:59 Vital Signs - 24 hr 01/05/17 01/05/17 01/05/17 14:00 16:00 18:00 Temperature 98.0 F Pulse Rate 68 63 67 Respiratory 18 18 18 Rate Blood Pressure 120/57 101/40 111/56 O2 Sat by Pulse 100 Oximetry (%) 01/05/17 01/05/17 01/05/17 19:37 20:00 22:00 Temperature 98.1 F Pulse Rate 75 64 Respiratory 18 21 15 Rate Blood Pressure 94/54 112/50 O2 Sat by Pulse 100 Oximetry (%) 01/06/17 01/06/17 01/06/17 00:00 02:00 04:00 Temperature 98 F Pulse Rate 64 71 65 Respiratory 14 18 16 Rate Blood Pressure 136/49 134/48 120/50 O2 Sat by Pulse Oximetry (%) 01/06/17 01/06/17 01/06/17 06:00 07:59 08:42 Temperature Pulse Rate 63 67 Respiratory 14 15 Rate Blood Pressure 136/54 135/54 O2 Sat by Pulse 96 Oximetry (%) 01/06/17 01/06/17 01/06/17 08:49 10:00 10:47 Temperature 98.4 F Pulse Rate 66 Respiratory 15 14 Rate Blood Pressure 124/47 O2 Sat by Pulse 96 95 Oximetry (%) 01/06/17 12:00 Temperature Pulse Rate 73 Respiratory 15 Rate Blood Pressure 138/50 O2 Sat by Pulse Oximetry (%) Intake & Output 01/04/17 01/05/17 01/06/17 01/07/17 07:59 07:59 07:59 07:59 Intake Total 1560 1180 960 Output Total 76 56 28 Balance 1484 1124 932 Weight 217 lb 12.8 oz 215 lb 9.6 oz 210 lb 1.608 oz Constitutional: Yes: Well Nourished, No Distress, Calm Cardiovascular: Yes: Regular Rate and Rhythm, S1, S2. No: Gallop, Murmur Respiratory: Yes: Regular,Rhonchi diffusely with squeaks. anterior crepitus improving. No: Accessory Muscle Use Extremities: No: Cold Edema: trace dependent Neurological: Yes: Alert. No: Seizure Psychiatric: No: Agitated Labs: CBC, BMP 01/06/17 05:50 01/06/17 05:50 - ....Imaging EKG: Other (tele: NSR; rare pvc) Assessment/Plan brain MRI: large rt inf cerebellar acute/subacute infarct. acute/subacute lacunar infarct at rt medulla oblongata. acute/subacute lacunar infarct of left frontal lobe and possibly occipital lobe. meningioma. Echo here: nl lv/rv size/fn. mild lae, mod mac, mild-mod as/ar, mild mr/tr a/p: 66 yo with h/o left breast ca s/p lumpectomy and chemotherapy, SVT per patient's documentation, IDDM, HTN, thyroid disease and ESRD recently started on HD M/W/ who presented to the ED with altered mental status found to be in DKA and with acute cerebellar infarct. NSTEMI, likely Type II: - trop 0.9 on admit, trended down - likely demand ischemia in setting DKA, CVA and > volume overload sec to missed HD session. - normal LVEF with no RWMA on echo - no acute anti-PLT or AC treatment is indicated for Type II [place] - custodial preventive therapy with statin, BB as doing (taking po now) - started ASA - should have risk stratification with nuclear stress test imaging later, after she recovers from acute illnesses AMS/possible acute brainstem CVA - MS change ? sec to hyperglycemia vs CVA --> improving - echo unrevealing - anti-PLT as per neuro, started ASA LLL PNA, empyema, PTX: -on abx -seen by thoracic surgery, considering VATS but started with chest tube only for now given her recent CVA increasing risk of anesthesia -per crit care/pulm/thoracic surgery. 12/30 s/p Flexible bronchoscopy, left thoracoscopy, pneumolysis, partial decortication, drainage of effusion. subcutaneous emphysema improving PSVT - known hx, on atenolol 50 bid at home, held here for bradycardia - recurrent brief svt runs on tele here, toprol 25 qd started on 01/03 - prolonged run (17 min) PSVT overnight on tele--note: this is almost certain to be adenosine sensitive rhythm (likely AVNRT or AVRT) and should be well tolerated hemodynamically, hence can defer incr BB (until bradycardia/HD related hypotension issues resolved). Con't low dose metoprolol (avoiding atenolol due to ESRD) - cont tele HTN - cont arb, bb. monitor for hypotension
[2017-01-06] MEDS ORDERED: VANCOMYCIN 1 GRAM (PRE-DOCKED) 1,000 MG/250 ML BAG IVPB ONE (15:30)
[2017-01-06] MEDS ORDERED: ACETAMINOPHEN 325 MG TABLET (FP) PO PRN (16:35)
--- NOTE | 2017-01-06 17:35 | PN ---
Physical Exam: SUBJECTIVE: Patient seen and examined at bedside in ICU. OBJECTIVE: Vital Signs Period Temp Pulse Resp BP Sys/Aguirre Pulse Ox Last 24 Hr 98 F-98.4 F 63-77 14-21 94-143/47-56 95-100 GENERAL/NEURO: Awake & alert. EYES: PERRL, EOMI; anicteric; no ptosis LUNGS: Diminished sounds on right, left chest tube to suction draining pus/blood HEART: Regular rate and rhythm, S1, S2 without murmur, rub or gallop. ABDOMEN: Soft, nontender, nondistended EXTREMITIES: Bilateral upper extremity edema; 2+ pulses, warm, well-perfused Laboratory Results - last 24 hr 01/05/17 01/05/17 01/06/17 16:39 21:31 05:50 WBC RBC Hgb Hct MCV MCHC RDW Plt Count MPV Neutrophils % Lymphocytes % Monocytes % Eosinophils % Basophils % Sodium Potassium Chloride Carbon Dioxide Anion Gap BUN Creatinine POC Glucometer 282.78094 175.36121 Random Glucose Calcium Vancomycin Trough Random Vancomycin 12.632 01/06/17 01/06/17 01/06/17 05:50 05:50 06:12 WBC 13.9 H RBC 3.74 Hgb 10.8 Hct 34.3 MCV 91.8 MCHC 31.5 L RDW 16.2 H Plt Count 290 MPV 8.9 Neutrophils % 80.5 Lymphocytes % 11.5 D Monocytes % 5.9 Eosinophils % 1.4 Basophils % 0.7 Sodium 141 Potassium 4.1 Chloride 98 Carbon Dioxide 34 H Anion Gap 9 BUN 23 H D Creatinine 2.4 H POC Glucometer 137.90343 Random Glucose 120 H Calcium 7.7 L Vancomycin Trough Random Vancomycin 01/06/17 01/06/17 11:40 12:07 WBC RBC Hgb Hct MCV MCHC RDW Plt Count MPV Neutrophils % Lymphocytes % Monocytes % Eosinophils % Basophils % Sodium Potassium Chloride Carbon Dioxide Anion Gap BUN Creatinine POC Glucometer 194.27898 Random Glucose Calcium Vancomycin Trough 12.302 H Random Vancomycin Active Medications Generic Name Dose Route Start Last Admin Trade Name Freq PRN Reason Stop Dose Admin Acetaminophen 650 mg 01/06/17 16:35 Tylenol - PO Q6H PRN FEVER OR PAIN Aspirin 81 mg 01/07/17 10:00 Ecotrin - PO DAILY RE[facility]I Atorvastatin Calcium 20 mg 01/06/17 22:00 Lipitor - PO HS REJI Furosemide 40 mg 01/07/17 10:00 Lasix - PO DAILY RE[facility]I Gabapentin 100 mg 01/06/17 14:00 01/06/17 14:57 Neurontin - PO 100 mg TID REJI Administration Heparin Sodium (Porcine) 5,000 unit 01/06/17 22:00 Heparin - SQ BID RE[facility]I Vancomycin HCl 250 mls @ 166.667 mls/hr 01/07/17 09:00 Vancomycin (Pre-Docked) IVPB 01/07/17 10:29 ONCE ONE Protocol Insulin Aspart 1 vial 01/06/17 22:00 Novolog Vial Sliding Scale - SQ ACHS REJI Protocol Insulin Detemir 3 units 01/06/17 22:00 Levemir Vial SQ BID@0700,2200 [facility] Levothyroxine Sodium 100 mcg/ 175 mcg 01/07/17 07:00 Levothyroxine Sodium 75 mcg PO DAILY@0700 [facility] Losartan Potassium 25 mg 01/07/17 10:00 Cozaar - PO DAILY [facility] Metoprolol Succinate 25 mg 01/07/17 10:00 Toprol Xl - PO DAILY [facility] Morphine Sulfate 2 mg 01/05/17 11:32 01/06/17 13:37 Morphine Injection - IVPUSH 01/07/17 23:59 2 mg Q8H PRN Administration PAIN Imaging 12/26 Echo: mild cLVH, LV function normal; RV normal; LAE; mild MR; mild TR; mild to moderate and AI 12/26 CT head x 2: acute/subacute infarct 3.5 x 2cm right cerebellar hemisphere 12/27 US carotids: extensive atherosclerotic disease; 60-79% stenosis bilaterally R>L 12/29 MRI Brain: (1) large right inferior cerebellar acute/subacute infarct; (2) acute/subacute cortical infarct at the right junction of the medulla oblongata and cervical cord as well as a couple of acute/subactute lacunar infarcts in the left frontal lobe and likely in the right occipital lobe ASSESSMENT/PLAN 66 year-old woman with a PMH of HTN, HDL, IDDM, breast cancer s/p lumpectomy/ chemotherapy, hypothyroidism, and ESRD on HD. Admitted for DKA, pneumonia, and CVA. Hospital course complicated by spontaneous pneumothorax. s/p VATS. Pneumonia Empyema s/p Left VATS 12/30 --anterior chest tube pulled today; post CXR, no pneumo --second chest tube clamped --persistent leukocytosis, afebrile --blood x 1 bottle and pleural fluid + staph epi --azithro course x 5 days complete; meropenem x 6 days complete; vanc being dosed with HD IDDM DKA, resolved Lactic acidosis, resolved --Novolog sliding scale coverage Acute CVA --see imaging findings above --continue ASA, Lipitor Demand ischemia Elevated troponins --troponin 0.9 on admission, trended down --likely demand ischemia n setting of DKA, CVA, missed HD ESRD on HD (M,W,F) --dialysis yesterday, 3.3L removed Hypertension --continue metoprolol, lasix Hyperlipidemia --continue Lipitor Hypothyroidism --continue levothyroxine F/E/N Fluids: PO intake adequate Electrolytes: replete as indicated Nutrition: dysphagia chopped DVT prophylaxis: subq heparin, SCDs Physical therapy evaluation Daily PT Dispo: continues to require ICU level care. Visit type - Emergency Visit Emergency Visit: Yes ED Registration Date: 12/26/16 Care time: The patient presented to the Emergency Department on the above date and was hospitalized for further evaluation of their emergent condition. - New Patient This patient is new to me today: No - Critical Care Critical Care patient: Yes Total Critical Care Time (in minutes): 35 Critical Care Statement: The care of this patient involved high complexity decision making to prevent further life threatening deterioration of the patient 's condition and/or to evalute & treat vital organ system(s) failure or risk of failure.
[2017-01-06] MEDS: ATORVASTATIN CA 20 MG TABLET (FP) PO SCH (22:00)
--- NOTE | 2017-01-06 23:07 | PN ---
Progress Note, Physician History of Present Illness: stable no new events says she doing well - Current Medication List Current Medications: Active Medications Acetaminophen (Tylenol -) 650 mg PO Q6H PRN PRN Reason: FEVER OR PAIN Last Admin: 01/06/17 22:07 Dose: 650 mg Aspirin (Ecotrin -) 81 mg PO DAILY [facility] Atorvastatin Calcium (Lipitor -) 20 mg PO HS [facility] Last Admin: 01/06/17 22:00 Dose: 20 mg Furosemide (Lasix -) 40 mg PO DAILY [facility] Gabapentin (Neurontin -) 100 mg PO TID [facility] Last Admin: 01/06/17 22:00 Dose: 100 mg Heparin Sodium (Porcine) (Heparin -) 5,000 unit SQ BID [facility] Last Admin: 01/06/17 22:00 Dose: 5,000 unit Vancomycin HCl (Vancomycin (Pre-Docked)) 250 mls @ 166.667 mls/hr IVPB ONCE ONE PRN Reason: Protocol Stop: 01/07/17 10:29 Insulin Aspart (Novolog Vial Sliding Scale -) 1 vial SQ ACHS [facility] PRN Reason: Protocol Last Admin: 01/06/17 22:05 Dose: 4 units Insulin Detemir (Levemir Vial) 3 units SQ BID@0700,2200 [facility] Last Admin: 01/06/17 22:00 Dose: 3 units Levothyroxine Sodium 100 mcg/ (Levothyroxine Sodium 75 mcg) 175 mcg PO DAILY@ 0700 [facility] Losartan Potassium (Cozaar -) 25 mg PO DAILY [facility] Metoprolol Succinate (Toprol Xl -) 25 mg PO DAILY [facility] Morphine Sulfate (Morphine Injection -) 2 mg IVPUSH Q8H PRN PRN Reason: PAIN Stop: 01/07/17 23:59 Last Admin: 01/06/17 13:37 Dose: 2 mg - Objective Vital Signs: Vital Signs Temperature 98 F 01/06/17 18:00 Pulse Rate 70 01/06/17 18:00 Respiratory Rate 18 01/06/17 18:00 Blood Pressure 140/70 01/06/17 18:00 O2 Sat by Pulse Oximetry (%) 95 01/06/17 15:20 Constitutional: Yes: No Distress, Calm Cardiovascular: Yes: S1, S2 Respiratory: Yes: Poor Air Entry (on left side chest tube in place draiang), Other Gastrointestinal: Yes: Normal Bowel Sounds, Soft Musculoskeletal: Yes: WNL Extremities: Yes: WNL Wound/Incision: Yes: Clean/Dry Neurological: Yes: Alert, Oriented Psychiatric: Yes: Alert, Oriented Labs: CBC, BMP 01/06/17 05:50 01/06/17 05:50 INR, PTT INR 1.28 (0.82-1.09) H 12/31/16 05:20 Assessment/Plan cerebellar infarct LLL Pneumonia empyema s/p VATS PTX htn esrd leukocytosis ptx wbc still on the higher side plan vanco trough noted vanco doise given will talk wiht nephro will need couple of more doses of vanco we will probably due during dialysis wbc still fluctuating cc time 40 min
--- NOTE | 2017-01-07 03:33 | HOSP ---
Subjective - Review of Symptoms Events since last encounter: Hospitalist Encounter Notified by primary RN, that the patient has a HR 130s EKG done at bedside- Accelerated Junctional rhythm Arrived to bedside, patient is alert, awake and oriented. Patient reports feeling palpitations with SOB. Patient placed on 2LNC Encouraged patient to bear down in attempt to break rhythm Patient's vitals rechecked manually by RN P 89, BP 110/70- rhythm strips from monitor confirmed and placed in chart Continue current regimen and monitor closely Pulmonary: Yes: Dyspnea Cardiovascular: Yes: Palpitations Physical Examination Vital Signs: Vital Signs Temperature 97.8 F 01/07/17 02:00 Pulse Rate 83 01/07/17 02:00 Respiratory Rate 18 01/07/17 02:00 Blood Pressure 99/46 01/07/17 02:00 O2 Sat by Pulse Oximetry (%) 95 01/06/17 22:00 Constitutional: Yes: Anxious, Obese Cardiovascular: Yes: Tachycardia, S1, S2 Respiratory: Yes: Diminished, On Nasal O2, Other (Diminished sounds on right, left chest tube to suction draining pus/blood) Neurological: Yes: WNL, Alert, Oriented Psychiatric: Yes: WNL, Alert, Oriented Labs: CBC, BMP 01/06/17 05:50 01/06/17 05:50 Last Vital Signs Temp Pulse Resp BP Pulse Ox 97.8 F 83 18 99/46 95 01/07/17 02:00 01/07/17 02:00 01/07/17 02:00 01/07/17 02:00 01/06/17 22:00 Current Medications Generic Name Dose Route Start Last Admin Trade Name Freq PRN Reason Stop Dose Admin Acetaminophen 650 mg 01/06/17 16:35 01/06/17 22:07 Tylenol - PO 650 mg Q6H PRN Administration FEVER OR PAIN Aspirin 81 mg 01/07/17 10:00 Ecotrin - PO DAILY [facility] Atorvastatin Calcium 20 mg 01/06/17 22:00 01/06/17 22:00 Lipitor - PO 20 mg HS REJI Administration Furosemide 40 mg 01/07/17 10:00 Lasix - PO DAILY [facility] Gabapentin 100 mg 01/06/17 14:00 01/06/17 22:00 Neurontin - PO 100 mg TID REJI Administration Heparin Sodium (Porcine) 5,000 unit 01/06/17 22:00 01/06/17 22:00 Heparin - SQ 5,000 unit BID REJI Administration Vancomycin HCl 250 mls @ 166.667 mls/hr 01/07/17 09:00 Vancomycin (Pre-Docked) IVPB 01/07/17 10:29 ONCE ONE Protocol Insulin Aspart 1 vial 01/06/17 22:00 01/06/17 22:05 Novolog Vial Sliding Scale - SQ 4 units ACHS REJI Administration Protocol Insulin Detemir 3 units 01/06/17 22:00 01/06/17 22:00 Levemir Vial SQ 3 units BID@0700,2200 RE[facility]I Administration Levothyroxine Sodium 100 mcg/ 175 mcg 01/07/17 07:00 Levothyroxine Sodium 75 mcg PO DAILY@0700 [facility] Losartan Potassium 25 mg 01/07/17 10:00 Cozaar - PO DAILY [facility] Metoprolol Succinate 25 mg 01/07/17 10:00 Toprol Xl - PO DAILY [facility] Morphine Sulfate 2 mg 01/05/17 11:32 01/06/17 13:37 Morphine Injection - IVPUSH 01/07/17 23:59 2 mg Q8H PRN Administration PAIN
[2017-01-07] MEDS ORDERED: LEVOTHYROXINE NA 75 MCG TABLET (FP) ONE (05:17)
[2017-01-07] MEDS ORDERED: LEVOTHYROXINE NA 100 MCG TABLET (FP) ONE (05:17)
[2017-01-07] MEDS: LEVOTHYROXINE 100 MCG, LEVOTHYROXINE 75 MCG PO SCH (06:07)
[2017-01-07] MEDS: GABAPENTIN 100 MG CAPSULE (FP) PO SCH ×3 (06:07→21:46)
[2017-01-07] MEDS: INSULIN DETEMIR 100 UNITS/ML MDV SQ SCH ×2 (06:08→21:47)
[2017-01-07] MEDS: INSULIN SLIDING SCALE (NOVOLOG) 1 VIAL SQ SCH ×4 (06:09→21:47)
[2017-01-07] MEDS ORDERED: VANCOMYCIN 1 GRAM (PRE-DOCKED) 250 ML IVPB ONE (08:00)
--- NOTE | 2017-01-07 08:53 | PN ---
Progress Note (short form) - Note Progress Note: POD #7 Resting comfortably at this time without complaint. Her chest tube was clamped late yesterday and continued observation. Currently getting HD at her bedside. Early this morning around 3:33am, patient had an episode of accelerated junctional tachycardia with associated SOB and palpitations. Rhythm broken with vagal maneuver. Continued monitored setting. Denies CP, SOB, palpitations, diaphoresis or n/v. Last Vital Signs Temp Pulse Resp BP Pulse Ox 97.2 F L 69 18 115/75 95 01/07/17 06:55 01/07/17 08:30 01/07/17 08:30 01/07/17 08:30 01/06/17 22:00 Microbiology 12/30/16 16:40 Lung - Left Tissue Culture - Final --> Staphylococcus Epidermidis 12/30/16 16:40 Lung - Left Anaerobic Culture - Final --> NO ANAEROBES ISOLATED 12/30/16 15:10 Pleural Fluid Body Fluid Culture - Final --> NO GROWTH OF AEROBIC ORGANISMS AFTER 48 HOURS INCUBATION PE Gen: alert. nad. Left chest: CxT remains clamped LE: SCDs b/l Problem List - Problems (1) Empyema of left pleural space Assessment/Plan: POD #7 s/p Left VATS Cont HD PRN ABX per ID f/u CXR, if no pntx we will remove CxT THEN order a post-pull xray Cont medical management Above plan discussed with Dr. Brown and agrees. Code(s): J86.9 - PYOTHORAX WITHOUT FISTULA
[2017-01-07 09:01] LABS: BASOPHIL 0.9 % (0-2.0); EOSINOPHIL 1.9 % (0-4.5); MCH 28.9 pg (25.7-33.7); MCHC 32.1 g/dl (32.0-36.0); MEAN CELL VOLUME 90.1 fl (80-96); MEAN PLT VOLUME 8.7 fl (7.5-11.1); NEUTROPHILS 81.8 % (42.8-82.8); PLATELET COUNT 305 K/MM3 (134-434); RDW 16.1 % (11.6-15.6); WHITE BLOOD COUNT 11.5 K/mm3 (4.0-10.0)
--- NOTE | 2017-01-07 10:38 | PN ---
Progress Note (short form) - Note Progress Note: Chief Complaint: CVA, PSVT S: no cp, palps, sob, dizziness. Current Medications Generic Name Dose Route Start Last Admin Trade Name Freq PRN Reason Stop Dose Admin Acetaminophen 650 mg 01/06/17 16:35 01/06/17 22:07 Tylenol - PO 650 mg Q6H PRN Administration FEVER OR PAIN Aspirin 81 mg 01/07/17 10:00 Ecotrin - PO DAILY REJI Atorvastatin Calcium 20 mg 01/06/17 22:00 01/06/17 22:00 Lipitor - PO 20 mg HS REJI Administration Furosemide 40 mg 01/07/17 10:00 Lasix - PO DAILY REJI Gabapentin 100 mg 01/06/17 14:00 01/07/17 06:07 Neurontin - PO 100 mg TID REJI Administration Heparin Sodium (Porcine) 5,000 unit 01/06/17 22:00 01/06/17 22:00 Heparin - SQ 5,000 unit BID REJI Administration Vancomycin HCl 500 mg/ 250 mls @ 250 mls/hr 01/07/17 09:54 Dextrose IVPB 01/07/17 10:53 ONCE ONE Protocol Insulin Aspart 1 vial 01/06/17 22:00 01/07/17 06:09 Novolog Vial Sliding Scale - SQ Not Given ACHS REJI Protocol Insulin Detemir 3 units 01/06/17 22:00 01/07/17 06:08 Levemir Vial SQ 3 units BID@0700,2200 REJI Administration Levothyroxine Sodium 100 mcg/ 175 mcg 01/07/17 07:00 01/07/17 06:07 Levothyroxine Sodium 75 mcg PO 175 mcg DAILY@0700 REJI Administration Losartan Potassium 25 mg 01/07/17 10:00 Cozaar - PO DAILY [facility] Metoprolol Succinate 25 mg 01/07/17 10:00 Toprol Xl - PO DAILY [facility] Morphine Sulfate 2 mg 01/05/17 11:32 01/06/17 13:37 Morphine Injection - IVPUSH 01/07/17 23:59 2 mg Q8H PRN Administration PAIN Vital Signs Period Temp Pulse Resp BP Sys/Aguirre Pulse Ox Last 24 Hr 97.2 F-98.4 F 65-130 14-19 80-143/46-75 95-95 Constitutional: Yes: No Distress, Calm Eyes: No: Sclera Icterus HENT: No: Nasal Congestion Cardiovascular: Yes: Regular Rate and Rhythm, S1, S2, Other (PMI non diplaced). No: JVD, Gallop, Murmur Respiratory: Yes: B/l rhonchi No: Accessory Muscle Use, Rales, Wheezes Gastrointestinal: Yes: Normal Bowel Sounds, Soft. No: Tenderness Musculoskeletal: Yes: Other (No kyphosis) Extremities: No: Cold. + rt sided weakness. Edema: No Integumentary: No: Jaundice diaphoresis Neurological: Yes: awake alert appropriate Psychiatric: No: Agitated Labs: CBC, BMP 01/07/17 07:10 tele: sr, svt episode overnight HR 120s-130s head CT: suspicion for acute/subacute cerebellar infarct brain MRI: large rt inf cerebellar acute/subacute infarct. acute/subacute lacunar infarct at rt medulla oblongata. acute/subacute lacunar infarct of left frontal lobe and possibly occipital lobe. meningioma. Echo here: nl lv/rv size/fn. mild lae, mod mac, mild-mod as/ar, mild mr/tr a/p: 66 yo with h/o left breast ca s/p lumpectomy and chemotherapy, SVT per patient's documentation, IDDM, HTN, thyroid disease and ESRD recently started on HD M/W/ who presented to the ED with altered mental status found to be in DKA and with acute cerebellar infarct. NSTEMI, likely Type II: - trop 0.9 on admit, trended down - likely demand ischemia in setting DKA, CVA and > volume overload sec to missed HD session. - normal LVEF with no RWMA on echo - no acute anti-PLT or AC treatment is indicated for Type II CA - half-way preventive therapy with statin, BB as doing (taking po now) - started ASA - should have risk stratification with nuclear stress test imaging later, after she recovers from acute illnesses AMS/possible acute brainstem CVA - MS change ? sec to hyperglycemia vs CVA --> improving - echo unrevealing - anti-PLT as per neuro, started ASA LLL PNA, empyema, PTX: -on abx -seen by thoracic surgery, considering VATS but started with chest tube only for now given her recent CVA increasing risk of anesthesia -per crit care/pulm/thoracic surgery. 12/30 s/p Flexible bronchoscopy, left thoracoscopy, pneumolysis, partial decortication, drainage of effusion. subcutaneous emphysema improving PSVT - known hx, on atenolol 50 bid at home, held here for bradycardia - recurrent brief svt runs on tele here, toprol 25 qd started on 01/03 - prolonged run PSVT overnight on tele--note: this is almost certain to be adenosine sensitive rhythm (likely AVNRT or AVRT) and should be well tolerated hemodynamically, hence can defer incr BB (until bradycardia/HD related hypotension issues resolved). Con't low dose metoprolol (avoiding atenolol due to ESRD) - cont tele HTN - cont arb, bb. monitor for hypotension
--- NOTE | 2017-01-07 10:43 | PN ---
Progress Note (short form) - Note Progress Note: Renal Follow up fro ESRD on HD Pt seen and examined during dialysis BP stable, goal UF is 2L vanco level is 16 pt without any new complaints no sob, chest pain Vital Signs Temperature 97.5 F L 01/07/17 09:48 Pulse Rate 73 01/07/17 10:00 Respiratory Rate 18 01/07/17 10:00 Blood Pressure 128/55 01/07/17 10:00 O2 Sat by Pulse Oximetry (%) 95 01/06/17 22:00 Intake & Output 01/04/17 01/05/17 01/06/17 01/07/17 23:59 23:59 23:59 23:59 Intake Total 8083 494 6958 Output Total 90 22 8 Balance 2555 868 7342 Weight 217 lb 12.8 oz 215 lb 9.6 oz 210 lb 1.608 oz Gen: NAD, CVS: RRR, No M/R Lungs: Dec BS at lung bases, 1 chest tube left lung Abd: soft NT/ND Ext: trace to 1+ edema in LE CBC, BMP 01/07/17 07:10 Current Medications Acetaminophen (Tylenol -) 650 mg PO Q6H PRN PRN Reason: FEVER OR PAIN Last Admin: 01/06/17 22:07 Dose: 650 mg Aspirin (Ecotrin -) 81 mg PO DAILY [facility] Atorvastatin Calcium (Lipitor -) 20 mg PO HS [facility] Last Admin: 01/06/17 22:00 Dose: 20 mg Furosemide (Lasix -) 40 mg PO DAILY [facility] Gabapentin (Neurontin -) 100 mg PO TID [facility] Last Admin: 01/07/17 06:07 Dose: 100 mg Heparin Sodium (Porcine) (Heparin -) 5,000 unit SQ BID [facility] Last Admin: 01/06/17 22:00 Dose: 5,000 unit Vancomycin HCl 500 mg/ (Dextrose) 100 mls @ 100 mls/hr IVPB ONCE ONE PRN Reason: Protocol Stop: 01/07/17 10:53 Insulin Aspart (Novolog Vial Sliding Scale -) 1 vial SQ ACHS [facility] PRN Reason: Protocol Last Admin: 01/07/17 06:09 Dose: Not Given Insulin Detemir (Levemir Vial) 3 units SQ BID@0700,2200 [facility] Last Admin: 01/07/17 06:08 Dose: 3 units Levothyroxine Sodium 100 mcg/ (Levothyroxine Sodium 75 mcg) 175 mcg PO DAILY@ 0700 [facility]I Last Admin: 01/07/17 06:07 Dose: 175 mcg Losartan Potassium (Cozaar -) 25 mg PO DAILY [facility] Metoprolol Succinate (Toprol Xl -) 25 mg PO DAILY [facility] Morphine Sulfate (Morphine Injection -) 2 mg IVPUSH Q8H PRN PRN Reason: PAIN Stop: 01/07/17 23:59 Last Admin: 01/06/17 13:37 Dose: 2 mg A/P breast ca s/p lumpectomy and chemotherapy, IDDM, HTN, and ESRD on HD M/W/ who presented to the ED today via EMS after her dialysis center notified police that she missed her treatment on Thursday and was not answering the phone. 66 year old woman with PMhx of ESRD on HD, Breast Ca s/p Chemo and Lumpectomy, IDDM, Hypertension presented with AMS and found to have DKA, Acute CVA and Pnemothorax #ESRD on HD tolerating dialysis well goal UF is 2L dose all meds for intermittent HD #Empyema/Pneumothorax/Leukocytosis Vanco level is 16 today, will give Vanco 500mg post HD Chest tube management as per Sx #Acute/Subacute CVA supportive Care Neurology follow up Thank you Jose Carlos Wray DO
[2017-01-07 11:03] LABS: ALBUMIN 1.6 g/dl (3.4-5.0); BILIRUBIN,TOTAL 0.5 mg/dL (0.2-1.0); CALCIUM 7.5 mg/dL (8.5-10.1); COCKROFT - GAULT 34.85; CREATININE 2.3 mg/dL (0.55-1.02); PHOSPHOROUS 3.9 mg/dL (2.5-4.9); TOT PROT 4.8 g/dl (6.4-8.2)
--- NOTE | 2017-01-07 11:07 | PN ---
Physical Exam: SUBJECTIVE: Patient seen and examined at bedside. Both chest tubes out. No complaints. No pain. No SOB. Wants to work with PT to get oob. OBJECTIVE: Vital Signs Period Temp Pulse Resp BP Sys/Aguirre Pulse Ox Last 24 Hr 97.2 F-98.3 F 65-130 14-19 80-143/46-75 95-95 GENERAL/NEURO: Awake & alert. Conversational. No facial droop. No neuro focal deficits. EYES: PERRL, EOMI; anicteric; no ptosis LUNGS: Diminished bilaterally, poor effort HEART: Regular rate and rhythm, S1, S2 without murmur, rub or gallop. ABDOMEN: Soft, nontender, nondistended EXTREMITIES: 3+ bilateral LE edema R>L Laboratory Results - last 24 hr 01/06/17 01/06/17 01/06/17 06:12 11:40 12:07 WBC RBC Hgb Hct MCV MCHC RDW Plt Count MPV Neutrophils % Lymphocytes % Monocytes % Eosinophils % Basophils % POC Glucometer 137.09032 194.35948 Vancomycin Trough 12.302 H Random Vancomycin 01/06/17 01/06/17 01/07/17 16:10 21:49 05:13 WBC RBC Hgb Hct MCV MCHC RDW Plt Count MPV Neutrophils % Lymphocytes % Monocytes % Eosinophils % Basophils % POC Glucometer 198.46907 229 114 Vancomycin Trough Random Vancomycin 01/07/17 01/07/17 07:10 07:10 WBC 11.5 H RBC 3.74 Hgb 10.8 Hct 33.7 MCV 90.1 MCHC 32.1 RDW 16.1 H Plt Count 305 MPV 8.7 Neutrophils % 81.8 Lymphocytes % 11.9 Monocytes % 3.5 L Eosinophils % 1.9 Basophils % 0.9 POC Glucometer Vancomycin Trough Random Vancomycin 16.339 Active Medications Generic Name Dose Route Start Last Admin Trade Name Freq PRN Reason Stop Dose Admin Acetaminophen 650 mg 01/06/17 16:35 01/06/17 22:07 Tylenol - PO 650 mg Q6H PRN Administration FEVER OR PAIN Aspirin 81 mg 01/07/17 10:00 Ecotrin - PO DAILY REJI Atorvastatin Calcium 20 mg 01/06/17 22:00 01/06/17 22:00 Lipitor - PO 20 mg HS REJI Administration Furosemide 40 mg 01/07/17 10:00 Lasix - PO DAILY REJI Gabapentin 100 mg 01/06/17 14:00 01/07/17 06:07 Neurontin - PO 100 mg TID REJI Administration Heparin Sodium (Porcine) 5,000 unit 01/06/17 22:00 01/06/17 22:00 Heparin - SQ 5,000 unit BID REJI Administration Vancomycin HCl 500 mg/ 100 mls @ 100 mls/hr 01/07/17 09:54 Dextrose IVPB 01/07/17 10:53 ONCE ONE Protocol Insulin Aspart 1 vial 01/06/17 22:00 01/07/17 06:09 Novolog Vial Sliding Scale - SQ Not Given ACHS REJI Protocol Insulin Detemir 3 units 01/06/17 22:00 01/07/17 06:08 Levemir Vial SQ 3 units BID@0700,2200 [facility] Administration Levothyroxine Sodium 100 mcg/ 175 mcg 01/07/17 07:00 01/07/17 06:07 Levothyroxine Sodium 75 mcg PO 175 mcg DAILY@0700 [facility] Administration Losartan Potassium 25 mg 01/07/17 10:00 Cozaar - PO DAILY [facility] Metoprolol Succinate 25 mg 01/07/17 10:00 Toprol Xl - PO DAILY [facility] Morphine Sulfate 2 mg 01/05/17 11:32 01/06/17 13:37 Morphine Injection - IVPUSH 01/07/17 23:59 2 mg Q8H PRN Administration PAIN Microbiology 12/30/16 16:40 Lung - Left Gram Stain - Final 12/30/16 16:40 Lung - Left Tissue Culture - Final Staphylococcus Epidermidis Staphylococcus Epidermidis#2 Staphylococcus Epidermidis#3 12/30/16 16:40 Lung - Left Anaerobic Culture - Final NO ANAEROBES WERE ISOLATED 12/30/16 15:10 Pleural Fluid Gram Stain - Final 12/30/16 15:10 Pleural Fluid Body Fluid Culture - Final NO GROWTH OF AEROBIC ORGANISMS AFTER 48 HOURS INCUBATION 12/30/16 15:10 Pleural Fluid Anaerobic Culture - Final NO ANAEROBES WERE ISOLATED 12/27/16 15:25 Blood - Peripheral Venous Blood Culture - Final NO GROWTH AFTER 5 DAYS INCUBATION 12/27/16 15:20 Blood - Peripheral Venous Blood Culture - Final NO GROWTH AFTER 5 DAYS INCUBATION 12/30/16 14:30 Bronchial Washings - Left Upper Lobe Gram Stain - Final 12/30/16 14:30 Bronchial Washings - Left Upper Lobe Bronchoalveolar Lavage Culture - Final NORMAL RESPIRATORY LORNA 12/30/16 15:10 Pleural Fluid AFB Smear Concentration - Final 12/30/16 15:10 Pleural Fluid Mycobacterial Culture - Preliminary 12/26/16 13:57 Blood - Peripheral Venous Blood Culture - Final Staphylococcus Epidermidis 12/28/16 12:30 Blood - Peripheral Venous TB Test (QFT) (ALL) - Final 12/27/16 14:00 Pleural Fluid Gram Stain - Final 12/27/16 14:00 Pleural Fluid Body Fluid Culture - Final Staphylococcus Epidermidis 12/27/16 14:00 Pleural Fluid Anaerobic Culture - Final NO ANAEROBES WERE ISOLATED 12/26/16 13:57 Blood - Peripheral Venous Blood Culture - Final NO GROWTH AFTER 5 DAYS INCUBATION 12/30/16 15:10 Pleural Fluid SCOTT Preparation - Preliminary 12/30/16 15:10 Pleural Fluid Fungal Culture - Preliminary 12/28/16 11:30 Pleural Fluid AFB Smear Concentration - Final ASSESSMENT/PLAN Imaging 12/26 Echo: mild cLVH, LV function normal; RV normal; LAE; mild MR; mild TR; mild to moderate and AI 12/26 CT head x 2: acute/subacute infarct 3.5 x 2cm right cerebellar hemisphere 12/27 US carotids: extensive atherosclerotic disease; 60-79% stenosis bilaterally R>L 12/29 MRI Brain: (1) large right inferior cerebellar acute/subacute infarct; (2) acute/subacute cortical infarct at the right junction of the medulla oblongata and cervical cord as well as a couple of acute/subactute lacunar infarcts in the left frontal lobe and likely in the right occipital lobe ASSESSMENT/PLAN 66 year-old woman with a PMH of HTN, HDL, IDDM, breast cancer s/p lumpectomy/ chemotherapy, hypothyroidism, and ESRD on HD. Admitted for DKA, pneumonia, and CVA. Hospital course complicated by spontaneous pneumothorax. s/p VATS. Pneumonia Empyema s/p Left VATS 12/30 --second chest tube pulled today, post CXR pending --WBC continues to trend down, 11.5k today; afebrile --blood x 1 bottle and pleural fluid + staph epi --azithro course x 5 days complete; meropenem x 6 days complete; vanc being dosed with HD IDDM DKA, resolved Lactic acidosis, resolved --Novolog sliding scale coverage Acute CVA --see imaging findings above --continue ASA, Lipitor Demand ischemia Elevated troponins --troponin 0.9 on admission, trended down --likely demand ischemia in setting of DKA, CVA, missed HD ESRD on HD (M,W,F) --dialysis today Hypertension --continue metoprolol, lasix Hyperlipidemia --continue Lipitor Hypothyroidism --continue levothyroxine F/E/N Fluids: PO intake adequate Electrolytes: replete as indicated Nutrition: soft DVT prophylaxis: subq heparin, SCDs Physical therapy evaluation Daily PT Dispo: continues to require inpatient care. PT evaluation today. Discharge planning. Full Code. Visit type - Emergency Visit Emergency Visit: Yes ED Registration Date: 12/26/16 Care time: The patient presented to the Emergency Department on the above date and was hospitalized for further evaluation of their emergent condition. - New Patient This patient is new to me today: No - Critical Care Critical Care patient: No
--- NOTE | 2017-01-07 11:16 | PN ---
Progress Note, [employer]ES [employer]ENT[employer]IVE [employer] - Note Progress Note: Selected Entries 01/06/17 01/06/17 01/06/17 02:00 08:49 10:47 Breakfast 50% Temperature 98 F 98.4 F 01/06/17 01/06/17 01/06/17 14:00 18:00 22:00 Breakfast Temperature 98.3 F 98 F 97.5 F L 01/07/17 01/07/17 01/07/17 02:00 04:00 06:00 Breakfast Temperature 97.8 F 97.5 F L 97.5 F L 01/07/17 01/07/17 06:55 09:48 Breakfast Temperature 97.2 F L 97.5 F L Laboratory Tests 01/05/17 01/07/17 05:15 07:10 WBC 13.0 H 11.5 H Pt is likely not meeting nutritional needs with current intake,per RD. Pt looks much stronger. Speech is precise. She reports difficulty feeding herself. Swallowing is breisk, with no cough noted with trials of thin water, soft solids. Not sob or overtly congested. REC: Soft regular diet, thin liquid Please feed pt. R
--- NOTE | 2017-01-07 11:48 | EKG ---
Test Reason : Blood Pressure : / mmHG Vent. Rate : 130 BPM Atrial Rate : 129 BPM P-R Int : 000 ms QRS Dur : 094 ms QT Int : 324 ms P-R-T Axes : 000 -04 044 degrees QTc Int : 476 ms POOR DATA QUALITY, INTERPRETATION MAY BE ADVERSELY AFFECTED ACCELERATED JUNCTIONAL RHYTHM WITH OCCASIONAL PREMATURE VENTRICULAR COMPLEXES ABNORMAL ECG WHEN COMPARED WITH ECG OF 26-DEC-2016 17:13, JUNCTIONAL RHYTHM HAS REPLACED SINUS RHYTHM VENT. RATE HAS INCREASED BY [address] ELEVATION NOW PRESENT IN ANTERIOR LEADS NONSPECIFIC T WAVE ABNORMALITY NO LONGER EVIDENT IN ANTERIOR LEADS Confirmed by ANIL CARDOSO, DORIAN ([id number]) on 01/07/2017 11:47:41 AM Referred By: Confirmed By:DORIAN MA MD
[2017-01-07] MEDS ORDERED: INSULIN (NOVOLOG) ASPART 100 UNITS/ML 10ML VIAL ONE ×2 (12:29→21:40)
--- NOTE | 2017-01-07 12:33 | PN ---
Progress Note, Physician History of Present Illness: stable no new events - Current Medication List Current Medications: Active Medications Acetaminophen (Tylenol -) 650 mg PO Q6H PRN PRN Reason: FEVER OR PAIN Last Admin: 01/06/17 22:07 Dose: 650 mg Aspirin (Ecotrin -) 81 mg PO DAILY [facility] Atorvastatin Calcium (Lipitor -) 20 mg PO HS [facility] Last Admin: 01/06/17 22:00 Dose: 20 mg Furosemide (Lasix -) 40 mg PO DAILY [facility] Gabapentin (Neurontin -) 100 mg PO TID [facility] Last Admin: 01/07/17 06:07 Dose: 100 mg Heparin Sodium (Porcine) (Heparin -) 5,000 unit SQ BID [facility] Last Admin: 01/06/17 22:00 Dose: 5,000 unit Vancomycin HCl 500 mg/ (Dextrose) 100 mls @ 100 mls/hr IVPB ONCE ONE PRN Reason: Protocol Stop: 01/07/17 10:53 Insulin Aspart (Novolog Vial Sliding Scale -) 1 vial SQ ACHS [facility] PRN Reason: Protocol Last Admin: 01/07/17 06:09 Dose: Not Given Insulin Detemir (Levemir Vial) 3 units SQ BID@0700,2200 [facility] Last Admin: 01/07/17 06:08 Dose: 3 units Levothyroxine Sodium 100 mcg/ (Levothyroxine Sodium 75 mcg) 175 mcg PO DAILY@ 0700 [facility] Last Admin: 01/07/17 06:07 Dose: 175 mcg Losartan Potassium (Cozaar -) 25 mg PO DAILY [facility] Metoprolol Succinate (Toprol Xl -) 25 mg PO DAILY [facility] Morphine Sulfate (Morphine Injection -) 2 mg IVPUSH Q8H PRN PRN Reason: PAIN Stop: 01/07/17 23:59 Last Admin: 01/06/17 13:37 Dose: 2 mg - Objective Vital Signs: Vital Signs Temperature 97.5 F L 01/07/17 09:48 Pulse Rate 78 01/07/17 10:58 Respiratory Rate 18 01/07/17 10:58 Blood Pressure 138/56 01/07/17 10:58 O2 Sat by Pulse Oximetry (%) 95 01/06/17 22:00 Constitutional: Yes: No Distress, Calm Cardiovascular: Yes: S1, S2 Respiratory: Yes: Poor Air Entry, Rhonchi, Other (left chest tubes) Gastrointestinal: Yes: Normal Bowel Sounds, Soft Musculoskeletal: Yes: WNL Extremities: Yes: WNL Neurological: Yes: Alert, Oriented Psychiatric: Yes: Alert, Oriented Labs: CBC, BMP 01/07/17 07:10 01/07/17 07:10 INR, PTT INR 1.28 (0.82-1.09) H 12/31/16 05:20 Assessment/Plan cerebellar infarct LLL Pneumonia empyema s/p VATS PTX htn esrd leukocytosis ptx wbc still on the higher side plan vanco during dialysis another3 doses during dialysis rest continue to monitor patient doing well
--- NOTE | 2017-01-07 12:35 | PN ---
Progress Note (short form) - Note Progress Note: Surgery- Dr. Brown Patient seen for chest tube removal. CXR was completed this morning and there was no sign of pneumothorax. Chest tube has been clamped since last night. Patient is feeling well with no complaints. Chest tube was removed intact without issue, patient tolerated removal well. Stat CXR was ordered, f/u CXR. Problem List - Problems (1) Empyema of left pleural space Code(s): J86.9 - PYOTHORAX WITHOUT FISTULA
[2017-01-07] MEDS: FUROSEMIDE 40 MG TABLET (FP) PO SCH (12:53)
[2017-01-07] MEDS: LOSARTAN POTASSIUM 25 MG TABLET PO SCH (12:53)
[2017-01-07] MEDS: METOPROLOL SUCCINATE 25 MG TAB.SR.24H (FP) PO SCH (12:53)
[2017-01-07] MEDS: HEPARIN NA (PORCINE) 5,000 UNITS/ML 1ML VIAL SQ SCH ×2 (12:53→21:46)
[2017-01-07] MEDS: ASPIRIN COATED 81 MG TABLET.EC PO SCH (12:53)
--- NOTE | 2017-01-07 13:08 | PN ---
Progress Note, Physician History of Present Illness: PULMONARY ALERT,NAD,-CP,-SOB. CHEST TUBE REMOVED W/O COMPLICATIONS - Current Medication List Current Medications: Active Medications Acetaminophen (Tylenol -) 650 mg PO Q6H PRN PRN Reason: FEVER OR PAIN Last Admin: 01/06/17 22:07 Dose: 650 mg Aspirin (Ecotrin -) 81 mg PO DAILY [facility] Last Admin: 01/07/17 12:53 Dose: 81 mg Atorvastatin Calcium (Lipitor -) 20 mg PO HS [facility] Last Admin: 01/06/17 22:00 Dose: 20 mg Furosemide (Lasix -) 40 mg PO DAILY [facility] Last Admin: 01/07/17 12:53 Dose: 40 mg Gabapentin (Neurontin -) 100 mg PO TID [facility] Last Admin: 01/07/17 06:07 Dose: 100 mg Heparin Sodium (Porcine) (Heparin -) 5,000 unit SQ BID [facility] Last Admin: 01/07/17 12:53 Dose: 5,000 unit Vancomycin HCl 500 mg/ (Dextrose) 100 mls @ 100 mls/hr IVPB ONCE ONE PRN Reason: Protocol Stop: 01/07/17 10:53 Insulin Aspart (Novolog Vial Sliding Scale -) 1 vial SQ ACHS [facility] PRN Reason: Protocol Last Admin: 01/07/17 12:44 Dose: 2 units Insulin Detemir (Levemir Vial) 3 units SQ BID@0700,2200 [facility] Last Admin: 01/07/17 06:08 Dose: 3 units Levothyroxine Sodium 100 mcg/ (Levothyroxine Sodium 75 mcg) 175 mcg PO DAILY@ 0700 [facility] Last Admin: 01/07/17 06:07 Dose: 175 mcg Losartan Potassium (Cozaar -) 25 mg PO DAILY [facility] Last Admin: 01/07/17 12:53 Dose: 25 mg Metoprolol Succinate (Toprol Xl -) 25 mg PO DAILY [facility] Last Admin: 01/07/17 12:53 Dose: 25 mg Morphine Sulfate (Morphine Injection -) 2 mg IVPUSH Q8H PRN PRN Reason: PAIN Stop: 01/07/17 23:59 Last Admin: 01/06/17 13:37 Dose: 2 mg - Objective Vital Signs: Vital Signs Temperature 97.5 F L 01/07/17 09:48 Pulse Rate 78 01/07/17 10:58 Respiratory Rate 18 01/07/17 10:58 Blood Pressure 138/56 01/07/17 10:58 O2 Sat by Pulse Oximetry (%) 95 01/06/17 22:00 Constitutional: Yes: Well Nourished, Calm Eyes: Yes: WNL HENT: Yes: WNL Neck: Yes: WNL Cardiovascular: Yes: Regular Rate and Rhythm, S1, S2 Respiratory: Yes: Diminished (POOR INSPIRATORY EFFORT,-RHONCHI,-WHEEZES) Gastrointestinal: Yes: Normal Bowel Sounds, Soft Extremities: Yes: WNL Edema: Yes Labs: CBC, BMP 01/07/17 07:10 01/07/17 07:10 INR, PTT INR 1.28 (0.82-1.09) H 12/31/16 05:20 Problem List - Problems (1) DKA (diabetic ketoacidosis) Code(s): E13.10 - OTH DIABETES MELLITUS WITH KETOACIDOSIS WITHOUT COMA (2) Empyema of left pleural space Code(s): J86.9 - PYOTHORAX WITHOUT FISTULA (3) NSTEMI (non-ST elevated myocardial infarction) Code(s): I21.4 - NON-ST ELEVATION (NSTEMI) MYOCARDIAL INFARCTION (4) Pneumonia Code(s): J18.9 - PNEUMONIA, UNSPECIFIED ORGANISM (5) DVT prophylaxis Code(s): ZQV6374 - (6) Diabetes Code(s): E11.9 - TYPE 2 DIABETES MELLITUS WITHOUT COMPLICATIONS (7) Hypertension Code(s): I10 - ESSENTIAL (PRIMARY) HYPERTENSION (8) IDDM (insulin dependent diabetes mellitus) Code(s): E11.9 - TYPE 2 DIABETES MELLITUS WITHOUT COMPLICATIONS Z79.4 - USP (CURRENT) USE OF INSULIN Assessment/Plan ASSESSMENT AND PLAN: Diabetic Ketoacidosis resolved Left Empyema s/p L VATS/pneumolysis/partial decortication/chest tube placement 12/30 Acute CVA +Troponins likely Demand Ischemia ESRD on HD HTN - continue antibiotics per ID - pain control - incentive spirometry - glucose control - HD per renal - DVT prophylaxis - OOB to chair - f/u chest x-rays DR MAR
[2017-01-07] MEDS ORDERED: VANCOMYCIN 500 MG in DEXTROSE 5%-WATER - 100 ML IVPB ONE (14:45)
[2017-01-07] MEDS: ATORVASTATIN CA 20 MG TABLET (FP) PO SCH (21:46)
[2017-01-08] MEDS: INSULIN SLIDING SCALE (NOVOLOG) 1 VIAL SQ SCH ×4 (06:13→22:18)
[2017-01-08 06:20] LABS: BASOPHIL 1.5 % (0-2.0); EOSINOPHIL 1.5 % (0-4.5); MCH 28.8 pg (25.7-33.7); MCHC 31.9 g/dl (32.0-36.0); MEAN CELL VOLUME 90.2 fl (80-96); MEAN PLT VOLUME 8.4 fl (7.5-11.1); NEUTROPHILS 78.9 % (42.8-82.8); PLATELET COUNT 366 K/MM3 (134-434); RDW 16.2 % (11.6-15.6); WHITE BLOOD COUNT 11.3 K/mm3 (4.0-10.0)
[2017-01-08 06:41] LABS: CALCIUM 7.4 mg/dL (8.5-10.1); COCKROFT - GAULT 33.15; CREATININE 2.4 mg/dL (0.55-1.02); PHOSPHOROUS 3.9 mg/dL (2.5-4.9)
[2017-01-08] MEDS ORDERED: LEVOTHYROXINE NA 100 MCG TABLET (FP) ONE (09:38)
[2017-01-08] MEDS ORDERED: LEVOTHYROXINE NA 75 MCG TABLET (FP) ONE (09:39)
[2017-01-08] MEDS: GABAPENTIN 100 MG CAPSULE (FP) PO SCH ×3 (09:47→22:17)
[2017-01-08] MEDS: INSULIN DETEMIR 100 UNITS/ML MDV SQ SCH ×2 (09:48→22:18)
[2017-01-08] MEDS: LEVOTHYROXINE 100 MCG, LEVOTHYROXINE 75 MCG PO SCH (09:48)
[2017-01-08] MEDS: LOSARTAN POTASSIUM 25 MG TABLET PO SCH (09:48)
[2017-01-08] MEDS: METOPROLOL SUCCINATE 25 MG TAB.SR.24H (FP) PO SCH (09:49)
[2017-01-08] MEDS: HEPARIN NA (PORCINE) 5,000 UNITS/ML 1ML VIAL SQ SCH ×2 (09:49→22:17)
[2017-01-08] MEDS: FUROSEMIDE 40 MG TABLET (FP) PO SCH (09:49)
[2017-01-08] MEDS: ASPIRIN COATED 81 MG TABLET.EC PO SCH (09:49)
--- NOTE | 2017-01-08 10:15 | PN ---
Progress Note (short form) - Note Progress Note: Chief Complaint: CVA, PSVT S: no cp, palps, sob, dizziness. Current Medications Generic Name Dose Route Start Last Admin Trade Name Olive PRN Reason Stop Dose Admin Acetaminophen 650 mg 01/06/17 16:35 01/06/17 22:07 Tylenol - PO 650 mg Q6H PRN Administration FEVER OR PAIN Aspirin 81 mg 01/07/17 10:00 01/08/17 09:49 Ecotrin - PO 81 mg DAILY REJI Administration Atorvastatin Calcium 20 mg 01/06/17 22:00 01/07/17 21:46 Lipitor - PO 20 mg HS REJI Administration Furosemide 40 mg 01/07/17 10:00 01/08/17 09:49 Lasix - PO 40 mg DAILY REJI Administration Gabapentin 100 mg 01/06/17 14:00 01/08/17 09:47 Neurontin - PO Not Given TID REJI Heparin Sodium (Porcine) 5,000 unit 01/06/17 22:00 01/08/17 09:49 Heparin - SQ 5,000 unit BID REJI Administration Insulin Aspart 1 vial 01/06/17 22:00 01/08/17 06:13 Novolog Vial Sliding Scale - SQ Not Given ACHS [facility] Protocol Insulin Detemir 3 units 01/06/17 22:00 01/08/17 09:48 Levemir Vial SQ 3 units BID@0700,2200 REJI Administration Levothyroxine Sodium 100 mcg/ 175 mcg 01/07/17 07:00 01/08/17 09:48 Levothyroxine Sodium 75 mcg PO 175 mcg DAILY@0700 REJI Administration Losartan Potassium 25 mg 01/07/17 10:00 01/08/17 09:48 Cozaar - PO 25 mg DAILY REJI Administration Metoprolol Succinate 25 mg 01/07/17 10:00 01/08/17 09:49 Toprol Xl - PO 25 mg DAILY REJI Administration Vital Signs Period Temp Pulse Resp BP Sys/Aguirre Pulse Ox Last 24 Hr 98 F-99.9 F 70-87 18-20 120-143/48-78 94-94 Constitutional: Yes: No Distress, Calm Eyes: No: Sclera Icterus HENT: No: Nasal Congestion Cardiovascular: Yes: Regular Rate and Rhythm, S1, S2, Other (PMI non diplaced). No: JVD, Gallop, Murmur Respiratory: Yes: B/l rhonchi No: Accessory Muscle Use, Rales, Wheezes Gastrointestinal: Yes: Normal Bowel Sounds, Soft. No: Tenderness Musculoskeletal: Yes: Other (No kyphosis) Extremities: No: Cold. + rt sided weakness. Edema: No Integumentary: No: Jaundice diaphoresis Neurological: Yes: awake alert appropriate Psychiatric: No: Agitated Labs: CBC, BMP 01/08/17 05:35 01/08/17 05:35 tele: sr, brief svt head CT: suspicion for acute/subacute cerebellar infarct brain MRI: large rt inf cerebellar acute/subacute infarct. acute/subacute lacunar infarct at rt medulla oblongata. acute/subacute lacunar infarct of left frontal lobe and possibly occipital lobe. meningioma. Echo here: nl lv/rv size/fn. mild lae, mod mac, mild-mod as/ar, mild mr/tr a/p: 66 yo with h/o left breast ca s/p lumpectomy and chemotherapy, SVT per patient's documentation, IDDM, HTN, thyroid disease and ESRD recently started on HD M/W/ who presented to the ED with altered mental status found to be in DKA and with acute cerebellar infarct. NSTEMI, likely Type II: - trop 0.9 on admit, trended down - likely demand ischemia in setting DKA, CVA and > volume overload sec to missed HD session. - normal LVEF with no RWMA on echo - no acute anti-PLT or AC treatment is indicated for Type II SC - long-term preventive therapy with statin, BB as doing (taking po now) - started ASA - should have risk stratification with nuclear stress test imaging later, after she recovers from acute illnesses AMS/possible acute brainstem CVA - MS change ? sec to hyperglycemia vs CVA --> improved - echo unrevealing - anti-PLT as per neuro, started ASA LLL PNA, empyema, PTX: -on abx -seen by thoracic surgery, considering VATS but started with chest tube only for now given her recent CVA increasing risk of anesthesia, chest tube now removed -per crit care/pulm/thoracic surgery. 12/30 s/p Flexible bronchoscopy, left thoracoscopy, pneumolysis, partial decortication, drainage of effusion. subcutaneous emphysema improving PSVT - known hx, on atenolol 50 bid at home, held here for bradycardia - recurrent brief svt runs on tele here, toprol 25 qd started on 01/03 - prolonged run PSVT on tele at times--note: this is almost certain to be adenosine sensitive rhythm (likely AVNRT or AVRT) and should be well tolerated hemodynamically, hence can defer incr BB (until bradycardia/HD related hypotension issues resolved). Con't low dose metoprolol (avoiding atenolol due to ESRD) - cont tele HTN - cont arb, bb. monitor for hypotension
[2017-01-08 13:26] LABS: EOSINOPHIL 1.3 % (0-4.5); MCH 28.9 pg (25.7-33.7); MCHC 32.1 g/dl (32.0-36.0); MEAN CELL VOLUME 90.1 fl (80-96); MEAN PLT VOLUME 8.9 fl (7.5-11.1); PLATELET COUNT 350 K/MM3 (134-434); RDW 16.5 % (11.6-15.6); WHITE BLOOD COUNT 12.1 K/mm3 (4.0-10.0)
[2017-01-08 13:54] LABS: ALBUMIN 1.7 g/dl (3.4-5.0); BILIRUBIN,TOTAL 0.5 mg/dL (0.2-1.0); CALCIUM 7.7 mg/dL (8.5-10.1); COCKROFT - GAULT 32.3; CREATININE 2.5 mg/dL (0.55-1.02); TOT PROT 5.4 g/dl (6.4-8.2)
--- NOTE | 2017-01-08 15:06 | PN ---
Progress Note, Physician History of Present Illness: stable no new issues - Current Medication List Current Medications: Active Medications Acetaminophen (Tylenol -) 650 mg PO Q6H PRN PRN Reason: FEVER OR PAIN Last Admin: 01/06/17 22:07 Dose: 650 mg Aspirin (Ecotrin -) 81 mg PO DAILY [facility] Last Admin: 01/08/17 09:49 Dose: 81 mg Atorvastatin Calcium (Lipitor -) 20 mg PO HS [facility] Last Admin: 01/07/17 21:46 Dose: 20 mg Furosemide (Lasix -) 40 mg PO DAILY [facility] Last Admin: 01/08/17 09:49 Dose: 40 mg Gabapentin (Neurontin -) 100 mg PO TID [facility] Last Admin: 01/08/17 14:21 Dose: 100 mg Heparin Sodium (Porcine) (Heparin -) 5,000 unit SQ BID [facility] Last Admin: 01/08/17 09:49 Dose: 5,000 unit Insulin Aspart (Novolog Vial Sliding Scale -) 1 vial SQ ACHS [facility] PRN Reason: Protocol Last Admin: 01/08/17 12:50 Dose: 4 units Insulin Detemir (Levemir Vial) 3 units SQ BID@0700,2200 [facility] Last Admin: 01/08/17 09:48 Dose: 3 units Levothyroxine Sodium 100 mcg/ (Levothyroxine Sodium 75 mcg) 175 mcg PO DAILY@ 0700 [facility] Last Admin: 01/08/17 09:48 Dose: 175 mcg Losartan Potassium (Cozaar -) 25 mg PO DAILY [facility] Last Admin: 01/08/17 09:48 Dose: 25 mg Metoprolol Succinate (Toprol Xl -) 25 mg PO DAILY [facility] Last Admin: 01/08/17 09:49 Dose: 25 mg - Objective Vital Signs: Vital Signs Temperature 98.3 F 01/08/17 09:37 Pulse Rate 80 01/08/17 09:37 Respiratory Rate 20 01/08/17 09:37 Blood Pressure 124/53 01/08/17 09:37 O2 Sat by Pulse Oximetry (%) 94 L 01/07/17 21:00 Constitutional: Yes: Calm Cardiovascular: Yes: S1, S2 Respiratory: Yes: Poor Air Entry, Other Gastrointestinal: Yes: Normal Bowel Sounds, Soft Musculoskeletal: Yes: WNL Extremities: Yes: WNL Neurological: Yes: Alert, Oriented Psychiatric: Yes: Alert, Oriented Labs: CBC, BMP 01/08/17 12:42 01/08/17 12:42 INR, PTT INR 1.28 (0.82-1.09) H 12/31/16 05:20 Assessment/Plan cerebellar infarct LLL Pneumonia empyema s/p VATS PTX htn esrd leukocytosis ptx wbc still on the higher side plan vanco during dialysis another2 doses during dialysis rest continue to monitor patient doing well wbc nearly normal
--- NOTE | 2017-01-08 15:14 | PN ---
Progress Note (short form) - Note Progress Note: Resting in NAD. No acute events overnight. Afebrile. No CP or SOB. Intake & Output 01/05/17 01/06/17 01/07/17 01/08/17 23:59 23:59 23:59 23:59 Intake Total 770 1070 500 Output Total 22 8 Balance 748 1062 500 Weight 215 lb 9.6 oz 210 lb 1.608 oz Last Vital Signs Temp Pulse Resp BP Pulse Ox 98.3 F 77 20 122/53 94 L 01/08/17 15:11 01/08/17 15:11 01/08/17 15:11 01/08/17 15:11 01/07/17 21:00 Active Medications Acetaminophen (Tylenol -) 650 mg PO Q6H PRN PRN Reason: FEVER OR PAIN Last Admin: 01/06/17 22:07 Dose: 650 mg Aspirin (Ecotrin -) 81 mg PO DAILY [facility] Last Admin: 01/08/17 09:49 Dose: 81 mg Atorvastatin Calcium (Lipitor -) 20 mg PO HS [facility] Last Admin: 01/07/17 21:46 Dose: 20 mg Furosemide (Lasix -) 40 mg PO DAILY [facility] Last Admin: 01/08/17 09:49 Dose: 40 mg Gabapentin (Neurontin -) 100 mg PO TID [facility] Last Admin: 01/08/17 14:21 Dose: 100 mg Heparin Sodium (Porcine) (Heparin -) 5,000 unit SQ BID [facility] Last Admin: 01/08/17 09:49 Dose: 5,000 unit Insulin Aspart (Novolog Vial Sliding Scale -) 1 vial SQ ACHS [facility] PRN Reason: Protocol Last Admin: 01/08/17 12:50 Dose: 4 units Insulin Detemir (Levemir Vial) 3 units SQ BID@0700,2200 [facility] Last Admin: 01/08/17 09:48 Dose: 3 units Levothyroxine Sodium 100 mcg/ (Levothyroxine Sodium 75 mcg) 175 mcg PO DAILY@ 0700 [facility] Last Admin: 01/08/17 09:48 Dose: 175 mcg Losartan Potassium (Cozaar -) 25 mg PO DAILY [facility] Last Admin: 01/08/17 09:48 Dose: 25 mg Metoprolol Succinate (Toprol Xl -) 25 mg PO DAILY [facility] Last Admin: 01/08/17 09:49 Dose: 25 mg Constitutional: Yes: Awake, NAD Eyes: Yes: WNL HENT: Yes: WNL Neck: Yes: WNL Cardiovascular: Yes: Regular Rate and Rhythm, S1, S2 Respiratory: Yes: Diminished at the bases, scattered rhonchi, resolving SQ emphysema Gastrointestinal: Yes: Normal Bowel Sounds, Soft Extremities: Yes: WNL Edema: Yes Labs: Laboratory Results - last 24 hr 01/07/17 01/07/17 01/08/17 17:19 21:21 05:25 WBC RBC Hgb Hct MCV MCHC RDW Plt Count MPV Neutrophils % Lymphocytes % Monocytes % Eosinophils % Basophils % Sodium Potassium Chloride Carbon Dioxide Anion Gap BUN Creatinine Creat Clearance w eGFR POC Glucometer 228 193 157 Random Glucose Calcium Phosphorus Magnesium Total Bilirubin AST ALT Alkaline Phosphatase Total Protein Albumin 01/08/17 01/08/17 01/08/17 05:35 05:35 11:30 WBC 11.3 H RBC 3.73 Hgb 10.7 Hct 33.6 MCV 90.2 MCHC 31.9 L RDW 16.2 H Plt Count 366 MPV 8.4 Neutrophils % 78.9 Lymphocytes % 12.4 Monocytes % 5.7 Eosinophils % 1.5 Basophils % 1.5 Sodium 137 Potassium 4.2 Chloride 95 L Carbon Dioxide 28 Anion Gap 14 BUN 21 H Creatinine 2.4 H Creat Clearance w eGFR POC Glucometer 244 Random Glucose 168 H D Calcium 7.4 L Phosphorus 3.9 Magnesium Total Bilirubin AST ALT Alkaline Phosphatase Total Protein Albumin 01/08/17 01/08/17 12:42 12:42 WBC 12.1 H RBC 3.74 Hgb 10.8 Hct 33.7 MCV 90.1 MCHC 32.1 RDW 16.5 H Plt Count 350 MPV 8.9 Neutrophils % 80.0 Lymphocytes % 11.0 Monocytes % 6.7 Eosinophils % 1.3 Basophils % 1.0 Sodium 137 Potassium 4.1 Chloride 92 L Carbon Dioxide 29 Anion Gap 16 BUN 23 H Creatinine 2.5 H Creat Clearance w eGFR 19.15 POC Glucometer Random Glucose 218 H D Calcium 7.7 L Phosphorus Magnesium 2.0 Total Bilirubin 0.5 AST 22 ALT 13 Alkaline Phosphatase 178 H Total Protein 5.4 L Albumin 1.7 L Problem List - Problems (1) DKA (diabetic ketoacidosis) Code(s): E13.10 - OTH DIABETES MELLITUS WITH KETOACIDOSIS WITHOUT COMA (2) Empyema of left pleural space Code(s): J86.9 - PYOTHORAX WITHOUT FISTULA (3) NSTEMI (non-ST elevated myocardial infarction) Code(s): I21.4 - NON-ST ELEVATION (NSTEMI) MYOCARDIAL INFARCTION (4) Pneumonia Code(s): J18.9 - PNEUMONIA, UNSPECIFIED ORGANISM (5) DVT prophylaxis Code(s): UFX3230 - (6) Diabetes Code(s): E11.9 - TYPE 2 DIABETES MELLITUS WITHOUT COMPLICATIONS (7) Hypertension Code(s): I10 - ESSENTIAL (PRIMARY) HYPERTENSION (8) IDDM (insulin dependent diabetes mellitus) Code(s): E11.9 - TYPE 2 DIABETES MELLITUS WITHOUT COMPLICATIONS Z79.4 - [employer] (CURRENT) USE OF INSULIN Assessment/Plan Diabetic Ketoacidosis resolved Left Empyema s/p L VATS/pneumolysis/partial decortication/chest tube placement 12/30 Acute CVA +Troponins likely Demand Ischemia ESRD on HD HTN - ABX per ID - incentive spirometry - HD per renal - DVT prophylaxis - OOB to chair - D/C planning Dr Alejandro
--- NOTE | 2017-01-08 15:55 | PN ---
Progress Note (short form) - Note Progress Note: Renal Follow up fro ESRD on HD Pt seen and examined at the bedside had episode of emesis this am has some abd distension no feeling of nausea now s/p dialysis yesterday did have a BM this am Vital Signs Temperature 98.3 F 01/08/17 15:11 Pulse Rate 77 01/08/17 15:11 Respiratory Rate 20 01/08/17 15:11 Blood Pressure 122/53 01/08/17 15:11 O2 Sat by Pulse Oximetry (%) 94 L 01/07/17 21:00 Intake & Output 01/05/17 01/06/17 01/07/17 01/08/17 23:59 23:59 23:59 23:59 Intake Total 770 1070 500 Output Total 22 8 Balance 748 1062 500 Weight 215 lb 9.6 oz 210 lb 1.608 oz Gen: NAD, CVS: RRR, No M/R Lungs: Dec BS at lung bases, 1 chest tube left lung Abd: soft NT/ND Ext: trace to 1+ edema in LE CBC, BMP 01/08/17 12:42 01/08/17 12:42 Current Medications Acetaminophen (Tylenol -) 650 mg PO Q6H PRN PRN Reason: FEVER OR PAIN Last Admin: 01/06/17 22:07 Dose: 650 mg Aspirin (Ecotrin -) 81 mg PO DAILY [facility] Last Admin: 01/08/17 09:49 Dose: 81 mg Atorvastatin Calcium (Lipitor -) 20 mg PO HS [facility] Last Admin: 01/07/17 21:46 Dose: 20 mg Furosemide (Lasix -) 40 mg PO DAILY [facility] Last Admin: 01/08/17 09:49 Dose: 40 mg Gabapentin (Neurontin -) 100 mg PO TID [facility] Last Admin: 01/08/17 14:21 Dose: 100 mg Heparin Sodium (Porcine) (Heparin -) 5,000 unit SQ BID [facility] Last Admin: 01/08/17 09:49 Dose: 5,000 unit Insulin Aspart (Novolog Vial Sliding Scale -) 1 vial SQ ACHS [facility] PRN Reason: Protocol Last Admin: 01/08/17 12:50 Dose: 4 units Insulin Detemir (Levemir Vial) 3 units SQ BID@0700,2200 [facility] Last Admin: 01/08/17 09:48 Dose: 3 units Levothyroxine Sodium 100 mcg/ (Levothyroxine Sodium 75 mcg) 175 mcg PO DAILY@ 0700 [facility] Last Admin: 01/08/17 09:48 Dose: 175 mcg Losartan Potassium (Cozaar -) 25 mg PO DAILY [facility] Last Admin: 01/08/17 09:48 Dose: 25 mg Metoprolol Succinate (Toprol Xl -) 25 mg PO DAILY [facility] Last Admin: 01/08/17 09:49 Dose: 25 mg A/P breast ca s/p lumpectomy and chemotherapy, IDDM, HTN, and ESRD on HD M// who presented to the ED today via EMS after her dialysis center notified police that she missed her treatment on Thursday and was not answering the phone. 66 year old woman with PMhx of ESRD on HD, Breast Ca s/p Chemo and Lumpectomy, IDDM, Hypertension presented with AMS and found to have DKA, Acute CVA and Pnemothorax #ESRD on HD no acute indication for dialysis today increase dose of lasix to 80mg as 40mg is unlikely to have any effect in a patient with this degree of renal dysfunction #Empyema/Pneumothorax/Leukocytosis Continue Abx as per ID/Pulmonary chest tubes removed #Acute/Subacute CVA supportive Care Neurology follow up #Abdominal distension with N/V Ordered Abd x-ray, no signs of grossly dilated bowel loops, official read is pending Thank you Jose Carlos Wray DO
--- NOTE | 2017-01-08 17:18 | PN ---
Physical Exam: SUBJECTIVE: Patient seen and examined. Very pleased to have worked with PT. Looking forward to getting to rehab. Would like to go to [facility]. OBJECTIVE: Vital Signs Period Temp Pulse Resp BP Sys/Aguirre Pulse Ox Last 24 Hr 98 F-99.9 F 71-87 20-20 121-143/48-78 94-94 GENERAL/NEURO: Awake & alert. Conversational. No facial droop. No neuro focal deficits. EYES: PERRL, EOMI; anicteric; no ptosis LUNGS: Diminished bilaterally, poor effort HEART: Regular rate and rhythm, S1, S2 without murmur, rub or gallop. ABDOMEN: Soft, nontender, nondistended EXTREMITIES: Bilateral UE 2+ edema R>L; bilateral LE 3+ edema Laboratory Results - last 24 hr 01/07/17 01/07/17 01/08/17 17:19 21:21 05:25 WBC RBC Hgb Hct MCV MCHC RDW Plt Count MPV Neutrophils % Lymphocytes % Monocytes % Eosinophils % Basophils % Sodium Potassium Chloride Carbon Dioxide Anion Gap BUN Creatinine Creat Clearance w eGFR POC Glucometer 228 193 157 Random Glucose Calcium Phosphorus Magnesium Total Bilirubin AST ALT Alkaline Phosphatase Total Protein Albumin 01/08/17 01/08/17 01/08/17 05:35 05:35 11:30 WBC 11.3 H RBC 3.73 Hgb 10.7 Hct 33.6 MCV 90.2 MCHC 31.9 L RDW 16.2 H Plt Count 366 MPV 8.4 Neutrophils % 78.9 Lymphocytes % 12.4 Monocytes % 5.7 Eosinophils % 1.5 Basophils % 1.5 Sodium 137 Potassium 4.2 Chloride 95 L Carbon Dioxide 28 Anion Gap 14 BUN 21 H Creatinine 2.4 H Creat Clearance w eGFR POC Glucometer 244 Random Glucose 168 H D Calcium 7.4 L Phosphorus 3.9 Magnesium Total Bilirubin AST ALT Alkaline Phosphatase Total Protein Albumin 01/08/17 01/08/17 12:42 12:42 WBC 12.1 H RBC 3.74 Hgb 10.8 Hct 33.7 MCV 90.1 MCHC 32.1 RDW 16.5 H Plt Count 350 MPV 8.9 Neutrophils % 80.0 Lymphocytes % 11.0 Monocytes % 6.7 Eosinophils % 1.3 Basophils % 1.0 Sodium 137 Potassium 4.1 Chloride 92 L Carbon Dioxide 29 Anion Gap 16 BUN 23 H Creatinine 2.5 H Creat Clearance w eGFR 19.15 POC Glucometer Random Glucose 218 H D Calcium 7.7 L Phosphorus Magnesium 2.0 Total Bilirubin 0.5 AST 22 ALT 13 Alkaline Phosphatase 178 H Total Protein 5.4 L Albumin 1.7 L Active Medications Generic Name Dose Route Start Last Admin Trade Name Freq PRN Reason Stop Dose Admin Acetaminophen 650 mg 01/06/17 16:35 01/06/17 22:07 Tylenol - PO 650 mg Q6H PRN Administration FEVER OR PAIN Aspirin 81 mg 01/07/17 10:00 01/08/17 09:49 Ecotrin - PO 81 mg DAILY RE[facility]I Administration Atorvastatin Calcium 20 mg 01/06/17 22:00 01/07/17 21:46 Lipitor - PO 20 mg HS REJI Administration Furosemide 40 mg 01/07/17 10:00 01/08/17 09:49 Lasix - PO 40 mg DAILY REJI Administration Gabapentin 100 mg 01/06/17 14:00 01/08/17 14:21 Neurontin - PO 100 mg TID REJI Administration Heparin Sodium (Porcine) 5,000 unit 01/06/17 22:00 01/08/17 09:49 Heparin - SQ 5,000 unit BID REJI Administration Vancomycin HCl 250 mls @ 166.667 mls/hr 01/09/17 09:00 Vancomycin (Pre-Docked) IVPB 01/09/17 10:29 ONCE ONE Protocol Insulin Aspart 1 vial 01/06/17 22:00 01/08/17 12:50 Novolog Vial Sliding Scale - SQ 4 units ACHS REJI Administration Protocol Insulin Detemir 3 units 01/06/17 22:00 01/08/17 09:48 Levemir Vial SQ 3 units BID@0700,2200 REJI Administration Levothyroxine Sodium 100 mcg/ 175 mcg 01/07/17 07:00 01/08/17 09:48 Levothyroxine Sodium 75 mcg PO 175 mcg DAILY@0700 REJI Administration Losartan Potassium 25 mg 01/07/17 10:00 01/08/17 09:48 Cozaar - PO 25 mg DAILY REJI Administration Metoprolol Succinate 25 mg 01/07/17 10:00 01/08/17 09:49 Toprol Xl - PO 25 mg DAILY REJI Administration Microbiology 12/30/16 16:40 Lung - Left Gram Stain - Final 12/30/16 16:40 Lung - Left Tissue Culture - Final Staphylococcus Epidermidis Staphylococcus Epidermidis#2 Staphylococcus Epidermidis#3 12/30/16 16:40 Lung - Left Anaerobic Culture - Final NO ANAEROBES WERE ISOLATED 12/30/16 15:10 Pleural Fluid Gram Stain - Final 12/30/16 15:10 Pleural Fluid Body Fluid Culture - Final NO GROWTH OF AEROBIC ORGANISMS AFTER 48 HOURS INCUBATION 12/30/16 15:10 Pleural Fluid Anaerobic Culture - Final NO ANAEROBES WERE ISOLATED 12/27/16 15:25 Blood - Peripheral Venous Blood Culture - Final NO GROWTH AFTER 5 DAYS INCUBATION 12/27/16 15:20 Blood - Peripheral Venous Blood Culture - Final NO GROWTH AFTER 5 DAYS INCUBATION 12/30/16 14:30 Bronchial Washings - Left Upper Lobe Gram Stain - Final 12/30/16 14:30 Bronchial Washings - Left Upper Lobe Bronchoalveolar Lavage Culture - Final NORMAL RESPIRATORY LORNA 12/30/16 15:10 Pleural Fluid AFB Smear Concentration - Final 12/30/16 15:10 Pleural Fluid Mycobacterial Culture - Preliminary 12/26/16 13:57 Blood - Peripheral Venous Blood Culture - Final Staphylococcus Epidermidis 12/28/16 12:30 Blood - Peripheral Venous TB Test (QFT) (ALL) - Final 12/27/16 14:00 Pleural Fluid Gram Stain - Final 12/27/16 14:00 Pleural Fluid Body Fluid Culture - Final Staphylococcus Epidermidis 12/27/16 14:00 Pleural Fluid Anaerobic Culture - Final NO ANAEROBES WERE ISOLATED 12/26/16 13:57 Blood - Peripheral Venous Blood Culture - Final NO GROWTH AFTER 5 DAYS INCUBATION 12/30/16 15:10 Pleural Fluid SCOTT Preparation - Preliminary 12/30/16 15:10 Pleural Fluid Fungal Culture - Preliminary 12/28/16 11:30 Pleural Fluid AFB Smear Concentration - Final Imaging 12/26 Echo: mild cLVH, LV function normal; RV normal; LAE; mild MR; mild TR; mild to moderate and AI 12/26 CT head x 2: acute/subacute infarct 3.5 x 2cm right cerebellar hemisphere 12/27 US carotids: extensive atherosclerotic disease; 60-79% stenosis bilaterally R>L 12/29 MRI Brain: (1) large right inferior cerebellar acute/subacute infarct; (2) acute/subacute cortical infarct at the right junction of the medulla oblongata and cervical cord as well as a couple of acute/subactute lacunar infarcts in the left frontal lobe and likely in the right occipital lobe ASSESSMENT/PLAN 66 year-old woman with a PMH of HTN, HDL, IDDM, breast cancer s/p lumpectomy/ chemotherapy, hypothyroidism, and ESRD on HD. Admitted for DKA, pneumonia, and CVA. Hospital course complicated by spontaneous pneumothorax. s/p VATS. Pneumonia Empyema s/p Left VATS 12/30 --chest tubes out --WBC mildly elevated --continue Vanc with dialysis x 2 more doses IDDM DKA, resolved Lactic acidosis, resolved --Novolog sliding scale coverage Acute CVA --see imaging findings above --continue ASA, Lipitor Demand ischemia Elevated troponins --troponin 0.9 on admission, trended down --likely demand ischemia in setting of DKA, CVA, missed HD ESRD on HD (M,W,F) --dialysis tomorrow Hypertension --BP well-controlled --continue metoprolol, lasix Hyperlipidemia --continue Lipitor Hypothyroidism --continue levothyroxine F/E/N Fluids: PO intake adequate Electrolytes: replete as indicated Nutrition: soft DVT prophylaxis: subq heparin, SCDs Physical therapy evaluation Daily PT Dispo: continues to require inpatient care. Discharge planning. Full Code. Visit type - Emergency Visit Emergency Visit: Yes ED Registration Date: 12/26/16 Care time: The patient presented to the Emergency Department on the above date and was hospitalized for further evaluation of their emergent condition. - New Patient This patient is new to me today: No - Critical Care Critical Care patient: No
[2017-01-08] MEDS: ATORVASTATIN CA 20 MG TABLET (FP) PO SCH (22:17)
[2017-01-09] MEDS ORDERED: LEVOTHYROXINE NA 100 MCG TABLET (FP) ONE (07:09)
[2017-01-09] MEDS ORDERED: LEVOTHYROXINE NA 75 MCG TABLET (FP) ONE (07:09)
[2017-01-09] MEDS: GABAPENTIN 100 MG CAPSULE (FP) PO SCH ×2 (07:11→14:03)
[2017-01-09] MEDS: LEVOTHYROXINE 100 MCG, LEVOTHYROXINE 75 MCG PO SCH (07:11)
[2017-01-09] MEDS: INSULIN DETEMIR 100 UNITS/ML MDV SQ SCH (07:12)
[2017-01-09] MEDS: INSULIN SLIDING SCALE (NOVOLOG) 1 VIAL SQ SCH ×3 (07:16→17:07)
[2017-01-09] MEDS ORDERED: FUROSEMIDE 40 MG TABLET (FP) PO SCH (08:45)
[2017-01-09] MEDS ORDERED: VANCOMYCIN 1 GRAM (PRE-DOCKED) 250 ML IVPB ONE (09:00)
[2017-01-09] MEDS: HEPARIN NA (PORCINE) 5,000 UNITS/ML 1ML VIAL SQ SCH (09:56)
[2017-01-09] MEDS: LOSARTAN POTASSIUM 25 MG TABLET PO SCH (09:57)
[2017-01-09] MEDS: ASPIRIN COATED 81 MG TABLET.EC PO SCH (09:57)
[2017-01-09] MEDS: METOPROLOL SUCCINATE 25 MG TAB.SR.24H (FP) PO SCH (09:58)
--- NOTE | 2017-01-09 10:44 | PN ---
Progress Note (short form) - Note Progress Note: Chief Complaint: CVA, PSVT S: no cp, palps, sob, dizziness. Current Medications Generic Name Dose Route Start Last Admin Trade Name Frelilly PRN Reason Stop Dose Admin Acetaminophen 650 mg 01/06/17 16:35 01/06/17 22:07 Tylenol - PO 650 mg Q6H PRN Administration FEVER OR PAIN Aspirin 81 mg 01/07/17 10:00 01/09/17 09:57 Ecotrin - PO 81 mg DAILY REJI Administration Atorvastatin Calcium 20 mg 01/06/17 22:00 01/08/17 22:17 Lipitor - PO 20 mg HS REJI Administration Furosemide 80 mg 01/09/17 08:45 01/09/17 09:57 Lasix - PO 80 mg DAILY REJI Administration Gabapentin 100 mg 01/06/17 14:00 01/09/17 07:11 Neurontin - PO 100 mg TID REJI Administration Heparin Sodium (Porcine) 5,000 unit 01/06/17 22:00 01/09/17 09:56 Heparin - SQ 5,000 unit BID REJI Administration Vancomycin HCl 250 mls @ 166.667 mls/hr 01/09/17 09:00 Vancomycin (Pre-Docked) IVPB 01/09/17 10:29 ONCE ONE Protocol Insulin Aspart 1 vial 01/06/17 22:00 01/09/17 07:16 Novolog Vial Sliding Scale - SQ Not Given ACHS [facility] Protocol Insulin Detemir 3 units 01/06/17 22:00 01/09/17 07:12 Levemir Vial SQ 3 units BID@0700,2200 REJI Administration Levothyroxine Sodium 100 mcg/ 175 mcg 01/07/17 07:00 01/09/17 07:11 Levothyroxine Sodium 75 mcg PO 175 mcg DAILY@0700 REJI Administration Losartan Potassium 25 mg 01/07/17 10:00 01/09/17 09:57 Cozaar - PO 25 mg DAILY REJI Administration Metoprolol Succinate 25 mg 01/07/17 10:00 01/09/17 09:58 Toprol Xl - PO 25 mg DAILY REJI Administration Vital Signs Period Temp Pulse Resp BP Sys/Aguirre Pulse Ox Last 24 Hr 97.5 F-98.7 F 71-77 18-20 122-170/48-78 97 Constitutional: Yes: No Distress, Calm Eyes: No: Sclera Icterus HENT: No: Nasal Congestion Cardiovascular: Yes: Regular Rate and Rhythm, S1, S2, Other (PMI non diplaced). No: JVD, Gallop, Murmur Respiratory: Yes: B/l rhonchi No: Accessory Muscle Use, Rales, Wheezes Gastrointestinal: Yes: Normal Bowel Sounds, Soft. No: Tenderness Musculoskeletal: Yes: Other (No kyphosis) Extremities: No: Cold. + rt sided weakness. Edema: No Integumentary: No: Jaundice diaphoresis Neurological: Yes: awake alert appropriate Psychiatric: No: Agitated Labs: CBC, BMP 01/08/17 12:42 01/08/17 12:42 tele: sr head CT: suspicion for acute/subacute cerebellar infarct brain MRI: large rt inf cerebellar acute/subacute infarct. acute/subacute lacunar infarct at rt medulla oblongata. acute/subacute lacunar infarct of left frontal lobe and possibly occipital lobe. meningioma. Echo here: nl lv/rv size/fn. mild lae, mod mac, mild-mod as/ar, mild mr/tr a/p: 66 yo with h/o left breast ca s/p lumpectomy and chemotherapy, SVT per patient's documentation, IDDM, HTN, thyroid disease and ESRD recently started on HD M/W/ who presented to the ED with altered mental status found to be in DKA and with acute cerebellar infarct. NSTEMI, likely Type II: - trop 0.9 on admit, trended down - likely demand ischemia in setting DKA, CVA and > volume overload sec to missed HD session. - normal LVEF with no RWMA on echo - no acute anti-PLT or AC treatment is indicated for Type II IA - fpc preventive therapy with statin, BB as doing (taking po now) - started ASA - should have risk stratification with nuclear stress test imaging later, after she recovers from acute illnesses AMS/possible acute brainstem CVA - MS change ? sec to hyperglycemia vs CVA --> improved - echo unrevealing - anti-PLT as per neuro, started ASA LLL PNA, empyema, PTX: -on abx -seen by thoracic surgery, considering VATS but started with chest tube given her recent CVA increasing risk of anesthesia, chest tube now removed PSVT - known hx, on atenolol 50 bid at home, held here for bradycardia - recurrent brief svt runs on tele here, toprol 25 qd started on 01/03 - prolonged run PSVT on tele at times--note: this is almost certain to be adenosine sensitive rhythm (likely AVNRT or AVRT) and should be well tolerated hemodynamically, hence can defer incr BB (until bradycardia/HD related hypotension issues resolved). Con't low dose metoprolol (avoiding atenolol due to ESRD) - cont tele HTN - cont arb, bb. monitor for hypotension esrd: -hd per renal
--- NOTE | 2017-01-09 11:27 | DS ---
Physical Exam: SUBJECTIVE: Patient seen and examined at bedside. OBJECTIVE: Vital Signs Period Temp Pulse Resp BP Sys/Aguirre Pulse Ox Last 24 Hr 97.5 F-98.7 F 71-77 18-20 122-170/48-78 97 PHYSICAL EXAM GENERAL/NEURO: Awake & alert. Conversational. No facial droop. No neuro focal deficits. EYES: PERRL, EOMI; anicteric; no ptosis LUNGS: Diminished bilaterally, poor effort HEART: Regular rate and rhythm, S1, S2 without murmur, rub or gallop. ABDOMEN: Soft, nontender, nondistended EXTREMITIES: Bilateral UE 2+ edema R>L; bilateral LE 3+ edema LABS Laboratory Results - last 24 hr 01/08/17 01/08/17 01/08/17 11:30 12:42 12:42 WBC 12.1 H RBC 3.74 Hgb 10.8 Hct 33.7 MCV 90.1 MCHC 32.1 RDW 16.5 H Plt Count 350 MPV 8.9 Neutrophils % 80.0 Lymphocytes % 11.0 Monocytes % 6.7 Eosinophils % 1.3 Basophils % 1.0 Sodium 137 Potassium 4.1 Chloride 92 L Carbon Dioxide 29 Anion Gap 16 BUN 23 H Creatinine 2.5 H Creat Clearance w eGFR 19.15 POC Glucometer 244 Random Glucose 218 H D Calcium 7.7 L Magnesium 2.0 Total Bilirubin 0.5 AST 22 ALT 13 Alkaline Phosphatase 178 H Total Protein 5.4 L Albumin 1.7 L Random Vancomycin 01/08/17 01/08/17 01/09/17 16:53 21:00 05:35 WBC RBC Hgb Hct MCV MCHC RDW Plt Count MPV Neutrophils % Lymphocytes % Monocytes % Eosinophils % Basophils % Sodium Potassium Chloride Carbon Dioxide Anion Gap BUN Creatinine Creat Clearance w eGFR POC Glucometer 164 169 Random Glucose Calcium Magnesium Total Bilirubin AST ALT Alkaline Phosphatase Total Protein Albumin Random Vancomycin 16.465 01/09/17 06:23 WBC RBC Hgb Hct MCV MCHC RDW Plt Count MPV Neutrophils % Lymphocytes % Monocytes % Eosinophils % Basophils % Sodium Potassium Chloride Carbon Dioxide Anion Gap BUN Creatinine Creat Clearance w eGFR POC Glucometer 118 Random Glucose Calcium Magnesium Total Bilirubin AST ALT Alkaline Phosphatase Total Protein Albumin Random Vancomycin HOSPITAL COURSE: Date of Admission:12/26/16 Date of Discharge: 01/09/17 Imaging 12/26 Echo: mild cLVH, LV function normal; RV normal; LAE; mild MR; mild TR; mild to moderate and AI 12/26 CT head x 2: acute/subacute infarct 3.5 x 2cm right cerebellar hemisphere 12/27 US carotids: extensive atherosclerotic disease; 60-79% stenosis bilaterally R>L 12/29 MRI Brain: (1) large right inferior cerebellar acute/subacute infarct; (2) acute/subacute cortical infarct at the right junction of the medulla oblongata and cervical cord as well as a couple of acute/subactute lacunar infarcts in the left frontal lobe and likely in the right occipital lobe ASSESSMENT/PLAN 66 year-old woman with a PMH of HTN, HDL, IDDM, breast cancer s/p lumpectomy/ chemotherapy, hypothyroidism, and ESRD on HD. About 48 hours prior to arrival she fell and was on the floor for about 10 hours. The next day she failed to appear for HD. A neighbor went to check on her and found her lethargic and confused. Admitted for DKA, pneumonia, and CVA. Hospital course complicated by spontaneous pneumothorax, development of empyema, s/p VATS. Pneumonia Empyema s/p Left VATS 12/30/16 --chest tubes out at time of discharge --azithro course x 5 days complete; meropenem x 6 days complete; vanc dosed with HD course complete at time of discharge IDDM DKA, resolved Lactic acidosis, resolved --Novolog sliding scale coverage Acute CVA --see imaging findings above --continue ASA, Lipitor Demand ischemia Elevated troponins --troponin 0.9 on admission, trended down --likely demand ischemia in setting of DKA, CVA, missed HD ESRD on HD (M,W,F) --dialysis continued Hypertension --BP well-controlled --continue metoprolol, lasix Hyperlipidemia --continue Lipitor Hypothyroidism --continue levothyroxine Minutes to complete discharge: 35 Discharge Summary Reason For Visit: NSTEMI,DIABETIC KETOACIDOSIS,PNEUMONIA Current Active Problems Admission for dialysis and dialysis catheter care (Acute) DKA (diabetic ketoacidosis) (Acute) Empyema of left pleural space (Acute) NSTEMI (non-ST elevated myocardial infarction) (Acute) Pneumonia (Acute) Stroke (Acute) Condition: Improved - Instructions Referrals: John Pearson MD [Primary Care Provider] - Disposition: LONGTERM FACILITY - Home Medications Comprehensive Discharge Medication List: Ambulatory Orders Aspirin [ASA -] 325 mg PO DAILY 06/06/13 Levothyroxine [Synthroid -] 175 mcg PO DAILY 06/06/13 Multivitamin 1 tab PO DAILY 11/17/16 Allopurinol [Zyloprim -] 100 mg PO DAILY 12/26/16 Atorvastatin Ca [Lipitor] 20 mg PO HS tablet 01/09/17 Furosemide [Lasix -] 80 mg PO DAILY tablet 01/09/17 Gabapentin [Neurontin -] 100 mg PO TID #30 cap 01/09/17 Insulin (Levemir) [Levemir Vial] 3 units SQ BID@0700,2200 #3 unit 01/09/17 Insulin Sliding Scale [Novolog Vial Sliding Scale -] 1 vial SQ ACHS units 01/09 Metoprolol Succinate [Toprol XL -] 25 mg PO DAILY #30 cap 01/09/17 This patient is new to me today: No Emergency Visit: Yes ED Registration Date: 12/26/16 Care time: The patient presented to the Emergency Department on the above date and was hospitalized for further evaluation of their emergent condition. Critical Care patient: No - Discharge Referral Referred to [facility] Med P.C.: No
--- NOTE | 2017-01-09 11:27 | PN ---
Progress Note, Physician History of Present Illness: doing well no issues chest tubes removed - Current Medication List Current Medications: Active Medications Acetaminophen (Tylenol -) 650 mg PO Q6H PRN PRN Reason: FEVER OR PAIN Last Admin: 01/06/17 22:07 Dose: 650 mg Aspirin (Ecotrin -) [address] [facility] Last Admin: 01/09/17 09:57 Dose: 81 mg Atorvastatin Calcium (Lipitor -) [address] [facility] Last Admin: 01/08/17 22:17 Dose: 20 mg Furosemide (Lasix -) [address] [facility] Last Admin: 01/09/17 09:57 Dose: 80 mg Gabapentin (Neurontin -) [address] [facility] Last Admin: 01/09/17 07:11 Dose: 100 mg Heparin Sodium (Porcine) (Heparin -) 5,[address] [facility] Last Admin: 01/09/17 09:56 Dose: 5,000 unit Vancomycin HCl (Vancomycin (Pre-Docked)) 250 mls @ 166.667 mls/hr IVPB ONCE ONE PRN Reason: Protocol Stop: 01/09/17 10:29 Insulin Aspart (Novolog Vial Sliding Scale -) [address] [facility] PRN Reason: Protocol Last Admin: 01/09/17 07:16 Dose: Not Given Insulin Detemir (Levemir Vial) 3 units SQ BID@0700,2200 [facility] Last Admin: 01/09/17 07:12 Dose: 3 units Levothyroxine Sodium 100 mcg/ (Levothyroxine Sodium 75 mcg) 175 mcg PO DAILY@ 0700 [facility] Last Admin: 01/09/17 07:11 Dose: 175 mcg Losartan Potassium (Cozaar -) [address] [facility] Last Admin: 01/09/17 09:57 Dose: 25 mg Metoprolol Succinate (Toprol Xl -) [address] [facility] Last Admin: 01/09/17 09:58 Dose: 25 mg - Objective Vital Signs: Vital Signs Temperature 97.5 F L 01/09/17 06:00 Pulse Rate 71 01/09/17 06:00 Respiratory Rate 18 01/09/17 06:00 Blood Pressure 142/59 01/09/17 06:00 O2 Sat by Pulse Oximetry (%) 97 01/08/17 21:00 Constitutional: Yes: No Distress, Calm HENT: Yes: Atraumatic Cardiovascular: Yes: S1, S2 Respiratory: Yes: Regular, Poor Air Entry Gastrointestinal: Yes: Normal Bowel Sounds, Soft Musculoskeletal: Yes: WNL Extremities: Yes: WNL Wound/Incision: Yes: Dressing Dry and Intact Neurological: Yes: Alert, Oriented Psychiatric: Yes: Alert, Oriented Labs: CBC, BMP 01/08/17 12:42 01/08/17 12:42 INR, PTT INR 1.28 (0.82-1.09) H 12/31/16 05:20 Assessment/Plan cerebellar infarct LLL Pneumonia empyema s/p VATS PTX htn esrd leukocytosis ptx patient doing well post chest tube removal plan doing well continue current mgmt will need physio rest as per primary
--- NOTE | 2017-01-09 12:28 | PN ---
Progress Note (short form) - Note Progress Note: Renal Follow up fro ESRD on HD Pt seen and examined at the bedside no acute complaints no further episodes of N or V no chest pain or sob worked with PT yesterday due for dialysis today Vital Signs Temperature 97.5 F L 01/09/17 06:00 Pulse Rate 71 01/09/17 06:00 Respiratory Rate 18 01/09/17 06:00 Blood Pressure 142/59 01/09/17 06:00 O2 Sat by Pulse Oximetry (%) 97 01/08/17 21:00 Intake & Output 01/06/17 01/07/17 01/08/17 01/09/17 23:59 23:59 23:59 23:59 Intake Total 1070 500 200 200 Output Total 8 Balance 1062 500 200 200 Weight 210 lb 1.608 oz Gen: NAD, CVS: RRR, No M/R Lungs: Dec BS at lung bases, 1 chest tube left lung Abd: soft NT/ND Ext: trace to 1+ edema in LE CBC, BMP 01/08/17 12:42 01/08/17 12:42 Current Medications Acetaminophen (Tylenol -) 650 mg PO Q6H PRN PRN Reason: FEVER OR PAIN Last Admin: 01/06/17 22:07 Dose: 650 mg Aspirin (Ecotrin -) 81 mg PO DAILY [facility] Last Admin: 01/09/17 09:57 Dose: 81 mg Atorvastatin Calcium (Lipitor -) 20 mg PO HS [facility] Last Admin: 01/08/17 22:17 Dose: 20 mg Furosemide (Lasix -) 80 mg PO DAILY [facility] Last Admin: 01/09/17 09:57 Dose: 80 mg Gabapentin (Neurontin -) 100 mg PO TID [facility] Last Admin: 01/09/17 07:11 Dose: 100 mg Heparin Sodium (Porcine) (Heparin -) 5,000 unit SQ BID [facility] Last Admin: 01/09/17 09:56 Dose: 5,000 unit Vancomycin HCl (Vancomycin (Pre-Docked)) 250 mls @ 166.667 mls/hr IVPB ONCE ONE PRN Reason: Protocol Stop: 01/09/17 10:29 Insulin Aspart (Novolog Vial Sliding Scale -) 1 vial SQ ACHS REJI PRN Reason: Protocol Last Admin: 01/09/17 11:33 Dose: 2 units Insulin Detemir (Levemir Vial) 3 units SQ BID@0700,2200 [facility] Last Admin: 01/09/17 07:12 Dose: 3 units Levothyroxine Sodium 100 mcg/ (Levothyroxine Sodium 75 mcg) 175 mcg PO DAILY@ 0700 [facility] Last Admin: 01/09/17 07:11 Dose: 175 mcg Losartan Potassium (Cozaar -) 25 mg PO DAILY [facility] Last Admin: 01/09/17 09:57 Dose: 25 mg Metoprolol Succinate (Toprol Xl -) 25 mg PO DAILY [facility] Last Admin: 01/09/17 09:58 Dose: 25 mg A/P 66 year old woman with PMhx of ESRD on HD, Breast Ca s/p Chemo and Lumpectomy, IDDM, Hypertension presented with AMS and found to have DKA, Acute CVA and Pnemothorax #ESRD on HD for dialysis today with goal UF of 2L as tolerated #Empyema/Pneumothorax/Leukocytosis Continue Abx as per ID/Pulmonary chest tubes removed #Acute/Subacute CVA supportive Care Neurology follow up Physical therapy #Abdominal distension with N/V symptoms resolved official read of Abd X-ray pending Thank you Jose Carlos Wray DO
[2017-01-09 15:52] LABS: MCH 28.9 pg (25.7-33.7); MCHC 32.2 g/dl (32.0-36.0); MEAN CELL VOLUME 89.8 fl (80-96); MEAN PLT VOLUME 8.1 fl (7.5-11.1); PLATELET COUNT 353 K/MM3 (134-434); RDW 16.2 % (11.6-15.6); WHITE BLOOD COUNT 9.5 K/mm3 (4.0-10.0)
[2017-01-09 15:58] LABS: ALBUMIN 1.7 g/dl (3.4-5.0); BILIRUBIN,TOTAL 0.4 mg/dL (0.2-1.0); CALCIUM 7.8 mg/dL (8.5-10.1); COCKROFT - GAULT 33.15; CREATININE 2.4 mg/dL (0.55-1.02); PHOSPHOROUS 3.9 mg/dL (2.5-4.9); TOT PROT 5.2 g/dl (6.4-8.2)
[2017-01-09] MEDS ORDERED: VANCOMYCIN 500 MG/100 ML PRE-DOCKED IVPB ONE (17:00)
[2017-01-09 17:14] VITALS: TEMP 98.2
[2017-01-09 19:23] VITALS: PULSE 82
[2017-01-09 19:25] VITALS: BP 132/60
== END 2017-01-09 20:50 | DRG 163 ==
LOC: JER 11:21 → JERBED 13:55 → JICU 17:25 → J4S 01-06 18:30
PROVIDERS: ADMIT Internal Medicine; ATTEND Nurse Practitioner Acute Care
PROC: 5A1D60Z (ICD-10-PCS; 2016-12-26)
PROC: 0W9B30Z Drainage of Left Pleural Cavity with Drainage Device, Percutaneous Approach (ICD-10-PCS; principal; 2016-12-27)
PROC: 05HM33Z Insertion of Infusion Device into Right Internal Jugular Vein, Percutaneous Approach (ICD-10-PCS; 2016-12-29)
PROC: 0B9J8ZX Drainage of Left Lower Lung Lobe, Via Natural or Artificial Opening Endoscopic, Diagnostic (ICD-10-PCS; 2016-12-30)
PROC: 0BN Respiratory System, Release (ICD-10-PCS; 2016-12-30)
PROC: 0BJ08ZZ Inspection of Tracheobronchial Tree, Via Natural or Artificial Opening Endoscopic (ICD-10-PCS; 2016-12-30)
PROC: 0W9B30Z Drainage of Left Pleural Cavity with Drainage Device, Percutaneous Approach (ICD-10-PCS; 2016-12-30)
PROC: 0W9930Z Drainage of Right Pleural Cavity with Drainage Device, Percutaneous Approach (ICD-10-PCS; 2016-12-30)
PROC: 4A133B3 Monitoring of Arterial Pressure, Pulmonary, Percutaneous Approach (ICD-10-PCS; 2016-12-30)
PROC: 0BD Respiratory System, Extraction (ICD-10-PCS; 2016-12-30 13:00)
DX: J18.9 Pneumonia, unspecified organism (principal); N18.6 End stage renal disease; E10.10 Type 1 diabetes mellitus with ketoacidosis without coma; I63.8 Other cerebral infarction; I21.4 Non-ST elevation (NSTEMI) myocardial infarction; I63.9 Cerebral infarction, unspecified; G93.41 Metabolic encephalopathy; I12.0 Hypertensive chronic kidney disease with stage 5 chronic kidney disease or end stage renal disease; E87.1 Hypo-osmolality and hyponatremia; G81.91 Hemiplegia, unspecified affecting right dominant side; E87.2 Acidosis; J93.83 Other pneumothorax; I47.1 Supraventricular tachycardia; H47.619 Cortical blindness, unspecified side of brain; E88.09 Other disorders of plasma-protein metabolism, not elsewhere classified; R00.1 Bradycardia, unspecified; E03.9 Hypothyroidism, unspecified; Z99.2 Dependence on renal dialysis; Z85.3 Personal history of malignant neoplasm of breast; Z87.891 Personal history of nicotine dependence; Z79.4 Long term (current) use of insulin; J43.9 Emphysema, unspecified; D72.829 Elevated white blood cell count, unspecified; R13.10 Dysphagia, unspecified; E83.42 Hypomagnesemia
CPT/HCPCS: 36415; 36600; 70450-TC; 70544-TC; 70551-TC; 71010-TC; 71250-TC; 74000-TC; 80048; 80053; 80061; 80076; 82009; 82042; 82150; 82438; 82550; 82803; 82945; 82947; 83036; 83605; 83615; 83721; 83735; 84100; 84157; 84311; 84443; 84478; 84484; 85025; 85027; 85610; 85730; 86480; 86704; 86706; 86708; 86850; 86900; 86901; 86922; 87040; 87070; 87075; 87102; 87116; 87186; 87205; 87206; 87210; 87340; 88305-TC; 89051; 90670; 93005; 93010; 93306-TC; 93880-TC; 93970-TC; 93971-TC; 94002; 97162-PG; 99285-25; G0480; J1644; J2997